=== PATIENT | female | born 1970 | race Caucasian/White ===

== ENCOUNTER 2021-08-12 22:49 | Emergency (ER) | payer OTHER, SELFPAY ==
--- NOTE | ~2021-08-12 | US_ITS ---
EXAMINATION: US VENOUS ULTRASOUND WITH DOPPLER LOWER EXTREMITY, RIGHT CLINICAL INFORMATION: Swelling and pain in the right lower extremity. Elevated d-dimer. COMPARISON: None TECHNIQUE: Ultrasound of the deep veins is performed from the hip to the calf with compression sonography and color and pulse Doppler assessment. Spectral analysis with color-flow imaging is performed. FINDINGS: There is normal venous compression and respiratory variation and augmented flow. The visualized common femoral vein, superficial femoral vein, profunda femoral vein, popliteal vein, and the trifurcation region shows no evidence of deep venous thrombosis. There is no significant popliteal fossa cyst. Multiple normal lymph nodes are seen in the inguinal region If the patient's symptoms persist, followup ultrasound in 5 days 7 days might be of value to exclude proximal propagation from a non-visualized calf vein. US/US venous duplex LE RT IMPRESSION: No DVT demonstrated in the right lower extremity.
[2021-08-12 23:58] VITALS: BP 153/96; PULSE 85; RESP 20; TEMP 37; O2SAT 97; BMI 37.2
[2021-08-13 00:21] LABS: MANUAL DIFF FLAG NO
[2021-08-13 00:24] LABS: Basophils Percent Auto 0.6 % (0-2); Eosinophils Absolute Auto 0.2 X10*3/uL (0.0-0.4); Hematocrit 38.7 % (37.0-47.0); Hemoglobin 12.8 g/dl (12.0-16.0); Imm Gran Abs Auto 0.02 X10*3/uL (0.00-0.03); Imm Gran Pct Auto 0.3 % (0.0-0.4); Lymphocytes Absolute Auto 0.6 X10*3/uL (1.2-4.9); Lymphocytes Percent Auto 9.1 % (20-40); Mean Corpuscular HGB Conc 33.1 g/dl (31.0-35.0); Mean Corpuscular Volume 87.8 fL (80.0-98.0); Mean Platelet Volume 10.4 fL (9.4-12.3); Monocytes Absolute Auto 0.5 X10*3/uL (0.1-1.2); Monocytes Percent Auto 6.4 % (2-11); Neutrophils Absolute Auto 5.7 x10*3/uL (2.0-8.3); Neutrophils Percent Auto 80.6 % (45-73); Platelet Count 243 X10*3/uL (160-400); Red Blood Count 4.41 X10*6/uL (4.20-5.50); Red Cell Distribution Width 12.6 % (11.0-16.0)
[2021-08-13 00:40] LABS: Alanine Aminotransferase 46 U/L (0-31); Albumin Level 3.7 g/dL (3.5-5.0); Alkaline Phosphatase 124 U/L (39-117); Anion Gap 13 (12-20); Aspartate Amino Transferase 49 U/L (5-31); Bilirubin Total 0.3 mg/dL (0.0-1.0); Blood Urea Nitrogen 10 mg/dL (9-16); Calcium 8.8 mg/dL (8.4-10.2); Carbon Dioxide 23 mmol/L (22-29); Chloride 104 mmol/L (96-108); Creatinine Clr Calc Pharmacy 105.8; Estimated Glomerular Filt Rate > 60; Glucose Random 146 mg/dL (60-115); Potassium 4.2 mmol/L (3.3-5.1); Sodium 136 mmol/L (135-145); Total Protein 7.4 g/dL (6.5-8.0)
[2021-08-13 00:48] LABS: COVID-19 Test Negative (Negative); IDNOW Serial# 55D5AD1C
[2021-08-13 02:21] VITALS: BP 145/67; PULSE 72; RESP 18; O2SAT 97
--- NOTE | 2021-08-13 04:02 | ED.GENADULT ---
HPI - General Adult General Chief complaint: General Medical Stated complaint: R Knee pain/Shoulder pain Time Seen by Provider: 08/13/21 04:02 Source: patient and family Mode of arrival: ambulatory History of Present Illness HPI narrative: 50-year-old female who is recently moved here from [place], 6 months ago, who comes in for significant pain in her right knee with extension into the right hip joint and was being treated for rheumatoid arthritis with immune modulators in [place], but she states that [place] has had some difficulty in getting back on her regular medication. She states that her right knee has progressively become more painful and she has noted swelling in the right lower extremity and now it is painful for her to bear weight. Patient is noted to have prescriptions for prednisone, methotrexate (she states she has been unable to get this filled due to the need for verification from the prescriber). Patient denies any fever, chills, shortness of breath, chest pain/palpitations, urinary symptoms or GI symptoms. Related Data Allergies Allergy/AdvReac Type Severity Reaction Status Date / Time No Known Allergies Allergy Verified 08/12/21 23:58 Review of Systems Review of Systems: Pertinent positives and negatives as stated in HPI 10 point review of systems is otherwise negative. PMFSH Past Medical History Source: nursing notes reviewed Social History Social History Advance Directives: No Advance Directives Information Provided: No Physical Exam ED Vital Signs: Vital Signs - 24 hr 08/12/21 23:58 08/13/21 02:21 08/13/21 04:23 Temperature 98.6 F Pulse Rate 85 72 88 Respiratory Rate 20 18 18 Blood Pressure 153/96 H 145/67 H 145/62 H Pulse Oximetry 97 97 99 Oxygen Delivery Method Room Air Room Air Room Air 08/13/21 06:07 Temperature 98.1 F Pulse Rate 78 Respiratory Rate 14 Blood Pressure 108/61 Pulse Oximetry 99 Oxygen Delivery Method Room Air BMI result Body Mass Index 37.2 VITAL SIGNS: Reviewed. GENERAL: Elevated BMI Well developed, well nourished, in no acute distress. HEAD: Normocephalic/atraumatic EYES: PERRLA, EOMI EARS: Ext canals without abnormality OROPHARYNX: no oral lesions noted, posterior pharynx clear LUNGS: Normal breath sounds. No adventitious sounds or accessory muscle use. SpO2<97> CARDIOVASCULAR: Regular rate and rhythm without noted murmurs ABDOMEN: Soft, non-tender, non-distended with bowel sounds. MUSCULOSKELETAL: No tenderness, deformities, or effusions noted on gross inspection. EXTREMITIES: No cyanosis, clubbing or edema; asymmetrical size between left and right lower extremities, there is extensive venous varicosities without noted erythema or palpation of cords. Examination is somewhat limited by body habitus and unable to tell whether not there is swelling around the right knee but there is no erythema/induration. Patient is noted to range of motion at the hip as well as knee though she reports pain. SKIN: Inspection of the skin reveals no rashes NEUROLOGIC: Alert and oriented x 4. Strength and sensation to light touch were grossly intact x 4. Course Course Course Narrative: 50-year-old female with history of rheumatoid arthritis as well as fibromyalgia and presents with right knee pain, pain on bearing weight and noting that her leg is more swollen than the other. Review of all investigations otherwise negative except for demonstration of elevated inflammatory markers which are consistent with patient's underlying diagnosis rheumatoid arthritis in only recent medication initiation with prednisone while awaiting approval for methotrexate. Patient was started on prednisone yesterday, there was a noted elevated D-dimer and given patient's complaints regarding her right lower extremity a venous duplex was ordered and noted to be negative for DVT. Patient has had improvement of her pain and will be discharged home in stable condition with encouragement to continue with her prednisone. Medical Decision Making Lab Data Result diagrams: 08/13/21 00:08 08/13/21 00:08 Labs: Lab Results 08/13/21 08/13/21 08/13/21 Range/Units 00:08 00:08 00:08 WBC 7.0 (4.8-10.8) X10*3/uL RBC 4.41 (4.20-5.50) X10*6/uL Hgb 12.8 (12.0-16.0) g/dl Hct 38.7 (37.0-47.0) % MCV 87.8 (80.0-98.0) fL MCH 29.0 (27.0-33.0) pg MCHC 33.1 (31.0-35.0) g/dl RDW 12.6 (11.0-16.0) % Plt Count 243 (160-400) X10*3/uL MPV 10.4 (9.4-12.3) fL Immature Gran % (Auto) 0.3 (0.0-0.4) % Neut % (Auto) 80.6 H (45-73) % Lymph % (Auto) 9.1 L (20-40) % [place] % (Auto) 6.4 (2-11) % Eos % (Auto) 3.0 (0-4) % Baso % (Auto) 0.6 (0-2) % Lymph # (Auto) 0.6 L (1.2-4.9) X10*3/uL [place] # (Auto) 0.5 (0.1-1.2) X10*3/uL Eos # (Auto) 0.2 (0.0-0.4) X10*3/uL Baso # (Auto) 0.0 (0.0-0.2) X10*3/uL Abs Immat Gran (auto) 0.02 (0.00-0.03) X10*3/uL Absolute Neuts (auto) 5.7 (2.0-8.3) x10*3/uL Absolute Nucleated RBC 0.000 (0.0-0.012) X10*3/uL Nucleated RBC % (auto) 0.0 (0.0-0.2) /100WBC ESR (0-20) MM/HR D-Dimer High Sensitivty NG/ML Sodium 136 (135-145) mmol/L Potassium 4.2 (3.3-5.1) mmol/L Chloride 104 (96-108) mmol/L Carbon Dioxide 23 (22-29) mmol/L Anion Gap 13 (12-20) BUN 10 (9-16) mg/dL Creatinine 0.69 (0.5-1.4) mg/dL Estim Creat Clear Calc 105.8 Estimated GFR > 60 Random Glucose 146 H (60-115) mg/dL Calcium 8.8 (8.4-10.2) mg/dL Total Bilirubin 0.3 (0.0-1.0) mg/dL AST 49 H (5-31) U/L ALT 46 H (0-31) U/L Alkaline Phosphatase 124 H (39-117) U/L C-Reactive Protein 4.51 H (< or = 0.50) mg/dL Total Protein 7.4 (6.5-8.0) g/dL Albumin 3.7 (3.5-5.0) g/dL COVID-19 ([facility]) Negative (Negative) COVID-19 Clin Com See Note 08/13/21 08/13/21 Range/Units 00:08 04:16 WBC (4.8-10.8) X10*3/uL RBC (4.20-5.50) X10*6/uL Hgb (12.0-16.0) g/dl Hct (37.0-47.0) % MCV (80.0-98.0) fL MCH (27.0-33.0) pg MCHC (31.0-35.0) g/dl RDW (11.0-16.0) % Plt Count (160-400) X10*3/uL MPV (9.4-12.3) fL Immature Gran % (Auto) (0.0-0.4) % Neut % (Auto) (45-73) % Lymph % (Auto) (20-40) % [place] % (Auto) (2-11) % Eos % (Auto) (0-4) % Baso % (Auto) (0-2) % Lymph # (Auto) (1.2-4.9) X10*3/uL [place] # (Auto) (0.1-1.2) X10*3/uL Eos # (Auto) (0.0-0.4) X10*3/uL Baso # (Auto) (0.0-0.2) X10*3/uL Abs Immat Gran (auto) (0.00-0.03) X10*3/uL Absolute Neuts (auto) (2.0-8.3) x10*3/uL Absolute Nucleated RBC (0.0-0.012) X10*3/uL Nucleated RBC % (auto) (0.0-0.2) /100WBC ESR 82 H (0-20) MM/HR D-Dimer High Sensitivty 1071 NG/ML Sodium (135-145) mmol/L Potassium (3.3-5.1) mmol/L Chloride (96-108) mmol/L Carbon Dioxide (22-29) mmol/L Anion Gap (12-20) BUN (9-16) mg/dL Creatinine (0.5-1.4) mg/dL Estim Creat Clear Calc Estimated GFR Random Glucose (60-115) mg/dL Calcium (8.4-10.2) mg/dL Total Bilirubin (0.0-1.0) mg/dL AST (5-31) U/L ALT (0-31) U/L Alkaline Phosphatase (39-117) U/L C-Reactive Protein (< or = 0.50) mg/dL Total Protein (6.5-8.0) g/dL Albumin (3.5-5.0) g/dL COVID-19 ([facility]ON) (Negative) COVID-19 Clin Com Discharge Plan Discharge Clinical Impression: Rheumatoid arthritis Patient Disposition: Home, Self-Care Instructions: Rheumatoid Arthritis (ED) Additional Instructions: Reanude todos los medicamentos caseros seg?n lo prescrito. Creo que la prednisona que te fry recetado mejorar? poco a poco tus s?ntomas. Todas radha pruebas realizadas esta noche en la liza de emergencias fueron negativas para hallazgos agudos, lo m?s importante, no hay evidencia de un co?gulo dentro de [place] pierna. Fransisco un seguimiento con [place] proveedor de atenci?n primaria el lunes por la ma?annabella. Regrese a la liza de emergencias si los s?ntomas empeoran. Print Language: Irish
[2021-08-13 04:21] LABS: C Reactive Protein 4.51 mg/dL (< or = 0.50)
[2021-08-13 04:23] VITALS: BP 145/62; PULSE 88; RESP 18; O2SAT 99
[2021-08-13 04:29] LABS: D Dimer High Sensitivity 1071 NG/ML
[2021-08-13 04:50] LABS: Erythrocyte Sedimentation Rate 82 MM/HR (0-20)
[2021-08-13 06:07] VITALS: BP 108/61; PULSE 78; RESP 14; TEMP 36.7; O2SAT 99
== END 2021-08-13 07:23 | disposition home or self-care (01) ==
PROVIDERS: Emergency Provider Student in an Organized Health Care Education/Training Program
DX: M06.9 Rheumatoid arthritis, unspecified (principal); M25.561 Pain in right knee; Z20.822 Contact with and (suspected) exposure to COVID-19
CPT/HCPCS: 36415; 80053; 85025; 85379; 85652; 86140; 87635; 93971; 99284

== ENCOUNTER 2021-09-27 10:09 | Outpatient (REF) | payer OTHER, SELFPAY ==
--- NOTE | ~2021-09-27 | XR_ITS ---
EXAMINATION: XR hand wrist LT, XR hand wrist RT CLINICAL INFORMATION: Reason for Exam M05.741 - Rheumatoid arthritis with rheumatoid factor of right hand with... COMPARISON: None. TECHNIQUE: 3 views both hands, scaphoid views both wrists FINDINGS: Right hand: Normal osseous mineralization. No acute fracture or dislocation. Joint spaces at the wrist are maintained. Suspected erosive change at the margin of the ulnar styloid. No chondrocalcinosis. Scapholunate interval is maintained. MCP joint spaces are maintained. There is a marginal erosion along the radial head of the first metacarpal. Mild soft tissue swelling overlying the dorsal MCP's on the lateral view. IP joint spaces are maintained without erosion. Left hand: Normal osseous mineralization. No fracture or dislocation. Joint spaces at the wrist are maintained. No chondrocalcinosis or erosions. Small bone fragment adjacent to the ulnar styloid compatible with remote avulsive injury. MCP joint spaces are maintained. Suspected small erosion at the radial head at the first metacarpal. Mild soft tissue prominence in her swelling overlying the dorsal MCP's. Mild fourth DIP joint space narrowing with mild subchondral sclerosis. IP joint spaces are otherwise maintained without erosion. XR/XR hand wrist LT IMPRESSION: 1. Marginal erosions at the first metacarpal heads of both hands and the right ulnar styloid. 2. Relatively preserved joint spaces bilaterally. 3. Mild soft tissue prominence possibly mild swelling overlying the dorsal MCP joints. Correlate with exam.
--- NOTE | ~2021-09-27 | XR_ITS ---
EXAMINATION: XR hand wrist LT, XR hand wrist RT CLINICAL INFORMATION: Reason for Exam M05.741 - Rheumatoid arthritis with rheumatoid factor of right hand with... COMPARISON: None. TECHNIQUE: 3 views both hands, scaphoid views both wrists FINDINGS: Right hand: Normal osseous mineralization. No acute fracture or dislocation. Joint spaces at the wrist are maintained. Suspected erosive change at the margin of the ulnar styloid. No chondrocalcinosis. Scapholunate interval is maintained. MCP joint spaces are maintained. There is a marginal erosion along the radial head of the first metacarpal. Mild soft tissue swelling overlying the dorsal MCP's on the lateral view. IP joint spaces are maintained without erosion. Left hand: Normal osseous mineralization. No fracture or dislocation. Joint spaces at the wrist are maintained. No chondrocalcinosis or erosions. Small bone fragment adjacent to the ulnar styloid compatible with remote avulsive injury. MCP joint spaces are maintained. Suspected small erosion at the radial head at the first metacarpal. Mild soft tissue prominence in her swelling overlying the dorsal MCP's. Mild fourth DIP joint space narrowing with mild subchondral sclerosis. IP joint spaces are otherwise maintained without erosion. XR/XR hand wrist RT IMPRESSION: 1. Marginal erosions at the first metacarpal heads of both hands and the right ulnar styloid. 2. Relatively preserved joint spaces bilaterally. 3. Mild soft tissue prominence possibly mild swelling overlying the dorsal MCP joints. Correlate with exam.
--- NOTE | ~2021-09-27 | XR_ITS ---
EXAMINATION: XR foot RT min 3V, XR foot LT min 3V CLINICAL INFORMATION: Reason for Exam M25.572 - Pain in the ankle and joints of both feet COMPARISON: None. TECHNIQUE: 3 views lateral feet FINDINGS: Right foot: No acute fracture or dislocation. Healed fracture deformities of the distal fourth and fifth metatarsals. Small marginal erosion at the medial aspect of the first metatarsal head as seen on the oblique view. No additional erosions. Joint spaces throughout the foot are maintained. Normal alignment at the Lisfranc joint. No erosive changes in the region of the retrocalcaneal bursa. No ankle joint effusion. Left foot: No fracture or dislocation. Suggestion of minimal first MTP joint space narrowing. There are marginal erosions at the first metatarsal head both medially and laterally. Slightly eroded appearance of the margin of the fifth metatarsal head as well. Remainder of the joint spaces are maintained throughout the foot. Lisfranc alignment is normal. Small posterior calcaneal spur. No erosive change in the region of the retrocalcaneal bursa. No ankle joint effusion. XR/XR foot LT min 3V IMPRESSION: 1. Marginal erosions at the first metatarsal heads bilaterally and left fifth metatarsal head compatible with underlying erosive arthropathy. 2. Minimal left first MTP joint space narrowing. Joint spaces otherwise maintained. 3. Chronic/healed fracture deformities of the distal right fourth and fifth metatarsals.
--- NOTE | ~2021-09-27 | XR_ITS ---
EXAMINATION: XR foot RT min 3V, XR foot LT min 3V CLINICAL INFORMATION: Reason for Exam M25.572 - Pain in the ankle and joints of both feet COMPARISON: None. TECHNIQUE: 3 views lateral feet FINDINGS: Right foot: No acute fracture or dislocation. Healed fracture deformities of the distal fourth and fifth metatarsals. Small marginal erosion at the medial aspect of the first metatarsal head as seen on the oblique view. No additional erosions. Joint spaces throughout the foot are maintained. Normal alignment at the Lisfranc joint. No erosive changes in the region of the retrocalcaneal bursa. No ankle joint effusion. Left foot: No fracture or dislocation. Suggestion of minimal first MTP joint space narrowing. There are marginal erosions at the first metatarsal head both medially and laterally. Slightly eroded appearance of the margin of the fifth metatarsal head as well. Remainder of the joint spaces are maintained throughout the foot. Lisfranc alignment is normal. Small posterior calcaneal spur. No erosive change in the region of the retrocalcaneal bursa. No ankle joint effusion. XR/XR foot RT min 3V IMPRESSION: 1. Marginal erosions at the first metatarsal heads bilaterally and left fifth metatarsal head compatible with underlying erosive arthropathy. 2. Minimal left first MTP joint space narrowing. Joint spaces otherwise maintained. 3. Chronic/healed fracture deformities of the distal right fourth and fifth metatarsals.
[2021-09-27 10:47] LABS: MANUAL DIFF FLAG NO
[2021-09-27 10:49] LABS: Basophils Absolute Auto 0.1 X10*3/uL (0.0-0.2); Basophils Percent Auto 0.7 % (0-2); Eosinophils Absolute Auto 0.2 X10*3/uL (0.0-0.4); Hematocrit 44.1 % (37.0-47.0); Imm Gran Abs Auto 0.03 X10*3/uL (0.00-0.03); Imm Gran Pct Auto 0.4 % (0.0-0.4); Lymphocytes Absolute Auto 1.8 X10*3/uL (1.2-4.9); Lymphocytes Percent Auto 23.4 % (20-40); Mean Corpuscular HGB Conc 31.7 g/dl (31.0-35.0); Mean Corpuscular Hemoglobin 28.6 pg (27.0-33.0); Mean Platelet Volume 10.7 fL (9.4-12.3); Monocytes Absolute Auto 0.5 X10*3/uL (0.1-1.2); Monocytes Percent Auto 6.9 % (2-11); Neutrophils Absolute Auto 5.1 x10*3/uL (2.0-8.3); Neutrophils Percent Auto 66.6 % (45-73); Platelet Count 242 X10*3/uL (160-400); Red Cell Distribution Width 13.2 % (11.0-16.0); White Blood Count 7.7 X10*3/uL (4.8-10.8)
[2021-09-27 11:14] LABS: Alanine Aminotransferase 38 U/L (0-31); Albumin Level 3.7 g/dL (3.5-5.0); Alkaline Phosphatase 102 U/L (39-117); Anion Gap 17 (12-20); Aspartate Amino Transferase 28 U/L (5-31); Bilirubin Total 0.3 mg/dL (0.0-1.0); Blood Urea Nitrogen 16 mg/dL (9-16); C Reactive Protein 3.44 mg/dL (< or = 0.50); Calcium 9.1 mg/dL (8.4-10.2); Carbon Dioxide 25 mmol/L (22-29); Chloride 103 mmol/L (96-108); Estimated Glomerular Filt Rate > 60; Glucose Random 77 mg/dL (60-115); Potassium 4.6 mmol/L (3.3-5.1); Sodium 140 mmol/L (135-145); Total Protein 7.7 g/dL (6.5-8.0); Uric Acid 4.9 mg/dL (2.4-5.7)
[2021-09-27 11:46] LABS: Erythrocyte Sedimentation Rate 77 MM/HR (0-20)
[2021-09-30 03:42] LABS: TS Negative Control Passed; TS Panel A 0; TS Panel B 0; TS Positive Control Passed; TSpotTB Negative (Negative)
== END 2021-09-27 10:10 | disposition home or self-care (01) ==
LOC: HO.10HDL 10:09
PROVIDERS: PCP Physician Assistant; Visit Provider Student in an Organized Health Care Education/Training Program
DX: M05.741 Rheumatoid arthritis with rheumatoid factor of right hand without organ or systems involvement (principal); M05.742 Rheumatoid arthritis with rheumatoid factor of left hand without organ or systems involvement; M25.571 Pain in right ankle and joints of right foot; M25.572 Pain in left ankle and joints of left foot; Z11.7 Encounter for testing for latent tuberculosis infection
CPT/HCPCS: 36415; 73110; 73130; 73630; 80053; 84550; 85025; 85652; 86140; 86481

== ENCOUNTER 2021-10-06 10:52 | Outpatient (REF) | payer OTHER, SELFPAY ==
--- NOTE | ~2021-10-06 | MM_ITS ---
EXAMINATION: BONE DENSITOMETRY CLINICAL INDICATION: Screening for osteoporosis. COMPARISON: None (current study represents initial baseline exam). TECHNIQUE: Using a [employer] DXA System (software version: 13.1) manufactured by [employer], dual-energy x-ray absorptiometry was performed of the lumbar spine and left hip. The images are of good technical quality. Summary results are attached. FINDINGS: AP SPINE L1-L4: BMD 1.186 g/cm2, Z-score -0.4, T-score 0.0, normal. LEFT FEMUR, NECK: BMD 0.952 g/cm2, Z-score -0.4, T-score -0.6, normal. LEFT FEMUR, TOTAL: BMD 1.097 g/cm2, Z-score 0.5, T-score 0.7, normal. IDENTIFIED RISK FACTORS: Menopause, rheumatoid arthritis, glucocorticoids (chronic). HISTORY OF FRACTURE: None listed. MEDICATIONS: None listed. MM/XR DEXA axial skeleton IMPRESSION: 1. DIAGNOSIS: Normal bone density based on the lowest T-score value of -0.6 in the femoral neck applying World Health Organization criteria. 2. 10-YEAR FRACTURE RISK PREDICTION, FRAX: According to the guidelines, FRAX calculation should only be performed on patients in the osteopenia bone density category. Therefore, FRAX was not performed on this patient. 3. Treatment Recommendations: NOF guidelines recommend consideration for treatment in postmenopausal women and men age 50 and older presenting with the following: -A hip or vertebral (clinical or morphometric) fracture. -T-score less than or equal to -2.5 at the femoral neck or spine after appropriate evaluation to exclude secondary causes. -Low bone mass at the hip or spine and a 10-year fracture probability by FRAX of greater than or equal to 3% for hip fracture or greater than or equal to 20% for major osteoporotic fracture based on the [place] adapted WHO algorithm. 4. Other Recommendations: All treatment decisions require clinical judgment and consideration of individual patient factors, including patient preferences, comorbidities, previous drug use, risk factors not captured in the FRAX model (e.g. frailty, falls, vitamin D deficiency, increased bone turnover, interval significant decline in bone density) and possible under or overestimation of fracture risk by FRAX. FUTURE SCAN RECOMMENDATION: People with diagnosed cases of osteoporosis or at high risk for fracture should have regular bone mineral density tests. For patients eligible for Medicare, routine testing is allowed once every 2 years. The testing frequency can be increased to one year for patients who have rapidly progressing disease, those who are receiving or discontinuing medical therapy to restore bone mass, or have additional risk factors.
== END 2021-10-06 10:53 | disposition home or self-care (01) ==
LOC: HO.MAMMO 10:52
PROVIDERS: PCP Internal Medicine; Visit Provider Student in an Organized Health Care Education/Training Program
DX: Z13.820 Encounter for screening for osteoporosis (principal); M06.9 Rheumatoid arthritis, unspecified; Z78.0 Asymptomatic menopausal state; Z79.899 Other long term (current) drug therapy
CPT/HCPCS: 77080

== ENCOUNTER 2021-10-26 08:49 | Outpatient (REF) | payer OTHER, SELFPAY ==
[2021-10-26 10:34] LABS: MANUAL DIFF FLAG NO
[2021-10-26 10:52] LABS: Basophils Absolute Auto 0.1 X10*3/uL (0.0-0.2); Basophils Percent Auto 1.1 % (0-2); Eosinophils Absolute Auto 0.2 X10*3/uL (0.0-0.4); Eosinophils Percent Auto 4.3 % (0-4); Hematocrit 42.5 % (37.0-47.0); Hemoglobin 13.5 g/dl (12.0-16.0); Imm Gran Abs Auto 0.01 X10*3/uL (0.00-0.03); Imm Gran Pct Auto 0.2 % (0.0-0.4); Lymphocytes Absolute Auto 1.2 X10*3/uL (1.2-4.9); Lymphocytes Percent Auto 26.4 % (20-40); Mean Corpuscular HGB Conc 31.8 g/dl (31.0-35.0); Mean Corpuscular Hemoglobin 28.5 pg (27.0-33.0); Mean Corpuscular Volume 89.7 fL (80.0-98.0); Mean Platelet Volume 11.4 fL (9.4-12.3); Monocytes Absolute Auto 0.4 X10*3/uL (0.1-1.2); Monocytes Percent Auto 9.2 % (2-11); Neutrophils Absolute Auto 2.6 x10*3/uL (2.0-8.3); Neutrophils Percent Auto 58.8 % (45-73); Platelet Count 224 X10*3/uL (160-400); Red Blood Count 4.74 X10*6/uL (4.20-5.50); Red Cell Distribution Width 14.7 % (11.0-16.0); White Blood Count 4.4 X10*3/uL (4.8-10.8)
[2021-10-26 11:26] LABS: Alanine Aminotransferase 47 U/L (0-31); Alkaline Phosphatase 98 U/L (39-117); Anion Gap 15 (12-20); Aspartate Amino Transferase 43 U/L (5-31); Bilirubin Total 0.6 mg/dL (0.0-1.0); Blood Urea Nitrogen 12 mg/dL (9-16); C Reactive Protein 4.39 mg/dL (< or = 0.50); Carbon Dioxide 28 mmol/L (22-29); Chloride 102 mmol/L (96-108); Estimated Glomerular Filt Rate > 60; Glucose Random 81 mg/dL (60-115); Potassium 4.3 mmol/L (3.3-5.1); Sodium 141 mmol/L (135-145); Total Protein 7.7 g/dL (6.5-8.0)
[2021-10-26 11:55] LABS: Erythrocyte Sedimentation Rate 72 MM/HR (0-20)
[2021-10-31 14:06] LABS: Vitamin D 25-OH, D2 <4 ng/mL; Vitamin D 25-OH, D3 28 ng/mL; Vitamin D 25-OH, Total 28 ng/mL (30-100)
== END 2021-10-26 08:50 | disposition home or self-care (01) ==
LOC: HO.10HDL 08:49
PROVIDERS: Visit Provider Student in an Organized Health Care Education/Training Program
DX: Z13.21 Encounter for screening for nutritional disorder (principal); M05.741 Rheumatoid arthritis with rheumatoid factor of right hand without organ or systems involvement; M05.742 Rheumatoid arthritis with rheumatoid factor of left hand without organ or systems involvement
CPT/HCPCS: 36415; 80053; 82306; 85025; 85652; 86140

== ENCOUNTER 2021-12-07 10:17 | Outpatient (REF) | payer OTHER, SELFPAY ==
[2021-12-07 13:44] LABS: MANUAL DIFF FLAG NO
[2021-12-07 13:51] LABS: Basophils Absolute Auto 0.1 X10*3/uL (0.0-0.2); Basophils Percent Auto 0.8 % (0-2); Eosinophils Absolute Auto 0.3 X10*3/uL (0.0-0.4); Eosinophils Percent Auto 3.7 % (0-4); Hematocrit 37.2 % (37.0-47.0); Hemoglobin 12.1 g/dl (12.0-16.0); Imm Gran Abs Auto 0.06 X10*3/uL (0.00-0.03); Imm Gran Pct Auto 0.8 % (0.0-0.4); Lymphocytes Absolute Auto 1.9 X10*3/uL (1.2-4.9); Lymphocytes Percent Auto 25.8 % (20-40); Mean Corpuscular HGB Conc 32.5 g/dl (31.0-35.0); Mean Corpuscular Volume 92.3 fL (80.0-98.0); Mean Platelet Volume 10.7 fL (9.4-12.3); Monocytes Absolute Auto 0.5 X10*3/uL (0.1-1.2); Monocytes Percent Auto 6.3 % (2-11); Neutrophils Absolute Auto 4.6 x10*3/uL (2.0-8.3); Neutrophils Percent Auto 62.6 % (45-73); Platelet Count 320 X10*3/uL (160-400); Red Blood Count 4.03 X10*6/uL (4.20-5.50); Red Cell Distribution Width 15.9 % (11.0-16.0); White Blood Count 7.3 X10*3/uL (4.8-10.8)
[2021-12-07 14:00] LABS: Alanine Aminotransferase 25 U/L (0-31); Albumin Level 3.6 g/dL (3.5-5.0); Alkaline Phosphatase 93 U/L (39-117); Anion Gap 13 (12-20); Aspartate Amino Transferase 22 U/L (5-31); Bilirubin Total 0.6 mg/dL (0.0-1.0); Blood Urea Nitrogen 16 mg/dL (9-16); C Reactive Protein 2.82 mg/dL (< or = 0.50); Carbon Dioxide 27 mmol/L (22-29); Chloride 105 mmol/L (96-108); Estimated Glomerular Filt Rate > 60; Glucose Random 74 mg/dL (60-115); Sodium 141 mmol/L (135-145); Total Protein 6.8 g/dL (6.5-8.0)
[2021-12-07 14:30] LABS: Erythrocyte Sedimentation Rate 59 MM/HR (0-20)
== END 2021-12-07 10:18 | disposition home or self-care (01) ==
LOC: HO.10HDL 10:17
PROVIDERS: Visit Provider Student in an Organized Health Care Education/Training Program
DX: M05.741 Rheumatoid arthritis with rheumatoid factor of right hand without organ or systems involvement (principal); M05.742 Rheumatoid arthritis with rheumatoid factor of left hand without organ or systems involvement
CPT/HCPCS: 36415; 80053; 85025; 85652; 86140

== ENCOUNTER 2022-03-13 09:01 | Outpatient (REF) | payer OTHER, SELFPAY ==
[2022-03-13 09:24] LABS: MANUAL DIFF FLAG NO
[2022-03-13 10:21] LABS: Basophils Absolute Auto 0.1 X10*3/uL (0.0-0.2); Basophils Percent Auto 0.7 % (0-2); Eosinophils Absolute Auto 0.2 X10*3/uL (0.0-0.4); Eosinophils Percent Auto 2.4 % (0-4); Hematocrit 44.2 % (37.0-47.0); Hemoglobin 14.2 g/dl (12.0-16.0); Imm Gran Abs Auto 0.02 X10*3/uL (0.00-0.03); Imm Gran Pct Auto 0.3 % (0.0-0.4); Lymphocytes Absolute Auto 2.6 X10*3/uL (1.2-4.9); Lymphocytes Percent Auto 33.4 % (20-40); Mean Corpuscular HGB Conc 32.1 g/dl (31.0-35.0); Mean Corpuscular Hemoglobin 28.5 pg (27.0-33.0); Mean Corpuscular Volume 88.6 fL (80.0-98.0); Mean Platelet Volume 11.7 fL (9.4-12.3); Monocytes Absolute Auto 0.7 X10*3/uL (0.1-1.2); Monocytes Percent Auto 8.5 % (2-11); Neutrophils Absolute Auto 4.2 x10*3/uL (2.0-8.3); Neutrophils Percent Auto 54.7 % (45-73); Platelet Count 243 X10*3/uL (160-400); Red Blood Count 4.99 X10*6/uL (4.20-5.50); White Blood Count 7.6 X10*3/uL (4.8-10.8)
[2022-03-13 11:11] LABS: Erythrocyte Sedimentation Rate 26 MM/HR (0-20)
[2022-03-13 11:14] LABS: Alanine Aminotransferase 60 U/L (0-31); Albumin Level 3.9 g/dL (3.5-5.0); Alkaline Phosphatase 80 U/L (39-117); Anion Gap 13 (12-20); Aspartate Amino Transferase 38 U/L (5-31); Bilirubin Total 0.5 mg/dL (0.0-1.0); Blood Urea Nitrogen 16 mg/dL (9-16); C Reactive Protein 0.66 mg/dL (< or = 0.50); Calcium 9.2 mg/dL (8.4-10.2); Carbon Dioxide 23 mmol/L (22-29); Chloride 108 mmol/L (96-108); Estimated Glomerular Filt Rate > 60; Glucose Random 79 mg/dL (60-115); Potassium 3.9 mmol/L (3.3-5.1); Sodium 140 mmol/L (135-145); Total Protein 7.1 g/dL (6.5-8.0)
== END 2022-03-13 09:02 | disposition home or self-care (01) ==
LOC: HO.LAB 09:01
PROVIDERS: PCP Internal Medicine; Visit Provider Student in an Organized Health Care Education/Training Program
DX: M05.741 Rheumatoid arthritis with rheumatoid factor of right hand without organ or systems involvement (principal); M05.742 Rheumatoid arthritis with rheumatoid factor of left hand without organ or systems involvement
CPT/HCPCS: 36415; 80053; 85025; 85652; 86140

== ENCOUNTER 2022-03-16 07:26 | Outpatient (REF) | payer OTHER, SELFPAY ==
--- NOTE | ~2022-03-16 | XR_ITS ---
EXAMINATION: XR cervical spine 4V CLINICAL INFORMATION: Pain COMPARISON: None TECHNIQUE: 5 views of the cervical spine were obtained. FINDINGS: The cervical spine is visualized to the level of C6-C7 on the lateral view. Vertebral body alignment is maintained. Vertebral body heights are maintained. Lateral masses of C1 are well aligned on C2. Visualized portion of the dens is intact. Moderate degenerative disc disease at 5 C6 and C6-C7, manifested by loss of disc space height and facet arthropathy. Uncovertebral hypertrophy and facet arthropathy results in moderate neural foraminal narrowing on the right at C5-C6 and C6-C7 and in moderate neural foraminal narrowing on the left at C5-C6 and C6-C7. No prevertebral soft tissue swelling. XR/XR cervical spine 4V IMPRESSION: * Moderate spondylosis of the cervical spine, as above detailed. * Moderate neural foraminal narrowing, as above detailed.
--- NOTE | ~2022-03-16 | XR_ITS ---
EXAMINATION: XR LUMBOSACRAL SPINE WITH OBLIQUES CLINICAL INFORMATION: Reason for Exam M54.50 - Low back pain, unspecified COMPARISON: None TECHNIQUE: 5 views of the lumbar spine FINDINGS: Transitional anatomy. There are 4 nonrib-bearing lumbar-type vertebral bodies with sacralization of L5 and rudimentary L5-S1 disc space. Vertebral body heights are maintained. Alignment is maintained. No pars defects. Disc space heights are maintained. Paravertebral soft tissues are unremarkable. Generative changes of the XR/XR lumbar spine 4V min partially imaged hips. IMPRESSION: * No significant degenerative disc disease. * Transitional anatomy with 4 nonrib-bearing lumbar-type vertebral bodies and sacralization of L5-S1. If intervention is being considered recommend total spine radiographs to ensure accurate numbering.
--- NOTE | ~2022-03-16 | XR_ITS ---
EXAMINATION: XR SHOULDER, LEFT CLINICAL INFORMATION: Reason for Exam M05.741 - Rheumatoid arthritis with rheumatoid factor of right hand with... COMPARISON: None TECHNIQUE: Four views of the shoulder. FINDINGS: No acute fracture or dislocation. Mild degenerative changes of the acromioclavicular joint with degenerative spurring. No cortical erosions. Soft tissues are unremarkable. XR/XR shoulder LT min 2V IMPRESSION: * Mild degenerative changes of the shoulder.
== END 2022-03-16 07:27 | disposition home or self-care (01) ==
LOC: HO.XRAY 07:26
PROVIDERS: PCP Internal Medicine; Visit Provider Student in an Organized Health Care Education/Training Program
DX: M54.2 Cervicalgia (principal); M54.50 Low back pain, unspecified; M05.742 Rheumatoid arthritis with rheumatoid factor of left hand without organ or systems involvement; M05.741 Rheumatoid arthritis with rheumatoid factor of right hand without organ or systems involvement; M48.061 Spinal stenosis, lumbar region without neurogenic claudication; R74.01 Elevation of levels of liver transaminase levels; M17.11 Unilateral primary osteoarthritis, right knee; Z79.631 Long term (current) use of antimetabolite agent
CPT/HCPCS: 72050; 72110; 73030

== ENCOUNTER → 2022-04-03 14:34 | Outpatient (BNVA) | payer OTHER, SELFPAY | PROVIDERS: PCP Physician Assistant; Visit Provider Physician Assistant Surgical | DX: Z13.89 Encounter for screening for other disorder (principal) ==

== ENCOUNTER 2022-05-02 07:00 | Outpatient (RCR) | payer OTHER, SELFPAY | END 2022-05-19 15:11 | disposition home or self-care (01) | LOC: HO.PT 07:00 | PROVIDERS: PCP Physician Assistant; Visit Provider Student in an Organized Health Care Education/Training Program | DX: M48.061 Spinal stenosis, lumbar region without neurogenic claudication (principal) | CPT/HCPCS: 97110; 97140; 97161; 97530 ==

== ENCOUNTER → 2022-05-09 08:29 | Outpatient (BNVA) | payer OTHER, SELFPAY | PROVIDERS: PCP Physician Assistant; Visit Provider Physician Assistant Surgical | DX: Z13.89 Encounter for screening for other disorder (principal) ==

== ENCOUNTER 2022-05-11 09:52 | Outpatient (REF) | payer OTHER, SELFPAY ==
--- NOTE | ~2022-05-11 | XR_ITS ---
EXAMINATION: XR CHEST CLINICAL INFORMATION: Chronic cough. COMPARISON: None available. TECHNIQUE: 2 views of the chest were obtained. FINDINGS: No significant abnormality is noted involving the heart, lungs, mediastinum, bony thorax or soft tissues. XR/XR chest 2V IMPRESSION: No acute cardiopulmonary process.
[2022-05-11 10:22] LABS: MANUAL DIFF FLAG NO
[2022-05-11 11:04] LABS: Basophils Percent Auto 0.4 % (0-2); Eosinophils Absolute Auto 0.4 X10*3/uL (0.0-0.4); Eosinophils Percent Auto 8.3 % (0-4); Hematocrit 43.2 % (37.0-47.0); Imm Gran Abs Auto 0.02 X10*3/uL (0.00-0.03); Imm Gran Pct Auto 0.4 % (0.0-0.4); Lymphocytes Absolute Auto 1.6 X10*3/uL (1.2-4.9); Lymphocytes Percent Auto 30.5 % (20-40); Mean Corpuscular HGB Conc 32.4 g/dl (31.0-35.0); Mean Corpuscular Hemoglobin 29.2 pg (27.0-33.0); Mean Corpuscular Volume 90.2 fL (80.0-98.0); Mean Platelet Volume 11.4 fL (9.4-12.3); Monocytes Absolute Auto 0.4 X10*3/uL (0.1-1.2); Monocytes Percent Auto 8.5 % (2-11); Neutrophils Absolute Auto 2.6 x10*3/uL (2.0-8.3); Neutrophils Percent Auto 51.9 % (45-73); Platelet Count 207 X10*3/uL (160-400); Red Blood Count 4.79 X10*6/uL (4.20-5.50); Red Cell Distribution Width 14.7 % (11.0-16.0); White Blood Count 5.1 X10*3/uL (4.8-10.8)
[2022-05-11 11:38] LABS: Alanine Aminotransferase 96 U/L (0-31); Alkaline Phosphatase 96 U/L (39-117); Anion Gap 13 (12-20); Aspartate Amino Transferase 73 U/L (5-31); Bilirubin Total 0.7 mg/dL (0.0-1.0); Blood Urea Nitrogen 13 mg/dL (9-16); C Reactive Protein 1.55 mg/dL (< or = 0.50); Calcium 9.6 mg/dL (8.4-10.2); Carbon Dioxide 28 mmol/L (22-29); Chloride 107 mmol/L (96-108); Cholesterol 183 mg/dL; Estimated Glomerular Filt Rate > 60; Glucose Random 87 mg/dL (60-115); HDL Cholesterol 50 mg/dL; LDL Cholesterol Calculated 90 mg/dl; Potassium 4.6 mmol/L (3.3-5.1); Sodium 143 mmol/L (135-145); Total Protein 7.3 g/dL (6.5-8.0); Triglycerides 215 mg/dL
[2022-05-11 13:05] LABS: Erythrocyte Sedimentation Rate 33 MM/HR (0-20)
== END 2022-05-11 09:53 | disposition home or self-care (01) ==
LOC: HO.XRAY 09:52
PROVIDERS: Student in an Organized Health Care Education/Training Program; PCP Internal Medicine; Visit Provider Physician Assistant
DX: R05.3 Chronic cough (principal); E78.5 Hyperlipidemia, unspecified; Z79.631 Long term (current) use of antimetabolite agent
CPT/HCPCS: 36415; 71046; 80053; 80061; 85025; 85652; 86140

== ENCOUNTER → 2022-05-30 07:31 | Outpatient (BNVA) | payer OTHER, SELFPAY | PROVIDERS: PCP Internal Medicine; Visit Provider Student in an Organized Health Care Education/Training Program | DX: Z13.820 Encounter for screening for osteoporosis (principal); M17.11 Unilateral primary osteoarthritis, right knee; M05.741 Rheumatoid arthritis with rheumatoid factor of right hand without organ or systems involvement; M05.742 Rheumatoid arthritis with rheumatoid factor of left hand without organ or systems involvement; M48.061 Spinal stenosis, lumbar region without neurogenic claudication; M79.7 Fibromyalgia; R74.01 Elevation of levels of liver transaminase levels; E78.5 Hyperlipidemia, unspecified; Z79.52 Long term (current) use of systemic steroids | CPT/HCPCS: 99212 ==

== ENCOUNTER 2022-05-30 08:56 | Outpatient (REF) | payer OTHER, SELFPAY ==
[2022-05-30 10:42] LABS: MANUAL DIFF FLAG NO
[2022-05-30 10:50] LABS: Basophils Percent Auto 0.7 % (0-2); Eosinophils Absolute Auto 0.3 X10*3/uL (0.0-0.4); Hematocrit 42.4 % (37.0-47.0); Hemoglobin 13.6 g/dl (12.0-16.0); Imm Gran Abs Auto 0.02 X10*3/uL (0.00-0.03); Imm Gran Pct Auto 0.3 % (0.0-0.4); Lymphocytes Absolute Auto 1.3 X10*3/uL (1.2-4.9); Lymphocytes Percent Auto 22.3 % (20-40); Mean Corpuscular HGB Conc 32.1 g/dl (31.0-35.0); Mean Corpuscular Hemoglobin 29.6 pg (27.0-33.0); Mean Corpuscular Volume 92.2 fL (80.0-98.0); Mean Platelet Volume 11.8 fL (9.4-12.3); Monocytes Absolute Auto 0.4 X10*3/uL (0.1-1.2); Neutrophils Absolute Auto 3.9 x10*3/uL (2.0-8.3); Neutrophils Percent Auto 64.7 % (45-73); Platelet Count 229 X10*3/uL (160-400); Red Cell Distribution Width 13.8 % (11.0-16.0)
[2022-05-30 11:38] LABS: Erythrocyte Sedimentation Rate 34 MM/HR (0-20)
[2022-05-30 11:51] LABS: Alanine Aminotransferase 62 U/L (0-31); Albumin Level 3.9 g/dL (3.5-5.0); Alkaline Phosphatase 86 U/L (39-117); Anion Gap 12 (12-20); Aspartate Amino Transferase 48 U/L (5-31); Bilirubin Total 0.4 mg/dL (0.0-1.0); Blood Urea Nitrogen 19 mg/dL (9-16); C Reactive Protein 0.94 mg/dL (< or = 0.50); Calcium 9.1 mg/dL (8.4-10.2); Carbon Dioxide 27 mmol/L (22-29); Chloride 110 mmol/L (96-108); Cholesterol 198 mg/dL; Estimated Glomerular Filt Rate > 60; Glucose Random 100 mg/dL (60-115); HDL Cholesterol 53 mg/dL; LDL Cholesterol Calculated 109 mg/dl; Potassium 4.3 mmol/L (3.3-5.1); Sodium 145 mmol/L (135-145); Total Protein 7.1 g/dL (6.5-8.0); Triglycerides 184 mg/dL
== END 2022-05-30 08:57 | disposition home or self-care (01) ==
LOC: HO.10HDL 08:56
PROVIDERS: Visit Provider Student in an Organized Health Care Education/Training Program
DX: M05.741 Rheumatoid arthritis with rheumatoid factor of right hand without organ or systems involvement (principal); M05.742 Rheumatoid arthritis with rheumatoid factor of left hand without organ or systems involvement; E78.5 Hyperlipidemia, unspecified
CPT/HCPCS: 36415; 80053; 80061; 85025; 85652; 86140

== ENCOUNTER → 2022-05-31 08:38 | Outpatient (BNVA) | payer OTHER, SELFPAY | PROVIDERS: PCP Internal Medicine; Visit Provider Physician Assistant | DX: Z13.89 Encounter for screening for other disorder (principal) ==

== ENCOUNTER → 2022-06-28 09:14 | Outpatient (BNVA) | payer OTHER, SELFPAY | PROVIDERS: PCP Internal Medicine; Referring Provider Internal Medicine; Visit Provider Dietitian, Registered | DX: E66.3 Overweight (principal); Z90.3 Acquired absence of stomach [part of]; Z71.3 Dietary counseling and surveillance | CPT/HCPCS: 97802 ==

== ENCOUNTER 2022-07-04 06:38 | Outpatient (REF) | payer OTHER, SELFPAY ==
[2022-07-04 06:59] LABS: MANUAL DIFF FLAG NO
[2022-07-04 07:20] LABS: Basophils Absolute Auto 0.1 X10*3/uL (0.0-0.2); Basophils Percent Auto 0.6 % (0-2); Eosinophils Absolute Auto 0.4 X10*3/uL (0.0-0.4); Eosinophils Percent Auto 4.2 % (0-4); Hematocrit 45.3 % (37.0-47.0); Hemoglobin 14.1 g/dl (12.0-16.0); Imm Gran Abs Auto 0.03 X10*3/uL (0.00-0.03); Imm Gran Pct Auto 0.4 % (0.0-0.4); Lymphocytes Absolute Auto 2.2 X10*3/uL (1.2-4.9); Lymphocytes Percent Auto 26.7 % (20-40); Mean Corpuscular HGB Conc 31.1 g/dl (31.0-35.0); Mean Platelet Volume 11.3 fL (9.4-12.3); Monocytes Absolute Auto 0.5 X10*3/uL (0.1-1.2); Monocytes Percent Auto 6.3 % (2-11); Neutrophils Absolute Auto 5.2 x10*3/uL (2.0-8.3); Neutrophils Percent Auto 61.8 % (45-73); Platelet Count 239 X10*3/uL (160-400); Red Blood Count 4.87 X10*6/uL (4.20-5.50); Red Cell Distribution Width 12.3 % (11.0-16.0); White Blood Count 8.4 X10*3/uL (4.8-10.8)
[2022-07-04 07:54] LABS: Erythrocyte Sedimentation Rate 30 MM/HR (0-20)
[2022-07-04 07:55] LABS: Alanine Aminotransferase 40 U/L (0-31); Albumin Level 3.7 g/dL (3.5-5.0); Alkaline Phosphatase 85 U/L (39-117); Anion Gap 11 (12-20); Aspartate Amino Transferase 20 U/L (5-31); Bilirubin Total 0.4 mg/dL (0.0-1.0); Blood Urea Nitrogen 27 mg/dL (9-16); C Reactive Protein 0.81 mg/dL (< or = 0.50); Calcium 9.6 mg/dL (8.4-10.2); Carbon Dioxide 30 mmol/L (22-29); Chloride 107 mmol/L (96-108); Cholesterol 171 mg/dL; Estimated Glomerular Filt Rate 56; Glucose Random 89 mg/dL (60-115); HDL Cholesterol 48 mg/dL; LDL Cholesterol Calculated 88 mg/dl; Potassium 5.1 mmol/L (3.3-5.1); Sodium 143 mmol/L (135-145); Total Protein 6.9 g/dL (6.5-8.0); Triglycerides 179 mg/dL
== END 2022-07-04 06:39 | disposition home or self-care (01) ==
LOC: HO.LAB 06:38
PROVIDERS: Visit Provider Student in an Organized Health Care Education/Training Program
DX: M05.741 Rheumatoid arthritis with rheumatoid factor of right hand without organ or systems involvement (principal); M05.742 Rheumatoid arthritis with rheumatoid factor of left hand without organ or systems involvement; E78.5 Hyperlipidemia, unspecified
CPT/HCPCS: 36415; 80053; 80061; 85025; 85652; 86140

== ENCOUNTER → 2022-07-26 09:47 | Outpatient (BNVA) | payer OTHER, SELFPAY | PROVIDERS: PCP Internal Medicine; Visit Provider Physician Assistant ==

== ENCOUNTER 2022-08-05 07:10 | Outpatient (REF) | payer OTHER, SELFPAY ==
[2022-08-05 08:46] LABS: Alanine Aminotransferase 38 U/L (0-31); Albumin Level 3.8 g/dL (3.5-5.0); Alkaline Phosphatase 74 U/L (39-117); Anion Gap 14 (12-20); Aspartate Amino Transferase 27 U/L (5-31); Bilirubin Total 0.5 mg/dL (0.0-1.0); Blood Urea Nitrogen 18 mg/dL (9-16); C Reactive Protein 0.43 mg/dL (< or = 0.50); Calcium 9.6 mg/dL (8.4-10.2); Carbon Dioxide 25 mmol/L (22-29); Chloride 109 mmol/L (96-108); Cholesterol 196 mg/dL; Estimated Glomerular Filt Rate > 60; Glucose Random 89 mg/dL (60-115); HDL Cholesterol 61 mg/dL; LDL Cholesterol Calculated 103 mg/dl; Potassium 3.8 mmol/L (3.3-5.1); Sodium 144 mmol/L (135-145); Total Protein 7.3 g/dL (6.5-8.0); Triglycerides 164 mg/dL
== END 2022-08-05 07:11 | disposition home or self-care (01) ==
LOC: HO.LAB 07:10
PROVIDERS: PCP Physician Assistant; Visit Provider Student in an Organized Health Care Education/Training Program
DX: E78.5 Hyperlipidemia, unspecified (principal); M05.741 Rheumatoid arthritis with rheumatoid factor of right hand without organ or systems involvement; M05.742 Rheumatoid arthritis with rheumatoid factor of left hand without organ or systems involvement
CPT/HCPCS: 36415; 80053; 80061; 85025; 85652; 86140

== ENCOUNTER 2022-08-17 10:04 | Outpatient (AMB) | payer OTHER, SELFPAY ==
--- NOTE | 2022-08-17 10:06 | A.OFFVIS_ITS ---
Intake VS Expanded 08/17/22 10:11 Height 5 ft 3 in Weight 204 lb 9.6 oz BMI 36.2 BP 136/60 Blood Pressure Location Rt brachial Blood Pressure Position Sitting Pulse 71 Pulse Source Pulse Oximeter Temp 96.6 F L Temperature Source Temporal Artery Scan Pulse Oximetry 98 Oxygen Delivery Method Room Air Body Fat 92.0 Body Fat Percentage 44.9 Free Fat Mass 112.6 Muscle Mass 107.0 Visceral Mass 12.0 Water Mass 80.0 BMR 1,579 Intake Visit Reasons: (OV) F/U SWL Allergies No Known Allergies Allergy (Verified 08/17/22 10:10) HPI HPI Comments History of Present Illness Details [facility] patient, [employer] on 05/31/22 at 216.8 lbs, saw Janki on 06/28 at 205 lbs at which time she was not eating enough or following our plan well. No weight loss since then. Was not able to watch the online classes. She is not able to cook food in her home only has access to other peoples food and not on our meal plan. Herbal life shake in am. Then eats whatever she has access to. Exercise - started on treadmill but hurt her low back and stopped. [facility] Medical History (Updated 05/31/22 @ 08:45 by Laura Lozano PA-C) Anxiety and depression Bilateral carpal tunnel syndrome Fibromyalgia Herniated disc, cervical Hypothyroidism Low back pain, unspecified Peripheral artery disease Surgical History H/O lateral meniscus repair of right knee History of knee replacement History of surgery History of surgery Hx of cholecystectomy Hx of right knee surgery Family History Sister Fibromyalgia Paternal Aunt Arthritis Other Rheumatoid arthritis Social History Household Members: Family Alcohol intake: former Year quit: 2016 Patient Tobacco Use Status: Former Tobacco user Quit Date: 2016 Physical Exam Vital Signs: Last Vital Signs Temp 96.6 F L 08/17/22 10:11 Pulse 71 08/17/22 10:11 BP 136/60 08/17/22 10:11 Pulse Ox 98 08/17/22 10:11 Oxygen Delivery Method Room Air 08/17/22 10:11 BMI result Body Mass Index 36.2 Assessment & Plan Assessment & Plan (1) Obesity: Code(s): E66.9 - Obesity, unspecified Plan: Pt started in our [facility] program and lost 12.9 lbs or 5.9%. She states she is unable to contineu in our program with her living situation. But is open to ideas for meals and exercise. breakfast - shake lunch- shake or if at her sisters house have meal of protein/veg and 1/2 c carb or open face sandwich snack - bar or yogurt dinner - same as lunch - or if at at lunch time has a shake Exercise - LS videos 1 mile every other day x 2weeks, then 4 times per week and add 2 mile videos, plan is to advance to 5d/wk 2 mile videos. We are emailing her the [facility] videos to watch. No other appts per patient. Patient is obese and is not considered stable at this time. I spent 30 minutes in total with patient reviewing/updating records, examining the patient and counseling the patient on weight management as detailed above. Coding Level of Care Code Est Pt Level 4 (25721) Diagnoses Obesity E66.9
[2022-08-17 10:11] VITALS: BP 136/60; PULSE 71; TEMP 35.9; O2SAT 98; BMI 36.2
== END 2022-08-17 10:40 | disposition home or self-care (01) ==
PROVIDERS: PCP Internal Medicine; Visit Provider Physician Assistant
DX: E66.9 Obesity, unspecified (principal); Z68.36 Body mass index [BMI] 36.0-36.9, adult
CPT/HCPCS: 99214

== ENCOUNTER → 2022-08-17 10:04 | Outpatient (BNVA) | payer OTHER, SELFPAY | PROVIDERS: PCP Internal Medicine; Visit Provider Physician Assistant ==

== ENCOUNTER 2022-09-01 07:27 | Outpatient (AMB) | payer OTHER, SELFPAY ==
[2022-09-01 07:37] VITALS: BP 135/84; PULSE 78; TEMP 36.6; O2SAT 96; BMI 36.7
--- NOTE | 2022-09-01 07:37 | MHC.OFFVIS ---
Intake Vital Signs 09/01/22 07:37 Height 5 ft 3 in Weight 207 lb 3.752 oz BMI 36.7 BP 135/84 Blood Pressure Location Rt brachial Position Sitting Pulse 78 Pulse Source Palpation Temp 97.9 F Temp Source Temporal Artery Scan Pulse Oximetry (%) 96 Oxygen Delivery Method Room Air Intake Visit Reasons: RA Allergies No Known Allergies Allergy (Verified 08/17/22 10:10) Medication List - Last Reconciled 09/01/22 by Petra Baron MD amitriptyline 100 mg PO BEDTIME celecoxib 100 mg PO BID PRN certolizumab pegol (Cimzia) 200 mg subcut Q2W certolizumab pegol (Cimzia Starter Kit) 400 mg (2 mL) subcut Q2W 3 doses docusate sodium 100 mg PO BID duloxetine 20 mg PO DAILY duloxetine 60 mg PO DAILY levothyroxine 100 mcg PO DAILY prednisone Take 3 tabs by mouth once daily with breakfast for 1 week then 2 tabs daily for 1 week then remain on 5 mg daily HPI HPI Comments History of Present Illness Details 51-year-old female with seropositive erosive (+++RF +++CCP) RA returns for follow-up. She has been using the Cimzia for the last 2 and half months. She has been getting pain in her lower back radiating to her right hip, recently she has been having pain in her left ankle and left foot. Also she has been headaches over the last few weeks. She attributes the headaches to Cimzia however her nephews father recently and she was in a a few days ago. She denies any pain or stiffness in her hands or wrists. Initial history: This is a 50-year-old female with a past medical history of anxiety, depression, lumbar spinal stenosis, and seropositive RA (+++CCP, +++RF) is referred for RA. Patient is originally from [place] then she moved to [place] about 10 months ago then to [place] recently. She lives alone in [place] and all her family is in the [place] She last saw her medical resident in November of last year. Patient was diagnosed in 2012 and her disease affects her shoulders, elbows, knees, feet, hands, & wrists. Her most recent regimen was Orencia 125 mg subQ, methotrexate 15 mg weekly and prednisone 5-10 mg a day. She has not received her Orencia in about 8-10 months. She was prescribed methotrexate by her primary provider about 3 weeks ago. Enbrel was not effective. Today she has severe pain and stiffness involving both shoulders, both wrists, hands,, her most severe pain is her right knee pain, she was told her right knee was bone on bone and that she might need surgery, she is due to see a surgeon next week. Patient brought in at least 400 pages of records from [place] for my review [facility] Medical History Anxiety and depression Bilateral carpal tunnel syndrome Fibromyalgia Herniated disc, cervical Hypothyroidism Low back pain, unspecified Peripheral artery disease Surgical History H/O lateral meniscus repair of right knee History of knee replacement History of surgery History of surgery Hx of cholecystectomy Hx of right knee surgery Family History Sister Fibromyalgia Paternal Aunt Arthritis Other Rheumatoid arthritis Social History Household Members: Family Alcohol intake: former Year quit: 2017 Patient Tobacco Use Status: Former Tobacco user Quit Date: 2016 Review of Systems Const Reports headache(s) ENT Reports headache(s) Musc Reports arthralgias and Reports stiffness Neuro Reports headache(s) Physical Exam Const General: cooperative Nutritional Appearance: obese morbidly obese HEENT Other: Moist oral mucosa, no oral ulcers Neck Other: No cervical lymphadenopathy Resp Effort & Inspection: normal respiratory effort and able to speak in complete sentences Auscultation: clear to auscultation bilaterally Cardio Rate: regular rate Rhythm: regular rhythm Skin General skin exam: no rashes or lesions noted Extrem Other: Right wrist swelling without tenderness to palpation at no pain with full flexion and extension Left wrist without swelling tenderness or pain with flexion and extension MCP joints puffiness bilaterally with no tenderness right knee warmth, left ankle warmth, swelling and tenderness Left dorsal foot synovitis, left 4th and 5th MTP tenderness Normal range of motion of shoulders Results Reviewed Results Reviewed: Reviewed labs from 2012 until 2021 Labs 08/26 hepatitis-B (not immune or exposed) and C negative, HIV negative KARON/dsDNA/measures/NONPROFIT MANAGER/SSA/SSB/ACL IgG, IgM, IgA/RPR/p-ANCA/C Anca/HLA B27 all negative Pratik normal 2012 Scl 70 23.7 (<16) Bone scan 2019 Impression: Normal blood flow to both ankles and feet Blood pool images showed diffusely increased tracer pooling involving the right knee, both shoulders, both wrists and several metacarpophalangeal joints of both hands The delayed images revealed heterogeneous tracer distribution in the midthoracic and lower lumbar spine with focal increased uptake involving the right and left posterior aspect of the L5 vertebra Focal uptake is noted in the articular surfaces of both shoulders, sternoclavicular joint, left elbow, hips, knees and ankles Mild focal uptake is also noted on the region of the small trapezium carpal bones of both wrists as well as several metacarpophalangeal joints of both hands. Mild uptake is also noted on several dorsal bone regions of both feet There is slight widening of the midportion of the right femoral shaft Right and left feet x-rays 2019 Impression early arthritic changes Calcific density lateral to the right 5th proximal phalanx Abdominal sonogram 2019 Impression fatty liver infiltrative changes Hepatomegaly S/p cholecystectomy MRI right knee 2018 Impression 1. Osteoarthritis of the right knee 2. Tear of the posterior horn and body of the medial meniscus 3. Osteochondral defect in the medial femoral condyle Knee x-ray 08/22/2021 impression 1. Just inferior to the right medial tibial plateau, there is a 1.4 x 1.1 cm oval hypoechoic lesion. This likely represents a subchondral cyst, but an osteolytic lesion cannot be excluded. Further evaluation with the radionuclide bone scan should be considered 2. There is a moderately severe osteoarthritis of the right knee in particular affecting the medial compartment, femoral tibial joint space. There is mild osteoarthritis of the left knee ORDER #: XR/XR hand wrist LT IMPRESSION: ? 1. Marginal erosions at the first metacarpal heads of both hands and the right ulnar styloid. 2. Relatively preserved joint spaces bilaterally. 3. Mild soft tissue prominence possibly mild swelling overlying the dorsal MCP joints. Correlate with exam. ORDER #: XR/XR foot RT min 3V IMPRESSION: ? 1. Marginal erosions at the first metatarsal heads bilaterally and left fifth metatarsal head compatible with underlying erosive arthropathy. 2. Minimal left first MTP joint space narrowing. Joint spaces otherwise maintained. 3. Chronic/healed fracture deformities of the distal right fourth and fifth metatarsals.? Assessment & Plan Assessment & Plan (1) Rheumatoid arthritis involving both hands with positive rheumatoid factor: Comment: dx 2013 +++RF+++CCP erosive in [place] Failed Enbrel Had palpitations with Xeljanz On Orencia +MTX started 2018 MTX DC 05/28 due to transaminitis Cimzia 06/27 Code(s): M05.741 - Rheumatoid arthritis with rheumatoid factor of right hand without organ or systems involvement; M05.742 - Rheumatoid arthritis with rheumatoid factor of left hand without organ or systems involvement Plan: 51-year-old [place] female with history of seropositive erosive RA (+++ccp, +++RF) returns for follow-up. Doing better overall on Cimzia, with normalization of inflammatory markers. Patient states that she has been getting is headaches recently that she attributes to Cimzia however her multiple stressors in her life, especially with the in the family, headaches may be unrelated. Continues Cimzia 200 mg subcutaneously every other week for now. If patient continues to have persistent headaches then will change DMARDs Increase prednisone to 15 mg daily for 1 week, 10 mg daily for 1 week then remain on 5 mg daily for current flare Infectious screening 08/26 hepatitis-B and C negative, T spot negative. Bilateral hand x-rays shows mild erosive changes of the metacarpal heads Labs before next visit in 3 months (2) Transaminitis: Code(s): R74.01 - Elevation of levels of liver transaminase levels Plan: Liver ultrasound showed fatty liver, hepatitis screen negative, patient denies any history of alcohol use. MTX DC'd. LFTs trending down (3) Osteoarthritis of right knee: Code(s): M17.11 - Unilateral primary osteoarthritis, right knee Plan: s/p knee replacement on 11/21/21 (4) Screening for osteoporosis: Code(s): Z13.820 - Encounter for screening for osteoporosis Plan: Lowest T-score on bone density scan on 09/26 is -0.6 FRAX score: Major osteoporotic fracture is 7.6% and hip fracture 0.3%. no need for antiresorptive agents. Plan I spent 30 minutes reviewing patient's chart, evaluating patient, ordering diagnostic workup, counseling patient and documenting in the chart Orders: Orders Complete Blood Count Auto Diff 3 Months M05.741 - Rheumatoid arthritis with rheumatoid factor of right hand without organ or systems involvement, M05.742 - Rheumatoid arthritis with rheumatoid factor of left hand without organ or systems involvement Comprehensive Met. Panel 3 Months M05.741 - Rheumatoid arthritis with rheumatoid factor of right hand without organ or systems involvement, M05.742 - Rheumatoid arthritis with rheumatoid factor of left hand without organ or systems involvement C Reactive Protein 3 Months M05.741 - Rheumatoid arthritis with rheumatoid factor of right hand without organ or systems involvement, M05.742 - Rheumatoid arthritis with rheumatoid factor of left hand without organ or systems involvement Erythrocyte Sedimentation Rate 3 Months M05.741 - Rheumatoid arthritis with rheumatoid factor of right hand without organ or systems involvement, M05.742 - Rheumatoid arthritis with rheumatoid factor of left hand without organ or systems involvement Medications: Changed From prednisone 5 mg PO DAILY To prednisone Take 3 tabs by mouth once daily with breakfast for 1 week then 2 tabs daily for 1 week then remain on 5 mg daily 90 tabs 1RF Coding Level of Care Code Est Pt Level 4 (32388) Diagnoses Rheumatoid arthritis involving both hands with positive rheumatoid factor M05.741; M05.742 Transaminitis R74.01 Osteoarthritis of right knee M17.11 Screening for osteoporosis Z13.820
== END 2022-09-01 08:02 | disposition home or self-care (01) ==
PROVIDERS: PCP Registered Nurse; Visit Provider Student in an Organized Health Care Education/Training Program
DX: M05.741 Rheumatoid arthritis with rheumatoid factor of right hand without organ or systems involvement (principal); M05.742 Rheumatoid arthritis with rheumatoid factor of left hand without organ or systems involvement; R74.01 Elevation of levels of liver transaminase levels; M17.11 Unilateral primary osteoarthritis, right knee; Z13.820 Encounter for screening for osteoporosis
CPT/HCPCS: 99214

== ENCOUNTER → 2022-09-01 07:27 | Outpatient (BNVA) | payer OTHER, SELFPAY | PROVIDERS: Visit Provider Student in an Organized Health Care Education/Training Program ==

== ENCOUNTER 2022-09-16 08:50 | Emergency (ER) | payer OTHER, SELFPAY ==
--- NOTE | ~2022-09-16 | XR_ITS ---
EXAMINATION: XR RIBS, LEFT CLINICAL INFORMATION: Pain and chest wall tenderness COMPARISON: Previous chest x-ray May 2022 TECHNIQUE: 3 views of the left ribs and one view of the chest were obtained. FINDINGS: Chest: The cardiac and mediastinal contours are normal. The lungs are clear. No pleural effusion or pneumothorax. Bony structures are normal. Left RIBS: No fracture is seen. XR/XR ribs LT min 3V w CXR1V IMPRESSION: Unremarkable examination.
--- NOTE | ~2022-09-16 | XR_ITS ---
EXAMINATION: XR WRIST, LEFT CLINICAL INFORMATION: Swelling. Decreased range of motion. COMPARISON: Left hand and wrist x-ray September 2021 TECHNIQUE: Four views of the left wrist. FINDINGS: Bone alignment is normal. No acute fracture or dislocation. Old ununited ulnar styloid fracture versus accessory ossification center unchanged from previous exam. Small cyst or erosion in the first metacarpal head similar to previous exam. Joint spaces are normal. Soft tissues are normal. XR/XR wrist LT min 3V IMPRESSION: No acute findings. Question old ulnar styloid ununited fracture versus accessory ossification center similar to previous exam.
--- NOTE | ~2022-09-16 | XR_ITS ---
EXAMINATION: XR ANKLE, LEFT CLINICAL INFORMATION: Pain and swelling COMPARISON: None available. TECHNIQUE: AP, lateral, and mortise views of the left ankle. FINDINGS: No fracture. Alignment is anatomic. No erosions. Joint spaces are maintained. Small calcaneal spurs. Soft tissues are normal. XR/XR ankle LT min 3V IMPRESSION: Small calcaneal spurs otherwise unremarkable exam.
[2022-09-16 09:01] VITALS: BP 127/79; PULSE 90; RESP 16; TEMP 36.5; O2SAT 97; BMI 36.8
--- NOTE | 2022-09-16 09:52 | ED.GENADULT ---
HPI - General Adult General Chief complaint: General Medical Stated complaint: arm pain Time Seen by Provider: 09/16/22 09:11 Source: patient Mode of arrival: ambulatory Limitations: no limitations History of Present Illness HPI narrative: 51-year-old female with history of seropositive rheumatoid arthritis on methotrexate, Orencia, current prednisone taper, history of anxiety, depression, fibromyalgia, lumbar stenosis who presents to the ER for evaluation acute onset of nontraumatic left wrist pain for the last 3 days along with ongoing left foot and ankle pain for the last month or so. She follows with Dr. Baron at Rheumatology saw him on September 01 when he started a prednisone taper. Patient states starting on she has had severe pain in the left wrist with limited mobility. She denies any trauma. The area is not red, hot, but does have some swelling. She took 20 mg of prednisone this morning for the pain with minimal relief. She denies any numbness, tingling but does have some weakness in the left hand due to pain in the wrist. She is able to ambulate normally with the pain in her left foot and ankle. Patient also reports left lower rib pain and feels like she cracked a rib. She denies any falls, shortness of breath, cough, chest pain. MD complaint: multiple joint pains Onset (ago): day(s) Location: left, right, upper extremity and lower extremity Radiation: non-radiation Severity: moderate Severity scale (1-10): 9 Quality: stabbing and aching Pain Consistency: constant Relieving factors: immobilization Exacerbating factors: movement Associated symptoms: denies other symptoms Treatments prior to arrival: none Related Data Home Medications Medication Instructions Recorded Confirmed amitriptyline 100 mg tablet 100 mg PO BEDTIME 09/27/21 09/01/22 duloxetine 20 mg capsule,delayed 20 mg PO DAILY 09/27/21 09/01/22 release duloxetine 60 mg capsule,delayed 60 mg PO DAILY 09/27/21 09/01/22 release levothyroxine 100 mcg tablet 100 mcg PO DAILY 09/27/21 09/01/22 docusate sodium 100 mg capsule 100 mg PO BID 12/13/21 09/01/22 celecoxib 100 mg capsule 100 mg PO BID PRN 03/16/22 09/01/22 Previous Rx's Medication Instructions Recorded certolizumab pegol 400 mg/2 mL 400 mg (2 mL) subcut Q2W 3 doses 06/07/22 (200 mg/mL x2) subcutaneous #3 ea syringe kit (Cimzia Starter Kit) certolizumab pegol 400 mg/2 mL 200 mg subcut Q2W #4 ea 06/07/22 (200 mg/mL x2) subcutaneous syringe kit (Cimzia) prednisone 5 mg tablet See Rx Instructions PO .COMPLEX 09/01/22 #90 tabs prednisone 10 mg tablets in a dose See Taper PO DAILY #154 ea 09/16/22 pack tramadol 50 mg tablet 50 mg PO BID PRN severe pain 09/16/22 (scale score 7-10) #6 tabs Allergies Allergy/AdvReac Type Severity Reaction Status Date / Time No Known Allergies Allergy Verified 09/16/22 09:00 Review of Systems Review of Systems: Yes all other systems are reviewed and are negative [facility] Past Medical History Medical History Anxiety and depression Bilateral carpal tunnel syndrome Fibromyalgia Herniated disc, cervical Hypothyroidism Low back pain, unspecified Peripheral artery disease Surgical History H/O lateral meniscus repair of right knee History of knee replacement History of surgery History of surgery Hx of cholecystectomy Hx of right knee surgery Family History Family History Sister Fibromyalgia Paternal Aunt Arthritis Other Rheumatoid arthritis Social History Social History Household Members: Family Alcohol intake: former Year quit: 2016 Patient Tobacco Use Status: Former Tobacco user Quit Date: 2016 Smoked in Last 30 Days: No Use of substances other than those prescribed or required for medical reasons: No Advance Directives: No Advance Directives Information Provided: Yes Physical Exam ED Vital Signs: Vital Signs - 24 hr 09/16/22 09:01 Temperature 97.7 F Pulse Rate 90 Respiratory Rate 16 Blood Pressure 127/79 Pulse Oximetry 97 Oxygen Delivery Method Room Air BMI result Body Mass Index 36.8 Appearance: Alert. Oriented X3. No acute distress. Head: normocephalic, atraumatic. Eyes: Pupils equal, round and reactive to light. ENT: Pharynx normal. No tonsillar swelling or exudate. Neck: Normal inspection. Neck supple. CVS: Normal heart rate and rhythm. Pulses normal. Respiratory: No respiratory distress. Breath sounds normal. Point tenderness of the left lateral ribs between ribs 10 and 11 Abdomen: Soft and nontender. +BS x4 Skin: Skin warm and dry. Normal skin color. Normal skin turgor. No rashes. Extremities: No lower extremity edema. Foot ankle without significant swelling or deformity, there is some tenderness of both the medial and lateral malleoli. Normal range of motion of the left ankle. Neurovascularly intact distally. Left wrist with mild generalized swelling and limited range of motion due to pain. No erythema, warmth. 2+ radial pulse. Able to make a hand grasp but slightly weaker on the left side. Neuro/psych: Oriented X 3. No motor deficit. No sensory deficit. CN II-XII intact. Normal speech and cognition. Medications Administered Discontinued Medications Generic Name Dose Route Start Last Admin Trade Name Freq PRN Reason Stop Dose Admin Methylprednisolone Sodium Succinate 40 mg 09/16/22 10:18 09/16/22 10:22 Methylprednisolone Sod Succ 40 Mg/Ml Vial IM 09/16/22 10:19 40 mg ONCE ONE Administration Medical Decision Making Medical Decision Making MDM Narrative: 51-year-old female with history of RA, fibromyalgia who presents to the ER for evaluation of nontraumatic left wrist pain for the last 3 or 4 days along with ongoing left foot and ankle pain. She is already on a prednisone taper. There is no evidence of joint infection on examination today. Her vital signs are stable. Her assisted living manager was contacted and x-rays were performed. No acute findings were found on x-ray. Rheumatology is recommending IM Medrol 40 mg here in the emergency department followed by a higher dose and prolonged prednisone taper. This was explained to the patient she expressed understanding. Prednisone taper sent to the pharmacy. She is stable for discharge home with outpatient follow-up with Rheumatology. Differential Diagnosis Differential Diagnoses: The differential diagnosis associated with the presentation includes RA flare, wrist fracture, less likely septic joint or joint infection osteoarthritis, fibromyalgia flare, doubt rib fracture pneumonia Independent Interpretation I performed an independent interpretation of an: Plain X-Ray Interpretation: X-rays of the left wrist, left ankle, and ribs were reviewed, no acute findings or fractures appreciated. Agrees radiologist read Radiology Impression Discussion of test interpretation with radiology: I have reviewed the radiologist's reading. Radiologist Impression: XR/XR wrist LT min 3V IMPRESSION: No acute findings. Question old ulnar styloid ununited fracture versus accessory ossification center similar to previous exam. XR/XR ribs LT min 3V w CXR1V IMPRESSION: Unremarkable examination. XR/XR ankle LT min 3V IMPRESSION: Small calcaneal spurs otherwise unremarkable exam. ? External Record Review External record reviewed: Office record and Prior outpatient labs Prescription Management I considered prescription management with: Pain Medication and Other ( prednisone) Chronic Conditions Patient?s care impacted by: Other ( rheumatoid arthritis) Critical Care Time Critical Care Time Critical Care Time: No Discharge Plan Discharge Clinical Impression: Flare of rheumatoid arthritis Patient Disposition: Home, Self-Care Instructions: Rheumatoid Arthritis (ED) Additional Instructions: Your x-rays today showed no acute findings Your Concaving Machine Operator is recommending a prolonged prednisone taper. He is recommending 40 mg for 1 week, then 30 mg for 2 weeks, then 20 mg for 2 weeks, then stay on 10 mg. Recommend following up with rheumatology for further evaluation and treatment. If you develop new or worsening symptoms call 911 or come back to the ER for further evaluation. Prescriptions: New prednisone 10 mg tablets,dose pack See Taper PO DAILY Qty: 154 0RF Taper: Prednisone 40 mg daily for 7 Days and 0 Hour 30 mg daily for 14 Days and 0 Hour 20 mg daily for 14 Days and 0 Hour 10 mg daily for 14 Days and 0 Hour tramadol 50 mg tablet 50 mg PO BID PRN (Reason: severe pain (scale score 7-10)) Qty: 6 0RF No Action Cimzia Starter Kit 400 mg/2 mL (200 mg/mL x 2) syringe kit 400 mg subcut Q2W Qty: 3 0RF Rx Instructions: administer as 2 equally divided doses at 2 different sites in abdomen or thigh Cimzia 400 mg/2 mL (200 mg/mL x 2) syringe kit 200 mg subcut Q2W Qty: 4 0RF Rx Instructions: use after loading dose docusate sodium 100 mg capsule 100 mg PO BID levothyroxine 100 mcg tablet 100 mcg PO DAILY duloxetine 60 mg capsule,delayed release(DR/EC) 60 mg PO DAILY duloxetine 20 mg capsule,delayed release(DR/EC) 20 mg PO DAILY amitriptyline 100 mg tablet 100 mg PO BEDTIME celecoxib 100 mg capsule 100 mg PO BID PRN prednisone 5 mg tablet See Rx Instructions PO .COMPLEX Qty: 90 1RF Rx Instructions: Take 3 tabs by mouth once daily with breakfast for 1 week then 2 tabs daily for 1 week then remain on 5 mg daily Referrals: [facility] [place] Rheumatology Service [Provider Group] (RA flare)
[2022-09-16] MEDS: methylPREDNISolone Sod Succ 40 MG/ML VIAL IM (10:22)
[2022-09-16 10:46] VITALS: BP 147/69; PULSE 79; RESP 18; TEMP 36.6; O2SAT 97
--- NOTE | 2022-09-16 10:48 | PC.NURSE ---
reports improved pain - odalys wrap by provider to left wrist area. NAD. talks well. +CMS
--- NOTE | 2022-09-16 10:51 | PC.NURSE ---
intepreter vickie called.
== END 2022-09-16 10:52 | disposition home or self-care (01) ==
PROVIDERS: Emergency Provider Emergency Medicine Emergency Medical Services
DX: M06.9 Rheumatoid arthritis, unspecified (principal); M25.532 Pain in left wrist; R07.9 Chest pain, unspecified; M25.472 Effusion, left ankle
CPT/HCPCS: 71101; 73110; 73610; 96372; 99284; J2920

== ENCOUNTER 2022-11-25 07:28 | Outpatient (REF) | payer OTHER, SELFPAY ==
[2022-11-25 07:59] LABS: MANUAL DIFF FLAG NO
[2022-11-25 08:13] LABS: Basophils Percent Auto 0.5 % (0-2); Eosinophils Absolute Auto 0.4 X10*3/uL (0.0-0.4); Hematocrit 41.4 % (37.0-47.0); Hemoglobin 13.5 g/dl (12.0-16.0); Imm Gran Abs Auto 0.02 X10*3/uL (0.00-0.03); Imm Gran Pct Auto 0.4 % (0.0-0.4); Lymphocytes Percent Auto 35.5 % (20-40); Mean Corpuscular HGB Conc 32.6 g/dl (31.0-35.0); Mean Corpuscular Hemoglobin 29.7 pg (27.0-33.0); Mean Corpuscular Volume 91.2 fL (80.0-98.0); Mean Platelet Volume 11.4 fL (9.4-12.3); Monocytes Absolute Auto 0.5 X10*3/uL (0.1-1.2); Monocytes Percent Auto 8.7 % (2-11); Neutrophils Absolute Auto 2.7 x10*3/uL (2.0-8.3); Neutrophils Percent Auto 47.9 % (45-73); Platelet Count 239 X10*3/uL (160-400); Red Blood Count 4.54 X10*6/uL (4.20-5.50); Red Cell Distribution Width 12.6 % (11.0-16.0); White Blood Count 5.6 X10*3/uL (4.8-10.8)
[2022-11-25 08:54] LABS: Erythrocyte Sedimentation Rate 50 MM/HR (0-20)
[2022-11-25 08:59] LABS: Alanine Aminotransferase 51 U/L (0-31); Albumin Level 3.6 g/dL (3.5-5.0); Alkaline Phosphatase 73 U/L (39-117); Anion Gap 13 (12-20); Aspartate Amino Transferase 44 U/L (5-31); Bilirubin Total 0.6 mg/dL (0.0-1.0); Blood Urea Nitrogen 11 mg/dL (9-16); C Reactive Protein 1.86 mg/dL (< or = 0.50); Carbon Dioxide 26 mmol/L (22-29); Chloride 108 mmol/L (96-108); Estimated Glomerular Filt Rate > 60; Glucose Random 97 mg/dL (60-115); Potassium 4.3 mmol/L (3.3-5.1); Sodium 143 mmol/L (135-145); Total Protein 7.8 g/dL (6.5-8.0)
== END 2022-11-25 07:29 | disposition home or self-care (01) ==
LOC: HO.LAB 07:28
PROVIDERS: Visit Provider Student in an Organized Health Care Education/Training Program
DX: M05.741 Rheumatoid arthritis with rheumatoid factor of right hand without organ or systems involvement (principal); M05.742 Rheumatoid arthritis with rheumatoid factor of left hand without organ or systems involvement
CPT/HCPCS: 36415; 80053; 85025; 85652; 86140

== ENCOUNTER 2022-11-29 07:40 | Outpatient (AMB) | payer OTHER, SELFPAY ==
--- NOTE | 2022-11-29 07:48 | MHC.OFFVIS ---
Intake Vital Signs 11/29/22 07:53 Height 5 ft 3 in Weight 206 lb 2.115 oz BMI 36.5 BP 126/90 H Blood Pressure Location Rt brachial Position Sitting Pulse 96 Pulse Source Pulse Oximeter Temp 97.5 F Temp Source Skin Pulse Oximetry (%) 97 Oxygen Delivery Method Room Air Intake Visit Reasons: RA Intake Note: Pt presents today for follow up and test results. Continues with Cimzia every other week and prednisone 5mg daily. c/o left elbow pain and swelling x 1 mo. Left ankle pain x 3 days Reticle Printer Required: No Accompanied by: Self / Same As Patient Allergies No Known Allergies Allergy (Verified 11/29/22 08:15) Medication List - Last Reconciled 11/29/22 by Petra Baron MD amitriptyline 100 mg PO BEDTIME celecoxib 100 mg PO BID PRN docusate sodium 100 mg PO BID duloxetine 20 mg PO DAILY duloxetine 60 mg PO DAILY levothyroxine 100 mcg PO DAILY prednisone See Taper mg PO DAILY prednisone Take 3 tabs by mouth once daily with breakfast for 1 week then 2 tabs daily for 1 week then remain on 5 mg daily tramadol 50 mg PO BID PRN HPI HPI Comments History of Present Illness Details 51-year-old female with seropositive erosive (+++RF +++CCP) RA returns for follow-up. She is on Cimzia 200 mg every other week. Patient went to the emergency room 2 months ago for an RA flare and prescribed prednisone taper which was helpful. Patient stated that for the last week she has been having significant left upper extremity pain. Pain with any movement of her forearm or wrist. She is also having pain on the outside of her left ankle and left foot. Initial history: This is a 50-year-old female with a past medical history of anxiety, depression, lumbar spinal stenosis, and seropositive RA (+++CCP, +++RF) is referred for RA. Patient is originally from [place] then she moved to [place] about 10 months ago then to [place] recently. She lives alone in [place] and all her family is [place] She last saw her computer field technician in November of last year. Patient was diagnosed in 2012 and her disease affects her shoulders, elbows, knees, feet, hands, & wrists. Her most recent regimen was Orencia 125 mg subQ, methotrexate 15 mg weekly and prednisone 5-10 mg a day. She has not received her Orencia in about 8-10 months. She was prescribed methotrexate by her primary provider about 3 weeks ago. Enbrel was not effective. Today she has severe pain and stiffness involving both shoulders, both wrists, hands,, her most severe pain is her right knee pain, she was told her right knee was bone on bone and that she might need surgery, she is due to see a surgeon next week. Patient brought in at least 400 pages of records from [place] for my review [facility] Medical History (Updated 11/29/22 @ 08:19 by Petra Baron MD) Low back pain, unspecified Peripheral artery disease Anxiety and depression Bilateral carpal tunnel syndrome Hypothyroidism Herniated disc, cervical Fibromyalgia Surgical History History of knee replacement H/O lateral meniscus repair of right knee History of surgery Hx of right knee surgery History of surgery Hx of cholecystectomy Family History Sister Fibromyalgia Paternal Aunt Arthritis Other Rheumatoid arthritis Social History Household Members: Family Alcohol intake: former Year quit: 2017 Patient Tobacco Use Status: Former Tobacco user Quit Date: 2016 Review of Systems [facility] Reports back pain, Reports arthralgias, Reports joint swelling, Reports limited range of motion and Reports stiffness Physical Exam Vital Signs: Last Vital Signs Temp 97.5 F 11/29/22 07:53 Pulse 96 11/29/22 07:53 BP 126/90 H 11/29/22 07:53 Pulse Ox 97 11/29/22 07:53 Oxygen Delivery Method Room Air 11/29/22 07:53 BMI result Body Mass Index 36.5 Const General: cooperative and acute distress mild Nutritional Appearance: obese morbidly obese Orientation/consciousness: patient oriented x3 Limitations: no limitations HEENT Head: Yes normocephalic and Yes atraumatic Neck Other: No cervical lymphadenopathy Resp Effort & Inspection: normal respiratory effort and able to speak in complete sentences Cardio Rate: regular rate Rhythm: regular rhythm Skin General skin exam: no rashes or lesions noted Neuro General: patient oriented x3 Extrem Other: Puffiness of right MCPs Left upper extremity is held in a semi-flexed position Left elbow warmth and tenderness to palpation. Pain with any movement of her elbow joint Left dorsal foot synovitis, left 4th and 5th MTP tenderness Normal range of motion of shoulders Results Reviewed Results Reviewed: Reviewed labs from 2012 until 2021 Labs 08/26 hepatitis-B (not immune or exposed) and C negative, HIV negative KARON/dsDNA/measures/EXECUTIVE MARKETING ASSISTANT/SSA/SSB/ACL IgG, IgM, IgA/RPR/p-ANCA/C Anca/HLA B27 all negative Pratik normal 2012 Scl 70 23.7 (<16) Bone scan 2019 Impression: Normal blood flow to both ankles and feet Blood pool images showed diffusely increased tracer pooling involving the right knee, both shoulders, both wrists and several metacarpophalangeal joints of both hands The delayed images revealed heterogeneous tracer distribution in the midthoracic and lower lumbar spine with focal increased uptake involving the right and left posterior aspect of the L5 vertebra Focal uptake is noted in the articular surfaces of both shoulders, sternoclavicular joint, left elbow, hips, knees and ankles Mild focal uptake is also noted on the region of the small trapezium carpal bones of both wrists as well as several metacarpophalangeal joints of both hands. Mild uptake is also noted on several dorsal bone regions of both feet There is slight widening of the midportion of the right femoral shaft Right and left feet x-rays 2019 Impression early arthritic changes Calcific density lateral to the right 5th proximal phalanx Abdominal sonogram 2019 Impression fatty liver infiltrative changes Hepatomegaly S/p cholecystectomy MRI right knee 2018 Impression 1. Osteoarthritis of the right knee 2. Tear of the posterior horn and body of the medial meniscus 3. Osteochondral defect in the medial femoral condyle Knee x-ray 08/22/2021 impression 1. Just inferior to the right medial tibial plateau, there is a 1.4 x 1.1 cm oval hypoechoic lesion. This likely represents a subchondral cyst, but an osteolytic lesion cannot be excluded. Further evaluation with the radionuclide bone scan should be considered 2. There is a moderately severe osteoarthritis of the right knee in particular affecting the medial compartment, femoral tibial joint space. There is mild osteoarthritis of the left knee ORDER #: [id number] XR/XR hand wrist LT IMPRESSION: ? 1. Marginal erosions at the first metacarpal heads of both hands and the right ulnar styloid. 2. Relatively preserved joint spaces bilaterally. 3. Mild soft tissue prominence possibly mild swelling overlying the dorsal MCP joints. Correlate with exam. ORDER #: XR/XR foot RT min 3V IMPRESSION: ? 1. Marginal erosions at the first metatarsal heads bilaterally and left fifth metatarsal head compatible with underlying erosive arthropathy. 2. Minimal left first MTP joint space narrowing. Joint spaces otherwise maintained. 3. Chronic/healed fracture deformities of the distal right fourth and fifth metatarsals.? DEXA 11/2022? L-spine T-score 0.3? T-score of bilateral femurs is 1.2 (above normal !) Left femoral neck T-score -1.2 (osteopenia) FRAX: 8.4% for major osteoporotic fracture 0.2% for hip fracture Assessment & Plan Assessment & Plan (1) Rheumatoid arthritis involving both hands with positive rheumatoid factor: Comment: dx 2012 +++RF+++CCP erosive in [place] Failed Enbrel Had palpitations with Xeljanz On Orencia +MTX started 2018 MTX DC 05/28 due to transaminitis Cimzia 06/27 -11/27 Code(s): M05.741 - Rheumatoid arthritis with rheumatoid factor of right hand without organ or systems involvement; M05.742 - Rheumatoid arthritis with rheumatoid factor of left hand without organ or systems involvement Plan: 51-year-old female with seropositive erosive RA (+++ccp, +++RF) returns for follow-up. On Cimzia 200 mg every other week and prednisone 20 mg daily. Doing much worse with active synovitis affecting multiple joints and significantly elevated inflammatory markers. Will need to change DMARDs. Patient failed 2 TNF inhibitors Enbrel and Humira. She failed Orencia. Methotrexate cannot be restarted due to transaminitis. Discussed risks and benefits of Rinvoq. Patient agreed to proceed. Will start prior authorization for Rinvoq Start prednisone taper for relief Infectious screening 08/26 hepatitis-B and C negative, T spot negative. Labs before next visit in 3 months (2) Transaminitis: Code(s): R74.01 - Elevation of levels of liver transaminase levels Plan: Liver ultrasound showed fatty liver, hepatitis screen negative, patient denies any history of alcohol use. Continue to monitor (3) Osteoarthritis of right knee: Code(s): M17.11 - Unilateral primary osteoarthritis, right knee Plan: s/p knee replacement on 11/21/21 (4) Osteopenia: Code(s): M85.80 - Other specified disorders of bone density and structure, unspecified site Qualifiers: Osteopenia location: femoral neck Plan: DEXA 11/2022? L-spine T-score 0.3? T-score of bilateral femurs is 1.2 (above normal !) Left femoral neck T-score -1.2 (osteopenia) FRAX: 8.4% for major osteoporotic fracture 0.2% for hip fracture No need for antiresorptives at this point Plan I spent 30 minutes reviewing patient's chart, evaluating patient, ordering diagnostic workup, counseling patient and documenting in the chart Orders: Orders Complete Blood Count Auto Diff 2 Months M05.741 - Rheumatoid arthritis with rheumatoid factor of right hand without organ or systems involvement, M05.742 - Rheumatoid arthritis with rheumatoid factor of left hand without organ or systems involvement Comprehensive Met. Panel 2 Months M05.741 - Rheumatoid arthritis with rheumatoid factor of right hand without organ or systems involvement, M05.742 - Rheumatoid arthritis with rheumatoid factor of left hand without organ or systems involvement C Reactive Protein 2 Months M05.741 - Rheumatoid arthritis with rheumatoid factor of right hand without organ or systems involvement, M05.742 - Rheumatoid arthritis with rheumatoid factor of left hand without organ or systems involvement Erythrocyte Sedimentation Rate 2 Months M05.741 - Rheumatoid arthritis with rheumatoid factor of right hand without organ or systems involvement, M05.742 - Rheumatoid arthritis with rheumatoid factor of left hand without organ or systems involvement Medications: Refilled prednisone See Taper PO DAILY 154 ea 0RF Coding Level of Care Code Est Pt Level 4 (80992) Diagnoses Rheumatoid arthritis involving both hands with positive rheumatoid factor M05.741; M05.742 Transaminitis R74.01 Osteoarthritis of right knee M17.11 Osteopenia M85.80 Osteopenia location: femoral neck
[2022-11-29 07:53] VITALS: BP 126/90; PULSE 96; TEMP 36.4; O2SAT 97; BMI 36.5
== END 2022-11-29 08:12 | disposition home or self-care (01) ==
PROVIDERS: PCP Internal Medicine; Referring Provider Internal Medicine; Visit Provider Student in an Organized Health Care Education/Training Program
DX: M05.741 Rheumatoid arthritis with rheumatoid factor of right hand without organ or systems involvement (principal); M05.742 Rheumatoid arthritis with rheumatoid factor of left hand without organ or systems involvement; R74.01 Elevation of levels of liver transaminase levels; M17.11 Unilateral primary osteoarthritis, right knee; M85.80 Other specified disorders of bone density and structure, unspecified site
CPT/HCPCS: 99214

== ENCOUNTER → 2022-11-29 07:40 | Outpatient (BNVA) | payer OTHER, SELFPAY | PROVIDERS: PCP Internal Medicine; Visit Provider Student in an Organized Health Care Education/Training Program ==

== ENCOUNTER 2023-01-18 06:00 | Outpatient (REF) | payer OTHER, SELFPAY ==
[2023-01-18 06:19] LABS: MANUAL DIFF FLAG NO
[2023-01-18 07:52] LABS: Basophils Percent Auto 0.3 % (0-2); Eosinophils Percent Auto 0.3 % (0-4); Hemoglobin 14.4 g/dl (12.0-16.0); Imm Gran Abs Auto 0.04 X10*3/uL (0.00-0.03); Imm Gran Pct Auto 0.5 % (0.0-0.4); Lymphocytes Absolute Auto 1.5 X10*3/uL (1.2-4.9); Lymphocytes Percent Auto 18.8 % (20-40); Mean Corpuscular HGB Conc 32.7 g/dl (31.0-35.0); Mean Corpuscular Hemoglobin 29.4 pg (27.0-33.0); Monocytes Absolute Auto 0.3 X10*3/uL (0.1-1.2); Monocytes Percent Auto 3.4 % (2-11); Neutrophils Absolute Auto 6.1 x10*3/uL (2.0-8.3); Neutrophils Percent Auto 76.7 % (45-73); Platelet Count 231 X10*3/uL (160-400); Red Blood Count 4.89 X10*6/uL (4.20-5.50)
[2023-01-18 08:10] LABS: Alanine Aminotransferase 29 U/L (0-31); Albumin Level 3.8 g/dL (3.5-5.0); Alkaline Phosphatase 76 U/L (39-117); Anion Gap 11 (12-20); Aspartate Amino Transferase 20 U/L (5-31); Bilirubin Total 0.4 mg/dL (0.0-1.0); Blood Urea Nitrogen 16 mg/dL (9-16); C Reactive Protein 0.51 mg/dL (< or = 0.50); Calcium 9.3 mg/dL (8.4-10.2); Carbon Dioxide 25 mmol/L (22-29); Chloride 108 mmol/L (96-108); Estimated Glomerular Filt Rate > 60; Glucose Random 115 mg/dL (60-115); Potassium 4.3 mmol/L (3.3-5.1); Sodium 140 mmol/L (135-145); Total Protein 7.4 g/dL (6.5-8.0)
[2023-01-18 08:32] LABS: Erythrocyte Sedimentation Rate 28 MM/HR (0-20)
== END 2023-01-18 06:01 | disposition home or self-care (01) ==
LOC: HO.LAB 06:00
PROVIDERS: Visit Provider Student in an Organized Health Care Education/Training Program
DX: M05.741 Rheumatoid arthritis with rheumatoid factor of right hand without organ or systems involvement (principal); M05.742 Rheumatoid arthritis with rheumatoid factor of left hand without organ or systems involvement
CPT/HCPCS: 36415; 80053; 85025; 85652; 86140

== ENCOUNTER 2023-01-25 07:33 | Outpatient (AMB) | payer OTHER, SELFPAY ==
--- NOTE | 2023-01-25 07:39 | A.OFFVIS_ITS ---
Intake Vital Signs 01/25/23 07:49 Height 5 ft 3 in Weight 213 lb 2.992 oz BMI 37.8 BP 132/80 Blood Pressure Location Rt brachial Position Sitting Pulse 71 Pulse Source Pulse Oximeter Temp 97 F Temp Source Skin Pulse Oximetry (%) 97 Oxygen Delivery Method Room Air Intake Visit Reasons: RA Intake Note: Pt last seen 11/29/22 presents today for follow up and test results. c/o left arm pain since this morning Clinical Informaticist Required: No Accompanied by: Self / Same As Patient Allergies No Known Allergies Allergy (Verified 01/25/23 07:48) Medication List - Last Reconciled 01/25/23 by Petra Baron MD amitriptyline 100 mg PO BEDTIME docusate sodium 100 mg PO BID levothyroxine 100 mcg PO DAILY Rinvoq ER (upadacitinib) 15 mg PO DAILY NS tramadol 50 mg PO BID PRN HPI HPI Comments History of Present Illness Details 52-year-old female with seropositive ero sive (+++RF +++CCP) RA returns for follow-up. She started Rinvoq December 11. She states that she feels that the Rinvoq is working. But she would have intermittent short-lived joint pains including her ankles, shoulders, feet. However she has been having left elbow pain persistently. She completed prednisone taper 2 weeks ago Initial history: This is a 50-year-old female with a past medical history of anxiety, depression, lumbar spinal stenosis, and seropositive RA (+++CCP, +++RF) is referred for RA. Patient is originally from [place] then she moved to [place] about 10 months ago then to [place] recently. She lives alone in [place] and all her family is in the [place] She last saw her naval aircrewman tactical helicopter in November of last year. Patient was diagnosed in 2012 and her disease affects her shoulders, elbows, knees, feet, hands, & wrists. Her most recent regimen was Orencia 125 mg subQ, methotrexate 15 mg weekly and prednisone 5-10 mg a day. She has not received her Orencia in about 8-10 months. She was prescribed methotrexate by her primary provider about 3 weeks ago. Enbrel was not effective. Today she has severe pain and stiffness involving both shoulders, both wrists, hands,, her most severe pain is her right knee pain, she was told her right knee was bone on bone and that she might need surgery, she is due to see a surgeon next week. Patient brought in at least 400 pages of records from [place] for my review [facility] Medical History Low back pain, unspecified Peripheral artery disease Anxiety and depression Bilateral carpal tunnel syndrome Hypothyroidism Herniated disc, cervical Fibromyalgia Surgical History History of knee replacement H/O lateral meniscus repair of right knee History of surgery Hx of right knee surgery History of surgery Hx of cholecystectomy Family History Sister Fibromyalgia Paternal Aunt Arthritis Other Rheumatoid arthritis Social History Household Members: Family Alcohol intake: former Year quit: 2016 Patient Tobacco Use Status: Former Tobacco user Quit Date: 2016 Review of Systems [facility] Reports back pain, Reports arthralgias, Reports joint swelling and Reports stiffness Physical Exam Vital Signs: Last Vital Signs Temp 97 F 01/25/23 07:49 Pulse 71 01/25/23 07:49 BP 132/80 01/25/23 07:49 Pulse Ox 97 01/25/23 07:49 Oxygen Delivery Method Room Air 01/25/23 07:49 BMI result Body Mass Index 37.8 Const General: cooperative and acute distress mild Nutritional Appearance: obese morbidly obese Orientation/consciousness: patient oriented x3 Limitations: no limitations HEENT Head: Yes normocephalic and Yes atraumatic Neck Other: No cervical lymphadenopathy Resp Effort & Inspection: normal respiratory effort and able to speak in complete sentences Cardio Rate: regular rate Rhythm: regular rhythm Skin General skin exam: no rashes or lesions noted Neuro General: patient oriented x3 Extrem Other: Puffiness of right MCPs but no tenderness Negative MCP squeeze test bilaterally Left upper extremity is held in a semi-flexed position Left elbow warmth and tenderness to palpation. Pain with any movement of her elbow joint No active synovitis otherwise Normal range of motion of shoulders Office Procedures Joint Injection/Drain Joint Injection/Drain Details: Left elbow Prep: site was prepped using sterile technique and ethochloride spray was applied Injected: 40 mg of, Kenalog, with 0.5 mL of, 1% plain lidocaine and in the joint Approach Used: other Procedure: The patient tolerated the procedure well Coding Details: The area over the lateral aspect of left elbow was prepped with ChloraPrep. The skin was anesthetized with 2 cc of 1% lidocaine then 40 mg mixed with 0.5 cc of 1% lidocaine was injected into the elbow joint space. the patient tolerated the procedure well with no acute adverse events Medium joint Additional procedure code (CPT) needed (Medium joint injection (elbow)) Results Reviewed Results Reviewed: Reviewed labs from 2012 until 2021 Labs 08/26 hepatitis-B (not immune or exposed) and C negative, HIV negative KARON/dsDNA/measures/RAILROAD WATCHMAN/SSA/SSB/ACL IgG, IgM, IgA/RPR/p-ANCA/C Anca/HLA B27 all negative Pratik normal 2012 Scl 70 23.7 (<16) Bone scan 2019 Impression: Normal blood flow to both ankles and feet Blood pool images showed diffusely increased tracer pooling involving the right knee, both shoulders, both wrists and several metacarpophalangeal joints of both hands The delayed images revealed heterogeneous tracer distribution in the midthoracic and lower lumbar spine with focal increased uptake involving the right and left posterior aspect of the L5 vertebra Focal uptake is noted in the articular surfaces of both shoulders, sternoclavi cular joint, left elbow, hips, knees and ankles Mild focal uptake is also noted on the region of the small trapezium carpal bones of both wrists as well as several metacarpophalangeal joints of both h ands. Mild uptake is also noted on several dorsal bone regions of both feet There is slight widening of the midportion of the right femoral shaft Right and left feet x-rays 2019 Impression early arthritic changes Calcific density lateral to the right 5th proximal phalanx Abdominal sonogram 2019 Impression fatty liver infiltrative changes Hepatomegaly S/p cholecystectomy MRI right knee 2018 Impression 1. Osteoarthritis of the right knee 2. Tear of the posterior horn and body of the medial meniscus 3. Osteochondral defect in the medial femoral condyle Knee x-ray 08/22/2021 impression 1. Just inferior to the right medial tibial plateau, there is a 1.4 x 1.1 cm oval hypoechoic lesion. This likely represents a subchondral cyst, but an osteolytic lesion cannot be excluded. Further evaluation with the radionuclide bone scan should be considered 2. There is a moderately severe osteoarthritis of the right knee in particular affecting the medial compartment, femoral tibial joint space. There is mild osteoarthritis of the left knee ORDER #: XR/XR hand wrist LT IMPRESSION: ? 1. Marginal erosions at the first metacarpal heads of both hands and the right ulnar styloid. 2. Relatively preserved joint spaces bilaterally. 3. Mild soft tissue prominence possibly mild swelling overlying the dorsal MCP joints. Correlate with exam. ORDER #: XR/XR foot RT min 3V IMPRESSION: ? 1. Marginal erosions at the first metatarsal heads bilaterally and left fifth metatarsal head compatible with underlying erosive arthropathy. 2. Minimal left first MTP joint space narrowing. Joint spaces otherwise maintained. 3. Chronic/healed fracture deformities of the distal right fourth and fifth metatarsals.? DEXA 11/2022? L-spine T-score 0.3? T-score of bilateral femurs is 1.2 (above normal !) Left femoral neck T-score -1.2 (osteopenia) FRAX: 8.4% for major osteoporotic fracture 0.2% for hip fracture Assessment & Plan Assessment & Plan (1) Rheumatoid arthritis involving both hands with positive rheumatoid factor: Comment: dx 2012 +++RF+++CCP erosive in [place] Failed Enbrel Had palpitations with Xeljanz On Orencia +MTX started 2019 MTX DC 05/28 due to transaminitis Cimzia 06/27 -11/27 Rinvoq 12/2022 effective Code(s): M05.741 - Rheumatoid arthritis with rheumatoid factor of right hand without organ or systems involvement; M05.742 - Rheumatoid arthritis with rheumatoid factor of left hand without organ or systems involvement Plan: 52-year-old female with seropositive erosive RA (+++ccp, +++RF) returns for follow-up. She has been on Rinvoq for the last 6-7 weeks with significant improvement but continues to have significant left elbow synovitis. With patient's consent, left elbow was injected with Kenalog today. Discussed potential adverse events including skin depigmentation. Patient agreed to proceed. Infectious screening 08/26 hepatitis-B and C negative, T spot negative. Labs before next visit in 3 months (2) Transaminitis: Code(s): R74.01 - Elevation of levels of liver transaminase levels Plan: Liver ultrasound showed fatty liver, hepatitis screen negative, patient denies any history of alcohol use. Her transaminitis has resolved. Continue to monitor (3) Osteoarthritis of right knee: Code(s): M17.11 - Unilateral primary osteoarthritis, right knee Qualifiers: Osteoarthritis type: primary Qualified Code(s): M17.11 - Unilateral primary osteoarthritis, right knee Plan: s/p knee replacement on 11/21/21 (4) Osteopenia: Code(s): M85.80 - Other specified disorders of bone density and structure, unspecified site Qualifiers: Laterality: bilateral Osteopenia location: femoral neck Qualified Code(s): M85.851 - Other specified disorders of bone density and structure, right thigh; M85.852 - Other specified disorders of bone density and structure, left thigh Plan: DEXA 11/2022? L-spine T-score 0.3? T-score of bilateral femurs is 1.2 (above normal !) Left femoral neck T-score -1.2 (osteopenia) FRAX: 8.4% for major osteoporotic fracture 0.2% for hip fracture No need for antiresorptives at this point Plan I spent 30 minutes reviewing patient's chart, evaluating patient, ordering diagnostic workup, counseling patient and documenting in the chart Orders: Orders AMB Joint Injection/Aspiration Today M05.741 - Rheumatoid arthritis with rheumatoid factor of right hand without organ or systems involvement, M05.742 - Rheumatoid arthritis with rheumatoid factor of left hand without organ or systems involvement Complete Blood Count Auto Diff 3 Months M05.741 - Rheumatoid arthritis with rheumatoid factor of right hand without organ or systems involvement, M05.742 - Rheumatoid arthritis with rheumatoid factor of left hand without organ or systems involvement C Reactive Protein 3 Months M05.741 - Rheumatoid arthritis with rheumatoid factor of right hand without organ or systems involvement, M05.742 - Rheumatoid arthritis with rheumatoid factor of left hand without organ or systems involvement Comprehensive Met. Panel 3 Months M05.741 - Rheumatoid arthritis with rheumatoid factor of right hand without organ or systems involvement, M05.742 - Rheumatoid arthritis with rheumatoid factor of left hand without organ or systems involvement Erythrocyte Sedimentation Rate 3 Months M05.741 - Rheumatoid arthritis with rheumatoid factor of right hand without organ or systems involvement, M05.742 - Rheumatoid arthritis with rheumatoid factor of left hand without organ or systems involvement Coding Level of Care Code Est Pt Level 4 (79604) Diagnoses Rheumatoid arthritis involving both hands with positive rheumatoid factor M05.741; M05.742 Transaminitis R74.01 Primary osteoarthritis of right knee M17.11 Osteoarthritis type: primary Osteopenia of necks of both femurs M85.851; M85.852 Laterality: bilateral Osteopenia location: femoral neck CPT Codes Coding - 30852 Medium joint: 41820 - Medium joint ([id number])
[2023-01-25 07:49] VITALS: BP 132/80; PULSE 71; TEMP 36.1; O2SAT 97; BMI 37.8
== END 2023-01-25 08:15 | disposition home or self-care (01) ==
PROVIDERS: PCP Internal Medicine; Visit Provider Student in an Organized Health Care Education/Training Program
DX: M05.741 Rheumatoid arthritis with rheumatoid factor of right hand without organ or systems involvement (principal); M05.742 Rheumatoid arthritis with rheumatoid factor of left hand without organ or systems involvement; R74.01 Elevation of levels of liver transaminase levels; M17.11 Unilateral primary osteoarthritis, right knee; M85.851 Other specified disorders of bone density and structure, right thigh; M85.852 Other specified disorders of bone density and structure, left thigh; M65.122 Other infective (teno)synovitis, left elbow
CPT/HCPCS: 20605; 99214

== ENCOUNTER → 2023-01-25 07:33 | Outpatient (BNVA) | payer OTHER, SELFPAY | PROVIDERS: PCP Internal Medicine; Visit Provider Student in an Organized Health Care Education/Training Program | DX: M05.741 Rheumatoid arthritis with rheumatoid factor of right hand without organ or systems involvement (principal); M05.742 Rheumatoid arthritis with rheumatoid factor of left hand without organ or systems involvement; R74.01 Elevation of levels of liver transaminase levels; M85.851 Other specified disorders of bone density and structure, right thigh; M85.852 Other specified disorders of bone density and structure, left thigh; Z96.651 Presence of right artificial knee joint | CPT/HCPCS: 20605; J3301 ==

== ENCOUNTER 2023-02-21 11:38 | Outpatient (AMB) | payer MEDICAID, SELFPAY ==
--- NOTE | 2023-02-21 11:43 | MHC.OFFVIS ---
Intake Vital Signs 02/21/23 11:44 Height 5 ft 3 in Weight 212 lb 15.465 oz BMI 37.7 BP 122/74 Blood Pressure Location Rt brachial Position Sitting Pulse 67 Pulse Source Pulse Oximeter Temp 97.0 F Temp Source Skin Pulse Oximetry (%) 98 Oxygen Delivery Method Room Air Intake Visit Reasons: form - in office Arch Cushion Skiving Machine Operator Required: No Accompanied by: Self / Same As Patient Allergies No Known Allergies Allergy (Verified 02/21/23 11:47) Medication List - Last Reconciled 02/21/23 by Petra Baron MD amitriptyline 100 mg PO BEDTIME docusate sodium 100 mg PO BID hydroxyzine HCl 25 mg PO BID PRN levothyroxine 100 mcg PO DAILY Rinvoq ER (upadacitinib) 15 mg PO DAILY NS tramadol 50 mg PO BID PRN HPI HPI Comments History of Present Illness Details 52-year-old female with seropositive erosive (+++RF +++CCP) RA returns for follow-up. She is on Rinvoq. Well-tolerated. Feels that the left elbow cortisone injection done last visit was helpful. She is here for disability paperwork. 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 She was diagnosed with rheumatoid arthritis in 2012 but her symptoms became much worse around 2019. She was no longer able to walk, she was no longer able to type. She would type with 1 finger due to her pain. She would have significant difficulty signing forms. She states that her disability claim was accepted in 2019 and she was on disability from 2019. [place] the [place]. She has had right knee replacement but continues to have bilateral knee pain. Intermittent bilateral ankle swelling and stiffness. Initial history: This is a 50-year-old female with a past medical history of anxiety, depression, lumbar spinal stenosis, and seropositive RA (+++CCP, +++RF) is referred for RA. Patient is originally from [place] then she moved to [place] about 10 months ago then to [place] recently. She lives alone in [place] and all her [place] She last saw her stamping press operator in November of last year. Patient was diagnosed in 2012 and her disease affects her shoulders, elbows, knees, feet, hands, & wrists. Her most recent regimen was Orencia 125 mg subQ, methotrexate 15 mg weekly and prednisone 5-10 mg a day. She has not received her Orencia in about 8-10 months. She was prescribed methotrexate by her primary provider about 3 weeks ago. Enbrel was not effective. Today she has severe pain and stiffness involving both shoulders, both wrists, hands,, her most severe pain is her right knee pain, she was told her right knee was bone on bone and that she might need surgery, she is due to see a surgeon next week. Patient brought in at least 400 pages of records from [place] for my review [facility] Medical History Low back pain, unspecified Peripheral artery disease Anxiety and depression Bilateral carpal tunnel syndrome Hypothyroidism Herniated disc, cervical Fibromyalgia Surgical History History of knee replacement H/O lateral meniscus repair of right knee History of surgery Hx of right knee surgery History of surgery Hx of cholecystectomy Family History Sister Fibromyalgia Paternal Aunt Arthritis Other Rheumatoid arthritis Social History Household Members: Family Alcohol intake: former Year quit: 2016 Patient Tobacco Use Status: Former Tobacco user Quit Date: 2016 Review of Systems [facility] [place] Reports arthralgias, Reports joint swelling and Reports stiffness Physical Exam Vital Signs: Last Vital Signs Temp 97.0 F 02/21/23 11:44 Pulse 67 02/21/23 11:44 BP 122/74 02/21/23 11:44 Pulse Ox 98 02/21/23 11:44 Oxygen Delivery Method Room Air 02/21/23 11:44 BMI result Body Mass Index 37.7 Const General: cooperative Nutritional Appearance: obese morbidly obese Orientation/consciousness: patient oriented x3 Limitations: no limitations HEENT Head: Yes normocephalic and Yes atraumatic Resp Effort & Inspection: normal respiratory effort and able to speak in complete sentences Neuro General: patient oriented x3 Extrem Other: Puffiness of right MCPs but no tenderness Negative MCP squeeze test bilaterally Almost normal range of motion of left elbow but still can not completely straighten it Results Reviewed Results Reviewed: Reviewed labs from 2012 until 2021 Labs 08/26 hepatitis-B (not immune or exposed) and C negative, HIV negative KARON/dsDNA/measures/PAYROLL ACCOUNTING CLERK/SSA/SSB/ACL IgG, IgM, IgA/RPR/p-ANCA/C Anca/HLA B27 all negative Pratik normal 2012 Scl 70 23.7 (<16) Bone scan 2019 Impression: Normal blood flow to both ankles and feet Blood pool images showed diffusely increased tracer pooling involving the right knee, both shoulders, both wrists and several metacarpophalangeal joints of both hands The delayed images revealed heterogeneous tracer distribution in the midthoracic and lower lumbar spine with focal increased uptake involving the right and left posterior aspect of the L5 vertebra Focal uptake is noted in the articular surfaces of both shoulders, sternoclavicular joint, left elbow, hips, knees and ankles Mild focal uptake is also noted on the region of the small trapezium carpal bones of both wrists as well as several metacarpophalangeal joints of both hands. Mild uptake is also noted on several dorsal bone regions of both feet There is slight widening of the midportion of the right femoral shaft Right and left feet x-rays 2019 Impression early arthritic changes Calcific density lateral to the right 5th proximal phalanx Abdominal sonogram 2019 Impression fatty liver infiltrative changes Hepatomegaly S/p cholecystectomy MRI right knee 2018 Impression 1. Osteoarthritis of the right knee 2. Tear of the posterior horn and body of the medial meniscus 3. Osteochondral defect in the medial femoral condyle Knee x-ray 08/22/2021 impression 1. Just inferior to the right medial tibial plateau, there is a 1.4 x 1.1 cm oval hypoechoic lesion. This likely represents a subchondral cyst, but an osteolytic lesion cannot be excluded. Further evaluation with the radionuclide bone scan should be considered 2. There is a moderately severe osteoarthritis of the right knee in particular affecting the medial compartment, femoral tibial joint space. There is mild osteoarthritis of the left knee ORDER #: XR/XR hand wrist LT IMPRESSION: ? 1. Marginal erosions at the first metacarpal heads of both hands and the right ulnar styloid. 2. Relatively preserved joint spaces bilaterally. 3. Mild soft tissue prominence possibly mild swelling overlying the dorsal MCP joints. Correlate with exam. ORDER #: XR/XR foot RT min 3V IMPRESSION: ? 1. Marginal erosions at the first metatarsal heads bilaterally and left fifth metatarsal head compatible with underlying erosive arthropathy. 2. Minimal left first MTP joint space narrowing. Joint spaces otherwise maintained. 3. Chronic/healed fracture deformities of the distal right fourth and fifth metatarsals.? DEXA 11/2022? L-spine T-score 0.3? T-score of bilateral femurs is 1.2 (above normal !) Left femoral neck T-score -1.2 (osteopenia) FRAX: 8.4% for major osteoporotic fracture 0.2% for hip fracture Assessment & Plan Assessment & Plan (1) Rheumatoid arthritis involving both hands with positive rheumatoid factor: Comment: dx 2012 +++RF+++CCP erosive in [place] Failed Enbrel Had palpitations with Xeljanz On Orencia +MTX started 2018 MTX DC 05/28 due to transaminitis Cimzia 06/27 -11/27 Rinvoq 12/2022 effective Code(s): M05.741 - Rheumatoid arthritis with rheumatoid factor of right hand without organ or systems involvement; M05.742 - Rheumatoid arthritis with rheumatoid factor of left hand without organ or systems involvement Plan: 52-year-old female with seropositive erosive RA (+++ccp, +++RF) returns to be evaluated for disability paperwork. 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 She was diagnosed with rheumatoid arthritis in 2012 but her symptoms became much worse around 2019.? She was no longer able to walk, she was no longer able to type.? She would type with 1 finger due to her pain.? She would have significant difficulty signing forms.? She states that her disability claim was accepted in 2019 and she was on disability from 2019.? When [place] was denied. Upon evaluation, this patient has seropositive erosive and deforming RA and has accrued significant damage of multiple joints including her hands, wrists, ankles, feet, knees, shoulders over the years. She continues to have intermittent flares of rheumatoid arthritis which would cause further pain, stiffness swelling and inability to do multiple activity such as walking, typing, lifting light weights such as 10 lb weight at work. The goal of treatment is to control the disease so that no further damage occurs, but the damage that has accrued over the years would not be reversible. Disability paperwork completed and signed Follow-up in 2 months on her scheduled appointment for follow-up of her RA Plan I spent 20 minutes reviewing patient's chart, evaluating patient, completing disability paperwork and documenting in the chart Coding Level of Care Code Est Pt Level 3 (33355) Diagnoses Rheumatoid arthritis involving both hands with positive rheumatoid factor M05.741; M05.742
[2023-02-21 11:44] VITALS: BP 122/74; PULSE 67; TEMP 36.1; O2SAT 98; BMI 37.7
== END 2023-02-21 13:41 | disposition home or self-care (01) ==
PROVIDERS: PCP Internal Medicine; Visit Provider Student in an Organized Health Care Education/Training Program
DX: M05.741 Rheumatoid arthritis with rheumatoid factor of right hand without organ or systems involvement (principal); M05.742 Rheumatoid arthritis with rheumatoid factor of left hand without organ or systems involvement
CPT/HCPCS: 99213

== ENCOUNTER → 2023-02-21 11:38 | Outpatient (BNVA) | payer OTHER, SELFPAY | PROVIDERS: PCP Internal Medicine; Visit Provider Student in an Organized Health Care Education/Training Program ==

== ENCOUNTER 2023-04-23 06:14 | Outpatient (REF) | payer MEDICAID, SELFPAY ==
[2023-04-23 06:35] LABS: MANUAL DIFF FLAG NO
[2023-04-23 07:41] LABS: Basophils Percent Auto 0.9 % (0-2); Eosinophils Absolute Auto 0.1 X10*3/uL (0.0-0.4); Eosinophils Percent Auto 2.8 % (0-4); Hematocrit 39.4 % (37.0-47.0); Hemoglobin 13.4 g/dl (12.0-16.0); Imm Gran Abs Auto 0.01 X10*3/uL (0.00-0.03); Imm Gran Pct Auto 0.2 % (0.0-0.4); Lymphocytes Absolute Auto 2.5 X10*3/uL (1.2-4.9); Lymphocytes Percent Auto 53.1 % (20-40); Mean Corpuscular Hemoglobin 30.5 pg (27.0-33.0); Mean Corpuscular Volume 89.5 fL (80.0-98.0); Mean Platelet Volume 11.7 fL (9.4-12.3); Monocytes Absolute Auto 0.3 X10*3/uL (0.1-1.2); Monocytes Percent Auto 7.1 % (2-11); Neutrophils Absolute Auto 1.7 x10*3/uL (2.0-8.3); Neutrophils Percent Auto 35.9 % (45-73); Platelet Count 205 X10*3/uL (160-400); Red Cell Distribution Width 12.3 % (11.0-16.0); White Blood Count 4.6 X10*3/uL (4.8-10.8)
[2023-04-23 08:03] LABS: Alanine Aminotransferase 32 U/L (0-31); Albumin Level 3.9 g/dL (3.5-5.0); Alkaline Phosphatase 83 U/L (39-117); Anion Gap 12 (12-20); Aspartate Amino Transferase 24 U/L (5-31); Bilirubin Total 0.3 mg/dL (0.0-1.0); Blood Urea Nitrogen 14 mg/dL (9-16); C Reactive Protein 0.11 mg/dL (< or = 0.50); Calcium 9.1 mg/dL (8.4-10.2); Carbon Dioxide 22 mmol/L (22-29); Chloride 111 mmol/L (96-108); Estimated Glomerular Filt Rate > 60; Glucose Random 91 mg/dL (60-115); Sodium 141 mmol/L (135-145); Total Protein 7.1 g/dL (6.5-8.0)
[2023-04-23 08:33] LABS: Erythrocyte Sedimentation Rate 13 MM/HR (0-20)
== END 2023-04-23 06:15 | disposition home or self-care (01) ==
LOC: HO.LAB 06:14
PROVIDERS: PCP Physician Assistant; Visit Provider Student in an Organized Health Care Education/Training Program
DX: M05.741 Rheumatoid arthritis with rheumatoid factor of right hand without organ or systems involvement (principal); M05.742 Rheumatoid arthritis with rheumatoid factor of left hand without organ or systems involvement
CPT/HCPCS: 36415; 80053; 85025; 85652; 86140

== ENCOUNTER 2023-04-30 07:25 | Outpatient (AMB) | payer MEDICAID, SELFPAY ==
[2023-04-30 07:36] VITALS: BP 114/76; PULSE 79; O2SAT 97; BMI 36.2
--- NOTE | 2023-04-30 07:36 | MHC.OFFVIS ---
Intake Vital Signs 04/30/23 07:36 Height 5 ft 3 in Weight 204 lb 5.896 oz BMI 36.2 BP 114/76 Blood Pressure Location Rt brachial Position Sitting Pulse 79 Pulse Source Pulse Oximeter Pulse Oximetry (%) 97 Intake Visit Reasons: RA Intake Note: Patient last seen 02/21/23 presents today for follow up and test results. C/o hip pain, hailey left. R elbow pain last week; resolved on its own L foot pain Back pain would like MRI Allergies No Known Allergies Allergy (Verified 04/30/23 07:45) Medication List - Last Reconciled 04/30/23 by Petra Baron MD amitriptyline 100 mg PO BEDTIME docusate sodium 100 mg PO BID hydroxyzine HCl 25 mg PO BID PRN levothyroxine 100 mcg PO DAILY quetiapine 25 - 50 mg PO BEDTIME PRN Rinvoq ER (upadacitinib) 15 mg PO DAILY NS tramadol 50 mg PO BID PRN HPI HPI Comments History of Present Illness Details 52-year-old female with seropositive erosive (+++RF +++CCP) RA returns for follow-up. She is on Rinvoq. Well-tolerated. She states that she continues to get intermittent short-lived flare-ups affecting her elbows, her ankles, they do not last long and do not cause any significant swelling. She has been having bilateral paraspinal lower back pain, worse when getting up after sitting for some time. She gets intermittent pain in the hands when playing games on her phone. Initial history: This is a 50-year-old female with a past medical history of anxiety, depression, lumbar spinal stenosis, and seropositive RA (+++CCP, +++RF) is referred for RA. Patient is originally from [place] then she moved to [place] about 10 months ago then to [place] recently. She lives alone in [place] and all her [place] is [place] She last saw her court advocate in November of last year. Patient was diagnosed in 2012 and her disease affects her shoulders, elbows, knees, feet, hands, & wrists. Her most recent regimen was Orencia 125 mg subQ, methotrexate 15 mg weekly and prednisone 5-10 mg a day. She has not received her Orencia in about 8-10 months. She was prescribed methotrexate by her primary provider about 3 weeks ago. Enbrel was not effective. Today she has severe pain and stiffness involving both shoulders, both wrists, hands,, her most severe pain is her right knee pain, she was told her right knee was bone on bone and that she might need surgery, she is due to see a surgeon next week. Patient brought in at least 400 pages of records from [place] for my review [facility] Medical History Low back pain, unspecified Peripheral artery disease Anxiety and depression Bilateral carpal tunnel syndrome Hypothyroidism Herniated disc, cervical Fibromyalgia Surgical History History of knee replacement H/O lateral meniscus repair of right knee History of surgery Hx of right knee surgery History of surgery Hx of cholecystectomy Family History Sister Fibromyalgia Paternal Aunt Arthritis Other Rheumatoid arthritis Social History Household Members: Family Alcohol intake: former Year quit: 2016 Patient Tobacco Use Status: Former Tobacco user Quit Date: 2016 Review of Systems [facility] [place] Reports back pain, Reports arthralgias and Reports stiffness Physical Exam Vital Signs: Last Vital Signs Pulse 79 04/30/23 07:36 BP 114/76 04/30/23 07:36 Pulse Ox 97 04/30/23 07:36 BMI result Body Mass Index 36.2 Const General: cooperative Nutritional Appearance: obese morbidly obese Orientation/consciousness: patient oriented x3 Limitations: no limitations HEENT Head: Yes normocephalic and Yes atraumatic Neck Other: No cervical lymphadenopathy Resp Effort & Inspection: normal respiratory effort and able to speak in complete sentences Auscultation: clear to auscultation bilaterally Cardio Rate: regular rate Rhythm: regular rhythm Skin General skin exam: no rashes or lesions noted Neuro General: patient oriented x3 Extrem Other: Puffiness of right MCPs but no tenderness Negative MCP squeeze test bilaterally No active synovitis today Negative straight leg raise test Bilateral lumbar paraspinal muscle tenderness Results Reviewed Results Reviewed: Reviewed labs from 2012 until 2021 Labs 08/26 hepatitis-B (not immune or exposed) and C negative, HIV negative KARON/dsDNA/measures/ONLINE PRODUCER/SSA/SSB/ACL IgG, IgM, IgA/RPR/p-ANCA/C Anca/HLA B27 all negative Pratik normal 2012 Scl 70 23.7 (<16) Bone scan 2019 Impression: Normal blood flow to both ankles and feet Blood pool images showed diffusely increased tracer pooling involving the right knee, both shoulders, both wrists and several metacarpophalangeal joints of both hands The delayed images revealed heterogeneous tracer distribution in the midthoracic and lower lumbar spine with focal increased uptake involving the right and left posterior aspect of the L5 vertebra Focal uptake is noted in the articular surfaces of both shoulders, sternoclavicular joint, left elbow, hips, knees and ankles Mild focal uptake is also noted on the region of the small trapezium carpal bones of both wrists as well as several metacarpophalangeal joints of both hands. Mild uptake is also noted on several dorsal bone regions of both feet There is slight widening of the midportion of the right femoral shaft Right and left feet x-rays 2019 Impression early arthritic changes Calcific density lateral to the right 5th proximal phalanx Abdominal sonogram 2019 Impression fatty liver infiltrative changes Hepatomegaly S/p cholecystectomy MRI right knee 2018 Impression 1. Osteoarthritis of the right knee 2. Tear of the posterior horn and body of the medial meniscus 3. Osteochondral defect in the medial femoral condyle Knee x-ray 08/22/2021 impression 1. Just inferior to the right medial tibial plateau, there is a 1.4 x 1.1 cm oval hypoechoic lesion. This likely represents a subchondral cyst, but an osteolytic lesion cannot be excluded. Further evaluation with the radionuclide bone scan should be considered 2. There is a moderately severe osteoarthritis of the right knee in particular affecting the medial compartment, femoral tibial joint space. There is mild osteoarthritis of the left knee ORDER #: XR/XR hand wrist LT IMPRESSION: ? 1. Marginal erosions at the first metacarpal heads of both hands and the right ulnar styloid. 2. Relatively preserved joint spaces bilaterally. 3. Mild soft tissue prominence possibly mild swelling overlying the dorsal MCP joints. Correlate with exam. ORDER #: XR/XR foot RT min 3V IMPRESSION: ? 1. Marginal erosions at the first metatarsal heads bilaterally and left fifth metatarsal head compatible with underlying erosive arthropathy. 2. Minimal left first MTP joint space narrowing. Joint spaces otherwise maintained. 3. Chronic/healed fracture deformities of the distal right fourth and fifth metatarsals.? DEXA 11/2022? L-spine T-score 0.3? T-score of bilateral femurs is 1.2 (above normal !) Left femoral neck T-score -1.2 (osteopenia) FRAX: 8.4% for major osteoporotic fracture 0.2% for hip fracture Assessment & Plan Assessment & Plan (1) Rheumatoid arthritis involving both hands with positive rheumatoid factor: Comment: dx 2012 +++RF+++CCP erosive in [place] Failed Enbrel Had palpitations with Xeljanz On Orencia +MTX started 2018 MTX DC 05/28 due to transaminitis Cimzia 06/27 -11/27 ineffective Rinvoq 12/2022 effective Code(s): M05.741 - Rheumatoid arthritis with rheumatoid factor of right hand without organ or systems involvement; M05.742 - Rheumatoid arthritis with rheumatoid factor of left hand without organ or systems involvement Plan: 52-year-old female with seropositive erosive RA (+++ccp, +++RF) returns for follow-up. On Rinvoq 15 mg daily. Well tolerated. Patient continues to have intermittent short-lived flare-ups of multiple joints, there is no active synovitis today. She is doing quite well overall. Inflammatory markers have normalized. Continue with Rinvoq 15 mg daily Can consider adding Plaquenil in the future Infectious screening 08/26 hepatitis-B and C negative, T spot negative. Labs before next visit in 3 months (2) Transaminitis: Code(s): R74.01 - Elevation of levels of liver transaminase levels Plan: Liver ultrasound showed fatty liver, hepatitis screen negative, patient denies any history of alcohol use. Her transaminitis almost resolved. (3) Osteoarthritis of right knee: Code(s): M17.11 - Unilateral primary osteoarthritis, right knee Qualifiers: Osteoarthritis type: primary Qualified Code(s): M17.11 - Unilateral primary osteoarthritis, right knee Plan: s/p knee replacement on 11/21/21 (4) Osteopenia: Code(s): M85.80 - Other specified disorders of bone density and structure, unspecified site Qualifiers: Osteopenia location: femoral neck Laterality: bilateral Qualified Code(s): M85.851 - Other specified disorders of bone density and structure, right thigh; M85.852 - Other specified disorders of bone density and structure, left thigh Plan: DEXA 11/2022? L-spine T-score 0.3? T-score of bilateral femurs is 1.2 (above normal !) Left femoral neck T-score -1.2 (osteopenia) FRAX: 8.4% for major osteoporotic fracture 0.2% for hip fracture No need for antiresorptives at this point (5) Lumbar degenerative disc disease: Code(s): M51.36 - Other intervertebral disc degeneration, lumbar region Plan: Referred to PT (6) High risk medication use: Code(s): Z79.899 - Other group home (current) drug therapy Plan: On Rinvoq. Monitor safety labs Plan I spent 46 minutes reviewing patient's chart, evaluating patient, ordering diagnostic workup, counseling patient and documenting in the chart Orders: Orders Comprehensive Met. Panel 3 Months M05.741 - Rheumatoid arthritis with rheumatoid factor of right hand without organ or systems involvement, M05.742 - Rheumatoid arthritis with rheumatoid factor of left hand without organ or systems involvement Erythrocyte Sedimentation Rate 3 Months M05.741 - Rheumatoid arthritis with rheumatoid factor of right hand without organ or systems involvement, M05.742 - Rheumatoid arthritis with rheumatoid factor of left hand without organ or systems involvement PT Evaluation and Treatment Today M51.36 - Other intervertebral disc degeneration, lumbar region Complete Blood Count Auto Diff 3 Months M05.741 - Rheumatoid arthritis with rheumatoid factor of right hand without organ or systems involvement, M05.742 - Rheumatoid arthritis with rheumatoid factor of left hand without organ or systems involvement C Reactive Protein 3 Months M05.741 - Rheumatoid arthritis with rheumatoid factor of right hand without organ or systems involvement, M05.742 - Rheumatoid arthritis with rheumatoid factor of left hand without organ or systems involvement Coding Level of Care Code New Pt Level 5 (65931) Diagnoses Rheumatoid arthritis involving both hands with positive rheumatoid factor M05.741; M05.742 Transaminitis R74.01 Primary osteoarthritis of right knee M17.11 Osteoarthritis type: primary Osteopenia of necks of both femurs M85.851; M85.852 Osteopenia location: femoral neck Laterality: bilateral Lumbar degenerative disc disease M51.36 High risk medication use Z79.899
== END 2023-04-30 08:10 | disposition home or self-care (01) ==
PROVIDERS: PCP Physician Assistant; Visit Provider Student in an Organized Health Care Education/Training Program
DX: M05.741 Rheumatoid arthritis with rheumatoid factor of right hand without organ or systems involvement (principal); M05.742 Rheumatoid arthritis with rheumatoid factor of left hand without organ or systems involvement; R74.01 Elevation of levels of liver transaminase levels; M17.11 Unilateral primary osteoarthritis, right knee; M85.851 Other specified disorders of bone density and structure, right thigh; M85.852 Other specified disorders of bone density and structure, left thigh; M51.36 Other intervertebral disc degeneration, lumbar region; Z79.899 Other long term (current) drug therapy
CPT/HCPCS: 99214

== ENCOUNTER → 2023-04-30 07:25 | Outpatient (BNVA) | payer MEDICAID, SELFPAY | PROVIDERS: PCP Physician Assistant; Visit Provider Student in an Organized Health Care Education/Training Program | DX: M05.741 Rheumatoid arthritis with rheumatoid factor of right hand without organ or systems involvement (principal); M05.742 Rheumatoid arthritis with rheumatoid factor of left hand without organ or systems involvement; M17.11 Unilateral primary osteoarthritis, right knee; M85.851 Other specified disorders of bone density and structure, right thigh; M85.852 Other specified disorders of bone density and structure, left thigh; M51.36 Other intervertebral disc degeneration, lumbar region; R74.01 Elevation of levels of liver transaminase levels; Z79.899 Other long term (current) drug therapy | CPT/HCPCS: 99212 ==

== ENCOUNTER 2023-07-21 07:37 | Outpatient (REF) | payer MEDICAID, SELFPAY ==
[2023-07-21 07:48] LABS: MANUAL DIFF FLAG NO
[2023-07-21 08:22] LABS: Basophils Percent Auto 0.4 % (0-2); Eosinophils Absolute Auto 0.1 X10*3/uL (0.0-0.4); Eosinophils Percent Auto 2.9 % (0-4); Hematocrit 40.9 % (37.0-47.0); Hemoglobin 13.8 g/dl (12.0-16.0); Imm Gran Abs Auto 0.01 X10*3/uL (0.00-0.03); Imm Gran Pct Auto 0.2 % (0.0-0.4); Lymphocytes Absolute Auto 1.2 X10*3/uL (1.2-4.9); Lymphocytes Percent Auto 26.5 % (20-40); Mean Corpuscular HGB Conc 33.7 g/dl (31.0-35.0); Mean Corpuscular Hemoglobin 30.5 pg (27.0-33.0); Mean Corpuscular Volume 90.3 fL (80.0-98.0); Mean Platelet Volume 11.3 fL (9.4-12.3); Monocytes Absolute Auto 0.4 X10*3/uL (0.1-1.2); Neutrophils Absolute Auto 2.8 x10*3/uL (2.0-8.3); Platelet Count 193 X10*3/uL (160-400); Red Blood Count 4.53 X10*6/uL (4.20-5.50); Red Cell Distribution Width 12.6 % (11.0-16.0); White Blood Count 4.6 X10*3/uL (4.8-10.8)
[2023-07-21 08:53] LABS: Alanine Aminotransferase 44 U/L (0-31); Alkaline Phosphatase 97 U/L (39-117); Anion Gap 12 (12-20); Aspartate Amino Transferase 35 U/L (5-31); Bilirubin Total 0.5 mg/dL (0.0-1.0); Blood Urea Nitrogen 14 mg/dL (9-16); C Reactive Protein 0.18 mg/dL (< or = 0.50); Calcium 9.3 mg/dL (8.4-10.2); Carbon Dioxide 26 mmol/L (22-29); Chloride 111 mmol/L (96-108); Estimated Glomerular Filt Rate > 60; Glucose Random 95 mg/dL (60-115); Potassium 4.6 mmol/L (3.3-5.1); Sodium 144 mmol/L (135-145); Total Protein 7.3 g/dL (6.5-8.0)
[2023-07-21 09:32] LABS: Erythrocyte Sedimentation Rate 14 MM/HR (0-20)
== END 2023-07-21 07:38 | disposition home or self-care (01) ==
LOC: HO.LAB 07:37
PROVIDERS: PCP Physician Assistant; Visit Provider Student in an Organized Health Care Education/Training Program
DX: M05.741 Rheumatoid arthritis with rheumatoid factor of right hand without organ or systems involvement (principal); M05.742 Rheumatoid arthritis with rheumatoid factor of left hand without organ or systems involvement
CPT/HCPCS: 36415; 80053; 85025; 85652; 86140

== ENCOUNTER 2023-07-25 07:53 | Outpatient (AMB) | payer MEDICAID, SELFPAY ==
--- NOTE | 2023-07-25 07:56 | A.OFFVIS_ITS ---
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 She states that she feels about the same. Initial history: This is a 50-year-old female with a past medical history of anxiety, depression, lumbar spinal stenosis, and seropositive RA (+++CCP, +++RF) is referred for RA. Patient is originally from [place] then she moved to [place] about 10 months ago then to [place] recently. She lives alone in [place] and all her [place] is in the [place] She last saw her phd intern in November of last year. Patient was diagnosed in 2012 and her disease affects her shoulders, elbows, knees, feet, hands, & wrists. Her most recent regimen was Orencia 125 mg subQ, methotrexate 15 mg weekly and prednisone 5-10 mg a day. She has not received her Orencia in about 8-10 months. She was prescribed methotrexate by her primary provider about 3 weeks ago. Enbrel was not effective. Today she has severe pain and stiffness involving both shoulders, both wrists, hands,, her most severe pain is her right knee pain, she was told her right knee was bone on bone and that she might need surgery, she is due to see a surgeon next week. Patient brought in at least 400 pages of records from [place] for my review [facility] Medical History Low back pain, unspecified Peripheral artery disease Anxiety and depression Bilateral carpal tunnel syndrome Hypothyroidism Herniated disc, cervical Fibromyalgia Surgical History History of knee replacement H/O lateral meniscus repair of right knee History of surgery Hx of right knee surgery History of surgery Hx of cholecystectomy Family History Sister Fibromyalgia Paternal Aunt Arthritis Other Rheumatoid arthritis Social History Household Members: Family Alcohol intake: former Year quit: 2017 Patient Tobacco Use Status: Former Tobacco user Review of Systems Musc Reports back pain, Reports arthralgias and Reports stiffness Physical Exam Const General: cooperative Nutritional Appearance: obese morbidly obese Orientation/consciousness: patient oriented x3 Limitations: no limitations HEENT Head: Yes normocephalic and Yes atraumatic Neck Other: No cervical lymphadenopathy Resp Effort & Inspection: normal respiratory effort and able to speak in complete sentences Neuro General: patient oriented x3 Results Reviewed Results Reviewed: Reviewed labs from 2012 until 2021 Labs 08/26 hepatitis-B (not immune or exposed) and C negative, HIV negative KARON/dsDNA/measures/CRYSTAL CUTTER/SSA/SSB/ACL IgG, IgM, IgA/RPR/p-ANCA/C Anca/HLA B27 all negative Pratik normal 2012 Scl 70 23.7 (<16) Bone scan 2019 Impression: Normal blood flow to both ankles and feet Blood pool images showed diffusely increased tracer pooling involving the right knee, both shoulders, both wrists and several metacarpophalangeal joints of both hands The delayed images revealed heterogeneous tracer distribution in the midthoracic and lower lumbar spine with focal increased uptake involving the right and left posterior aspect of the L5 vertebra Focal uptake is noted in the articular surfaces of both shoulders, sternoclavicular joint, left elbow, hips, knees and ankles Mild focal uptake is also noted on the region of the small trapezium carpal bones of both wrists as well as several metacarpophalangeal joints of both hands. Mild uptake is also noted on several dorsal bone regions of both feet There is slight widening of the midportion of the right femoral shaft Right and left feet x-rays 2019 Impression early arthritic changes Calcific density lateral to the right 5th proximal phalanx Abdominal sonogram 2019 Impression fatty liver infiltrative changes Hepatomegaly S/p cholecystectomy MRI right knee 2018 Impression 1. Osteoarthritis of the right knee 2. Tear of the posterior horn and body of the medial meniscus 3. Osteochondral defect in the medial femoral condyle Knee x-ray 08/22/2021 impression 1. Just inferior to the right medial tibial plateau, there is a 1.4 x 1.1 cm oval hypoechoic lesion. This likely represents a subchondral cyst, but an osteolytic lesion cannot be excluded. Further evaluation with the radionuclide bone scan should be considered 2. There is a moderately severe osteoarthritis of the right knee in particular affecting the medial compartment, femoral tibial joint space. There is mild osteoarthritis of the left knee ORDER #: XR/XR hand wrist LT IMPRESSION: ? 1. Marginal erosions at the first metacarpal heads of both hands and the right ulnar styloid. 2. Relatively preserved joint spaces bilaterally. 3. Mild soft tissue prominence possibly mild swelling overlying the dorsal MCP joints. Correlate with exam. ORDER #: XR/XR foot RT min 3V IMPRESSION: ? 1. Marginal erosions at the first metatarsal heads bilaterally and left fifth metatarsal head compatible with underlying erosive arthropathy. 2. Minimal left first MTP joint space narrowing. Joint spaces otherwise maintained. 3. Chronic/healed fracture deformities of the distal right fourth and fifth metatarsals.? DEXA 11/2022? L-spine T-score 0.3? T-score of bilateral femurs is 1.2 (above normal !) Left femoral neck T-score -1.2 (osteopenia) FRAX: 8.4% for major osteoporotic fracture 0.2% for hip fracture Assessment & Plan Assessment & Plan (1) Rheumatoid arthritis involving both hands with positive rheumatoid factor: Comment: dx 2012 +++RF+++CCP erosive in [place] Failed Enbrel Had palpitations with Xeljanz On Orencia +MTX started 2018 MTX DC 05/28 due to transaminitis Cimzia 06/27 -11/27 ineffective Rinvoq 12/2022 effective Code(s): M05.741 - Rheumatoid arthritis with rheumatoid factor of right hand without organ or systems involvement; M05.742 - Rheumatoid arthritis with rheumatoid factor of left hand without organ or systems involvement Category: Medical Plan: 52-year-old female with seropositive RA presents to clinic to complete her disability paperwork. Paperwork was completed and signed. Patient to return to clinic for her routine rheumatoid arthritis follow-up next week Plan I spent 30 reviewing patient's chart, documenting in the chart and and completing her disability paperwork. Coding Level of Care Code Est Pt Level 4 (66985) Diagnoses Rheumatoid arthritis involving both hands with positive rheumatoid factor M05.741; M05.742
== END 2023-07-25 08:56 | disposition home or self-care (01) ==
PROVIDERS: PCP Physician Assistant; Referring Provider Physician Assistant; Visit Provider Student in an Organized Health Care Education/Training Program
DX: M05.741 Rheumatoid arthritis with rheumatoid factor of right hand without organ or systems involvement (principal); M05.742 Rheumatoid arthritis with rheumatoid factor of left hand without organ or systems involvement
CPT/HCPCS: 99214

== ENCOUNTER → 2023-07-25 07:53 | Outpatient (BNVA) | payer MEDICAID, SELFPAY | PROVIDERS: PCP Physician Assistant; Visit Provider Student in an Organized Health Care Education/Training Program | DX: M05.741 Rheumatoid arthritis with rheumatoid factor of right hand without organ or systems involvement (principal); M05.742 Rheumatoid arthritis with rheumatoid factor of left hand without organ or systems involvement | CPT/HCPCS: 99212 ==

== ENCOUNTER 2023-07-31 07:21 | Outpatient (AMB) | payer MEDICAID, SELFPAY ==
[2023-07-31 07:38] VITALS: BP 114/72; PULSE 74; O2SAT 98; BMI 35.5
--- NOTE | 2023-07-31 07:38 | MHC.OFFVIS ---
Vital Signs 07/31/23 07:38 Height 5 ft 3 in Weight 200 lb 9.93 oz BMI 35.5 BP 114/72 Blood Pressure Location Rt brachial Position Sitting Pulse 74 Pulse Source Pulse Oximeter Pulse Oximetry (%) 98 Oxygen Delivery Method Room Air Intake Visit Reasons: Ra follow up/cm Intake Note: Pt seen today for RA follow up. Reports left knee pain since June; left elbow pain started few days ago. 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 Doing reasonably well overall. Remains on Rinvoq 15 mg daily. She states that last month she had a bad week when she had significant left knee pain and could not raise her arms up. Generally doing fairly well. Rinvoq is fairly effective Initial history: This is a 50-year-old female with a past medical history of anxiety, depression, lumbar spinal stenosis, and seropositive RA (+++CCP, +++RF) is referred for RA. Patient is originally from [place] then she moved to [place] about 10 months ago then to [place] recently. She lives alone in [place] and all her family is in the [place] 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 Patient was diagnosed in 2012 and her disease affects her shoulders, elbows, knees, feet, hands, & wrists. Her most recent regimen was Orencia 125 mg subQ, methotrexate 15 mg weekly and prednisone 5-10 mg a day. She has not received her Orencia in about 8-10 months. She was prescribed methotrexate by her primary provider about 3 weeks ago. Enbrel was not effective. Today she has severe pain and stiffness involving both shoulders, both wrists, hands,, her most severe pain is her right knee pain, she was told her right knee was bone on bone and that she might need surgery, she is due to see a surgeon next week. Patient brought in at least 400 pages of records from [place] for my review [facility] Medical History Low back pain, unspecified Peripheral artery disease Anxiety and depression Bilateral carpal tunnel syndrome Hypothyroidism Herniated disc, cervical Fibromyalgia Surgical History History of knee replacement H/O lateral meniscus repair of right knee History of surgery Hx of right knee surgery History of surgery Hx of cholecystectomy Family History Sister Fibromyalgia Paternal Aunt Arthritis Other Rheumatoid arthritis Social History Household Members: Family Alcohol intake: former Year quit: 2017 Patient Tobacco Use Status: Former Tobacco user Review of Systems Musc Denies arthralgias, Denies joint swelling and Denies stiffness Physical Exam Vital Signs: Last Vital Signs Pulse 74 07/31/23 07:38 BP 114/72 07/31/23 07:38 Pulse Ox 98 07/31/23 07:38 Oxygen Delivery Method Room Air 07/31/23 07:38 BMI result Body Mass Index 35.5 Const General: cooperative Nutritional Appearance: obese morbidly obese Orientation/consciousness: patient oriented x3 Limitations: no limitations HEENT Head: Yes normocephalic and Yes atraumatic Neck Other: No cervical lymphadenopathy Resp Effort & Inspection: normal respiratory effort and able to speak in complete sentences Auscultation: clear to auscultation bilaterally Cardio Rate: regular rate Rhythm: regular rhythm Skin General skin exam: no rashes or lesions noted Neuro General: patient oriented x3 Extrem Other: Puffiness of right MCPs but no tenderness Negative MCP squeeze test bilaterally Significant left knee crepitus No ankle swelling or tenderness bilaterally Negative MTP squeeze test bilaterally No active synovitis today Negative straight leg raise test Results Reviewed Results Reviewed: Reviewed labs from 2012 until 2021 Labs 08/26 hepatitis-B (not immune or exposed) and C negative, HIV negative KARON/dsDNA/measures/EPOXY SPECIALIST/SSA/SSB/ACL IgG, IgM, IgA/RPR/p-ANCA/C Anca/HLA B27 all negative Pratik normal 2012 Scl 70 23.7 (<16) Bone scan 2019 Impression: Normal blood flow to both ankles and feet Blood pool images showed diffusely increased tracer pooling involving the right knee, both shoulders, both wrists and several metacarpophalangeal joints of both hands The delayed images revealed heterogeneous tracer distribution in the midthoracic and lower lumbar spine with focal increased uptake involving the right and left posterior aspect of the L5 vertebra Focal uptake is noted in the articular surfaces of both shoulders, sternoclavicular joint, left elbow, hips, knees and ankles Mild focal uptake is also noted on the region of the small trapezium carpal bones of both wrists as well as several metacarpophalangeal joints of both hands. Mild uptake is also noted on several dorsal bone regions of both feet There is slight widening of the midportion of the right femoral shaft Right and left feet x-rays 2019 Impression early arthritic changes Calcific density lateral to the right 5th proximal phalanx Abdominal sonogram 2019 Impression fatty liver infiltrative changes Hepatomegaly S/p cholecystectomy MRI right knee 2018 Impression 1. Osteoarthritis of the right knee 2. Tear of the posterior horn and body of the medial meniscus 3. Osteochondral defect in the medial femoral condyle Knee x-ray 08/22/2021 impression 1. Just inferior to the right medial tibial plateau, there is a 1.4 x 1.1 cm oval hypoechoic lesion. This likely represents a subchondral cyst, but an osteolytic lesion cannot be excluded. Further evaluation with the radionuclide bone scan should be considered 2. There is a moderately severe osteoarthritis of the right knee in particular affecting the medial compartment, femoral tibial joint space. There is mild osteoarthritis of the left knee ORDER #: XR/XR hand wrist LT IMPRESSION: ? 1. Marginal erosions at the first metacarpal heads of both hands and the right ulnar styloid. 2. Relatively preserved joint spaces bilaterally. 3. Mild soft tissue prominence possibly mild swelling overlying the dorsal MCP joints. Correlate with exam. ORDER #: XR/XR foot RT min 3V IMPRESSION: ? 1. Marginal erosions at the first metatarsal heads bilaterally and left fifth metatarsal head compatible with underlying erosive arthropathy. 2. Minimal left first MTP joint space narrowing. Joint spaces otherwise maintained. 3. Chronic/healed fracture deformities of the distal right fourth and fifth metatarsals.? DEXA 11/2022? L-spine T-score 0.3? T-score of bilateral femurs is 1.2 (above normal !) Left femoral neck T-score -1.2 (osteopenia) FRAX: 8.4% for major osteoporotic fracture 0.2% for hip fracture Assessment & Plan Assessment & Plan (1) Rheumatoid arthritis involving both hands with positive rheumatoid factor: Comment: dx 2012 +++RF+++CCP erosive in [place] Failed Enbrel Had palpitations with Xeljanz On Orencia +MTX started 2018 MTX DC 05/28 due to transaminitis Cimzia 06/27 -11/27 ineffective Rinvoq 12/2022 effective Code(s): M05.741 - Rheumatoid arthritis with rheumatoid factor of right hand without organ or systems involvement; M05.742 - Rheumatoid arthritis with rheumatoid factor of left hand without organ or systems involvement Category: Medical Plan: 52-year-old female with seropositive erosive RA (+++ccp, +++RF) returns for follow-up. On Rinvoq 15 mg daily. Well tolerated. Patient continues to have intermittent short-lived flare-ups of multiple joints, the flare-ups are few and far in between. there is no active synovitis today. She is doing quite well overall. Inflammatory markers have normalized. Continue with Rinvoq 15 mg daily We considered adding Plaquenil however patient is on multiple QTC prolonging medications Infectious screening 08/26 hepatitis-B and C negative, T spot negative. Labs before next visit in 3 months (2) Transaminitis: Code(s): R74.01 - Elevation of levels of liver transaminase levels Category: Medical Plan: Liver ultrasound showed fatty liver, hepatitis screen negative, patient denies any history of alcohol use. Liver enzymes continue to fluctuate (3) Osteopenia: Code(s): M85.80 - Other specified disorders of bone density and structure, unspecified site Category: Medical Qualifiers: Osteopenia location: femoral neck Laterality: bilateral Qualified Code(s): M85.851 - Other specified disorders of bone density and structure, right thigh; M85.852 - Other specified disorders of bone density and structure, left thigh Plan: DEXA 11/2022? L-spine T-score 0.3? T-score of bilateral femurs is 1.2 (above normal !) Left femoral neck T-score -1.2 (osteopenia) FRAX: 8.4% for major osteoporotic fracture 0.2% for hip fracture No need for antiresorptives at this point (4) High risk medication use: Code(s): Z79.899 - Other retirement (current) drug therapy Category: Medical Plan: On Rinvoq. Monitor safety labs. Patient believes that she got a Shingrix vaccine. Advised patient to get the Shingrix vaccine if she did not get yet Plan I spent 26 minutes reviewing patient's chart, evaluating patient, ordering diagnostic workup, counseling patient and documenting in the chart Orders: Orders Comprehensive Met. Panel 3 Months M05.741 - Rheumatoid arthritis with rheumatoid factor of right hand without organ or systems involvement, M05.742 - Rheumatoid arthritis with rheumatoid factor of left hand without organ or systems involvement Complete Blood Count Auto Diff 3 Months M05.741 - Rheumatoid arthritis with rheumatoid factor of right hand without organ or systems involvement, M05.742 - Rheumatoid arthritis with rheumatoid factor of left hand without organ or systems involvement C Reactive Protein 3 Months M05.741 - Rheumatoid arthritis with rheumatoid factor of right hand without organ or systems involvement, M05.742 - Rheumatoid arthritis with rheumatoid factor of left hand without organ or systems involvement Erythrocyte Sedimentation Rate 3 Months M05.741 - Rheumatoid arthritis with rheumatoid factor of right hand without organ or systems involvement, M05.742 - Rheumatoid arthritis with rheumatoid factor of left hand without organ or systems involvement Coding Level of Care Code Est Pt Level 4 (84937) Complex EM visit Add On G2211 Diagnoses Rheumatoid arthritis involving both hands with positive rheumatoid factor M05.741; M05.742 Transaminitis R74.01 Osteopenia of necks of both femurs M85.851; M85.852 Osteopenia location: femoral neck Laterality: bilateral High risk medication use Z79.899
== END 2023-07-31 07:52 | disposition home or self-care (01) ==
PROVIDERS: PCP Physician Assistant; Referring Provider Physician Assistant; Visit Provider Student in an Organized Health Care Education/Training Program
DX: M05.741 Rheumatoid arthritis with rheumatoid factor of right hand without organ or systems involvement (principal); M05.742 Rheumatoid arthritis with rheumatoid factor of left hand without organ or systems involvement; R74.01 Elevation of levels of liver transaminase levels; M85.851 Other specified disorders of bone density and structure, right thigh; M85.852 Other specified disorders of bone density and structure, left thigh; Z79.899 Other long term (current) drug therapy
CPT/HCPCS: 99214

== ENCOUNTER → 2023-07-31 07:21 | Outpatient (BNVA) | payer MEDICAID, SELFPAY | PROVIDERS: PCP Physician Assistant; Visit Provider Student in an Organized Health Care Education/Training Program | DX: M05.741 Rheumatoid arthritis with rheumatoid factor of right hand without organ or systems involvement (principal); M05.742 Rheumatoid arthritis with rheumatoid factor of left hand without organ or systems involvement; M85.852 Other specified disorders of bone density and structure, left thigh; R74.01 Elevation of levels of liver transaminase levels; Z79.631 Long term (current) use of antimetabolite agent | CPT/HCPCS: 99212 ==

== ENCOUNTER 2023-10-27 07:33 | Outpatient (REF) | payer MEDICAID, SELFPAY ==
[2023-10-27 07:53] LABS: MANUAL DIFF FLAG NO
[2023-10-27 08:40] LABS: Basophils Percent Auto 0.6 % (0-2); Eosinophils Absolute Auto 0.1 X10*3/uL (0.0-0.4); Eosinophils Percent Auto 2.8 % (0-4); Hemoglobin 13.5 g/dl (12.0-16.0); Imm Gran Abs Auto 0.02 X10*3/uL (0.00-0.03); Imm Gran Pct Auto 0.4 % (0.0-0.4); Lymphocytes Percent Auto 42.1 % (20-40); Mean Corpuscular HGB Conc 33.8 g/dl (31.0-35.0); Mean Corpuscular Volume 88.9 fL (80.0-98.0); Mean Platelet Volume 11.5 fL (9.4-12.3); Monocytes Absolute Auto 0.4 X10*3/uL (0.1-1.2); Monocytes Percent Auto 8.8 % (2-11); Neutrophils Absolute Auto 2.1 x10*3/uL (2.0-8.3); Neutrophils Percent Auto 45.3 % (45-73); Platelet Count 177 X10*3/uL (160-400); Red Cell Distribution Width 12.4 % (11.0-16.0); White Blood Count 4.7 X10*3/uL (4.8-10.8)
[2023-10-27 09:11] LABS: Alanine Aminotransferase 42 U/L (0-31); Albumin Level 3.9 g/dL (3.5-5.0); Alkaline Phosphatase 105 U/L (39-117); Anion Gap 12 (12-20); Aspartate Amino Transferase 36 U/L (5-31); Bilirubin Total 0.4 mg/dL (0.0-1.0); Blood Urea Nitrogen 18 mg/dL (9-16); C Reactive Protein 0.24 mg/dL (< or = 0.50); Calcium 9.3 mg/dL (8.4-10.2); Carbon Dioxide 24 mmol/L (22-29); Chloride 111 mmol/L (96-108); Estimated Glomerular Filt Rate > 60; Glucose Random 98 mg/dL (60-115); Potassium 4.1 mmol/L (3.3-5.1); Sodium 143 mmol/L (135-145); Total Protein 7.3 g/dL (6.5-8.0)
[2023-10-27 09:28] LABS: Erythrocyte Sedimentation Rate 18 MM/HR (0-20)
== END 2023-10-27 07:34 | disposition home or self-care (01) ==
LOC: HO.LAB 07:33
PROVIDERS: Visit Provider Student in an Organized Health Care Education/Training Program
DX: M05.741 Rheumatoid arthritis with rheumatoid factor of right hand without organ or systems involvement (principal); M05.742 Rheumatoid arthritis with rheumatoid factor of left hand without organ or systems involvement
CPT/HCPCS: 36415; 80053; 85025; 85652; 86140

== ENCOUNTER 2023-11-01 07:35 | Outpatient (AMB) | payer MEDICAID, SELFPAY ==
--- NOTE | 2023-11-01 07:40 | MHC.OFFVIS ---
Vital Signs 11/01/23 07:45 Height 5 ft 3 in Weight 202 lb 6.15 oz BMI 35.8 BP 124/80 Blood Pressure Location Rt brachial Position Sitting Pulse 75 Pulse Source Pulse Oximeter Pulse Oximetry (%) 98 Oxygen Delivery Method Room Air Intake Visit Reasons: RA Intake Note: Patient presents for RA. Allergies No Known Allergies Allergy (Verified 11/01/23 07:44) Medication List - Last Reconciled 11/01/23 by Petra Baron MD aripiprazole 2 mg PO DAILY docusate sodium 100 mg PO BID hydroxyzine HCl 25 mg PO BID PRN levothyroxine 100 mcg PO DAILY naproxen 500 mg PO BID quetiapine 25 - 50 mg PO BEDTIME PRN Rinvoq ER (upadacitinib) 15 mg PO DAILY NS tramadol 50 mg PO BID PRN HPI Comments Details: 52-year-old female with seropositive erosive (+++RF +++CCP) RA returns for follow-up. Doing reasonably well overall. Remains on Rinvoq 15 mg daily. She states that last month she had a bad week when she had multiple joint pains. She took naproxen 500 mg nightly with relief. Initial history: This is a 50-year-old female with a past medical history of anxiety, depression, lumbar spinal stenosis, and seropositive RA (+++CCP, +++RF) is referred for RA. Patient is originally from [place] then she moved to [place] about 10 months ago then to [place] recently. She lives alone in [place] and all her [place] is [place] the [place] She last saw her customer sales advisor in November of last year. Patient was diagnosed in 2012 and her disease affects her shoulders, elbows, knees, feet, hands, & wrists. Her most recent regimen was Orencia 125 mg subQ, methotrexate 15 mg weekly and prednisone 5-10 mg a day. She has not received her Orencia in about 8-10 months. She was prescribed methotrexate by her primary provider about 3 weeks ago. Enbrel was not effective. Today she has severe pain and stiffness involving both shoulders, both wrists, hands,, her most severe pain is her right knee pain, she was told her right knee was bone on bone and that she might need surgery, she is due to see a surgeon next week. Patient brought in at least 400 pages of records from [place] for my review [facility] Medical History Low back pain, unspecified Peripheral artery disease Anxiety and depression Bilateral carpal tunnel syndrome Hypothyroidism Herniated disc, cervical Fibromyalgia Surgical History History of knee replacement H/O lateral meniscus repair of right knee History of surgery Hx of right knee surgery History of surgery Hx of cholecystectomy Family History Sister Fibromyalgia Paternal Aunt Arthritis Other Rheumatoid arthritis Social History Household Members: Family Alcohol intake: former Year quit: 2017 Patient Tobacco Use Status: Former Tobacco user Review of Systems Musc Denies arthralgias, Denies joint swelling and Denies stiffness Physical Exam Vital Signs: Last Vital Signs Pulse 75 11/01/23 07:45 BP 124/80 11/01/23 07:45 Pulse Ox 98 11/01/23 07:45 Oxygen Delivery Method Room Air 11/01/23 07:45 BMI result Body Mass Index 35.8 Const General: cooperative Nutritional Appearance: obese morbidly obese Orientation/consciousness: patient oriented x3 Limitations: no limitations HEENT Head: Yes normocephalic and Yes atraumatic Neck Other: No cervical lymphadenopathy Resp Effort & Inspection: normal respiratory effort and able to speak in complete sentences Auscultation: clear to auscultation bilaterally Cardio Rate: regular rate Rhythm: regular rhythm Skin General skin exam: no rashes or lesions noted Neuro General: patient oriented x3 Extrem Other: Puffiness of right MCPs but no tenderness Negative MCP squeeze test bilaterally Very mild contracture of left elbow Significant left knee crepitus No ankle swelling or tenderness bilaterally Negative MTP squeeze test bilaterally No active synovitis today Negative straight leg raise test Results Reviewed Results Reviewed: Reviewed labs from 2012 until 2021 Labs 08/26 hepatitis-B (not immune or exposed) and C negative, HIV negative KARON/dsDNA/measures/DAIRY GRAZER/SSA/SSB/ACL IgG, IgM, IgA/RPR/p-ANCA/C Anca/HLA B27 all negative Pratik normal 2012 Scl 70 23.7 (<16) Bone scan 2019 Impression: Normal blood flow to both ankles and feet Blood pool images showed diffusely increased tracer pooling involving the right knee, both shoulders, both wrists and several metacarpophalangeal joints of both hands The delayed images revealed heterogeneous tracer distribution in the midthoracic and lower lumbar spine with focal increased uptake involving the right and left posterior aspect of the L5 vertebra Focal uptake is noted in the articular surfaces of both shoulders, sternoclavicular joint, left elbow, hips, knees and ankles Mild focal uptake is also noted on the region of the small trapezium carpal bones of both wrists as well as several metacarpophalangeal joints of both hands. Mild uptake is also noted on several dorsal bone regions of both feet There is slight widening of the midportion of the right femoral shaft Right and left feet x-rays 2019 Impression early arthritic changes Calcific density lateral to the right 5th proximal phalanx Abdominal sonogram 2019 Impression fatty liver infiltrative changes Hepatomegaly S/p cholecystectomy MRI right knee 2018 Impression 1. Osteoarthritis of the right knee 2. Tear of the posterior horn and body of the medial meniscus 3. Osteochondral defect in the medial femoral condyle Knee x-ray 08/22/2021 impression 1. Just inferior to the right medial tibial plateau, there is a 1.4 x 1.1 cm oval hypoechoic lesion. This likely represents a subchondral cyst, but an osteolytic lesion cannot be excluded. Further evaluation with the radionuclide bone scan should be considered 2. There is a moderately severe osteoarthritis of the right knee in particular affecting the medial compartment, femoral tibial joint space. There is mild osteoarthritis of the left knee ORDER #: XR/XR hand wrist LT IMPRESSION: ? 1. Marginal erosions at the first metacarpal heads of both hands and the right ulnar styloid. 2. Relatively preserved joint spaces bilaterally. 3. Mild soft tissue prominence possibly mild swelling overlying the dorsal MCP joints. Correlate with exam. ORDER #: XR/XR foot RT min 3V IMPRESSION: ? 1. Marginal erosions at the first metatarsal heads bilaterally and left fifth metatarsal head compatible with underlying erosive arthropathy. 2. Minimal left first MTP joint space narrowing. Joint spaces otherwise maintained. 3. Chronic/healed fracture deformities of the distal right fourth and fifth metatarsals.? DEXA 11/2022? L-spine T-score 0.3? T-score of bilateral femurs is 1.2 (above normal !) Left femoral neck T-score -1.2 (osteopenia) FRAX: 8.4% for major osteoporotic fracture 0.2% for hip fracture Assessment & Plan Assessment & Plan (1) Rheumatoid arthritis involving both hands with positive rheumatoid factor: Comment: dx 2012 +++RF+++CCP erosive in [place] Failed Enbrel Had palpitations with Xeljanz On Orencia +MTX started 2019 MTX DC 05/28 due to transaminitis Cimzia 06/27 -11/27 ineffective Rinvoq 12/2022 effective Code(s): M05.741 - Rheumatoid arthritis with rheumatoid factor of right hand without organ or systems involvement; M05.742 - Rheumatoid arthritis with rheumatoid factor of left hand without organ or systems involvement Category: Medical Plan: 52-year-old female with seropositive erosive RA (+++ccp, +++RF) returns for follow-up. On Rinvoq 15 mg daily. Well tolerated. Patient continues to have intermittent short-lived flare-ups of multiple joints, the flare-ups are few and far in between. there is no active synovitis today. She is doing quite well overall. Inflammatory markers are normal Continue with Rinvoq 15 mg daily . She has been using naproxen 500 mg intermittently. Advised patient to use it sparingly. We considered adding Plaquenil however patient is on multiple QTC prolonging medications Infectious screening 08/26 hepatitis-B and C negative, T spot negative. Repeat Infectious screening labs Labs before next visit in 3 months (2) Transaminitis: Code(s): R74.01 - Elevation of levels of liver transaminase levels Category: Medical Plan: Liver ultrasound showed fatty liver, hepatitis screen negative, patient denies any history of alcohol use. Liver enzymes continue to fluctuate. Patient has been watching her diet and lost some weight (3) Osteopenia: Code(s): M85.80 - Other specified disorders of bone density and structure, unspecified site Category: Medical Qualifiers: Osteopenia location: femoral neck Laterality: bilateral Qualified Code(s): M85.851 - Other specified disorders of bone density and structure, right thigh; M85.852 - Other specified disorders of bone density and structure, left thigh Plan: DEXA 11/2022? L-spine T-score 0.3? T-score of bilateral femurs is 1.2 (above normal !) Left femoral neck T-score -1.2 (osteopenia) FRAX: 8.4% for major osteoporotic fracture 0.2% for hip fracture No need for antiresorptives at this point (4) High risk medication use: Code(s): Z79.899 - Other intermediate manager (current) drug therapy Category: Medical Plan: On Rinvoq. Patient is aware of the black box warning associated with Rinvoq including mildly increased risk of cardiovascular events, malignancy and thromboembolic events. Rinvoq has been very effective for her Monitor safety labs. (5) Immunization counseling: Code(s): Z71.85 - Encounter for immunization safety counseling Category: Medical Plan: Vaccination history Flu vaccine 10/2021, 12/2021, 10/2022 Hepatitis B 08/2022, 09/2022 COVID 05/2020, 06/2020, 10/2021, 01/2021, 01/2023 Pneumococcal conjugate 09/2022 Tdap 08/2022 Shingrix 09/2023 Advised patient to get flu vaccine for this season an get 2nd dose of Shingrix vaccine and try to get RSV vaccine Plan I spent 46 minutes reviewing patient's chart, evaluating patient, ordering diagnostic workup, counseling patient and documenting in the chart Orders: Orders C Reactive Protein 3 Months M05.741 - Rheumatoid arthritis with rheumatoid factor of right hand without organ or systems involvement, M05.742 - Rheumatoid arthritis with rheumatoid factor of left hand without organ or systems involvement, Z79.899 - Other intermediate manager (current) drug therapy Erythrocyte Sedimentation Rate 3 Months M05.741 - Rheumatoid arthritis with rheumatoid factor of right hand without organ or systems involvement, M05.742 - Rheumatoid arthritis with rheumatoid factor of left hand without organ or systems involvement, Z79.899 - Other intermediate manager (current) drug therapy Hepatitis A,B,C Profile 3 Months Z11.59 - Encounter for screening for other viral diseases T Spot TB 3 Months Z11.7 - Encounter for testing for latent tuberculosis infection Complete Blood Count Auto Diff 3 Months M05.741 - Rheumatoid arthritis with rheumatoid factor of right hand without organ or systems involvement, M05.742 - Rheumatoid arthritis with rheumatoid factor of left hand without organ or systems involvement, Z79.899 - Other intermediate manager (current) drug therapy Comprehensive Met. Panel 3 Months M05.741 - Rheumatoid arthritis with rheumatoid factor of right hand without organ or systems involvement, M05.742 - Rheumatoid arthritis with rheumatoid factor of left hand without organ or systems involvement, Z79.899 - Other fpc (current) drug therapy Coding Level of Care Code Est Pt Level 5 (32312) Complex EM visit Add On G2211 Diagnoses Rheumatoid arthritis involving both hands with positive rheumatoid factor M05.741; M05.742 Transaminitis R74.01 Osteopenia of necks of both femurs M85.851; M85.852 Osteopenia location: femoral neck Laterality: bilateral High risk medication use Z79.899 Immunization counseling Z71.85
[2023-11-01 07:45] VITALS: BP 124/80; PULSE 75; O2SAT 98; BMI 35.8
== END 2023-11-01 08:01 | disposition home or self-care (01) ==
PROVIDERS: PCP Physician Assistant; Referring Provider Physician Assistant; Visit Provider Student in an Organized Health Care Education/Training Program
DX: M05.741 Rheumatoid arthritis with rheumatoid factor of right hand without organ or systems involvement (principal); M05.742 Rheumatoid arthritis with rheumatoid factor of left hand without organ or systems involvement; R74.01 Elevation of levels of liver transaminase levels; M85.851 Other specified disorders of bone density and structure, right thigh; M85.852 Other specified disorders of bone density and structure, left thigh; Z79.899 Other long term (current) drug therapy; Z71.85 Encounter for immunization safety counseling
CPT/HCPCS: 99215

== ENCOUNTER → 2023-11-01 07:35 | Outpatient (BNVA) | payer MEDICAID, SELFPAY | PROVIDERS: PCP Physician Assistant; Visit Provider Student in an Organized Health Care Education/Training Program | DX: M06.9 Rheumatoid arthritis, unspecified (principal); M05.741 Rheumatoid arthritis with rheumatoid factor of right hand without organ or systems involvement; M85.852 Other specified disorders of bone density and structure, left thigh; M85.851 Other specified disorders of bone density and structure, right thigh; R74.01 Elevation of levels of liver transaminase levels; Z71.85 Encounter for immunization safety counseling; Z79.899 Other long term (current) drug therapy | CPT/HCPCS: 99212 ==

== ENCOUNTER 2024-02-11 06:05 | Outpatient (REF) | payer MEDICAID, SELFPAY ==
[2024-02-11 06:47] LABS: MANUAL DIFF FLAG NO
[2024-02-11 08:16] LABS: Basophils Percent Auto 0.8 % (0-2); Eosinophils Absolute Auto 0.8 X10*3/uL (0.0-0.4); Eosinophils Percent Auto 14.9 % (0-4); Hematocrit 39.3 % (37.0-47.0); Hemoglobin 13.3 g/dl (12.0-16.0); Imm Gran Abs Auto 0.01 X10*3/uL (0.00-0.03); Imm Gran Pct Auto 0.2 % (0.0-0.4); Lymphocytes Absolute Auto 2.1 X10*3/uL (1.2-4.9); Lymphocytes Percent Auto 41.1 % (20-40); Mean Corpuscular HGB Conc 33.8 g/dl (31.0-35.0); Mean Corpuscular Hemoglobin 30.3 pg (27.0-33.0); Mean Corpuscular Volume 89.5 fL (80.0-98.0); Mean Platelet Volume 11.4 fL (9.4-12.3); Monocytes Absolute Auto 0.3 X10*3/uL (0.1-1.2); Monocytes Percent Auto 5.5 % (2-11); Neutrophils Absolute Auto 1.9 x10*3/uL (2.0-8.3); Neutrophils Percent Auto 37.5 % (45-73); Platelet Count 211 X10*3/uL (160-400); Red Blood Count 4.39 X10*6/uL (4.20-5.50); Red Cell Distribution Width 13.2 % (11.0-16.0); White Blood Count 5.1 X10*3/uL (4.8-10.8)
[2024-02-11 08:57] LABS: Erythrocyte Sedimentation Rate 11 MM/HR (0-20)
[2024-02-11 09:33] LABS: Alanine Aminotransferase 27 U/L (0-31); Albumin Level 4.1 g/dL (3.5-5.0); Alkaline Phosphatase 104 U/L (39-117); Anion Gap 11 (12-20); Aspartate Amino Transferase 29 U/L (5-31); Bilirubin Total 0.5 mg/dL (0.0-1.0); Blood Urea Nitrogen 17 mg/dL (9-16); C Reactive Protein < 0.10 mg/dL (< or = 0.50); Calcium 9.4 mg/dL (8.4-10.2); Carbon Dioxide 22 mmol/L (22-29); Chloride 113 mmol/L (96-108); Estimated Glomerular Filt Rate > 60; Glucose Random 88 mg/dL (60-115); Potassium 3.8 mmol/L (3.3-5.1); Sodium 142 mmol/L (135-145); Total Protein 7.3 g/dL (6.5-8.0)
[2024-02-11 09:38] LABS: HBS Num1 0.12 mIU/mL (0-7.99); HBsAGNum1 0.33 S/CO (0.00-0.99); Hepatitis A Antibody IgM 0.17 Index (0-0.79); Hepatitis B Core Antibody Nonreactive (Nonreactive); Hepatitis B Surface Antigen Negative (Negative); ~HepC Num1 0.09 S/CO (0.00-0.79); ~Hepatitis A Antibody IgM Nonreactive (Nonreactive); ~Hepatitis B Surface Antibody NONREACTIVE (Nonreactive); ~Hepatitis C Antibody Nonreactive (Nonreactive)
[2024-02-13 21:48] LABS: TS Negative Control Passed; TS Panel A 0; TS Panel B 1; TS Positive Control Passed; TSpotTB Negative (Negative)
== END 2024-02-11 06:06 | disposition home or self-care (01) ==
LOC: HO.LAB 06:05
PROVIDERS: PCP Physician Assistant; Visit Provider Student in an Organized Health Care Education/Training Program
DX: M05.741 Rheumatoid arthritis with rheumatoid factor of right hand without organ or systems involvement (principal); M05.742 Rheumatoid arthritis with rheumatoid factor of left hand without organ or systems involvement; Z79.899 Other long term (current) drug therapy; Z11.59 Encounter for screening for other viral diseases; Z11.7 Encounter for testing for latent tuberculosis infection
CPT/HCPCS: 36415; 80053; 85025; 85652; 86140; 86481; 86704; 86706; 86709; 86803; 87340

== ENCOUNTER 2024-02-14 07:27 | Outpatient (AMB) | payer MEDICAID, SELFPAY ==
[2024-02-14 07:35] VITALS: BP 124/70; PULSE 65; BMI 34.3
--- NOTE | 2024-02-14 07:35 | A.OFFVIS_ITS ---
Vital Signs 02/14/24 07:35 Height 5 ft 3 in Weight 193 lb 9.054 oz BMI 34.3 BP 124/70 Blood Pressure Location Rt brachial Position Sitting Pulse 65 Pulse Source Pulse Oximeter Intake Visit Reasons: RA Intake Note: Patient last seen by Doctor Petra Baron on 11/01/23. Presents today for RA follow up and test results. 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 She states that she has been doing quite well overall. She remains on Rinvoq 15 mg daily, she also takes naproxen 500 mg nightly. She states that she gets intermittent joint pains involving her elbows, wrists, it only lasts a few hours, she also states that she gets intermittent back pain. She has been dieting, she was recently started on Ozempic for the last month. She lost about 10 lb since last visit. She was finally approved for social security Initial history: This is a 50-year-old female with a past medical history of anxiety, depression, lumbar spinal stenosis, and seropositive RA (+++CCP, +++RF) is referred for RA. Patient is originally from [place] then she moved to [place] about 10 months ago then to [place] recently. She lives alone in [place] and all her family is in the [place] She last saw her lab analyst in November of last year. Patient was diagnosed in 2012 and her disease affects her shoulders, elbows, knees, feet, hands, & wrists. Her most recent regimen was Orencia 125 mg subQ, methotrexate 15 mg weekly and prednisone 5-10 mg a day. She has not received her Orencia in about 8-10 months. She was prescribed methotrexate by her primary provider about 3 weeks ago. Enbrel was not effective. Today she has severe pain and stiffness involving both shoulders, both wrists, hands,, her most severe pain is her right knee pain, she was told her right knee was bone on bone and that she might need surgery, she is due to see a surgeon next week. Patient brought in at least 400 pages of records from [place] for my review [facility] Medical History Low back pain, unspecified Peripheral artery disease Anxiety and depression Bilateral carpal tunnel syndrome Hypothyroidism Herniated disc, cervical Fibromyalgia Surgical History History of knee replacement H/O lateral meniscus repair of right knee History of surgery Hx of right knee surgery History of surgery Hx of cholecystectomy Family History Sister Fibromyalgia Paternal Aunt Arthritis Other Rheumatoid arthritis Social History Household Members: Family Alcohol intake: former Year quit: 2017 Patient Tobacco Use Status: Former Tobacco user [place] [facility] [place] pain, Reports arthralgias and Denies joint swelling Physical Exam Vital Signs: Last Vital Signs Pulse 65 02/14/24 07:35 BP 124/70 02/14/24 07:35 BMI result Body Mass Index 34.3 Const General: cooperative Nutritional Appearance: obese morbidly obese Orientation/consciousness: patient oriented x3 Limitations: no limitations HEENT Head: Yes normocephalic and Yes atraumatic Neck Other: No cervical lymphadenopathy Resp Effort & Inspection: normal respiratory effort and able to speak in complete sentences Auscultation: clear to auscultation bilaterally Cardio Rate: regular rate Rhythm: regular rhythm Skin General skin exam: no rashes or lesions noted Neuro General: patient oriented x3 Extrem Other: Puffiness of right MCPs but no tenderness Negative MCP squeeze test bilaterally Very mild contracture of left elbow Significant left knee crepitus No ankle swelling or tenderness bilaterally Negative MTP squeeze test bilaterally No active synovitis today Negative straight leg raise test Assessment & Plan Assessment & Plan (1) Rheumatoid arthritis involving both hands with positive rheumatoid factor: Comment: dx 2013 +++RF+++CCP erosive in [place] Failed Enbrel Had palpitations with Xekim On Orencia +MTX started 2019 MTX DC 05/28 due to transaminitis Cimzia 06/27 -11/27 ineffective Rinvoq 12/2022 effective Code(s): M05.741 - Rheumatoid arthritis with rheumatoid factor of right hand without organ or systems involvement; M05.742 - Rheumatoid arthritis with rheumatoid factor of left hand without organ or systems involvement Category: Medical Plan: 52-year-old female with seropositive erosive RA (+++ccp, +++RF) returns for follow-up. On Rinvoq 15 mg daily. Well tolerated. Patient continues to have intermittent short-lived flare-ups of multiple joints, the flare-ups are few, mild and far in between. there is no active synovitis today. She is doing quite well overall. Inflammatory markers are normal Continue with Rinvoq 15 mg daily. She also takes naproxen 500 mg nightly. We will continue to monitor her kidney function while using NSAIDs regularly Labs before next visit in 3 months (2) Transaminitis: Code(s): R74.01 - Elevation of levels of liver transaminase levels Category: Medical Plan: Liver ultrasound showed fatty liver, hepatitis screen negative, patient denies any history of alcohol use. Liver enzymes continue to fluctuate. Patient has been watching her diet and lost some weight. Her liver enzymes have normalized (3) Osteopenia: Code(s): M85.80 - Other specified disorders of bone density and structure, unspecified site Category: Medical Qualifiers: Osteopenia location: femoral neck Laterality: bilateral Qualified Code(s): M85.851 - Other specified disorders of bone density and structure, right thigh; M85.852 - Other specified disorders of bone density and structure, left thigh Plan: DEXA 11/2022? L-spine T-score 0.3? T-score of bilateral femurs is 1.2 (above normal !) Left femoral neck T-score -1.2 (osteopenia) FRAX: 8.4% for major osteoporotic fracture 0.2% for hip fracture No need for antiresorptives at this point (4) High risk medication use: Code(s): Z79.899 - Other longterm (current) drug therapy Category: Medical Plan: On Rinvoq. Patient is aware of the black box warning associated with Rinvoq including mildly increased risk of cardiovascular events, malignancy and thromboembolic events. Rinvoq has been very effective for her Monitor safety labs. (5) Immunization counseling: Code(s): Z71.85 - Encounter for immunization safety counseling Category: Medical Plan: Vaccination history Flu vaccine 10/2021, 12/2021, 10/2022 Hepatitis B 08/2022, 09/2022 COVID 05/2020, 06/2020, 10/2021, 01/2021, 01/2023 Pneumococcal conjugate 09/2022 Tdap 08/2022 She received both doses of Shingrix this year as well as the flu vaccine She was unable to get the RSV vaccine Plan I spent 26 minutes reviewing patient's chart, evaluating patient, ordering diagnostic workup, counseling patient and documenting in the chart Orders: Orders Erythrocyte Sedimentation Rate 4 Months M05.741 - Rheumatoid arthritis with rheumatoid factor of right hand without organ or systems involvement, M05.742 - Rheumatoid arthritis with rheumatoid factor of left hand without organ or systems involvement, Z79.899 - Other director community center (current) drug therapy Complete Blood Count Auto Diff 4 Months M05.741 - Rheumatoid arthritis with rheumatoid factor of right hand without organ or systems involvement, M05.742 - Rheumatoid arthritis with rheumatoid factor of left hand without organ or systems involvement, Z79.899 - Other longterm (current) drug therapy Comprehensive Met. Panel 4 Months M05.741 - Rheumatoid arthritis with rheumatoid factor of right hand without organ or systems involvement, M05.742 - Rheumatoid arthritis with rheumatoid factor of left hand without organ or systems involvement, Z79.899 - Other longterm (current) drug therapy C Reactive Protein 4 Months M05.741 - Rheumatoid arthritis with rheumatoid factor of right hand without organ or systems involvement, M05.742 - Rheumatoid arthritis with rheumatoid factor of left hand without organ or systems involvement, Z79.899 - Other longterm (current) drug therapy Coding Level of Care Code Est Pt Level 4 (59216) Diagnoses Rheumatoid arthritis involving both hands with positive rheumatoid factor M05.741; M05.742 Transaminitis R74.01 Osteopenia of necks of both femurs M85.851; M85.852 Osteopenia location: femoral neck Laterality: bilateral High risk medication use Z79.899 Immunization counseling Z71.85
== END 2024-02-14 07:54 | disposition home or self-care (01) ==
PROVIDERS: PCP Physician Assistant; Visit Provider Student in an Organized Health Care Education/Training Program
DX: M05.741 Rheumatoid arthritis with rheumatoid factor of right hand without organ or systems involvement (principal); M05.742 Rheumatoid arthritis with rheumatoid factor of left hand without organ or systems involvement; R74.01 Elevation of levels of liver transaminase levels; M85.851 Other specified disorders of bone density and structure, right thigh; M85.852 Other specified disorders of bone density and structure, left thigh; Z79.899 Other long term (current) drug therapy; Z71.85 Encounter for immunization safety counseling
CPT/HCPCS: 99214

== ENCOUNTER → 2024-02-14 07:27 | Outpatient (BNVA) | payer MEDICAID, SELFPAY | PROVIDERS: PCP Physician Assistant; Visit Provider Student in an Organized Health Care Education/Training Program | DX: M05.741 Rheumatoid arthritis with rheumatoid factor of right hand without organ or systems involvement (principal); M05.742 Rheumatoid arthritis with rheumatoid factor of left hand without organ or systems involvement; M85.851 Other specified disorders of bone density and structure, right thigh; M85.852 Other specified disorders of bone density and structure, left thigh; R74.01 Elevation of levels of liver transaminase levels; Z79.899 Other long term (current) drug therapy; Z71.85 Encounter for immunization safety counseling | CPT/HCPCS: 99212 ==

== ENCOUNTER 2024-06-14 06:55 | Outpatient (REF) | payer MEDICAID, SELFPAY ==
--- OUTSIDE RECORDS SUMMARY | 2024-06-14 06:57 | XMS_ITS | Clinical Summary ---
Author Organization [facility] Address [address] [place] [address] Care Team Providers Care Roll Shop Supervisor Name Role Phone Sree Liao Primary Care Provider [phone] Source Comments PLEASE NOTE, if this patient is a minor, it may be UNLAWFUL to discuss sensitive information that is contained in these records (such as FAMILY PLANNING, MENTAL HEALTH or SUBSTANCE ABUSE) with the minor patient's parent or other person without the patient's specific authorization.[facility] Allergies No known active allergies Medications miscellaneous medical supply miscIndications:F ibromyalgia,Arthr itis,Herniated disc, cervical,Difficul ty walking by miscellaneous route once daily Rollating walker with seat x99 years 5'3 , 210 1 Each 08/06/19 22 Active upadacitinib 15 mg [id number]:R heumatoid arteritis (HCC-CMS) 12/07/19 23 Active folic acid (FOLVITE) 1 mg tabletIndications :Fibromyalgia,Enc ounter to establish care,Arthritis,He rniated disc, cervical TAKE 1 TABLET BY MOUTH EVERY DAY 30 Tablet 2 02/06/19 24 Active sodium chloride (OCEAN) 0.65 % nasal sprayIndications: Nasal congestion Place 1 [place] into the nostril(s) as needed for congestion 44 mL 1 06/18/19 24 Active naproxen (NAPROSYN) 500 mg tabletIndications :Rheumatoid arteritis (HCC-CMS),Fibromy algia,Herniated disc, cervical Take 1 Tablet by mouth 2 (two) times daily with a meal 60 Tablet 1 06/18/19 24 Active benzonatate (TESSALON) 100 mg capsuleIndication s:Acute cough Take 1 Capsule by mouth 3 (three) times daily as needed for cough 30 Capsule 06/18/19 24 Active valACYclovir (VALTREX) 1 gram tabletIndications :HSV infection Take 2 tab PO q12 hour SOON OUTBREAK STARTS x3 doses.Take 2 tab PO q12 hour SOON OUTBREAK STARTS x3 doses. 30 Tablet 3 11/20/19 24 Active amoxicillin (AMOXIL) 500 mg capsuleIndication s:Encounter for dental examination PLEASE SEE ATTACHED FOR DETAILED DIRECTIONS 16 Capsule 01/09/20 24 Active guaiFENesin (ROBITUSSIN) 100 mg/5 mL liquid Take 10 mL by mouth 3 (three) times daily as needed for cough 473 mL 1 12/25/19 24 Active levothyroxine 100 mcg tabletIndications :Hypothyroidism, unspecified type TOME 1 TABLETA POR VIA ORAL TODOS LOS CRISTOBAL 90 Tablet 1 01/24/20 24 Active semaglutide (OZEMPIC) 0.25 mg or 0.5 mg (2 mg/3 mL) pen injectorIndicatio ns:Class 2 severe obesity due to excess calories with serious comorbidity and body mass index (BMI) of 37.0 to 37.9 in adult ([facility]),BMI 37.0-37.9, adult Inject 0.5 mg into the skin once a week For weeks, then 1 mg once weekly for four weeks. 3 mL 2 03/03/19 25 Active cetirizine (ZYRTEC) 10 mg tabletIndications :Seasonal allergies,Nasal congestion TOME 1 TABLETA POR VIA ORAL TODOS LOS CRISTOBAL 90 Tablet 03/17/19 25 Active calcium carbonate-vitamin D3 500 mg-10 mcg (400 unit) tabletIndications :Class 2 severe obesity due to excess calories with serious comorbidity and body mass index (BMI) of 37.0 to 37.9 in adult ([facility]),BMI 37.0-37.9, adult,Osteopenia, unspecified location Take 1 Tablet by mouth 3 (three) times daily with meals 90 Tablet 2 04/16/19 25 Active tirzepatide, weight loss, (ZEPBOUND) 2.5 mg/0.5 mL pnijIndications:C lass 2 severe obesity due to excess calories with serious comorbidity and body mass index (BMI) of 37.0 to 37.9 in adult ([facility]),BMI 37.0-37.9, adult,Osteoarthri tis, unspecified osteoarthritis type, unspecified site,Osteopenia, unspecified location,Post-men opausal,Hypothyro idism, unspecified type,Herniated disc, cervical,Bilatera l chronic knee pain,Rheumatoid arthritis with positive rheumatoid factor, involving unspecified site ([facility]),Fibromy algia,Arthritis,B ilateral carpal tunnel syndrome,Difficul ty walking INYECTE 2.5 MG POR VIA SUBCUTANEA SEMANALMENTE 2 mL 2 05/13/19 25 Active hydrOXYzine HCL (ATARAX) 25 mg tabletIndications :Anxiety Take 1 Tablet by mouth 2 (two) times daily as needed for anxiety 60 Tablet 1 05/22/19 25 Active QUEtiapine (SEROQUEL XR) 50 mg Tb24 24 hr tabletIndications :Current moderate episode of major depressive disorder, unspecified whether recurrent ([facility]) Take 1 Tablet by mouth nightly at bedtime for 90 days 30 Tablet 2 05/22/19 25 025 Active QUEtiapine (SEROQUEL) 25 mg tablet Take 1 or 2 Tablet by mouth nightly at bedtime 60 Tablet 3 02/05/20 24 025 Discontin ued(Ineff ective therapy) hydrOXYzine HCL (ATARAX) 25 mg tablet TAKE 1 TABLET BY MOUTH 2 TIMES DAILY NEEDED FOR ANXIETY. 60 Tablet 1 02/25/19 25 025 Discontin ued(Reord er (E-Cancel Not Sent)) ARIPiprazole (ABILIFY) 2 mg tablet TOME MARTHA TABLETA POR VIA ORAL ONCE TODOS LOS CRISTOBAL 90 Tablet 2 04/23/19 25 025 Discontin ued(Patie nt preferenc e) Active Problems Problem Noted Date Diagnosed Date MDD (major depressive disord er), recurrent episode, mild ([facility] V24) 12/05/2021 Rheumatoid arteritis ([facility]) 10/24/2021 BMI 37.0-37.9, adult 08/19/2021 Class 2 severe obesity due t o excess calories with serious comorbidity and body mass index (BMI) of 37.0 to 37.9 in adult ([facility]) 08/09/2021 Polyp of colon 08/09/2021 Fibromyalgia 08/05/2021 Arthritis 08/05/2021 Herniated disc, cervical 08/05/2021 Hypothyroidism 08/05/2021 Bilateral carpal tunnel syndrome 08/05/2021 Difficulty walking 08/05/2021 Anxiety and depression 08/05/2021 Encounters Date Type Department Care Team Description 06/03/2024 9:00 AM EDT Office Visit [facility] [id number] [place] [phone] Korey Howell, [facility] Abfraction (Primary Dx) 05/30/2024 2:15 PM EDT / Visits [address] [phone] Ivy Ayala LCSW Anxiety (Primary Dx); Current moderate episode of major depressive disorder, unspecified whether recurrent ([facility]); Fibromyalgia; Rheumatoid arthritis with positive rheumatoid factor, involving unspecified site ([facility]); Bilateral chronic knee pain 05/21/2024 2:00 PM EDT / Visits [address] [phone] Sailaja Yeung FNP Gonzalez, Kenia Anxiety (Primary Dx); Current moderate episode of major depressive disorder, unspecified whether recurrent ([facility]) 05/16/2024 2:20 PM EDT Office Visit [facility] [address] [place] [address] Ricardo Holloway MD Rodriguez, Anabel Asymptomatic menopausal state (Primary Dx); Osteopenia, unspecified location 04/15/2024 3:20 PM EDT Office Visit [facility] [address] [place] [phone] Sree Liao PA Rodriguez, Anabel Osteoarthritis, unspecified osteoarthritis type, unspecified site (Primary Dx); Class 2 severe obesity due to excess calories with serious comorbidity and body mass index (BMI) of 37.0 to 37.9 in adult ([facility]); BMI 37.0-37.9, adult; Osteopenia, unspecified location; Post-menopausal; Hypothyroidism, unspecified type; Herniated disc, cervical; Bilateral chronic knee pain; Rheumatoid arthritis with positive rheumatoid factor, involving unspecified site (HCC-CMS); Fibromyalgia; Arthritis; Bilateral carpal tunnel syndrome; Difficulty walking 03/25/2024 2:30 PM EST / Visits [address] [phone] Carl Lee, PMHNP Ivet Webster MDD (major depressive disorder), recurrent episode, mild (HCC-CMS) (Primary Dx) from Last 3 Months Immunizations Immunization Administration Dates Next Due Flu, Preservative Free 10/18/2022,12/19/2021, Hep B,adult,adjuvanted (HEPLISAV) 09/25/2022, Influenza (FLUBLOK),recombinant,injectable,preservati ve Free 12/25/2023 MODERNA COVID-19 VACCINE BIV ALENT, BLUE CAP, 6M+ 10/24/2021 Moderna COVID-19 Vaccine, re d cap blue label, 12+ Primary Series 06/09/2020,05/12/2020 PNEUMOCOCCAL CONJUGATE PCV 20 (Prevnar) 09/26/19 23 Pfizer COVID vaccine, COMIRN ATY, guzman cap, 12+ 01/20/2021 Pfizer COVID-19 (Comirnaty), Mrna, Lnp-s, Pf, Steve-sucrose, 30 Mcg/0.3 Ml, 12yr+ 12/25/2023,01/09/2023 TDAP 08/24/2022 ZOSTER VACCINE, RECOMBINANT (SHINGRIX) 4,09/24/2023 Family History Medical History Relation Name Comments Colon Cancer Father Breast cancer Maternal Aunt Relation Name Status Comments Father Maternal Aunt Social History Tobacco Use Types Packs/Day Years Used Date Smoking Tobacco: Never Smokeless Tobacco: Never Tobacco Cessation:Counseling Given: Not Answered Alcohol Use Standard Drinks/Week Comments Never 0 (1 standard drink = 0.6 oz pur e alcohol) Social Connections Answer Date Recorded Connectedness 1 12/25/2023 Financial Resource Strain Answer Date R ecorded Financial Resource Strain 1 2023 Stress Answer Date Recorded Stress 1 12/25/2023 Physical Activity Answer Date Recorded Physical Activity 0 08/05/2021 Food Insecurity Answer Date Recorded Food 1 12/25/2023 Transportation Needs Answer Date Record ed Transportation 1 12/25/2023 Housing Stability Answer Date Recorded Housing 1 12/25/2023 Safety and Environment Answer Date Alexis rded Safety 0 10/18/2022 Utilities Answer Date Recorded Utilities 1 12/25/2023 Employment Answer Date Recorded Stress 0 12/19/2021 Comments No Sex and Gender Information Value Date Recorded Sex Assigned at Female 08/09/2021 6:06 AM PDT Legal Sex Female 10:35 AM PDT Gender Identity Female 08/09/2021 6:06 AM PDT Sexual Orientation Straight 08/09/2021 6: 06 AM PDT Last Filed Vital Signs Vital Sign Reading Time Taken Comments Blood Pressure 128/79 05/16/2024 2:03 PM EDT Pulse 77 05/16/2024 2:03 PM EDT Temperature 36.9 ??C (98.5 ??F) 05/16/2024 2:03 PM ED T Respiratory Rate 20 05/16/2024 2:03 PM EDT Oxygen Saturation 97% 05/16/2024 2:03 PM EDT Inhaled Oxygen Concentration - - Weight 84.5 kg (186 lb 4.8 oz) 05/16/2024 2:03 P M EDT Height 160 cm (5' 3 ) 04/15/2024 3:14 PM EDT Body Mass Index 33 04/15/2024 3:14 PM EDT Plan of Treatment Upcoming Encounters Date Type Department Care Team (Late st Contact Info) Description 06/25/2024 3:40 PM EDT Office Visit [facility] [address] [place] [phone] Benitez Kamara DDS [address] [place] [address] 06/27/2024 1:15 PM EDT /MH Visits [facility] [address] [place], [place] [phone] Ivy Ayala LCSW [address] [place] [address] 07/02/2024 2:00 PM EDT / Visits [facility] [address] [place] [phone] AbhinavrobertoeugeneSailaja MOUNT [employer]ER [address] [place] [address] 07/07/2024 9:00 AM EDT Office Visit [facility] [address] [place] [phone] Chaimthomas Rene, [facility] [address] [place] [address] 07/16/2024 9:00 AM EDT Office Visit [address] [phone] thomas Rene, [facility] [address] [place] [address] 07/23/2024 3:40 PM EDT Office Visit [facility] [address] [place] [phone] Ricardo Holloway MD [facility] [place] [address] Shandra Cavazos [address] [place] [address] 12/04/2024 9:00 AM EDT Office Visit [address] [phone] Korey Howell, [facility] [address] [place] [phone] Health Maintenance Due Date Last Done Comments Anxiety Screening [address] Colonography 2014 FIT/gFOBT 2014 Fecal DNA 2014 Flexible Sigmoidoscopy 2014 Annual Preventive Care Visit 01/31/2023, 10/24/2021, 08/05/2021 Depression Monitoring 07/16/2024 04/15/2024 , 12/25/2023, 09/24/2023, Additional history exists Lipid Screening 09/23/2024 09/24/2023, 10/06, 08/05/2021 Pap Smear 12/19/2024 12/19/2021, 08/06/2019 Diabetes Screening 12/24/2024 12/25/2023, 0 08/24/2022, 08/05/2021, Additional history exists TSH Monitoring 12/24/2024 12/25/2023, 09/05, 10/18/2022, Additional history exists Breast Cancer Screening (Mammogram) 01/03/2025 01/04/2024, 01/04/2024, 11/17/2022, Additional history exists Hypertension Screening (#1) 05/16/2025 Tobacco Screening 05/21/2025 05/21/2024, 08/05/2021 Dental BW 06/05/2025 06/03/2024, 11/05, 04/21/2023, Additional history exists Dental Examination 06/05/2025 06/03/2024, 1 , 04/21/2023, Additional history exists Dental Perio Charting 06/05/2025 06/03/2024 Dental Prophy 06/05/2025 06/03/2024, 11/05, 05/04/2023, Additional history exists Cervical Cancer Screening 12/19/2026 Pap + HPV 12/19/2026 12/19/2021 Dental FMX/Pano 09/07/2027 09/04/2022 Colonoscopy 08/05/2030 08/05/2020 Colorectal Cancer Screening 08/05/2030 Imm-DTaP/Tdap/Td (2 - Td or Tdap) 08/24/2032 023 Hepatitis C Screening Completed 08/05/2021 HIV Screening Completed 06/22/2022, 08/05/2021 Imm-Hepatitis B Completed 09/25/2022, 08/24/2022 [id number] Completed 12/25/2023, 12/0 06/2022, 10/24/2021, Additional history exists Imm-Influenza Completed 12/25/2023, 10/06, 12/19/2021, Additional history exists Imm-Zoster, Recombinant Completed 12/25/2023, 09/23 Alcohol and Drug Screen Completed 04/16/19, 12/25/2023, 09/24/2023, Additional history exists Cervical Ablation/Cold-Knife Conization Discontinued Cervical Cryotherapy Discontinued Colposcopy Discontinued Endometrial Biopsy Discontinued Excision/Leep Discontinued HPV Genotyping Discontinued Vaginal Pap Discontinued Vulvoscopy Discontinued Procedures Procedure Name Priority Date/Time Associated Diagnosis Comments DENTAL CASE MANAGEMENT - MOTIVATIONAL INTV Routine 06/03/2024 9:00 AM EDT [facility] PROPHYLAXIS - ADULT Routine 06/03/2024 9 :00 AM EDT [facility] BITEWINGS - FOUR RADIOGRAPHIC IMAGES Routine 06/03/2024 9:00 AM EDT [facility] COMP PERIODONTAL EVALUATION - NEW/EST PATIENT Routine 06/03/2024 9:00 AM EDT [facility] PERIODIC ORAL EVALUATION ESTABLISHED PATIENT Routine 06/03/2024 9:00 AM EDT [facility] CARIES RISK ASSESSMENT & DOC FINDING MOD RISK Routine 06/03/2024 9:00 AM EDT [facility] NUTRITIONAL COUNSELING CONTROL OF DENTAL DISEASE Routine 06/03/2024 9:00 AM EDT [facility] ORAL HYGIENE INSTRUCTIONS Routine 06/03/2024 9:00 AM EDT [facility] ORAL CANCER SCREENING Routine 06/03/2024 9:00 AM EDT [facility] CASE PRESENTATION SUBS DTL & EXTENSIVE TX PLN Routine 06/03/2024 9:00 AM EDT [facility] ESTRADIOL, SERUM Routine 05/31/2024 9:22 AM EDT Asymptomatic menopausal state GONADOTROPIN FOLLICLE STIMULATING HORMONE Routine 05/31/2024 9:22 AM EDT Asymptomatic menopausal state 25 HYDROXY INCLUDES FRACTIONS IF PERFORMED Routine 05/31/2024 9:22 AM EDT Osteopenia, unspecified location ALKALINE PHOSPHATASE BONE SPECIFIC Routine 05/31/2024 9:22 AM EDT Osteopenia, unspecified location COLLAGEN CROSS-LINKED N-TELOPEPTIDE (NTX), URINE Routine 05/31/2024 9:22 AM EDT Osteopenia, unspecified location PTH, INTACT AND CALCIUM Routine 05/31/2024 9:22 AM EDT Osteopenia, unspecified location ASSAY OF PHOSPHORUS INORGANIC Routine 05/31/2024 9:22 AM EDT Osteopenia, unspecified location OTHER ORDERS SCANNED DOCUMENT 05/21/2024 3:00 AM EDT OTHER ORDERS SCANNED DOCUMENT 05/15/2024 3:00 AM EDT OTHER ORDERS SCANNED DOCUMENT 04/28/2024 3:00 AM EDT HEALTH HISTORY SCANNED DOCUMENT 04/18/2024 3:00 AM EDT HISTORIC MAMMOGRAM 01/04/2024 3: 00 AM EST TSH W/RFLX FREE T4 Routine 12/25/2023 4: 27 PM EST Screening due Hypothyroidism, unspecified type COMPREHENSIVE METABOLIC PANEL Routine 12/25/2023 4:27 PM EST Screening due LIPID PANEL Routine 09/24/2023 1:48 PM EDT Class 2 severe obesity due to excess calories with serious comorbidity and body mass index (BMI) of 37.0 to 37.9 in adult ([facility]) Rheumatoid arteritis ([facility]) BMI 37.0-37.9, adult INTRAORAL - COMP SERIES OF RADIOGRAPHIC IMAGES Routine 09/04/2022 11:00 AM EDT Caries Defective dental bahai Encounter for dental examination HIV 1/2 AG & AB W/RFLX (4TH GEN) Routine 06/22/2022 2:12 PM EDT Lesion of lip THINPREP PAP W/IMAGING + HPV CT/NG (Q) Routine 12/19/2021 2:06 PM EST Abnormal cervical Papanicolaou smear, unspecified abnormal pap finding HEPATITIS C AB W/RFLX HCV RNA, QT, RT PCR Routine 08/05/2021 3:41 PM EDT Venereal disease screening from Last 3 Months or Most Recently Relevant to Health Maintenance Results * COLLAGEN CROSS-LINKED N-TELOPEPTIDE (NTX), URINE (05/31/2024 9:22 AM EDT) N-TELOPEPTIDE (NTX) 65 see note nM BCE/mM creat [facility]N YOEL WORK[facility] Comment: Premenopausal ?Females: ??4 - 64 nM BCE/mM creat Results are primarily used for monitoring the response to therapy. ??A value within the premenopausal range does not rule out osteoporosis nor the need for therapy ? Units of Measure: nM BCE/mM creat CREATININE, RANDOM URINE 90 20 - 275 mg/dL [facility]Will WORKMAN Urine Urine specimen / Unknown 05/31/2024 9:22 AM EDT 05/31/2024 9:22 AM EDT Narrative [facility] - 06/05/2024 1:47 PM EDT FASTING:NO us Ricardo Holloway MD LAB - NO BLOOD DRAW Final Resul t [employer] [id number] [place], [place] , [facility]/[employer] [place] [address] [place], [place] * ESTRADIOL, SERUM (05/31/2024 9:22 AM EDT) ESTRADIOL 19 357 pg/mL [facility] Information Comment: ?Reference Range ?Follicular Phase: ?19-144 ?Mid-Cycle: ? 64-357 ?Luteal Phase: ?56-214 ?Postmenopausal: ?< or = 31 ? Reference range established on post-pubertal patient population. No pre-pubertal reference range established using this assay. For any patients for whom low Estradiol levels are anticipated (e.g. males, pre-pubertal children and hypogonadal/post-menopausal females), the [employer] Hamill Estradiol, Ultrasensitive, LCMSMS assay is recommended (order code [id number]). ?? Please note: patients being treated with the drug fulvestrant (Faslodex(R)) have demonstrated significant interference in immunoassay methods for estradiol measurement. The cross reactivity could lead to falsely elevated estradiol test results leading to an inappropriate clinical assessment of estrogen status. [employer] order code [id number], Ultrasensitive LC/MS/MS demonstrates negligible cross reactivity with fulvestrant. Blood Blood / Unknown 05/31/2024 9 :22 AM EDT 05/31/2024 9:22 AM EDT Narrative [facility] - 06/05/2024 1:47 PM EDT FASTING:NO us Ricardo Holloway MD LAB - BLOOD DRAW Edited Result - Final Performing Organization Address [facility]/ZIP Co de Phone Number [facility] [address] [address], [place] [facility] [address] [phone] * ALKALINE PHOSPHATASE BONE SPECIFIC (05/31/2024 9:22 AM EDT) [facility] BONE SPECIFIC 21.5 5.6 - 29.0 mcg/L [facility]Will WORKMAN Comment: Reference Range, Premenopausal (mcg/L) 35-45 years ?5.0-18.2 Blood Blood / Unknown 05/31/2024 9 :22 AM EDT 05/31/2024 9:22 AM EDT Narrative [facility] [place] - 06/05/2024 1:47 PM EDT FASTING:NO us Ricardo Holloway MD LAB - BLOOD DRAW Edited Result - Final Performing Organization Address City/[facility]/ZIP Co de Phone Number [facility] [place] [address] [place], [place] , [place] [facility] [address] [place], [place] * PTH, INTACT AND CALCIUM (05/31/2024 9:22 AM EDT) Pathologist [facility] CALCIUM 9.4 8.6 - 10.4 mg/dL [facility] [place] [employer] PARATHYROID HORMONE, INTACT 49 16 - 77 pg/mL [facility] Comment: Interpretive Guide ?Intact PTH ? Calcium ? ------- Normal Parathyroid ?Normal ? Normal Hypoparathyroidism ?Low or Low Normal ?Low Hyperparathyroidism ?? Primary ?Normal or High ? High ?? Secondary ?High ? Normal or Low ?? Tertiary ? High ? High Non-Parathyroid ?? Hypercalcemia ?Low or Low Normal ?High Blood Blood / Unknown 05/31/2024 9 :22 AM EDT 05/31/2024 9:22 AM EDT [facility] - 06/05/2024 1:47 PM EDT FASTING:NO Ricardo Holloway MD LAB - BLOOD DRAW Final Result Performing Organization Address City/State/[facility] Co de Phone Number [facility] [address] [address], [facility] [address] [address] * ASSAY OF PHOSPHORUS INORGANIC (05/31/2024 9:22 AM EDT) [facility] PHOSPHATE ( PHOSPHORUS) 3.3 2.5 - 4.5 mg/dL [facility] Blood Blood / Unknown 05/31/2024 9 :22 AM EDT 05/31/2024 9:22 AM EDT [facility] - 06/05/2024 1:47 PM EDT FASTING:NO Ricardo Holloway MD LAB - BLOOD DRAW Edited Result - Final Performing Organization Address [facility] Co de Phone Number [facility] [address] [address], [facility] [address] [address] * GONADOTROPIN FOLLICLE STIMULATING HORMONE (05/31/2024 9:22 AM EDT) [facility] FSH 15.9 1.5 - 116.3 mIU/mL [facility] Comment: ?Reference Range ? Follicular Phase ? 2.5-10.2 ? Mid-cycle Peak ? 3.1-17.7 ? Luteal Phase ? 1.5- 9.1 ? Postmenopausal ? 23.0-116.3 ? Blood Blood / Unknown 05/31/2024 9 :22 AM EDT 05/31/2024 9:22 AM EDT Narrative [facility] - 06/05/2024 1:47 PM EDT FASTING:NO Ricrado Holloway MD LAB - BLOOD DRAW Edited Result - Final [facility] [address] [address], [facility] [address] [address] * (ABNORMAL) 25 HYDROXY INCLUDES FRACTIONS IF PERFORMED (05/31/2024 9:22 AM EDT) Pathologist [facility] VITAMIN D, 25-OH, TOTAL 24(L) 30 - 100 ng/mL [facility] Comment: Vitamin D Status ? 25-OH Vitamin D: Deficiency: ?<20 ng/mL Insufficiency: ? 20 - 29 ng/mL Optimal: ? > or = 30 ng/mL For 25-OH Vitamin D testing on patients on D2-supplementation and patients for whom quantitation of D2 and D3 fractions is required, the QuestAssureD(TM) 25-OH VIT D, (D2,D3), LC/MS/MS is recommended: order code [id number] (patients >2yrs). COMMENT [facility] [employer] [facility]To [facility] Blood Blood / Unknown 05/31/2024 9 :22 AM EDT 05/31/2024 9:22 AM EDT Narrative [facility] - 06/05/2024 1:47 PM EDT FASTING:NO See Note 1 Note 1 For additional information, please refer to http://education.Mobile Automation/faq/FUP621 (This link is being provided for informational/ educational purposes only.) Ricardo Holloway MD LAB - BLOOD DRAW Edited Result - Final [facility] [address] [place] [address], [facility] [place] [employer] [address] [place] [phone] * OTHER ORDERS SCANNED DOCUMENT (05/21/2024 3:00 AM EDT) Only the most recent of3 resultswithin the time period is included. 05/21/2024 3:00 AM EDT Sree TIAN SCAN OTHER ORDERS Final Result * HEALTH HISTORY SCANNED DOCUMENT (04/18/2024 3:00 AM EDT) 04/18/2024 3:00 AM EDT [facility] Provider Default SCAN OTHER ORDERS Final Re sult * HISTORIC MAMMOGRAM (01/04/2024 3:00 AM EST) 01/04/2024 3:00 AM EST Sree TIAN IMG MAMMO Final Result * (ABNORMAL) TSH W/RFLX FREE T4 (12/25/2023 4:27 PM EST) TSH W/REFLEX TO FT4 0.03(L) 0.40 - 4.50 mIU/L [facility] Comment: ?Reference Range ?> or = 20 Years ??0.40-4.50 ? Ranges ?First trimester ?0.26-2.66 ?Second trimester ?? 0.55-2.73 ?Third trimester ?0.43-2.91 Blood Blood / Unknown 12/25/2023 4 :27 PM EST 12/25/2023 4:28 PM EST Connie Reed PA-C LAB - BLOOD DRAW Final Resu lt [facility] [address] [place] [address], [facility] [address] [place] [phone] * (ABNORMAL) COMPREHENSIVE METABOLIC PANEL (12/25/2023 4:27 PM EST) GLUCOSE 116(H) 65 - 99 mg/dL [facility] Comment: ?Fasting reference interval For someone without known diabetes, a glucose value between 100 and 125 mg/dL is consistent with prediabetes and should be confirmed with a follow-up test. UREA NITROGEN (BUN) 16 7 - 25 mg/dL [employer] [facility] CREATININE (blood) 0.78 0.50 - 1.03 mg/dL [facility] EGFR 90 > OR = 60 mL/min/1. 73m2 [facility] BUN/CREATININE RATIO SEE NOTE: [employer] [facility] Comment: ?? Not Reported: BUN and Creatinine are within ?? reference range. ? SODIUM 138 135 - 146 mmol/L [employer] [facility] POTASSIUM 4.5 3.5 - 5.3 mmol/L [facility] CHLORIDE 105 98 - 110 mmol/L [facility] CARBON DIOXIDE 27 20 - 32 mmol/L [facility] [place] [employer] CALCIUM 9.8 8.6 - 10.4 mg/dL [facility] PROTEIN, TOTAL 7.4 6.1 - 8.1 g/dL [facility] [place] [employer] ALBUMIN 4.4 3.6 - 5.1 g/dL [facility] [place] [employer] GLOBULIN 3.0 1.9 - 3.7 g/dL (calc) [facility] ALBUMIN/GLOBULI N RATIO 1.5 1.0 - 2.5 (calc) [facility] BILIRUBIN, TOTAL 0.4 0.2 - 1.2 mg/dL [facility] ALKALINE PHOSPHATASE 108 37 - 153 U/L [employer] [facility] AST 27 10 - 35 U/L [employer] [facility] ALT 28 6 - 29 U/L [employer] [facility] Blood Blood / Unknown 12/25/2023 4 :27 PM EST 12/25/2023 4:28 PM EST us Connie Reed PA-C LAB - BLOOD DRAW Edited Res ult - Final [facility] [address] [address], [facility] [address] [place] [address] * (ABNORMAL) LIPID PANEL (09/24/2023 1:48 PM EDT) CHOLESTEROL, TOTAL 255(H) <200 mg/dL [employer] [facility] HDL CHOLESTEROL 67 > OR = 50 mg/dL [employer] [facility] TRIGLYCERIDES 282(H) <150 mg/dL [facility] Comment: If a non-fasting specimen was collected, consider repeat triglyceride testing on a fasting specimen if clinically indicated. Deborah et al. J. of Clin. Lipidol. 2015;9:129-169. LDL-CHOLESTEROL 145(H) 99 mg/dL (calc) [facility] Comment: Reference range: <100 Desirable range <100 mg/dL for primary prevention; ?? <70 mg/dL for patients with CHD or diabetic patients with > or = 2 CHD risk factors. LDL-C is now calculated using the Niraj-Cami calculation, which is a validated novel method providing better accuracy than the Friedewald equation in the estimation of LDL-C. Niraj SS et al. BRITNI. 2013;310(19): 4030-8938 (http://education.Mobile Automation/faq/EJU996) CHOL/HDLC RATIO 3.8 <5.0 (calc) [facility] NON-HDL CHOLESTEROL 188(H) <130 mg/dL (calc) [facility] Comment: For patients with diabetes plus 1 major ASCVD risk factor, treating to a non-HDL-C goal of <100 mg/dL (LDL-C of <70 mg/dL) is considered a therapeutic option. Blood Blood / Unknown 09/24/2023 1 :48 PM EDT 09/24/2023 1:51 PM EDT Sree TIAN LAB - BLOOD DRAW Final Result [facility] [address] [place] [id number], [facility] [address] [place] [phone] * HIV 1/2 AG & AB W/RFLX (4TH GEN) (06/22/2022 2:12 PM EDT) HIV AG/AB, 4TH GEN NON-REAC TIVE NON-REAC TIVE [facility] Comment: HIV-1 antigen and HIV-1/HIV-2 antibodies were not detected. There is no laboratory evidence of HIV infection. PLEASE NOTE: This information has been disclosed to you from records whose confidentiality may be protected by state law. ??If your state requires such protection, then the state law prohibits you from making any further disclosure of the information without the specific written consent of the person to whom it pertains, or as otherwise permitted by law. A general authorization for the release of medical or other information is NOT sufficient for this purpose. ?? For additional information please refer to http://education.Userscout/faq/GVM862 (This link is being provided for informational/ educational purposes only.) The performance of this assay has not been clinically validated in patients less than 2 years old. Blood Blood / Unknown 06/22/2022 2 :12 PM EDT 06/22/2022 2:12 PM EDT Quirino Bustamante PA-C LAB - BLOOD DRAW Final Result [facility] [address] [place] [id number], [facility] [address] [place] [phone] * THINPREP PAP W/IMAGING + HPV CT/NG (Q) (12/19/2021 2:06 PM EST) CHLAMYDIA TRACHOMATIS RNA, TMA NOT DETECTED NOT DETECTED [facility] NEISSERIA GONORRHOEAE RNA, TMA NOT DETECTED NOT DETECTED [facility] COMMENT [facility] CLINICAL INFORMATION See Note [facility] Comment:Postmenopausal LMP See Note [facility] Comment:NONE GIVEN PREV. PAP See Note [facility] Comment:NONE GIVEN PREV. BX See Note [facility] Comment:NONE GIVEN SOURCE See Note [facility] Comment:Cervix STATEMENT OF ADEQUACY See Note [facility] Comment: Satisfactory for evaluation. Endocervical/transformation zone component absent. INTERPRETATION/RESU LT See Note [facility] Comment:Negative for intraep ithelial lesion or malignancy. INFECTION See Note [facility] Comment: Shift in vaginal lacy suggestive of bacterial vaginosis. COMMENT See Note [facility] Comment: This Pap test has been evaluated with computer assisted technology. 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 Cervical sources are required for HPV testing. If a vaginal source from a patient who has had a total hysterectomy with removal of cervix was submitted, please contact the testing laboratory for alternative testing options. For additional information, please refer to http://Whyteboard.Userscout/faq/LPF980y0 (This link if provided for information/ educational purposes only.) Swab Cervix uteri structure / Unknown 12/19/2021 2:06 PM EST 12/20/2021 6:48 AM EST Narrative [employer] [facility] - 12/21/2021 1:35 PM EST EXPLANATORY NOTE: The Pap is a screening test for cervical cancer. It is not a diagnostic test and is subject to false negative and false positive results. It is most reliable when a satisfactory sample, regularly obtained, is submitted with relevant clinical findings and history, and when the Pap result is evaluated along with historic and current clinical information. The analytical performance characteristics of this assay, when used to test SurePath(TM) specimens have been determined by [employer]. The modifications have not been cleared or approved by the FDA. This assay has been validated pursuant to the CLIA regulations and is used for clinical purposes. For additional information, please refer to https://Whyteboard.Userscout/faq/LPZ536 (This link is being provided for information/ educational purposes only.) Sree TIAN LAB - NO BLOOD DRAW Final Resu lt [facility] [address] [address], [facility] [address] [address] * HEPATITIS C AB W/RFLX HCV RNA, QT, RT PCR (08/05/2021 3:41 PM EDT) HEPATITIS C ANTIBODY NON-REACT EMIR NON-REACT EMIR [facility] SIGNAL TO CUT-OFF 0.16 <1.00 [facility] Comment: HCV antibody was non-reactive. There is no laboratory evidence of HCV infection. In most cases, no further action is required. However, if recent HCV exposure is suspected, a test for HCV RNA (test code 21368) is suggested. For additional information please refer to http://education.Userscout/faq/MMC83b4 (This link is being provided for informational/ educational purposes only.) Blood Blood / Unknown 08/05/2021 3 :41 PM EDT 08/05/2021 3:41 PM EDT Lisette Vega MOUNT LOADER-C LAB - BLOOD DRAW Edited Result - Final [facility] [place] [employer] [address] [address], [facility] [address] [address] from Last 3 Months or Most Recently Relevant to Health Maintenance [place] Care Teams Roll Shop Supervisor Relationship Specialty Start Date End Date Sree Liao PA [address] [place] [address] PCP - General FAMILY MEDICINE, [place] 12/19/21
[2024-06-14 07:10] LABS: MANUAL DIFF FLAG NO
[2024-06-14 07:15] LABS: Basophils Percent Auto 0.5 % (0-2); Eosinophils Absolute Auto 0.1 X10*3/uL (0.0-0.4); Eosinophils Percent Auto 1.9 % (0-4); Hematocrit 39.8 % (37.0-47.0); Hemoglobin 13.6 g/dl (12.0-16.0); Imm Gran Abs Auto 0.01 X10*3/uL (0.00-0.03); Imm Gran Pct Auto 0.2 % (0.0-0.4); Lymphocytes Absolute Auto 1.6 X10*3/uL (1.2-4.9); Lymphocytes Percent Auto 36.7 % (20-40); Mean Corpuscular HGB Conc 34.2 g/dl (31.0-35.0); Mean Corpuscular Hemoglobin 30.7 pg (27.0-33.0); Mean Corpuscular Volume 89.8 fL (80.0-98.0); Mean Platelet Volume 11.2 fL (9.4-12.3); Monocytes Absolute Auto 0.3 X10*3/uL (0.1-1.2); Monocytes Percent Auto 7.3 % (2-11); Neutrophils Absolute Auto 2.3 x10*3/uL (2.0-8.3); Neutrophils Percent Auto 53.4 % (45-73); Platelet Count 230 X10*3/uL (160-400); Red Blood Count 4.43 X10*6/uL (4.20-5.50); Red Cell Distribution Width 12.4 % (11.0-16.0); White Blood Count 4.2 X10*3/uL (4.8-10.8)
[2024-06-14 07:30] LABS: Alanine Aminotransferase 21 U/L (0-31); Albumin Level 4.2 g/dL (3.5-5.0); Alkaline Phosphatase 95 U/L (39-117); Anion Gap 13 (12-20); Aspartate Amino Transferase 23 U/L (5-31); Bilirubin Total 0.5 mg/dL (0.0-1.0); Blood Urea Nitrogen 12 mg/dL (9-16); C Reactive Protein 0.14 mg/dL (< or = 0.50); Calcium 9.5 mg/dL (8.4-10.2); Carbon Dioxide 26 mmol/L (22-29); Chloride 109 mmol/L (96-108); Estimated Glomerular Filt Rate > 60; Glucose Random 87 mg/dL (60-115); Potassium 4.2 mmol/L (3.3-5.1); Sodium 144 mmol/L (135-145); Total Protein 7.5 g/dL (6.5-8.0)
[2024-06-14 08:02] LABS: Erythrocyte Sedimentation Rate 16 MM/HR (0-20)
== END 2024-06-14 06:56 | disposition home or self-care (01) ==
LOC: HO.LAB 06:55
PROVIDERS: PCP Physician Assistant; Visit Provider Student in an Organized Health Care Education/Training Program
DX: M05.741 Rheumatoid arthritis with rheumatoid factor of right hand without organ or systems involvement (principal); M05.742 Rheumatoid arthritis with rheumatoid factor of left hand without organ or systems involvement; Z79.899 Other long term (current) drug therapy
CPT/HCPCS: 36415; 80053; 85025; 85652; 86140

== ENCOUNTER 2024-06-16 07:34 | Outpatient (AMB) | payer MEDICAID, SELFPAY ==
--- OUTSIDE RECORDS SUMMARY | 2024-06-16 07:36 | XMS_ITS | Clinical Summary ---
Author Organization [facility] Address [address] [place] [address] Phone Care Team Providers Care Housekeeper Nanny Name Role Phone Sree Liao Primary Care Provider [phone] Family History Medical History Relation Name Comments Breast cancer Mother's Sister Relation Name Status Comments Mother's Sister Alive Social History Tobacco Use Types Packs/Day Years Used Date Smoking Tobacco: Never Assessed Comments No Sex and Gender Information Value Date Recorded Sex Assigned at Female 12/19/2023 1:58 PM EST Legal Sex Female 10:45 PM EST Gender Identity Female 12/19/2023 1:58 PM EST Sexual Orientation Straight 12/19/2023 1: 58 PM EST Obstetrics History Last Filed Vital Signs Vital Sign Reading Time Taken Comments Blood Pressure 140/100 11/10/2021 11:38 AM EDT Pulse 93 11/10/2021 11:38 AM EDT Temperature - - Respiratory Rate - - Oxygen Saturation - - Inhaled Oxygen Concentration - - Weight 91.6 kg (202 lb) 01/04/2024 3:21 PM EST Height 160 cm (5' 3 ) 01/04/2024 3:21 PM EST Body Mass Index 35.78 01/04/2024 3:21 PM EST Plan of Treatment Upcoming Encounters Date Type Department Care Team (Late st Contact Info) Description 06/26/2024 10:30 AM EDT Appointment [facility] [address] [place] [address] Health Maintenance Due Date Last Done Comments Cervical Cancer Screening: Pap Smear 1990 Colorectal Cancer Screening: Colonoscopy 01/08/2022 HIV Screening 01/08/2022 Social Influencers of Health Screening 01/08/2022 COVID-19 Vaccine (7 - Mixed Product risk season) 2024 12/25/2023, 01/09/2023, 10/24/2021, Additional history exists Depression Screening 04/15/2025 04/15/2024 Breast Cancer Screening 01/03/2026 01/04/2024, 11/10 Cholesterol Screening (Lipid Panel) 09/23/2028 09/24/2023, 09/24/2023, 10/18/2022, Additional history exists DTaP,Tdap,and Td Vaccines (2 - Td or Tdap) 08/24/2032 08/24/2022 Hepatitis C Screening Completed 08/05/2021 Hepatitis B Vaccines Completed 09/25/2022, 08/25/19 Pneumococcal Vaccine: 50+ Years Completed 09/25/2022 Pneumococcal Vaccine: Pediatrics (0 to 5 Years) and At-Risk Patients (6 to 64 Years) Aged Out 09/25/2022 No longer eligible based on patient's age to complete this topic Influenza Vaccine Completed 12/25/2023, , 12/19/2021, Additional history exists Zoster Vaccines Completed 12/25/2023, 09/24/2023 HIB Vaccines Aged Out No longer eligi ble based on patient's age to complete this topic HPV Vaccines Aged Out No longer eligi ble based on patient's age to complete this topic Hepatitis A Vaccines Aged Out No long er eligible based on patient's age to complete this topic IPV Vaccines Aged Out No longer eligi ble based on patient's age to complete this topic MMR Vaccines Aged Out No longer eligi ble based on patient's age to complete this topic Meningococcal ACWY Vaccine Aged Out N o longer eligible based on patient's age to complete this topic Meningococcal B Vaccine Aged Out No l onger eligible based on patient's age to complete this topic RSV Immunization Patients Under 20 months Aged Out No longer eligible based on patient's age to complete this topic Varicella Vaccines Aged Out No longer eligible based on patient's age to complete this topic Procedures Procedure Name Priority Date/Time Associated Diagnosis Comments MG MAMMO DIGITAL SCREENING W BUD BILAT Routine 01/04/2024 3:23 PM EST Encounter for screening mammogram for breast cancer from Last 3 Months or Most Recently Relevant to Health Maintenance Results * MG Mammo Digital Screening w Bud bilat (01/04/2024 3:23 PM EST) Anatomical Region Laterality Modality Breast Bilateral Mammography 01/04/2024 5:48 PM EST Impressions 01/04/2024 5:52 PM EST No mammographic evidence of malignancy. ?? No suspicious interval change. A negative mammogram in the presence of a clinically suspicious palpable abnormality does not preclude the possibility of malignancy or alter the indications for biopsy. ASSESSMENT: ?? BI-RADS 1: NEGATIVE RECOMMENDATION(S): 1: Routine screening mammogram BILATERAL in 1 year. -------- FINAL REPORT -------- Dictated By: Matt Harris Dictated Date: 01/04/2024 17:48 ET Assigned Physician: Matt Harris Reviewed and Electronically Signed By: Matt Harris Signed Date: 01/04/2024 17:52 ET Workstation ID: [id number] Transcribed By: Self Edit Transcribed Date: 01/04/2024 17:48 ET Narrative 01/04/2024 5:52 PM EST EXAM: ??SCREENING MAMMOGRAPHY, BILATERAL HISTORY: ??SCREENING. ??Family history of breast cancer, maternal aunt COMPARISON: ??11/10/2022 TECHNIQUE: Synthesized CC and MLO projections of each breast. ??Tomosynthesis of each breast in the CC and MLO projections. ADDITIONAL IMAGING: None Computer-aided detection was employed with the iCAD ??profound AI 3-D. TISSUE DENSITY: There are scattered areas of fibroglandular density. (BI-RADS category B) FINDINGS: RIGHT BREAST: No suspicious mass. No suspicious calcification. No distortion. ?? No additional suspicious right breast findings LEFT BREAST: No suspicious mass. No suspicious calcification. No distortion. ?? No additional suspicious left breast findings Procedure Note Matt Harris MD - 01/04/2024 EXAM: SCREENING MAMMOGRAPHY, BILATERAL HISTORY: SCREENING. Family history of breast cancer, maternal aunt COMPARISON: 11/10/2022 TECHNIQUE: Synthesized CC and MLO projections of each breast.Tomosynthesis of each breast in the CC and MLO projections. ADDITIONAL IMAGING: None Computer-aided detection was employed with the iCAD profound AI 3-D. TISSUE DENSITY: There are scattered areas of fibroglandular density.(BI-RADS category B) FINDINGS: RIGHT BREAST: No suspicious mass. No suspicious calcification. No distortion. Noadditional suspicious right breast findings LEFT BREAST: No suspicious mass. No suspicious calcification. No distortion. Noadditional suspicious left breast findings IMPRESSION: No mammographic evidence of malignancy. No suspicious interval change. A negative mammogram in the presence of a clinically suspicious palpableabnormality does not preclude the possibility of malignancy or alter theindications for biopsy. ASSESSMENT: BI-RADS 1: NEGATIVE RECOMMENDATION(S): 1: Routine screening mammogram BILATERAL in 1 year. -------- FINAL REPORT -------- Dictated By: Matt Harris Dictated Date: 01/04/2024 17:48 ET Assigned Physician: Matt Harris Reviewed and Electronically Signed By: Matt Harris Signed Date: 01/04/2024 17:52 ET Workstation ID: [id number] Transcribed By: Self Edit Transcribed Date: 01/04/2024 17:48 ET us Self Referral Sppl IMG BI PROCEDURES Final Resul t from Last 3 Months or Most Recently Relevant to Health Maintenance Insurance MEDICAID - [place] MEDICARE Care Teams Housekeeper Nanny Relationship Specialty Start Date End Date Sree Liao PA [address] [place] [address] PCP - General Physician [employer] Admin 12/19/23
--- OUTSIDE RECORDS SUMMARY | 2024-06-16 07:36 | XMS_ITS | Clinical Summary ---
Author Organization [facility] Address [address] [place] [address] Care Team Providers Care Implementation Consultant Name Role Phone Sree Liao Primary Care Provider [phone] Source Comments PLEASE NOTE, if this patient [...] Each 08/06/19 22 Active upadacitinib 15 mg [id number]:R heumatoid arteritis (HCC-CMS) 12/07/19 23 Active folic acid (FOLVITE) 1 mg tabletIndications :Fibromyalgia,Enc ounter to establish care,Arthritis,He rniated disc, cervical TAKE 1 TABLET BY MOUTH EVERY DAY 30 Tablet 2 02/06/19 24 Active sodium chloride (OCEAN) 0.65 % nasal sprayIndications: Nasal congestion Place 1 [place] into the nostril(s) as needed for congestion [...] (BMI) of 37.0 to 37.9 in adult ([facility]),BMI 37.0-37.9, adult Inject 0.5 mg into the [...] (BMI) of 37.0 to 37.9 in adult ([facility]),BMI 37.0-37.9, adult,Osteopenia, unspecified location Take 1 Tablet by mouth 3 (three) times daily with meals 90 Tablet 2 04/16/19 25 Active tirzepatide, weight loss, (ZEPBOUND) 2.5 mg/0.5 mL pnijIndications:C lass 2 severe obesity due to excess calories with serious comorbidity and body mass index (BMI) of 37.0 to 37.9 in adult ([facility]),BMI 37.0-37.9, adult,Osteoarthri tis, unspecified osteoarthritis type, unspecified site,Osteopenia, unspecified location,Post-men opausal,Hypothyro idism, unspecified type,Herniated disc, cervical,Bilatera l chronic knee pain,Rheumatoid arthritis with positive rheumatoid factor, involving unspecified site ([facility]),Fibromy algia,Arthritis,B ilateral carpal tunnel syndrome,Difficul [...] of major depressive disorder, unspecified whether recurrent ([facility]) Take 1 Tablet by mouth [...] (major depressive disord er), recurrent episode, mild ([facility]) 12/05/2021 Rheumatoid arteritis ([facility]) 10/24/2021 BMI 37.0-37.9, adult 08/19/2021 Class 2 severe obesity due t o excess calories with serious comorbidity and body mass index (BMI) of 37.0 to 37.9 in adult ([facility]) 08/09/2021 Polyp of colon 08/09/2021 Fibromyalgia 08/05/2021 Arthritis 08/05/2021 Herniated disc, cervical 08/05/2021 Hypothyroidism 08/05/2021 Bilateral carpal tunnel syndrome 08/05/2021 Difficulty walking 08/05/2021 Anxiety and depression 08/05/2021 Encounters Date Type Department Care Team Description 06/03/2024 9:00 AM EDT Office Visit [address] [place] [phone] Korey Howell, [facility] Abfraction (Primary Dx) 05/30/2024 2:15 PM EDT / Visits [address] [phone] Ivy Ayala LCSW Anxiety (Primary Dx); Current moderate episode of major depressive disorder, unspecified whether recurrent ([facility]); Fibromyalgia; Rheumatoid arthritis with positive rheumatoid factor, involving unspecified site ([facility]); Bilateral chronic knee pain 05/21/2024 2:00 PM EDT / Visits [address] [address] Sailaja Yeung FNP Gonzalez, Kenia Anxiety (Primary Dx); Current moderate episode of major depressive disorder, unspecified whether recurrent ([facility]) 05/16/2024 2:20 PM EDT Office Visit [facility] [address] [place] [address] Ricardo Holloway MD Rodriguez, Anabel Asymptomatic menopausal state (Primary Dx); Osteopenia, unspecified location 04/15/2024 3:20 PM EDT Office Visit [facility] [address] [place] [address] Sree Liao PA Rodriguez, Anabel Osteoarthritis, unspecified osteoarthritis type, unspecified site (Primary Dx); Class 2 severe obesity due to excess calories with serious comorbidity and body mass index (BMI) of 37.0 to 37.9 in adult ([facility]); BMI 37.0-37.9, adult; Osteopenia, unspecified location; Post-menopausal; Hypothyroidism, unspecified type; Herniated disc, cervical; Bilateral chronic knee pain; Rheumatoid arthritis with positive rheumatoid factor, involving unspecified site (HCC-CMS); Fibromyalgia; Arthritis; Bilateral carpal tunnel syndrome; Difficulty walking 03/25/2024 2:30 PM EST / Visits [address] [phone] Carl Lee, PMHNP Ivet Webster [...] Description 06/25/2024 3:40 PM EDT Office Visit [facility] [address] [place] [address] Benitez Kamara DDS [address] [place] [address] 06/27/2024 1:15 PM EDT /MH Visits [facility] [address] [place], [place] [phone] Ivy Ayala LCSW [address] [place] [address] 07/02/2024 2:00 PM EDT / Visits [facility] [address] [place] [address] AbhinavrobertoeugeneSailaja SUPER[employer]OR [employer] [address] [place] [address] 07/07/2024 9:00 AM EDT Office Visit [facility] [address] [place] [address] Chaimthomas Rene, [facility] [address] [place] [address] 07/16/2024 9:00 AM EDT Office Visit [address] [phone] thomas Rene, [facility] [address] [place] [address] 07/23/2024 3:40 PM EDT Office Visit [facility] [address] [place] [address] Ricardo Holloway MD [facility] [place] [address] Shandra Cavazos [address] [place] [address] 12/04/2024 9:00 AM EDT Office Visit [address] [phone] Korey Howell, [facility] [address] [place] [address] Health Maintenance Due Date Last Done Comments [...] 06/22/2022, 08/05/2021 Imm-Hepatitis B Completed 09/25/2022, 08/24/2022 Mid-MOJTY-75 Completed 12/25/2023, 12/0 06/2022, 10/24/2021, Additional history [...] (BMI) of 37.0 to 37.9 in adult ([facility]) Rheumatoid arteritis ([facility]) BMI 37.0-37.9, adult INTRAORAL - COMP SERIES OF RADIOGRAPHIC IMAGES Routine 09/04/2022 11:00 AM EDT Caries Defective dental alevism Encounter for dental examination HIV 1/2 AG [...] RANDOM URINE 90 20 - 275 mg/dL [facility]/Will WORKMAN Urine Urine specimen / Unknown 05/31/2024 9:22 AM EDT 05/31/2024 9:22 AM EDT Narrative [employer] [facility] - 06/05/2024 1:47 PM EDT FASTING:NO us Ricardo Holloway MD LAB - NO BLOOD DRAW Final Resul t [employer] [address] [place], [place] , [employer] [place] [address] [place], [place] * ESTRADIOL, SERUM (05/31/2024 9:22 AM EDT) ESTRADIOL 19 357 pg/mL [employer] Comment: ?Reference Range ?Follicular Phase: ?19-144 ?Mid-Cycle: ? 64-357 ?Luteal Phase: ?56-214 ?Postmenopausal: ?< or = 31 ? Reference range established on post-pubertal patient population. No pre-pubertal reference range established using this assay. For any patients for whom low Estradiol levels are anticipated (e.g. males, pre-pubertal children and hypogonadal/post-menopausal females), the [employer] [place] Estradiol, Ultrasensitive, LCMSMS assay is recommended (order code 47222). ?? Please note: patients being treated with the drug fulvestrant (Faslodex(R)) have demonstrated significant interference in immunoassay methods for estradiol measurement. The cross reactivity could lead to falsely elevated estradiol test results leading to an inappropriate clinical assessment of estrogen status. [facility] order code [id number], Ultrasensitive LC/MS/MS demonstrates negligible cross reactivity with fulvestrant. Blood Blood / Unknown 05/31/2024 9 :22 AM EDT 05/31/2024 9:22 AM EDT Narrative [facility] - 06/05/2024 1:47 PM EDT FASTING:NO us Ricardo Holloway MD LAB - BLOOD DRAW Edited Result - Final Performing Organization Address [facility]/ZIP Co de Phone Number [employer] [address] [address], [place] [employer] [address] [address] * ALKALINE PHOSPHATASE BONE SPECIFIC (05/31/2024 9:22 AM EDT) [facility] BONE SPECIFIC 21.5 5.6 - 29.0 mcg/L [facility]/Will [employer] Comment: Reference Range, Premenopausal (mcg/L) 35-45 years ?5.0-18.2 Blood Blood / Unknown 05/31/2024 9 :22 AM EDT 05/31/2024 9:22 AM EDT Narrative [employer] [place] - 06/05/2024 1:47 PM EDT FASTING:NO us Ricardo Holloway MD LAB - BLOOD DRAW Edited Result - Final Performing Organization Address City/[facility]/ZIP Co de Phone Number [employer] [place] [address] [place], [place] , [place] [facility]PITAL[facility]arth[facility] [address] [place], [place] * PTH, INTACT AND CALCIUM (05/31/2024 9:22 AM EDT) Pathologist [facility] CALCIUM 9.4 8.6 - 10.4 mg/dL [employer] [place] [facility] PARATHYROID HORMONE, INTACT 49 16 - 77 pg/mL [facility] Comment: Interpretive Guide ?Intact PTH ? Calcium ? ------- Normal Parathyroid ?Normal ? Normal Hypoparathyroidism ?Low or Low Normal ?Low Hyperparathyroidism ?? Primary ?Normal or High ? High ?? Secondary ?High ? Normal or Low ?? Tertiary ? High ? High Non-Parathyroid ?? Hypercalcemia ?Low or Low Normal ?High Blood Blood / Unknown 05/31/2024 9 :22 AM EDT 05/31/2024 9:22 AM EDT [facility] - 06/05/2024 1:47 PM EDT FASTING:NO Ricardo Holloway MD LAB - BLOOD DRAW Final Result Performing Organization Address City/State/[facility] Co de Phone Number [employer] [address] [address], [employer] [address] [address] * ASSAY OF PHOSPHORUS INORGANIC (05/31/2024 9:22 AM EDT) [facility] PHOSPHATE ( PHOSPHORUS) 3.3 2.5 - 4.5 mg/dL [employer] [facility] Blood Blood / Unknown 05/31/2024 9 :22 AM EDT 05/31/2024 9:22 AM EDT [facility] - 06/05/2024 1:47 PM EDT FASTING:NO Ricardo Holloway MD LAB - BLOOD DRAW Edited Result - Final Performing Organization Address [facility] Co de Phone Number [facility] [address] [address], [employer] [address] [address] * GONADOTROPIN FOLLICLE STIMULATING HORMONE (05/31/2024 9:22 AM EDT) [facility] FSH 15.9 1.5 - 116.3 mIU/mL [facility] Comment: ?Reference Range ? Follicular Phase ? 2.5-10.2 ? Mid-cycle Peak ? 3.1-17.7 ? Luteal Phase ? 1.5- 9.1 ? Postmenopausal ? 23.0-116.3 ? Blood Blood / Unknown 05/31/2024 9 :22 AM EDT 05/31/2024 9:22 AM EDT Narrative [facility] - 06/05/2024 1:47 PM EDT FASTING:NO Ricardo Holloway MD LAB - BLOOD DRAW Edited Result - Final [facility] [address] [address], [employer] [address] [address] * (ABNORMAL) 25 HYDROXY INCLUDES FRACTIONS IF PERFORMED (05/31/2024 9:22 AM EDT) Pathologist [facility] VITAMIN D, 25-OH, TOTAL 24(L) 30 - 100 ng/mL [facility] Comment: Vitamin D Status ? 25-OH Vitamin D: Deficiency: ?<20 ng/mL Insufficiency: ? 20 - 29 ng/mL Optimal: ? > or = 30 ng/mL For 25-OH Vitamin D testing on patients on D2-supplementation and patients for whom quantitation of D2 and D3 fractions is required, the QuestAssureD(TM) 25-OH VIT D, (D2,D3), LC/MS/MS is recommended: order code [id number] (patients >2yrs). COMMENT QUEST [employer] [facility] Blood Blood / Unknown 05/31/2024 9 :22 AM EDT 05/31/2024 9:22 AM EDT Narrative [facility] - 06/05/2024 1:47 PM EDT FASTING:NO See Note 1 Note 1 For additional information, please refer to http://education.OkCupid/faq/SJP182 (This link is being provided for informational/ educational purposes only.) Ricardo Holloway MD LAB - BLOOD DRAW Edited Result - Final [facility] [address] [place] [address], [employer] [place] [facility] [address] [place] [phone] * OTHER ORDERS SCANNED DOCUMENT (05/21/2024 3:00 AM EDT) Only the most recent of3 resultswithin the time period is included. 05/21/2024 3:00 AM EDT Sree TINA SCAN OTHER ORDERS Final Result * HEALTH HISTORY SCANNED DOCUMENT (04/18/2024 3:00 AM EDT) 04/18/2024 3:00 AM EDT [facility] Provider Default SCAN OTHER ORDERS Final Re sult * HISTORIC MAMMOGRAM (01/04/2024 3:00 AM EST) 01/04/2024 3:00 AM EST Sree TIAN IMG MAMMO Final Result * (ABNORMAL) TSH W/RFLX FREE T4 (12/25/2023 4:27 PM EST) TSH W/REFLEX TO FT4 0.03(L) 0.40 - 4.50 mIU/L [facility] Comment: ?Reference Range ?> or = 20 Years ??0.40-4.50 ? Ranges ?First trimester ?0.26-2.66 ?Second trimester ?? 0.55-2.73 ?Third trimester ?0.43-2.91 Blood Blood / Unknown 12/25/2023 4 :27 PM EST 12/25/2023 4:28 PM EST Connie Reed PA-C LAB - BLOOD DRAW Final Resu lt [facility] [address] [place] [address], [facility] [address] [place] [phone] * (ABNORMAL) COMPREHENSIVE METABOLIC PANEL (12/25/2023 4:27 PM EST) GLUCOSE 116(H) 65 - 99 mg/dL [facility] Comment: ?Fasting reference interval For someone without known diabetes, a glucose value between 100 and 125 mg/dL is consistent with prediabetes and should be confirmed with a follow-up test. UREA NITROGEN (BUN) 16 7 - 25 mg/dL [employer] [facility] CREATININE (blood) 0.78 0.50 - 1.03 mg/dL [facility] EGFR 90 > OR = 60 mL/min/1. 73m2 [facility] BUN/CREATININE RATIO SEE NOTE: [employer] [facility] Comment: ?? Not Reported: BUN and Creatinine are within ?? reference range. ? SODIUM 138 135 - 146 mmol/L [employer] [facility] POTASSIUM 4.5 3.5 - 5.3 mmol/L [facility] CHLORIDE 105 98 - 110 mmol/L [facility] CARBON DIOXIDE 27 20 - 32 mmol/L [employer] [place] [facility] CALCIUM 9.8 8.6 - 10.4 mg/dL [facility] PROTEIN, TOTAL 7.4 6.1 - 8.1 g/dL [employer] [place] [facility] ALBUMIN 4.4 3.6 - 5.1 g/dL [employer] [place] [facility] GLOBULIN 3.0 1.9 - 3.7 g/dL (calc) [employer] [facility] ALBUMIN/GLOBULI N RATIO 1.5 1.0 - 2.5 (calc) [facility] BILIRUBIN, TOTAL 0.4 0.2 - 1.2 mg/dL [employer] [facility] ALKALINE PHOSPHATASE 108 37 - 153 U/L [employer] [facility] AST 27 10 - 35 U/L [employer] [facility] ALT 28 6 - 29 U/L [employer] [facility] Blood Blood / Unknown 12/25/2023 4 :27 PM EST 12/25/2023 4:28 PM EST us Connie Reed PA-C LAB - BLOOD DRAW Edited Res ult - Final [employer] [facility] [address] [address], [employer] [facility] [address] [place] [address] * (ABNORMAL) LIPID PANEL (09/24/2023 1:48 PM EDT) CHOLESTEROL, TOTAL 255(H) <200 mg/dL [employer] [facility] HDL CHOLESTEROL 67 > OR = 50 mg/dL [employer] [facility] TRIGLYCERIDES 282(H) <150 mg/dL [facility] Comment: If a non-fasting specimen was collected, consider repeat triglyceride testing on a fasting specimen if clinically indicated. Deborah et al. J. of Clin. Lipidol. 2015;9:129-169. LDL-CHOLESTEROL 145(H) 99 mg/dL (calc) [facility] Comment: Reference range: <100 Desirable range <100 mg/dL for primary prevention; ?? <70 mg/dL for patients with CHD or diabetic patients with > or = 2 CHD risk factors. LDL-C is now calculated using the Niraj-Cami calculation, which is a validated novel method providing better accuracy than the Friedewald equation in the estimation of LDL-C. Niraj SS et al. BRINTI. 2013;310(19): 7644-1942 (http://education.OkCupid/faq/FJR758) CHOL/HDLC RATIO 3.8 <5.0 (calc) [facility] NON-HDL CHOLESTEROL 188(H) <130 mg/dL (calc) [facility] Comment: For patients with diabetes plus 1 major ASCVD risk factor, treating to a non-HDL-C goal of <100 mg/dL (LDL-C of <70 mg/dL) is considered a therapeutic option. Blood Blood / Unknown 09/24/2023 1 :48 PM EDT 09/24/2023 1:51 PM EDT Sree TIAN LAB - BLOOD DRAW Final Result [facility] [address] [place] [address], [facility] [address] [place] [phone] * HIV 1/2 AG & AB W/RFLX (4TH GEN) (06/22/2022 2:12 PM EDT) HIV AG/AB, 4TH GEN NON-REAC TIVE NON-REAC TIVE [facility] Comment: HIV-1 antigen and HIV-1/HIV-2 antibodies were [...] ?? For additional information please refer to http://education.WordStream/faq/EGO471 (This link is being provided for informational/ educational purposes only.) The performance of this assay has not been clinically validated in patients less than 2 years old. Blood Blood / Unknown 06/22/2022 2 :12 PM EDT 06/22/2022 2:12 PM EDT Quirino Bustamante PA-C LAB - BLOOD DRAW Final Result [facility] [address] [place] [address], [facility] [address] [place] [phone] * THINPREP PAP W/IMAGING + HPV CT/NG (Q) (12/19/2021 2:06 PM EST) CHLAMYDIA TRACHOMATIS RNA, TMA NOT DETECTED NOT DETECTED [facility] NEISSERIA GONORRHOEAE RNA, TMA NOT DETECTED NOT DETECTED [facility] COMMENT [facility] CLINICAL INFORMATION See Note [facility] Comment:Postmenopausal LMP See Note [facility] Comment:NONE GIVEN PREV. PAP See Note [facility] Comment:NONE GIVEN PREV. BX See Note [facility] Comment:NONE GIVEN SOURCE See Note [facility] Comment:Cervix STATEMENT OF ADEQUACY See Note [facility] Comment: Satisfactory for evaluation. Endocervical/transformation zone component absent. INTERPRETATION/RESU LT See Note [facility] Comment:Negative for intraep ithelial lesion or malignancy. INFECTION See Note [facility] Comment: Shift in vaginal lacy suggestive of bacterial vaginosis. COMMENT See Note [facility] Comment: This Pap test has been evaluated with computer assisted technology. WOOD HEEL FLAP INSERTER See Note [facility] Comment: MSM, CT(ASCP) CT screening location: [address] ??[address] COMMENT [facility] HPV MRNA E6/E7 Not Detected Not Detected [employer] [facility] Comment: Methodology: Radio Director-Mediated Amplification This assay detects E6/E7 viral messenger RNA (mRNA) from 14 high-risk HPV types (16,18,31,33,35,39,45,51,52,56,58,59,66,68). Cervical sources are required for HPV testing. If a vaginal source from a patient who has had a total hysterectomy with removal of cervix was submitted, please contact the testing laboratory for alternative testing options. For additional information, please refer to http://[employer] Software.WordStream/faq/KQJ054w1 (This link if provided for information/ educational purposes only.) Swab Cervix uteri structure / Unknown 12/19/2021 2:06 PM EST 12/20/2021 6:48 AM EST Narrative [employer] [facility] - 12/21/2021 1:35 PM EST EXPLANATORY NOTE: [...] test SurePath(TM) specimens have been determined by [facility]. The modifications have not been cleared or approved by the FDA. This assay has been validated pursuant to the CLIA regulations and is used for clinical purposes. For additional information, please refer to https://[employer] Software.WordStream/faq/NXM923 (This link is being provided for information/ educational purposes only.) Sree TIAN LAB - NO BLOOD DRAW Final Resu lt [employer] [facility] [address] [address], [employer] [facility] [address] [address] * HEPATITIS C AB W/RFLX HCV RNA, QT, RT PCR (08/05/2021 3:41 PM EDT) HEPATITIS C ANTIBODY NON-REACT EMIR NON-REACT EMIR [facility] SIGNAL TO CUT-OFF 0.16 <1.00 [facility] Comment: HCV antibody was non-reactive. There is no laboratory evidence of HCV infection. In most cases, no further action is required. However, if recent HCV exposure is suspected, a test for HCV RNA (test code 12968) is suggested. For additional information please refer to http://education.WordStream/faq/FVA01b9 (This link is being provided for informational/ educational purposes only.) Blood Blood / Unknown 08/05/2021 3 :41 PM EDT 08/05/2021 3:41 PM EDT Lisette Vega SUPERVISOR [employer] LAB - BLOOD DRAW Edited Result - Final [employer] [place] [facility] [address] [address], [employer] [address] [address] from Last 3 Months or Most Recently Relevant to Health Maintenance [place] Care Teams Implementation Consultant Relationship Specialty Start Date End Date Sree Liao PA [address] [place] [address] PCP - General [facility] 12/19/21
--- NOTE | 2024-06-16 07:37 | A.OFFVIS_ITS ---
Vital Signs 06/16/24 07:48 Height 5 ft 3 in Weight 186 lb 4.65 oz BMI 33.0 BP 124/72 Blood Pressure Location Lt brachial Position Sitting Pulse 60 Pulse Source Pulse Oximeter Pulse Oximetry (%) 98 Oxygen Delivery Method Room Air Intake Visit Reasons: RA Intake Note: Patient presents for RA follow up. Clinical Project Leader Required: Yes Clinical Project Leader Language: Deputy Sheriff Chief Services: Clinical Project Leader Offered & Declined Information Interpreted: non-clinical & clinical Allergies No Known Allergies Allergy (Verified 06/16/24 07:44) Medication List - Last Reconciled 06/16/24 by Adriana Diaz MD aripiprazole 2 mg PO DAILY hydroxyzine HCl 25 mg PO BID PRN levothyroxine 100 mcg PO DAILY naproxen 500 mg PO BEDTIME quetiapine 25 - 50 mg PO BEDTIME PRN tramadol 50 mg PO BID PRN upadacitinib ER (Rinvoq) 15 mg PO DAILY HPI Comments Details: Patient is a 53-year-old female with hypothyroidism, nonalcoholic fatty liver disease, polyarticular OA (knees s/p right TKR, hands) and seropositive rheumatoid arthritis here today for follow up Interval History: Patient last seen 02/14/[address] Baron. At that time she was following up for her seropositive erosive rheumatoid arthritis. She reported doing well at that visit on Rinvoq 15 mg daily and naproxen 500 mg nightly. Reported some intermittent joint pains involving her elbows and wrists but lasting only a few hours. Today, Patient continues to do well At times she has pain in her shoulders and back during the day Otherwise no AM stiffness Rheumatologic History: dx 2012 +++RF+++CCP erosive in [place] Failed Enbrel Had palpitations with Xeljanz On Orencia +MTX started 2018 MTX DC 05/28 due to transaminitis Cimzia 06/27 -11/27 ineffective Rinvoq 12/2022 effective Initial history: This is a 50-year-old female with a past medical history of anxiety, depression, lumbar spinal stenosis, and seropositive RA (+++CCP, +++RF) is referred for RA. Patient is originally from [place] then she moved to [place] about 10 months ago then to [place] recently. She lives alone in [place] and all her family is in the [place] She last saw her blanket folder in November of last year. Patient was diagnosed in 2012 and her disease affects her shoulders, elbows, knees, feet, hands, & wrists. Her most recent regimen was Orencia 125 mg subQ, methotrexate 15 mg weekly and prednisone 5-10 mg a day. She has not received her Orencia in about 8-10 months. She was prescribed methotrexate by her primary provider about 3 weeks ago. Enbrel was not effective. Today she has severe pain and stiffness involving both shoulders, both wrists, hands,, her most severe pain is her right knee pain, she was told her right knee was bone on bone and that she might need surgery, she is due to see a surgeon next week. Current Rheumatology Medication(s): Rinvoq 15 mg daily Naproxen 500mg [facility] Medical History Low back pain, unspecified Peripheral artery disease Anxiety and depression Bilateral carpal tunnel syndrome Hypothyroidism Herniated disc, cervical Fibromyalgia Surgical History History of knee replacement H/O lateral meniscus repair of right knee History of surgery Hx of right knee surgery History of surgery Hx of cholecystectomy Family History Sister Fibromyalgia Paternal Aunt Arthritis Other Rheumatoid arthritis Social History Household Members: Family Alcohol intake: former Year quit: 2017 Patient Tobacco Use Status: Former Tobacco user Review of Systems Const Details: Review of Systems Constitutional: Denies fever, chills, weight loss ENT: Denies vision changes, eye pain or eye redness, dental caries, dry mouth GI: Denies nausea, vomiting, diarrhea, abdominal pain, change in BM Pulm: Denies SOB, MIMS, hemoptysis, wheezing Cards: Denies chest pain, palpitations Skin: Denies Raynaud's, rash, nail changes, photosensitivity, PHYSICIAN SUPPORT COORDINATOR: Denies headaches, weakness, paresthesias, recurrent falls MSK: as per HPI All other systems reviewed and are unremarkable except noted above Physical Exam Vital Signs: Last Vital Signs Pulse 60 06/16/24 07:48 BP 124/72 06/16/24 07:48 Pulse Ox 98 06/16/24 07:48 Oxygen Delivery Method Room Air 06/16/24 07:48 BMI result Body Mass Index 33.0 Vital signs reviewed Physical Examination CONSTITUITIONAL Patient alert and cooperative. Well appearing and in no apparent painful distress HEENT Conjunctiva and sclera clear. ?Pupils equal round and reactive to light. ?No lymphadenopathy. ? CHEST/RESPIRATORY SYSTEM Normal respiratory effort and able to speak in complete sentences. ?Clear to auscultation bilaterally. ?No crackles, rales, rhonchi, wheezes heard. CARDIAC SYSTEM Regular rate and rhythm. ?S1 and S2 heard no murmurs. ?Radial pulses intact bilaterally MSK Hands: ?Able to make a fist. No synovitis noted to the MCPs, PIPs or DIPs. ?Synovial hypertrophy noted to MCPs 2-4 bilaterally without synovitis. Herbeden's nodes noted Wrists: ?Full range of motion at the wrists without pain. ?No tenderness to palpation or synovitis noted to the wrists. Elbows: Full range of motion without pain. No tenderness, weakness, swelling, increased warmth or erythema. Shoulders: Full range of active range of motion without pain. No tenderness, weakness, swelling, increased warmth or erythema. Knees: ?Full range of motion. ?No tenderness, swelling, increased warmth or erythema.?No effusion Ankles: Full range of motion. ?No tenderness, swelling, increased warmth or erythema.? Feet: ?Negative squeeze test. ?No tenderness to palpation or swelling of the MTPs. Tender points:?No tenderness to palpation of the bilateral trapezius, supraspinatus, greater trochanters, anterior costochondral junctions, bilateral gluteal areas, bilateral suboccipital muscle insertions SKIN Skin intact without rashes. Results Reviewed Results Reviewed: Laboratory Tests 06/14/24 07:08 WBC 4.2 L RBC 4.43 Hgb 13.6 Hct 39.8 Plt Count 230 ESR 16 Sodium 144 Potassium 4.2 Chloride 109 H Carbon Dioxide 26 BUN 12 Creatinine 0.80 AST 23 ALT 21 C-Reactive Protein 0.14 Infectious serologies 02/11/24 06:44 Hepatitis A IgM Ab Nonreactive Hep Bs Antigen Negative Hep Bs Antibody NONREACTIVE Hep B Core Total Ab Nonreactive Hepatitis C Ab (EIA) Nonreactive TB Test (T-Spot) Com Negative DEXA 10/2021 FINDINGS: AP SPINE L1-L4: BMD 1.186 g/cm2, Z-score -0.4, T-score 0.0, normal. LEFT FEMUR, NECK: BMD 0.952 g/cm2, Z-score -0.4, T-score -0.6, normal. LEFT FEMUR, TOTAL: BMD 1.097 g/cm2, Z-score 0.5, T-score 0.7, normal. Assessment & Plan Assessment & Plan (1) Rheumatoid arthritis involving both hands with positive rheumatoid factor: Comment: dx 2012 +++RF+++CCP erosive in [place] Failed Enbrel Had palpitations with Xeljanz On Orencia +MTX started 2018 MTX DC 05/28 due to transaminitis Cimzia 06/27 -11/27 ineffective Rinvoq 12/2022 effective Code(s): M05.741 - Rheumatoid arthritis with rheumatoid factor of right hand without organ or systems involvement; M05.742 - Rheumatoid arthritis with rheumatoid factor of left hand without organ or systems involvement Category: Medical Plan: #Seropositive Erosive RA Patient is a 53-year-old female with seropositive erosive rheumatoid arthritis here today for follow up. Currently in remission on Rinvoq daily. Takes naproxen 500 mg at night to help manage her concurrent polyarticular osteoarthritis. Kidney function and liver function are good. Liver function has improved with the weight loss. Having some housing issues. Discussed with patient that if she needs any letters she should let me know Plan - Rinvoq 15mg daily - Naproxen 500mg nightly - RTC 4 months - Labs before visit: CBC, CMP, ESR, CRP (2) watermelon inspector (current) use of janus kinase inhibitor: Code(s): Z79.622 - longterm (current) use of Janus kinase inhibitor Plan: #Long-term Use of CODY inhibitor : Rinvoq Discussed with patient the benefits and risks of CODY inhibitors for the management of the rheumatic condition Benefits include reduce pain, maintenance of remission and reduction of flares Risks include thromboembolic events, skin cancer and nonmelanoma skin cancers, other forms of cancer, cardiovascular alcohol and mortality Advise patient that they are to hold the medication and for up to 1 week after a febrile illness or an open skin wound (3) watermelon inspector (current) use of non-steroidal anti-inflammatories (nsaid): Code(s): Z79.1 - longterm (current) use of non-steroidal anti-inflammatories (NSAID) Plan: #Long-term Use of NSAIDs Discussed with patient the benefits and risk of NSAIDs for managing the rheumatic condition Benefits include: - Reduced the pain, improved mobility, and increased participation in activities Risks include: - GI upset, potential also worsening or formation (especially in patients > 65 years old) Recommended using proton pump inhibitors (PPIs) for the duration of NSAID use to reduce the risk of gastric ulcers Plan I spent 32 minutes reviewing the record and labs, taking a history, examining the patient, discussing the treatment plan, ordering diagnostic work up and documenting in the medical record Orders: Orders Complete Blood Count Auto Diff 4 Months E03.9 - Hypothyroidism, unspecified, M05.741 - Rheumatoid arthritis with rheumatoid factor of right hand without organ or systems involvement, M05.742 - Rheumatoid arthritis with rheumatoid factor of left hand without organ or systems involvement Erythrocyte Sedimentation Rate 4 Months E03.9 - Hypothyroidism, unspecified, M05.741 - Rheumatoid arthritis with rheumatoid factor of right hand without organ or systems involvement, M05.742 - Rheumatoid arthritis with rheumatoid factor of left hand without organ or systems involvement Comprehensive Met. Panel 4 Months E03.9 - Hypothyroidism, unspecified, M05.741 - Rheumatoid arthritis with rheumatoid factor of right hand without organ or systems involvement, M05.742 - Rheumatoid arthritis with rheumatoid factor of left hand without organ or systems involvement C Reactive Protein 4 Months E03.9 - Hypothyroidism, unspecified, M05.741 - Rheumatoid arthritis with rheumatoid factor of right hand without organ or systems involvement, M05.742 - Rheumatoid arthritis with rheumatoid factor of left hand without organ or systems involvement Medications: New naproxen 500 mg PO BEDTIME 90 tabs 1RF M17.11 - Unilateral primary osteoarthritis, right knee Refilled upadacitinib ER (Rinvoq) 15 mg PO DAILY 30 tabs 4RF E03.9 - Hypothyroidism, unspecified naproxen 500 mg PO BEDTIME 90 tabs 1RF M17.11 - Unilateral primary osteoarthritis, right knee Coding Level of Care Code Est Pt Level 4 (99266) Complex EM visit Add On G2211 Diagnoses Rheumatoid arthritis involving both hands with positive rheumatoid factor M05.741; M05.742 longterm (current) use of janus kinase inhibitor Z79.622 longterm (current) use of non-steroidal anti-inflammatories (nsaid) Z79.1
[2024-06-16 07:48] VITALS: BP 124/72; PULSE 60; O2SAT 98; BMI 33.0
== END 2024-06-16 08:18 | disposition home or self-care (01) ==
LOC: HO.RHE 07:34
PROVIDERS: PCP Physician Assistant; Visit Provider Student in an Organized Health Care Education/Training Program
DX: M05.741 Rheumatoid arthritis with rheumatoid factor of right hand without organ or systems involvement (principal); M05.742 Rheumatoid arthritis with rheumatoid factor of left hand without organ or systems involvement; Z79.622 Long term (current) use of Janus kinase inhibitor; Z79.1 Long term (current) use of non-steroidal anti-inflammatories (NSAID)
CPT/HCPCS: 99214

== ENCOUNTER → 2024-06-16 07:34 | Outpatient (BNVA) | payer MEDICAID, SELFPAY | PROVIDERS: PCP Physician Assistant; Visit Provider Student in an Organized Health Care Education/Training Program | DX: M05.742 Rheumatoid arthritis with rheumatoid factor of left hand without organ or systems involvement (principal); M05.741 Rheumatoid arthritis with rheumatoid factor of right hand without organ or systems involvement; E03.9 Hypothyroidism, unspecified; Z79.1 Long term (current) use of non-steroidal anti-inflammatories (NSAID); Z79.622 Long term (current) use of Janus kinase inhibitor; M17.11 Unilateral primary osteoarthritis, right knee | CPT/HCPCS: 99212 ==

== ENCOUNTER 2024-10-03 08:24 | Outpatient (AMB) | payer MEDICARE, MEDICAID, SELFPAY ==
--- OUTSIDE RECORDS SUMMARY | 2024-10-02 11:00 | XMS_ITS | Encounter Summary ---
Author Organization [facility] Address [address] [place] [address] Care Team Providers Care Coating And Baking Operator Name Role Phone Sree Liao Primary Care Provider [phone] Encounter Details Date Type Department Care Team (Late st Contact Info) Description 10/02/2024 11:00 AM EDT Office Visit [facility] Dental [address] [place] [phone] Rene Velasco, DDS [address] [place] [address] Social History Tobacco Use Types Packs/Day Years Used Date Smoking Tobacco: Never Smokeless Tobacco: Never Alcohol Use Standard Drinks/Week Comments Never 0 (1 standard drink = 0.6 oz pur e alcohol) Social Connections Answer Date Recorded How often do you feel lonely or isolated from th ose around you? 1 12/25/2023 Financial Resource Strain Answer Date R ecorded Hard to pay for: Food 1 12/25/2023 Stress Answer Date Recorded Do you feel these kinds of stress these days? 1 12/25/2023 Physical Activity Answer Date Recorded Physical Activity 0 08/05/2021 Food Insecurity Answer Date Recorded Hard to pay for: Food 1 12/25/2023 Transportation Needs Answer Date Record ed Hard to pay for: Transportation 1 12/25/2023 Housing Stability Answer Date Recorded Hard to pay for: Rent/Mortgage payment 1 12/25/2023 Safety and Environment Answer Date Alexis rded Safety 0 10/18/2022 Utilities Answer Date Recorded Hard to pay for: Utilities 1 12/24 Employment Answer Date Recorded Stress 0 12/19/2021 Comments No Sex and Gender Information Value Date Recorded Sex Assigned at Female 08/09/2021 6:06 AM PDT Legal Sex Female 10:35 AM PDT Gender Identity Female 08/09/2021 6:06 AM PDT Sexual Orientation Straight 08/09/2021 6: 06 AM PDT documented as of this encounter Last Filed Vital Signs Vital Sign Reading Time Taken Comments Blood Pressure 154/95 10/02/2024 11:26 AM EDT Pulse 59 10/02/2024 11:26 AM EDT Temperature - - Respiratory Rate - - Oxygen Saturation - - Inhaled Oxygen Concentration - - Weight - - Height - - Body Mass Index - - documented in this encounter Plan of Treatment Upcoming Encounters Date Type Department Care Team (Late st Contact Info) Description 10/20/2024 11:00 AM EDT BH/MH Visits [address] [phone] Ivy Ayala, SNIPPER [address] [place] [address] 11/12/2024 2:20 PM EDT BH/MH Visits [address] [phone] Sailaja Yeung FNP [address] [place] [phone] Harjinder Boateng [address] [place] [address] 12/04/2024 9:00 AM EDT Office Visit [facility] [address] [place] [phone] [place] [place] [phone] documented as of this encounter Visit Diagnoses Not on filedocumented in this encounter Additional Health Concerns Assessment Noted Time PHQ-9 Depression Total Score: 0 04/16/19 25 3:13 PM PDT A Depression follow-up plan has been documented for the patient 08/09/2021 9:04 AM PDT documented as of this encounter Care Teams Coating And Baking Operator Relationship Specialty Start Date End Date Sree Liao PA [address] [place] [address] PCP - General FAMILY MEDICINEASMITA 12/19/21 documented as of this encounter
--- NOTE | 2024-10-03 08:39 | MHC.OFFVIS ---
Vital Signs 10/03/24 08:49 Height 5 ft 3 in Weight 186 lb BMI 32.9 Intake Visit Reasons: GROCERY SPECIALIST-Valeriano hand OA/pain Intake Note: Liliya is a 53 year old right hand dominant female who presents today as a new patient for evaluation of Bilateral Hand Osteoarthritis. Patient states she was diagnosed in [place], moved to the about 3 years ago and is looking to establish care. Patient reports she drops items constantly. Her fingers swell if she tries using her hands. She continues having numbness and tingling. She states her last EMG was done in [place], many years ago. She was supposed to have surgery but it was never booked. She was using wrist braces to sleep but no longer has them. She has not tried OT or injections. Denies recent injuries or surgeries to the hands. Patient is currently being treated for Rheumatoid Arthritis affecting the wrist with Rinvoq and Naproxen. Hx Fibromyalgia, Bilateral Carpal Tunnel Syndrome without surgical intervention Telecommunication Tower Technician Required: Yes Telecommunication Tower Technician Language: Registered Radiologic Technologist Services: Telecommunication Tower Technician Present Telecommunication Tower Technician Name: JUSTIN Roman/NIC Allergies No Known Allergies Allergy (Verified 10/03/24 08:40) HPI HPI GROCERY SPECIALIST-Valeriano hand OA/pain: Details: Liliya is a 53 year old right hand dominant female who presents today as a new patient for evaluation of Bilateral Hand Osteoarthritis. Patient states she was diagnosed in [place], moved to the about 3 years ago and is looking to establish care. Patient reports she drops items constantly. Her fingers swell if she tries using her hands. She continues having numbness and tingling. She states her last EMG was done in [place], many years ago. She was supposed to have surgery but it was never booked. She was using wrist braces to sleep but no longer has them. She has not tried OT or injections. Denies recent injuries or surgeries to the hands. Patient is currently being treated for Rheumatoid Arthritis affecting the wrist with Rinvoq and Naproxen. Hx Fibromyalgia, Bilateral Carpal Tunnel Syndrome without surgical intervention [facility] Medical History Low back pain, unspecified Peripheral artery disease Anxiety and depression Bilateral carpal tunnel syndrome Hypothyroidism Herniated disc, cervical Fibromyalgia Surgical History History of knee replacement H/O lateral meniscus repair of right knee History of surgery Hx of right knee surgery History of surgery Hx of cholecystectomy Family History Sister Fibromyalgia Paternal Aunt Arthritis Other Rheumatoid arthritis Social History (Updated 10/03/24 @ 08:42 by Abel Copeland Slime) Household Members: Family Alcohol intake: former Year quit: 2017 Patient Tobacco Use Status: Former Tobacco user Current occupational status: disabled Current occupation: rt handed Review of Systems Const All systems reviewed & are unremarkable except as noted in HPI and below Physical Exam Vital Signs: BMI result Body Mass Index 32.9 Extrem Other: Neuro: Normal sensation of the tips of all digits of bilateral hands in the office today No thenar or intrinsic wasting. Good APB muscle firing and good finger cross. Vascular: Capillary refill brisk. ROM: Patient can make a fist and extend all their digits without difficulty Skin: No lacerations or abrasions noted. General: No ecchymosis. No erythema or evidence of infection. Results Reviewed Results Reviewed: X-rays obtained in the office today and independently reviewed by me, Dewayne Soto PA-C, demonstrate no fracture, acute bony abnormality, or evidence of osteoarthritis of bilateral hands. Assessment & Plan Assessment & Plan (1) Numbness and tingling in both hands: Code(s): R20.0 - Anesthesia of skin; R20.2 - Paresthesia of skin Category: Medical Plan 1. Numbness, tingling, pain of bilateral hands Symptoms intermittent, daily, worse at night Patient is educated about this condition Patient is educated about the typical diagnostic and treatment course At this time, patient is referred for EMG and nerve conduction study to assess the health of the nerves of bilateral upper extremities, as we have no access to her previous EMG and as it was done many years ago, it is likely out dated Patient will follow-up after EMG and nerve conduction study for results review and discussion of further treatment options if indicated Patient understands this in his amenable to this plan Orders: Orders XR Hand Bilat min 3v Today M79.643 - Pain in unspecified hand NE nerve conduction velocity Today R20.0 - Anesthesia of skin, R20.2 - Paresthesia of skin NE electromyogram (EMG) Today R20.0 - Anesthesia of skin, R20.2 - Paresthesia of skin Coding Level of Care Code New Pt Level 3 (36449) Diagnoses Numbness and tingling in both hands R20.0; R20.2
[2024-10-03 08:49] VITALS: BMI 32.9
--- OUTSIDE RECORDS SUMMARY | 2024-10-03 09:10 | XMS_ITS | Clinical Summary ---
Author Organization [facility] Address [address] [place] [address] Phone Care Team Providers Care Production Technologist Name Role Phone Sree Liao Primary Care Provider [phone] Family History Medical History Relation Name Comments [...] 01/04/2024 3:21 PM EST Plan of Treatment Health Maintenance Due Date Last Done Comments Cervical Cancer Screening: Pap Smear 1990 Colorectal Cancer Screening: Colonoscopy 01/08/2022 HIV Screening 01/08/2022 Medicare Annual Wellness Visit 01/08/2022 Social Influencers of Health Screening 01/08/2022 Depression Screening 02/06/2024 COVID-19 Vaccine (7 - Mixed Product risk ) 06/23/2024 12/25/2023, 01/09/2023, 10/24/2021, Additional history exists Influenza Vaccine (#1) 2024 , 10/18/2022, 12/19/2021, Additional history exists Breast Cancer Screening 01/03/2026 01/04/2024, 11/10 Cholesterol Screening (Lipid Panel) 09/23/2028 09/24/2023, 09/24/2023, 10/18/2022, Additional history exists DTaP,Tdap,and Td Vaccines (2 - Td or Tdap) 08/24/2032 08/24/2022 Osteoporosis Screening (Bone Density Screening) 06/26/2034 06/26/2024 Hepatitis C Screening Completed 08/05/2021 Hepatitis B Vaccines Completed 09/25/2022, 08/25/19 Pneumococcal Vaccine: 50+ Years Completed 09/25/2022 Zoster Vaccines Completed 12/25/2023, 09/24/2023 HIB Vaccines [...] Procedure Name Priority Date/Time Associated Diagnosis Comments BD BONE DENSITY DXA AXIAL SKELETON Routine 06/26/2024 12:52 PM EDT Osteopenia MG MAMMO DIGITAL SCREENING W BUD BILAT Routine 01/04/2024 3:23 PM EST Encounter for screening mammogram for breast cancer from Last 3 Months or Most Recently Relevant to Health Maintenance Results * BD Bone Density DXA Axial Skeleton (06/26/2024 12:52 PM EDT) Anatomical Region Laterality Modality Wrist, Hip, L-spine Bone Densito metry 06/27/2024 7:56 AM EDT Impressions 06/27/2024 7:58 AM EDT 1. Osteopenia. 2. FRAX analysis yields a 10-year probability of major osteoporotic fracture of 3.5% and a 10-year probability of hip fracture of 0.1%. Code 57744 -------- FINAL REPORT -------- Dictated By: Tony Tom Dictated Date: 06/27/2024 07:56 ET Assigned Physician: Tony Tom Reviewed and Electronically Signed By: Tony Tom Signed Date: 06/27/2024 07:58 ET Workstation ID: [id number] Transcribed By: Self Edit Transcribed Date: 06/27/2024 07:56 ET Narrative 06/27/2024 7:58 AM EDT HISTORY: The patient is a 53-year-old postmenopausal female with clinical concern for metabolic bone disease. FINDINGS: Dual energy x-ray absorptiometry of the lumbar spine and femurs is performed. The mean bone mineral density at L1-L4 is 1.125 gm/cm2 which is 95% of that of young normals and 97% of that of age matched controls. This yields a T-score of -0.5 and a Z-score of -0.3 and there is therefore no evidence of osteoporosis or osteopenia here. The mean bone mineral density of the femurs bilaterally is 1.083 gm/cm2 which is 108% of that of young normals and 110% of that of age matched controls. This yields a T-score of 0.6 and a Z-score of 0.8 and there is therefore no evidence of osteoporosis or osteopenia here. However, the T-score of the left femoral neck is -1.3 which is diagnostic of osteopenia. Procedure Note Tony Tom MD - 06/27/2024 HISTORY: The patient is a 53-year-old postmenopausal female with clinicalconcern for metabolic bone disease. FINDINGS: Dual energy x-ray absorptiometry of the lumbar spine and femursis performed. The mean bone mineral density at L1-L4 is 1.125 gm/cm2 whichis 95% of that of young normals and 97% of that of age matched controls.This yields a T-score of -0.5 and a Z-score of -0.3 and there is thereforeno evidence of osteoporosis or osteopenia here. The mean bone mineral density of the femurs bilaterally is 1.083 gm/ze9kckwb is 108% of that of young normals and 110% of that of age matchedcontrols. This yields a T-score of 0.6 and a Z-score of 0.8 and there istherefore no evidence of osteoporosis or osteopenia here. However, theT-score of the left femoral neck is -1.3 which is diagnostic ofosteopenia. IMPRESSION: 1. Osteopenia. 2. FRAX analysis yields a 10-year probability of major osteoporoticfracture of 3.5% and a 10-year probability of hip fracture of 0.1%. Code 48680 -------- FINAL REPORT -------- Dictated By: Tony Tom Dictated Date: 06/27/2024 07:56 ET Assigned Physician: Toyn Tom Reviewed and Electronically Signed By: Tony Tom Signed Date: 06/27/2024 07:58 ET Workstation ID: [id number] Transcribed By: Self Edit Transcribed Date: 06/27/2024 07:56 ET us Ricardo Holloway MD IM DXA PROCEDURES Final Result * MG Mammo Digital Screening w Bud bilat (01/04/2024 3:23 PM EST) Anatomical Region Laterality Modality Breast Bilateral Mammography 01/04/2024 5:48 PM EST Impressions 01/04/2024 5:52 PM EST No mammographic evidence of malignancy. No suspicious interval change. A negative mammogram in the presence of a clinically suspicious palpable abnormality does not preclude the possibility of malignancy or alter the indications for biopsy. ASSESSMENT: BI-RADS 1: NEGATIVE RECOMMENDATION(S): 1: Routine screening mammogram BILATERAL in 1 year. -------- FINAL REPORT -------- Dictated By: Matt Harris Dictated Date: 01/04/2024 17:48 ET Assigned Physician: Matt Harris Reviewed and Electronically Signed By: Matt Harris Signed Date: 01/04/2024 17:52 ET Workstation ID: [id number] Transcribed By: Self Edit Transcribed Date: 01/04/2024 17:48 ET Narrative 01/04/2024 5:52 PM EST EXAM: SCREENING MAMMOGRAPHY, BILATERAL HISTORY: SCREENING. Family history of breast cancer, maternal aunt COMPARISON: 11/10/2022 TECHNIQUE: Synthesized CC and MLO projections of each breast. Tomosynthesis of each breast in the CC and MLO projections. ADDITIONAL IMAGING: None Computer-aided detection was employed with the [employer] profound AI 3-D. TISSUE DENSITY: There are scattered areas of fibroglandular density. (BI-RADS category B) FINDINGS: RIGHT BREAST: No suspicious mass. No suspicious calcification. No distortion. No additional suspicious right breast findings LEFT BREAST: No suspicious mass. No suspicious calcification. No distortion. No additional suspicious left breast findings Procedure Note Matt Harris MD - 01/04/2024 EXAM: SCREENING MAMMOGRAPHY, BILATERAL HISTORY: SCREENING. Family history of breast cancer, maternal aunt COMPARISON: 11/10/2022 TECHNIQUE: Synthesized CC and MLO projections of each breast.Tomosynthesis of each breast in the CC and MLO projections. ADDITIONAL IMAGING: None Computer-aided detection was employed with the [employer] profound AI 3-D. TISSUE DENSITY: There are [...] Signed Date: 01/04/2024 17:52 ET Workstation ID: [id number] Transcribed By: Self Edit Transcribed Date: 01/04/2024 17:48 ET us Self Referral Sppl IMG BI PROCEDURES Final Resul t from Last 3 Months or Most Recently Relevant to Health Maintenance Insurance MEDICAID - [place] MEDICARE MEDICARE Care Teams Production Technologist Relationship Specialty Start Date End Date Sree Liao PA [address] [place] [address] PCP - General Physician [facility] 12/19/23
--- OUTSIDE RECORDS SUMMARY | 2024-10-03 09:10 | XMS_ITS | Clinical Summary ---
Author Organization [facility] Address [address] [place] [address] Care Team Providers Care Customs Compliance Specialist Name Role Phone Sree Liao Primary Care Provider [phone] Source Comments PLEASE NOTE, if this patient [...] x99 years 5'3 , 210 1 Each 022 Active upadacitinib 15 mg [id number]:R heumatoid arteritis ([facility]) 023 Active folic acid (FOLVITE) 1 mg tabletIndications :Fibromyalgia,Enc ounter to establish care,Arthritis,He rniated disc, cervical TAKE 1 TABLET BY MOUTH EVERY DAY 30 Tablet 2 024 Active sodium chloride (OCEAN) 0.65 % nasal sprayIndications: Nasal congestion Place 1 [place] into the nostril(s) as needed for congestion 44 mL 1 024 Active naproxen (NAPROSYN) 500 mg tabletIndications :Rheumatoid arteritis ([facility]),Fibromya lgia,Herniated disc, cervical Take 1 Tablet by mouth 2 (two) times daily with a meal 60 Tablet 1 024 Active benzonatate (TESSALON) 100 mg capsuleIndication s:Acute cough Take 1 Capsule by mouth 3 (three) times daily as needed for cough 30 Capsule 024 Active valACYclovir (VALTREX) 1 gram tabletIndications :HSV infection Take 2 tab PO q12 hour SOON OUTBREAK STARTS x3 doses.Take 2 tab PO q12 hour SOON OUTBREAK STARTS x3 doses. 30 Tablet 3 024 Active guaiFENesin (ROBITUSSIN) 100 mg/5 mL liquid Take 10 mL by mouth 3 (three) times daily as needed for cough 473 mL 1 024 Active semaglutide (OZEMPIC) 0.25 mg or 0.5 mg (2 mg/3 mL) pen injectorIndicatio ns:Class 2 severe obesity due to excess calories with serious comorbidity and body mass index (BMI) of 37.0 to 37.9 in adult ([facility]),BMI 37.0-37.9, adult Inject 0.5 mg into the skin once a week For weeks, then 1 mg once weekly for four weeks. 3 mL 2 025 Active calcium carbonate-vitamin D3 500 mg-10 mcg (400 unit) tabletIndications :Class 2 severe obesity due to excess calories with serious comorbidity and body mass index (BMI) of 37.0 to 37.9 in adult ([facility]),BMI 37.0-37.9, adult,Osteopenia, unspecified location Take 1 Tablet by mouth 3 (three) times daily with meals 90 Tablet 2 025 Active tirzepatide, weight loss, (ZEPBOUND) 2.5 mg/0.5 mL pnijIndications:C lass 2 severe obesity due to excess calories with serious comorbidity and body mass index (BMI) of 37.0 to 37.9 in adult ([facility]),BMI 37.0-37.9, adult,Osteoarthri tis, unspecified osteoarthritis type, unspecified site,Osteopenia, unspecified location,Post-men opausal,Hypothyro idism, unspecified type,Herniated disc, cervical,Bilatera l chronic knee pain,Rheumatoid arthritis with positive rheumatoid factor, involving unspecified site ([facility]),Fibromya lgia,Arthritis,Bi lateral carpal tunnel syndrome,Difficul ty walking INYECTE 2.5 MG POR VIA SUBCUTANEA SEMANALMENTE 2 mL 2 025 Active amoxicillin (AMOXIL) 500 mg capsuleIndication s:Encounter for dental examination Take 4 capsules (500 mg each) by mouth 1 hour before dental or surgical procedure.. 4 Capsule 025 Active levothyroxine 100 mcg tabletIndications :Hypothyroidism, unspecified type TOME 1 TABLETA POR VIA ORAL TODOS LOS CRISTOBAL 90 Tablet 1 Active QUEtiapine (SEROQUEL XR) 50 mg Tb24 24 hr tabletIndications :Current moderate episode of major depressive disorder, unspecified whether recurrent ([facility]) Take 1 Tablet by mouth nightly at bedtime for 90 days. 30 Tablet 2 025 2024 Active desvenlafaxine succinate (PRISTIQ) 50 mg 24 hr tabletIndications :Anxiety Take 1 Tablet by mouth once daily for 90 days. 30 Tablet 2 025 2024 Active cetirizine (ZYRTEC) 10 mg tabletIndications :Seasonal allergies,Nasal congestion TOME 1 TABLETA POR VIA ORAL TODOS LOS CRISTOBAL 90 Tablet Active hydrOXYzine HCL (ATARAX) 25 mg tabletIndications :Anxiety Take 1 Tablet by mouth 2 (two) times daily as needed for anxiety 60 Tablet 1 025 2024 Discontinued(P atient Stopped Taking) QUEtiapine (SEROQUEL XR) 50 mg Tb24 24 hr tabletIndications :Current moderate episode of major depressive disorder, unspecified whether recurrent ([facility]) Take 1 Tablet by mouth nightly at bedtime for 90 days 30 Tablet 2 025 2024 Discontinued(R eorder (E-Cancel Not Sent)) cetirizine (ZYRTEC) 10 mg tabletIndications :Seasonal allergies,Nasal congestion TOME 1 TABLETA POR VIA ORAL TODOS LOS CRISTOBAL 90 Tablet 025 2024 Discontinued desvenlafaxine succinate (PRISTIQ) 50 mg 24 hr tabletIndications :Anxiety Take 1 Tablet by mouth once daily for 90 days. 30 Tablet 2 025 2024 Discontinued(R eorder (E-Cancel Not Sent)) Active Problems Problem Noted Date Diagnosed Date MDD (major depressive disord er), recurrent episode, mild ([facility] V24) 12/05/2021 Rheumatoid arteritis ([facility]) 10/24/2021 BMI 37.0-37.9, adult 08/19/2021 Class 2 severe obesity due t o excess calories with serious comorbidity and body mass index (BMI) of 37.0 to 37.9 in adult ([facility]) 08/09/2021 Polyp of colon 08/09/2021 Fibromyalgia 08/05/2021 Arthritis 08/05/2021 Herniated disc, cervical 08/05/2021 Hypothyroidism 08/05/2021 Bilateral carpal tunnel syndrome 08/05/2021 Difficulty walking 08/05/2021 Anxiety and depression 08/05/2021 Encounters Date Type Department Care Team Description 10/02/2024 11:00 AM EDT Office Visit [address] [phone] Rene Velasco DDS 09/22/2024 11:00 AM EDT BH/MH Visits [address] [phone] Ivy Ayala LCSW 09/13/2024 9:00 AM EDT Office Visit [address] [phone] Erin De La Cruz FNP-Rhea 09/11/2024 2:00 PM EDT BH/MH Visits [address] [phone] Sailaja Yeung FNP Martinez, Celestia 09/05/2024 BH/MH TELEPHONE [address] [phone] Karime Richards, Community Health Worker 08/18/2024 2:30 PM EDT BH/MH Visits [address] [phone] HeatonCruz Ivy, COMMISSIONS COORDINATOR 08/01/2024 2:45 PM EDT BH/MH Visits [address] [phone] HeatonCruz Ivy, COMMISSIONS COORDINATOR 07/31/2024 2:00 PM EDT BH/MH Visits [address] [phone] Sailaja Yeung, Harjinder Su 07/23/2024 3:40 PM EDT Office Visit [facility] [address] [place] [phone] Ricardo Holloway MD Rodriguez, Anabel 07/16/2024 4:30 PM EDT BH/MH Visits [address] [phone] Ivy Ayala, COMMISSIONS COORDINATOR 07/09/2024 10:00 AM EDT BH/MH Visits [address] [phone] Heaton-Myranda Florezorah, COMMISSIONS COORDINATOR 07/08/2024 Dental Interim Note [facility] [address] [place] [phone] Rene Velasco DDS from Last 3 Months Immunizations Immunization Administration Dates Next Due Flu, Preservative Free 10/18/2022,12/19/2021, Hep B,adult,adjuvanted (HEPLISAV) 09/25/2022, Influenza (FLUBLOK),recombinant,injectable,preservati ve Free 12/25/2023 MODERNA COVID-19 VACCINE BIV ALENT, BLUE CAP, 6M+ 10/24/2021 Moderna COVID-19 Vaccine, re d cap blue label, 12+ Primary Series 06/09/2020,05/12/2020 PNEUMOCOCCAL CONJUGATE PCV 20 (Prevnar 20) 09/25 Pfizer COVID vaccine, COMIRN ATY, guzman cap, [...] Pulse 59 10/02/2024 11:26 AM EDT Temperature 36.9 C (98.5 F) 05/16/2024 2:03 PM EDT Respiratory Rate 20 09/13/2024 9:27 AM EDT Oxygen Saturation 99% 09/13/2024 9:27 AM EDT Inhaled Oxygen Concentration - - Weight 80.3 kg (177 lb) 09/13/2024 9:27 AM EDT Height 160 cm (5' 3 ) 04/15/2024 3:14 PM EDT Body Mass Index 31.35 04/15/2024 3:14 PM EDT Plan of Treatment Upcoming Encounters Date Type Department Care Team (Late st Contact Info) Description 10/20/2024 11:00 AM EDT BH/MH Visits [facility] [address] [place] [phone] Ivy Ayala LCSW [address] [place] [address] 11/12/2024 2:20 PM EDT BH/MH Visits [facility] [address] [place] [phone] Sailaja Yeung FNP [address] [place] [phone] Harjinder Boateng [address] [place] [address] 12/04/2024 9:00 AM EDT Office Visit [facility] [address] [place] [phone] Korey Howell, RD [address] [place] [address] Health Maintenance Due Date Last Done Comments HPV Screening 1970 Medicare Annual Wellness Visit 12/13/1987 CT Colonography 2014 FIT/gFOBT 2014 Fecal DNA 2014 Flexible Sigmoidoscopy 2014 Depression Monitoring 07/16/2024 04/15/2024 , 12/25/2023, 09/24/2023, Additional history exists Lipid Screening 09/23/2024 09/24/2023, 10/06, 08/05/2021 Imm-Influenza (#1) 2024 12/25/2023, 0 10/18/2022, 12/19/2021, Additional history exists Pap Smear 12/19/2024 12/19/2021, 08/06/2019 Diabetes Screening 12/24/2024 12/25/2023, 0 08/24/2022, 08/05/2021, Additional history exists TSH Monitoring 12/24/2024 12/25/2023, 09/05, 10/18/2022, Additional history exists Breast Cancer Screening (Mammogram) 01/03/2025 01/04/2024, 01/04/2024, 11/17/2022, Additional history exists Dental BW 06/05/2025 06/03/2024, 11/05, 04/21/2023, Additional history exists Dental Examination 06/05/2025 06/03/2024, 1 , 04/21/2023, Additional history exists Dental Perio Charting 06/05/2025 06/03/2024 Dental Prophy 06/05/2025 06/03/2024, 11/05, 05/04/2023, Additional history exists Anxiety Screening 09/05/2025 09/05/2024 Tobacco Screening 09/13/2025 10/02/2024, 08/05/2021 Hypertension Screening (#1) 10/02/2025 Cervical Cancer Screening 12/19/2026 Pap + HPV 12/19/2026 12/19/2021 Dental FMX/Pano 09/07/2027 09/04/2022 Colonoscopy 08/05/2030 08/05/2020 Colorectal Cancer Screening 08/05/2030 Imm-DTaP/Tdap/Td (2 - Td or Tdap) 08/24/2032 023 Hepatitis C Screening Completed 08/05/2021 HIV Screening Completed 06/22/2022, 08/05/2021 Imm-Hepatitis B Completed 09/25/2022, 08/24/2022 Imm-Pneumococcal 50+ Completed 09/25/2022 [id number] Completed 12/25/2023, 12/0 06/2022, 10/24/2021, Additional history exists Imm-Zoster, Recombinant Completed 12/25/2023, 09/23 Alcohol and Drug Screen Completed 04/16/19 25, 12/25/2023, 09/24/2023, Additional history exists Cervical Ablation/Cold-Knife Conization Discontinued Cervical Cryotherapy Discontinued Colposcopy Discontinued Endometrial Biopsy Discontinued Excision/Leep Discontinued HPV Genotyping Discontinued Vaginal Pap Discontinued Vulvoscopy Discontinued Procedures Procedure Name Priority Date/Time Associated Diagnosis Comments OTHER ORDERS SCANNED DOCUMENT 08/12/2024 3:00 AM EDT OTHER ORDERS SCANNED DOCUMENT 07/24/2024 3:00 AM EDT COMP PERIODONTAL EVALUATION - NEW/EST PATIENT Routine 06/03/2024 9:00 AM EDT [facility] BITEWINGS - FOUR RADIOGRAPHIC IMAGES Routine 06/03/2024 9:00 AM EDT [facility] PROPHYLAXIS - ADULT Routine 06/03/2024 9 :00 AM EDT [facility] PERIODIC ORAL EVALUATION ESTABLISHED PATIENT Routine 06/03/2024 9:00 AM EDT [facility] HISTORIC MAMMOGRAM 01/04/2024 3: 00 AM EST TSH W/RFLX FREE T4 Routine 12/25/2023 4: 27 PM EST Screening due Hypothyroidism, unspecified type COMPREHENSIVE METABOLIC PANEL Routine 12/25/2023 4:27 PM EST Screening due LIPID PANEL Routine 09/24/2023 1:48 PM EDT Class 2 severe obesity due to excess calories with serious comorbidity and body mass index (BMI) of 37.0 to 37.9 in adult ([facility]) Rheumatoid arteritis ([facility]) BMI 37.0-37.9, adult INTRAORAL - COMP SERIES OF RADIOGRAPHIC IMAGES Routine 09/04/2022 11:00 AM EDT Caries Defective dental anglican Encounter for dental examination HIV 1/2 AG [...] Recently Relevant to Health Maintenance Results * OTHER ORDERS SCANNED DOCUMENT (08/12/2024 3:00 AM EDT) Only the most recent of2 resultswithin the time period is included. 08/12/2024 3:00 AM EDT us Sree TIAN SCAN OTHER ORDERS Final Result * HISTORIC MAMMOGRAM (01/04/2024 3:00 AM EST) 01/04/2024 3:00 AM EST us Sree TIAN IMG MAMMO Final Result * (ABNORMAL) TSH W/RFLX FREE T4 (12/25/2023 4:27 PM EST) TSH W/REFLEX TO FT4 0.03(L) 0.40 - 4.50 mIU/L [facility] Comment: Reference Range > or = 20 Years 0.40-4.50 Ranges First trimester 0.26-2.66 Second trimester 0.55-2.73 Third trimester 0.43-2.91 Blood Blood / Unknown 12/25/2023 4 :27 PM EST 12/25/2023 4:28 PM EST Connie Reed PA-C LAB - BLOOD DRAW Final Resu lt [facility] [address] [place] [address], [facility] [address] [place] [phone] * (ABNORMAL) COMPREHENSIVE METABOLIC PANEL (12/25/2023 4:27 PM EST) GLUCOSE 116(H) 65 - 99 mg/dL [facility] Comment: Fasting reference interval For someone without known diabetes, a glucose value between 100 and 125 mg/dL is consistent with prediabetes and should be confirmed with a follow-up test. UREA NITROGEN (BUN) 16 7 - 25 mg/dL [facility] CREATININE (blood) 0.78 0.50 - 1.03 mg/dL [facility] EGFR 90 > OR = 60 mL/min/1. 73m2 [facility] BUN/CREATININE RATIO SEE NOTE: [facility] Comment: Not Reported: BUN and Creatinine are within reference range. SODIUM 138 135 - 146 mmol/L [facility] POTASSIUM 4.5 3.5 - 5.3 mmol/L [facility] CHLORIDE 105 98 - 110 mmol/L [facility] CARBON DIOXIDE 27 20 - 32 mmol/L [facility] CALCIUM 9.8 8.6 - 10.4 mg/dL [facility] PROTEIN, TOTAL 7.4 6.1 - 8.1 g/dL [facility] ALBUMIN 4.4 3.6 - 5.1 g/dL [facility] GLOBULIN 3.0 1.9 - 3.7 g/dL (calc) [facility] ALBUMIN/GLOBULI N RATIO 1.5 1.0 - 2.5 (calc) [facility] BILIRUBIN, TOTAL 0.4 0.2 - 1.2 mg/dL [facility] ALKALINE PHOSPHATASE 108 37 - 153 U/L [facility] AST 27 10 - 35 U/L [facility] ALT 28 6 - 29 U/L [facility] Blood Blood / Unknown 12/25/2023 4 :27 PM EST 12/25/2023 4:28 PM EST Connie Reed PA-C LAB - BLOOD DRAW Edited Res ult - Final [facility] [address] [address], [facility] [address] [place] [address] * (ABNORMAL) LIPID PANEL (09/24/2023 1:48 PM EDT) CHOLESTEROL, TOTAL 255(H) <200 mg/dL [facility] HDL CHOLESTEROL 67 > OR = 50 mg/dL [facility] TRIGLYCERIDES 282(H) <150 mg/dL [facility] Comment: If a non-fasting specimen was collected, consider repeat triglyceride testing on a fasting specimen if clinically indicated. Deborah et al. J. of Clin. Lipidol. 2015;9:129-169. LDL-CHOLESTEROL 145(H) 99 mg/dL (calc) [facility] Comment: Reference range: <100 Desirable range <100 mg/dL for primary prevention; <70 mg/dL for patients with CHD or diabetic patients with > or = 2 CHD risk factors. LDL-C is now calculated using the Ramon calculation, which is a validated novel method providing better accuracy than the Friedewald equation in the estimation of LDL-C. Niraj FRENCH et al. BRITNI. 2013;310(19): 4399-5009 (http://education.Sidecar/faq/GXT105) CHOL/HDLC RATIO 3.8 <5.0 (calc) [facility] NON-HDL CHOLESTEROL 188(H) <130 mg/dL (calc) [facility] Comment: For patients with diabetes plus 1 major ASCVD risk factor, treating to a non-HDL-C goal of <100 mg/dL (LDL-C of <70 mg/dL) is considered a therapeutic option. Blood Blood / Unknown 09/24/2023 1 :48 PM EDT 09/24/2023 1:51 PM EDT Sree TIAN LAB - BLOOD DRAW Final Result [facility] [address] [place] [address], [facility] [address] [phone] * HIV 1/2 AG & AB W/RFLX (4TH GEN) (06/22/2022 2:12 PM EDT) HIV AG/AB, 4TH GEN NON-REAC TIVE NON-REAC TIVE [facility] Comment: HIV-1 antigen and HIV-1/HIV-2 antibodies were not detected. There is no laboratory evidence of HIV infection. PLEASE NOTE: This information has been disclosed to you from records whose confidentiality may be protected by state law. If your state requires such protection, then the state law prohibits you from making any further disclosure of the information without the specific written consent of the person to whom it pertains, or as otherwise permitted by law. A general authorization for the release of medical or other information is NOT sufficient for this purpose. For additional information please refer to http://education.Truecaller/faq/QNW915 (This link is being provided for informational/ educational purposes only.) The performance of this assay has not been clinically validated in patients less than 2 years old. Blood Blood / Unknown 06/22/2022 2 :12 PM EDT 06/22/2022 2:12 PM EDT Quirino Bustamante PA-C LAB - BLOOD DRAW Final Result [facility] [address] [place] [address], [facility] [address] [place] [phone] * THINPREP PAP W/IMAGING + HPV CT/NG (Q) (12/19/2021 2:06 PM EST) CHLAMYDIA TRACHOMATIS RNA, TMA NOT DETECTED NOT DETECTED [facility] NEISSERIA GONORRHOEAE RNA, TMA NOT DETECTED NOT DETECTED [facility] COMMENT [facility] CLINICAL INFORMATION See Note [facility] Comment:Postmenopausal LMP See Note [facility] Comment:NONE GIVEN PREV. PAP See Note [facility] Comment:NONE GIVEN PREV. BX See Note [facility] Comment:NONE GIVEN SOURCE See Note [facility] Comment:Cervix STATEMENT OF ADEQUACY See Note [facility] Comment: Satisfactory for evaluation. Endocervical/transformation zone component absent. INTERPRETATION/RESU LT See Note [facility] Comment:Negative for intraep ithelial lesion or malignancy. INFECTION See Note [facility] Comment: Shift in vaginal lacy suggestive of bacterial vaginosis. COMMENT See Note [facility] Comment: This Pap test has been evaluated with computer assisted technology. TELEGRAPH OFFICE MANAGER See Note [facility] Comment: MSM, CT(ASCP) CT screening location: [address] [address] COMMENT [facility] HPV MRNA E6/E7 Not Detected Not Detected [facility] Comment: Methodology: Child Psychometrist-Mediated Amplification This assay detects E6/E7 viral messenger RNA (mRNA) from 14 high-risk HPV types (16,18,31,33,35,39,45,51,52,56,58,59,66,68). Cervical sources are required for HPV testing. If a vaginal source from a patient who has had a total hysterectomy with removal of cervix was submitted, please contact the testing laboratory for alternative testing options. For additional information, please refer to http://RPost.Truecaller/faq/IIX128f6 (This link if provided for information/ educational purposes only.) Swab Cervix uteri structure / Unknown 12/19/2021 2:06 PM EST 12/20/2021 6:48 AM EST Narrative [facility] - 12/21/2021 1:35 PM EST EXPLANATORY NOTE: [...] test SurePath(TM) specimens have been determined by [employer]. The modifications have not been cleared or approved by the FDA. This assay has been validated pursuant to the CLIA regulations and is used for clinical purposes. For additional information, please refer to https://RPost.Truecaller/faq/FIN993 (This link is being provided for information/ educational purposes only.) Sree TIAN LAB - PATHOLOGY AND CYTOLOGY [facility] Final Result [facility] [address] [place] [address], [facility] [address] [place] [address],[place] [address] * HEPATITIS C AB W/RFLX HCV RNA, QT, RT PCR (08/05/2021 3:41 PM EDT) HEPATITIS C ANTIBODY NON-REACT EMIR NON-REACT EMIR [facility] SIGNAL TO CUT-OFF 0.16 <1.00 [facility] Comment: HCV antibody was non-reactive. There is no laboratory evidence of HCV infection. In most cases, no further action is required. However, if recent HCV exposure is suspected, a test for HCV RNA (test code 14021) is suggested. For additional information please refer to http://education.Truecaller/faq/FUP75a9 (This link is being provided for informational/ educational purposes only.) Blood Blood / Unknown 08/05/2021 3 :41 PM EDT 08/05/2021 3:41 PM EDT Lisette Vega ASSISTANT HEAD CASHIER-C LAB - BLOOD DRAW Edited Result - Final [facility] [address] [address], [facility] [address],[place] [address] from Last 3 Months or Most Recently Relevant to Health Maintenance [place] Care Teams Customs Compliance Specialist Relationship Specialty Start Date End Date Sree Liao PA [address] [place] [address] PCP - General FAMILY MEDICINE, [place] 12/19/21
--- OUTSIDE RECORDS SUMMARY | 2024-10-03 09:10 | XMS_ITS | Encounter Summary ---
Author Organization [facility] Address [address] [place] [address] Care Team Providers Care Road Cleaner Name Role Phone Sree Liao Primary Care Provider [phone] Encounter Details Date Type Department Care Team (Late st Contact Info) Description 07/08/2024 Dental Interim Note [facility] [address] [place] [phone] Rene Velasco, S [address] [place] [address] Social History Tobacco Use Types Packs/Day Years [...] AM PDT documented as of this encounter Plan of Treatment Upcoming Encounters Date Type Department Care Team (Late st Contact Info) Description 10/20/2024 11:00 AM EDT BH/MH Visits [facility] [address] [place] [phone] Ivy Ayala, AGRICULTURAL REAL ESTATE AGENT [address] [place] [address] 11/12/2024 2:20 PM EDT BH/MH Visits [address] [phone] Sailaja Yeung, ALIYA [address] [place] [phone] Harjinder Boateng [address] [place] [address] 12/04/2024 9:00 AM EDT Office Visit [facility] [address] [place] [phone] Korey Howell, [facility] [address] [place] [phone] documented as of this encounter Visit Diagnoses Not on filedocumented in this encounter Additional Health Concerns Assessment Noted Time PHQ-9 Depression Total Score: 0 04/16/19 25 3:13 PM PDT A Depression follow-up plan has been documented for the patient 08/09/2021 9:04 AM PDT documented as of this encounter Care Teams Road Cleaner Relationship Specialty Start Date End Date Sree Liao PA [address] [place] [address] PCP - General FAMILY MEDICINE, [place] 12/19/21 documented as of this encounter
== END 2024-10-03 09:08 | disposition home or self-care (01) ==
LOC: HO.HOS 08:25
PROVIDERS: PCP Physician Assistant
DX: R20.0 Anesthesia of skin (principal); R20.2 Paresthesia of skin
CPT/HCPCS: 99203

== ENCOUNTER → 2024-10-03 08:26 | Outpatient (BNV) | payer MEDICARE, MEDICAID, SELFPAY | PROVIDERS: Visit Provider Radiology Diagnostic Radiology | DX: M79.642 Pain in left hand (principal); M79.641 Pain in right hand; M06.9 Rheumatoid arthritis, unspecified | CPT/HCPCS: 73130 ==

== ENCOUNTER 2024-10-03 10:08 | Outpatient (REF) | payer MEDICARE, MEDICAID, SELFPAY ==
--- OUTSIDE RECORDS SUMMARY | 2024-10-02 11:00 | XMS_ITS | Encounter Summary ---
Author Organization [facility] Address [address] [place] [address] Care Team Providers Care Supervisor Pipeline Maintenance Name Role Phone Sree Liao Primary Care Provider [phone] Encounter Details Date Type Department Care Team (Late st Contact Info) Description 10/02/2024 11:00 AM EDT Office Visit [facility] Dental [address] [place] [phone] Rene Velasco, DDS [address] [place] [address] Social History Tobacco Use Types Packs/Day Years [...] Care Team (Late st Contact Info) Description 10/08/2024 11:30 AM EDT BH/MH Visits [address] [phone] Ivy Ayala, [address] [address] 10/20/2024 11:00 AM EDT BH/MH Visits [address] [phone] Ivy Ayala, [facility] [address] [place] [address] 11/12/2024 2:20 PM EDT BH/MH Visits [address] [phone] Sailaja Yeung FNP [address] [place] [phone] Harjinder Boateng [address] [place] [address] 12/04/2024 9:00 AM EDT Office Visit [address] [phone] Korey Howell, [facility] [address] [place] [address] documented as of this encounter Procedures Procedure Name Priority Date/Time Associated Diagnosis Comments OFFICE VISIT OBSERVATION NO OTHER SRVC PERFORMED Routine 10/02/2024 11:00 AM EDT Encounter for dental examination documented in this encounter Visit Diagnoses Diagnosis Encounter for dental examination- Primary Dental examination documented in this encounter Additional Health Concerns Assessment Noted Time PHQ-9 Depression Total Score: 0 04/16/19 25 3:13 PM PDT A Depression follow-up plan has been documented for the patient 08/09/2021 9:04 AM PDT documented as of this encounter Care Teams Supervisor Pipeline Maintenance Relationship Specialty Start Date End Date Sree Liao PA [address] [place] [address] PCP - General FAMILY MEDICINEASMITA 12/19/21 documented as of this encounter
--- NOTE | ~2024-10-03 | XR_ITS ---
EXAMINATION: XR HAND/WRIST, RIGHT XR HAND/WRIST, LEFT CLINICAL INFORMATION: M79.643 - Pain in unspecified hand ; rheumatoid arthritis COMPARISON: 09/27/2021. TECHNIQUE: PA, lateral, and oblique views of the each hand and wrist. FINDINGS: RIGHT HAND/WRIST: The bones and soft tissues are normal. No fracture. Alignment is anatomic. Joint spaces are maintained. No blunting of the ulnar styloid. No periarticular osteopenia. No erosions or soft tissue calcifications. LEFT HAND/WRIST: The bones and soft tissues are normal. No fracture. Alignment is anatomic. Joint spaces are maintained. No blunting of the ulnar styloid. No periarticular osteopenia. No erosions or soft tissue calcifications. XR/XR Hand Bilat min 3v IMPRESSION: Normal radiographs of the hands and wrists. No definite erosive arthropathy identified. Electronically signed by: Gabo Weston MD 10/03/2024 08:51 AM EDT
--- OUTSIDE RECORDS SUMMARY | 2024-10-07 11:33 | XMS_ITS | Clinical Summary ---
Author Organization [facility] Address [address] [place] [address] Phone Care Team Providers Care Core Machine Tender Name Role Phone Sree Liao Primary Care Provider [phone] Family History Medical History Relation Name Comments [...] Vaccine (7 - Mixed Product risk ) 10/06/2024 12/25/2023, 01/09/2023, 10/24/2021, Additional history exists Influenza [...] probability of hip fracture of 0.1%. Code 15164 -------- FINAL REPORT -------- Dictated By: Tony Tom Dictated Date: 06/27/2024 07:56 ET Assigned Physician: Tony Tom Reviewed and Electronically Signed By: Tony Tom Signed Date: 06/27/2024 07:58 ET Workstation ID: [id number] Transcribed By: Self Edit Transcribed Date: 06/27/2024 [...] density of the femurs bilaterally is 1.083 gm/hy3ifzgn is 108% of that of young normals [...] probability of hip fracture of 0.1%. Code 50485 -------- FINAL REPORT -------- Dictated By: Tony Tom Dictated Date: 06/27/2024 07:56 ET Assigned Physician: Tony Tom Reviewed and Electronically Signed By: Tony Tom Signed Date: 06/27/2024 07:58 ET Workstation ID: [id number] Transcribed By: Self Edit Transcribed Date: 06/27/2024 [...] Signed Date: 01/04/2024 17:52 ET Workstation ID: [id number] Transcribed By: Self Edit Transcribed Date: 01/04/2024 17:48 ET Narrative 01/04/2024 5:52 PM EST EXAM: SCREENING MAMMOGRAPHY, BILATERAL HISTORY: SCREENING. Family history of breast cancer, maternal aunt COMPARISON: 11/10/2022 TECHNIQUE: Synthesized CC and MLO projections of each breast. Tomosynthesis of each breast in the CC and MLO projections. ADDITIONAL IMAGING: None Computer-aided detection was employed with the Node1D profound AI 3-D. TISSUE DENSITY: There are [...] None Computer-aided detection was employed with the Node1D profound AI 3-D. TISSUE DENSITY: There are [...] Signed Date: 01/04/2024 17:52 ET Workstation ID: [id number] Transcribed By: Self Edit Transcribed Date: 01/04/2024 17:48 ET us Self Referral Sppl IMG BI PROCEDURES Final Resul t from Last 3 Months or Most Recently Relevant to Health Maintenance Insurance MEDICA[place] - [place] MEDICARE MEDICARE Care Teams Core Machine Tender Relationship Specialty Start Date End Date Sree Liao PA [address] [place] [address] PCP - General Physician Baker Helper 12/19/23
--- OUTSIDE RECORDS SUMMARY | 2024-10-07 11:33 | XMS_ITS | Clinical Summary ---
Author Organization [facility] Address [address] [place] [address] Care Team Providers Care Surface Grinding Machine Hand Name Role Phone Sree Liao Primary Care Provider [phone] Source Comments PLEASE NOTE, if this patient [...] 1 Each 022 Active upadacitinib 15 mg [id number]:R heumatoid arteritis ([facility]) 023 Active folic acid (FOLVITE) 1 mg tabletIndications :Fibromyalgia,Enc ounter to establish care,Arthritis,He rniated disc, cervical TAKE 1 TABLET BY MOUTH EVERY DAY 30 Tablet 2 024 Active sodium chloride (OCEAN) 0.65 % nasal sprayIndications: Nasal congestion Place 1 [place] into the nostril(s) as needed for congestion 44 mL 1 024 Active naproxen (NAPROSYN) 500 mg tabletIndications :Rheumatoid arteritis ([facility]),Fibromya lgia,Herniated disc, cervical Take 1 [...] (BMI) of 37.0 to 37.9 in adult ([facility]),BMI 37.0-37.9, adult Inject 0.5 mg into the skin once a week For weeks, then 1 mg once weekly for four weeks. 3 mL 2 025 Active calcium carbonate-vitamin D3 500 mg-10 mcg (400 unit) tabletIndications :Class 2 severe obesity due to excess calories with serious comorbidity and body mass index (BMI) of 37.0 to 37.9 in adult ([facility]),BMI 37.0-37.9, adult,Osteopenia, unspecified location Take 1 Tablet by mouth 3 (three) times daily with meals 90 Tablet 2 025 Active tirzepatide, weight loss, (ZEPBOUND) 2.5 mg/0.5 mL pnijIndications:C lass 2 severe obesity due to excess calories with serious comorbidity and body mass index (BMI) of 37.0 to 37.9 in adult ([facility]),BMI 37.0-37.9, adult,Osteoarthri tis, unspecified osteoarthritis type, unspecified site,Osteopenia, unspecified location,Post-men opausal,Hypothyro idism, unspecified type,Herniated disc, cervical,Bilatera l chronic knee pain,Rheumatoid arthritis with positive rheumatoid factor, involving unspecified site ([facility]),Fibromya lgia,Arthritis,Bi lateral carpal tunnel syndrome,Difficul [...] of major depressive disorder, unspecified whether recurrent ([facility]) Take 1 Tablet by mouth [...] of major depressive disorder, unspecified whether recurrent ([facility]) Take 1 Tablet by mouth [...] (major depressive disord er), recurrent episode, mild ([facility]) 12/05/2021 Rheumatoid arteritis ([facility]) 10/24/2021 BMI 37.0-37.9, adult 08/19/2021 Class 2 severe obesity due t o excess calories with serious comorbidity and body mass index (BMI) of 37.0 to 37.9 in adult ([facility]) 08/09/2021 Polyp of colon 08/09/2021 Fibromyalgia 08/05/2021 Arthritis 08/05/2021 Herniated disc, cervical 08/05/2021 Hypothyroidism 08/05/2021 Bilateral carpal tunnel syndrome 08/05/2021 Difficulty walking 08/05/2021 Anxiety and depression 08/05/2021 Encounters Date Type Department Care Team Description 10/02/2024 11:00 AM EDT Office Visit [address] [phone] Rene Velasco DDS 09/22/2024 11:00 AM EDT BH/MH Visits [address] [phone] Ivy Ayala LCSW 09/13/2024 9:00 AM EDT Office Visit [address] [phone] Erin De La Cruz FNP-Rhea 09/11/2024 2:00 PM EDT BH/MH Visits [address] [phone] Sailaja Yeung FNP Martinez, Celestia 09/05/2024 BH/MH TELEPHONE [address] [phone] Karime Richards, Community Health Worker 08/18/2024 2:30 PM EDT BH/MH Visits [address] [phone] HeatonCruz Ivy, [employer] 08/01/2024 2:45 PM EDT BH/MH Visits [address] [address] HeatonCruz Ivy, [employer] 07/31/2024 2:00 PM EDT BH/MH Visits [address] [phone] Sailaja Yeung, Harjinder Su 07/23/2024 3:40 PM EDT Office Visit [facility] [address] [place] [address] Ricardo Holloway MD Rodriguez, Anabel 07/16/2024 4:30 PM EDT BH/MH Visits [address] [phone] Ivy Ayala, [employer] 07/09/2024 10:00 AM EDT BH/MH Visits [address] [phone] Heaton-Myranda Florezorah, [employer] 07/08/2024 Dental Interim Note [facility] [address] [place] [phone] Rene Velasco DDS from Last 3 Months [...] Description 10/08/2024 11:30 AM EDT BH/MH Visits [address] [phone] Ivy Ayala, [facility] [address] [place] [address] 10/20/2024 11:00 AM EDT BH/MH Visits [address] [phone] Ivy Ayala [facility] [address] [place] [address] 11/12/2024 2:20 PM EDT BH/MH Visits [address] [phone] Sailaja Yeung FNP [address] [place] [address] Harjinder Boateng [address] [place] [address] 12/04/2024 9:00 AM EDT Office Visit [facility] [address] [place] [phone] Korey Howell [facility] [address] [place] [address] Health Maintenance Due Date Last Done Comments [...] Additional history exists Anxiety Screening 09/05/2025 09/05/2024 Hypertension Screening (#1) 10/02/2025 Tobacco Screening 10/02/2025 10/02/2024, 08/05/2021 Cervical Cancer Screening 12/19/2026 Pap + HPV 12/19/2026 12/19/2021 Dental FMX/Pano 09/07/2027 09/04/2022 Colonoscopy 08/05/2030 08/05/2020 Colorectal Cancer Screening 08/05/2030 Imm-DTaP/Tdap/Td (2 - Td or Tdap) 08/24/2032 023 Hepatitis C Screening Completed 08/05/2021 HIV Screening Completed 06/22/2022, 08/05/2021 Imm-Hepatitis B Completed 09/25/2022, 08/24/2022 Imm-Pneumococcal 50+ Completed 09/25/2022 Ava-[id number] Completed 12/25/2023, 12/0 06/2022, 10/24/2021, Additional history exists Imm-Zoster, Recombinant Completed 12/25/2023, 09/23 Alcohol and Drug Screen Completed 04/16/19, 12/25/2023, 09/24/2023, Additional history exists Cervical Ablation/Cold-Knife Conization Discontinued Cervical Cryotherapy Discontinued Colposcopy Discontinued Endometrial Biopsy Discontinued Excision/Leep Discontinued HPV Genotyping Discontinued Vaginal Pap Discontinued Vulvoscopy Discontinued Procedures Procedure Name Priority Date/Time Associated Diagnosis Comments REFERRAL TO ORTHOPEDICS Routine 10/03/2024 3:00 AM EDT Osteoarthritis, unspecified osteoarthritis type, unspecified site OFFICE VISIT OBSERVATION NO OTHER SRVC PERFORMED Routine 10/02/2024 11:00 AM EDT Encounter for dental examination OTHER ORDERS SCANNED DOCUMENT 08/12/2024 3:00 AM [...] (BMI) of 37.0 to 37.9 in adult ([facility]) Rheumatoid arteritis ([facility]) BMI 37.0-37.9, adult INTRAORAL - COMP SERIES OF RADIOGRAPHIC IMAGES Routine 09/04/2022 11:00 AM EDT Caries Defective dental latter day Encounter for dental examination HIV 1/2 AG [...] Recently Relevant to Health Maintenance Results * REFERRAL TO ORTHOPEDICS (10/03/2024 3:00 AM EDT) 10/03/2024 3:00 AM EDT us Sree TIAN REFERRAL Final Result * OTHER ORDERS SCANNED DOCUMENT (08/12/2024 3:00 [...] TO FT4 0.03(L) 0.40 - 4.50 mIU/L [facility] Comment: Reference Range > or = 20 Years 0.40-4.50 Ranges First trimester 0.26-2.66 Second trimester 0.55-2.73 Third trimester 0.43-2.91 Blood Blood / Unknown 12/25/2023 4 :27 PM EST 12/25/2023 4:28 PM EST Connie Reed PA-C LAB - BLOOD DRAW Final Resu lt [facility] [address] [address], [facility] [address] [place] [address] * (ABNORMAL) COMPREHENSIVE METABOLIC PANEL (12/25/2023 4:27 PM EST) GLUCOSE 116(H) 65 - 99 mg/dL [employer] [facility] Comment: Fasting reference interval For someone without known diabetes, a glucose value between 100 and 125 mg/dL is consistent with prediabetes and should be confirmed with a follow-up test. UREA NITROGEN (BUN) 16 7 - 25 mg/dL [employer] [facility] CREATININE (blood) 0.78 0.50 - 1.03 mg/dL [employer] [facility] EGFR 90 > OR = 60 mL/min/1. 73m2 [employer] [facility] BUN/CREATININE RATIO SEE NOTE: [employer] [facility] Comment: Not Reported: BUN and Creatinine are within reference range. SODIUM 138 135 - 146 mmol/L [employer] [facility] POTASSIUM 4.5 3.5 - 5.3 mmol/L [employer] [facility] CHLORIDE 105 98 - 110 mmol/L [employer] [facility] CARBON DIOXIDE 27 20 - 32 mmol/L [facility] CALCIUM 9.8 8.6 - 10.4 mg/dL [employer] [facility] PROTEIN, TOTAL 7.4 6.1 - 8.1 g/dL [facility] ALBUMIN 4.4 3.6 - 5.1 g/dL [facility] GLOBULIN 3.0 1.9 - 3.7 g/dL (calc) [employer] [facility] ALBUMIN/GLOBULI N RATIO 1.5 1.0 - 2.5 (calc) [employer] [facility] BILIRUBIN, TOTAL 0.4 0.2 - 1.2 mg/dL [employer] [facility] ALKALINE PHOSPHATASE 108 37 - 153 U/L [facility] AST 27 10 - 35 U/L [employer] [facility] ALT 28 6 - 29 U/L [employer] Blood Blood / Unknown 12/25/2023 4 :27 PM EST 12/25/2023 4:28 PM EST Connie Reed PA-C LAB - BLOOD DRAW Edited Res ult - Final [facility] [address] [address], [facility] [address] [place] [address] * (ABNORMAL) LIPID PANEL (09/24/2023 1:48 PM EDT) CHOLESTEROL, TOTAL 255(H) <200 mg/dL [facility] HDL CHOLESTEROL 67 > OR = 50 mg/dL [employer] [facility] TRIGLYCERIDES 282(H) <150 mg/dL [employer] Comment: If a non-fasting specimen was collected, consider repeat triglyceride testing on a fasting specimen if clinically indicated. Deborah et al. J. of Clin. Lipidol. 2015;9:129-169. LDL-CHOLESTEROL 145(H) 99 mg/dL (calc) [employer] [facility] Comment: Reference range: <100 Desirable range <100 mg/dL for primary prevention; <70 mg/dL for patients with CHD or diabetic patients with > or = 2 CHD risk factors. LDL-C is now calculated using the Niraj-Almanza calculation, which is a validated novel method providing better accuracy than the Friedewald equation in the estimation of LDL-C. Niraj SS et al. BRITNI. 2013;310(19): 4049-7109 (http://education.[employer]/faq/HZO527) CHOL/HDLC RATIO 3.8 <5.0 (calc) [employer] NON-HDL CHOLESTEROL 188(H) <130 mg/dL (calc) [employer] Comment: For patients with diabetes plus 1 major ASCVD risk factor, treating to a non-HDL-C goal of <100 mg/dL (LDL-C of <70 mg/dL) is considered a therapeutic option. Blood Blood / Unknown 09/24/2023 1 :48 PM EDT 09/24/2023 1:51 PM EDT Sree TIAN LAB - BLOOD DRAW Final Result Performing Organization Address [facility]/ZIP Co de Phone Number [facility] [address] [address], [facility] [address] [address] * HIV 1/2 AG & AB W/RFLX (4TH GEN) (06/22/2022 2:12 PM EDT) Pathologist [facility] [place] HIV AG/AB, 4TH GEN NON-REAC TIVE NON-REAC TIVE [facility] Comment: HIV-1 antigen and HIV-1/HIV-2 antibodies were [...] purpose. For additional information please refer to http://education.[employer]/faq/JUQ726 (This link is being provided for informational/ educational purposes only.) The performance of this assay has not been clinically validated in patients less than 2 years old. Blood Blood / Unknown 06/22/2022 2 :12 PM EDT 06/22/2022 2:12 PM EDT Quirino Bustamante PA-C LAB - BLOOD DRAW Final Result [facility] [address] [address], [facility] [address] [address] * THINPREP PAP W/IMAGING + HPV CT/NG (Q) (12/19/2021 2:06 PM EST) Pathologist [facility] [place] CHLAMYDIA TRACHOMATIS RNA, TMA NOT DETECTED NOT DETECTED [facility] NEISSERIA GONORRHOEAE RNA, TMA NOT DETECTED NOT DETECTED [facility] COMMENT [facility] CLINICAL INFORMATION See Note [facility] Comment:Postmenopausal LMP See Note [facility] Comment:NONE GIVEN PREV. PAP See Note [facility] Comment:NONE GIVEN PREV. BX See Note [facility] Comment:NONE GIVEN SOURCE See Note [facility] Comment:Cervix STATEMENT OF ADEQUACY See Note [facility] Comment: Satisfactory for evaluation. Endocervical/transformation zone component absent. INTERPRETATION/RESU LT See Note [facility] Comment:Negative for intraep ithelial lesion or malignancy. INFECTION See Note [facility] Comment: Shift in vaginal lacy suggestive of bacterial vaginosis. COMMENT See Note [facility] Comment: This Pap test has been evaluated with computer assisted technology. PLASTER APPLICATOR See Note [facility] [employer] [facility] Comment: MSM, CT(ASCP) CT screening location: [place] [address] COMMENT [facility] HPV MRNA E6/E7 Not Detected Not Detected [facility] Comment: Methodology: Hearing Therapy Director-Mediated Amplification This assay detects E6/E7 viral messenger RNA (mRNA) from 14 high-risk HPV types (16,18,31,33,35,39,45,51,52,56,58,59,66,68). Cervical sources are required for HPV testing. If a vaginal source from a patient who has had a total hysterectomy with removal of cervix was submitted, please contact the testing laboratory for alternative testing options. For additional information, please refer to http://education.[employer]/faq/YMS983q0 (This link if provided for information/ educational purposes only.) Swab Cervix uteri structure / Unknown 12/19/2021 2:06 PM EST 12/20/2021 6:48 AM EST Narrative [facility] - 12/21/2021 1:35 PM EST EXPLANATORY [...] test SurePath(TM) specimens have been determined by [employer]. The modifications have not been cleared or approved by the FDA. This assay has been validated pursuant to the CLIA regulations and is used for clinical purposes. For additional information, please refer to https://education.[employer]/faq/IBM875 (This link is being provided for information/ educational purposes only.) Sree TIAN LAB - PATHOLOGY AND CYTOLOGY A MBULATORY Final Result Performing Organization Address City/[facility]/ZIP Co de Phone Number [facility] [address] [address], [facility] [address] [address] * HEPATITIS C AB W/RFLX HCV RNA, QT, RT PCR (08/05/2021 3:41 PM EDT) HEPATITIS C ANTIBODY NON-REACT EMIR NON-REACT EMIR [facility] SIGNAL TO CUT-OFF 0.16 <1.00 [facility] Comment: HCV antibody was non-reactive. There is no laboratory evidence of HCV infection. In most cases, no further action is required. However, if recent HCV exposure is suspected, a test for HCV RNA (test code 88549) is suggested. For additional information please refer to http://education.[employer]/faq/PYO63k7 (This link is being provided for informational/ educational purposes only.) Blood Blood / Unknown 08/05/2021 3 :41 PM EDT 08/05/2021 3:41 PM EDT Lisette ORTEGAP-Rhea LAB - BLOOD DRAW Edited Result - Final [facility] [address] [address], [email or web address] [address] [address] from Last 3 Months or Most Recently Relevant to Health Maintenance [place] Care Teams Surface Grinding Machine Hand Relationship Specialty Start Date End Date Sree Liao PA [address] [place] [address] PCP - General FAMILY MEDICINEASMITA 12/19/21
--- OUTSIDE RECORDS SUMMARY | 2024-10-07 11:33 | XMS_ITS | Encounter Summary ---
Author Organization [facility] Address [address] [place] [address] Care Team Providers Care Bailer Operators Supervisor Name Role Phone Sree Liao Primary Care Provider [phone] Encounter Details Date Type Department Care Team (Late st Contact Info) Description 07/08/2024 Dental Interim Note [facility] [address] [place] [address] Rene Velasco, S [address] [place] [address] Social History Tobacco Use Types Packs/Day Years [...] Description 10/08/2024 11:30 AM EDT BH/MH Visits [address] [phone] Ivy Ayala, POULTRYMAN [address] [place] [address] 10/20/2024 11:00 AM EDT BH/MH Visits [address] [address] Ivy Ayala, POULTRYMAN [address] [place] [address] 11/12/2024 2:20 PM EDT BH/MH Visits [address] [address] Sailaja Yeung FNP [address] [place] [address] Harjinder Boateng [address] [place] [address] 12/04/2024 9:00 AM EDT Office Visit [facility] [address] [place] [phone] [place] [address] [place] [address] documented as of this encounter Visit Diagnoses Not on filedocumented in this encounter Additional Health Concerns Assessment Noted Time PHQ-9 Depression Total Score: 0 04/16/19 25 3:13 PM PDT A Depression follow-up plan has been documented for the patient 08/09/2021 9:04 AM PDT documented as of this encounter Care Teams Bailer Operators Supervisor Relationship Specialty Start Date End Date Sree Liao PA [address] [place] [address] PCP - General FAMILY MEDICINEASMITA 12/19/21 documented as of this encounter
== END 2024-10-03 10:09 | disposition home or self-care (01) ==
LOC: HO.HOSX 10:08
DX: R20.0 Anesthesia of skin (principal); R20.2 Paresthesia of skin; M79.642 Pain in left hand; M79.641 Pain in right hand
CPT/HCPCS: 73130; 99202

== ENCOUNTER 2024-10-09 05:58 | Outpatient (REF) | payer MEDICARE, MEDICAID, SELFPAY ==
--- OUTSIDE RECORDS SUMMARY | 2024-10-08 12:30 | XMS_ITS | Encounter Summary ---
Author Organization [facility] Address [address] [place] [address] Care Team Providers Care Waiter/Waitress Economy Class Name Role Phone Sree Liao Primary Care Provider [phone] Reason for Visit * Reason Comments Individual Counseling Telehealth (Audio) Encounter Details Date Type Department Care Team ([facility] st Contact Info) Description 10/08/2024 12:30 PM EDT / Visits Replaced by [facility] [address] [place] [phone] Ivy Ayala LCSW [address] [place] [address] Social History Tobacco Use Types Packs/Day Years [...] AM PDT documented as of this encounter Progress Notes * Ivy yAala LCSW - 10/08/2024 2:45 PM EDT The following visit was conducted via Audio only. I educated the patient/guardian on the terms of telehealth and the patient verbally consented to this telemedicine visit. The patient was identified using their Name, and [facility] ID. I identified myself as Ivy Blanco LCSW from [facility]. It was conducted in a private space to protect HIPPA sensitive information. Precautions were taken to provide confidentiality and security and patient was made aware of privacy considerations. The patients location was obtained and is relative home. The patient/guardian was notified that the services were being provided from [facility] Location. The patient/guardian was notified how they can see a clinician in-person in the event of an emergency or if otherwise needed Visit START TIME 12:30 pm END TIME: 1:15 pm Central Processing Technician used during visit? no [facility] NW FORM - UNSHARED NOTE: Exception: Privacy Privacy Justification: Denial of individual???s request for their EHI consistent with 45 CFR 164.524(a)(1) and (2). Subclassification (required for 'Denial'): Psychotherapy notes TOTAL TIME IN SESSION: 45 minutes START/ END TIME: 12:30 pm to 1:15 pm RISK ASSESSMENT: PERSON DENIES SI/HI OTHER PEOPLE PRESENT IN SESSION: NONE PROGRESS SINCE LAST SESSION TOWARD GOALS/OBJECTIVES: (Confidential information) protected by HIPAA law. We called the client, who said she felt very happy, sharing the good news of having found and signed a lease to move into her own apartment. We congratulated her after waiting and fighting hard to live with her family for a significant amount of time. She was assisted by her primary provider, Sree, who filled out the paperwork for housing and accommodation. She said she would be close to her twosisters and shopping, and she also attends yazidism. We talked about her efforts and struggles to obtain these blessings. She said she felt well and stable in her apartment and maintained contact with family members, especially her sisters and brothers. She described the things she had received, and we agreed to explore possible donations of things she needed. She continued taking her medication, and we scheduled a next appointment. PD: She spoke with a woman about try to receive insurance paperwork justifying her disability. Sree has already written and sent information about her disability. She doesn't want to lose her benefits. Also continues to wait for housing. Sometimes she said she wants to scream and run away, but shetries to control herself. PD: Patient talk about her pain and arthritis, a condition she'd been suffering from for some time. PD: The patient,called she said that not yet received the housing accommodation form. She sounded depressed and said she felt a bit frustrated by the delay in processing these paperwork. She also mentioned some of the challenges of having to live with relatives after being an independent woman y vivir alone. PD We called the client her voice was affected, barely able to speak, something she said had happened to her in the past. PD: We discussed about the housing accommodation documentation. She is currently using a walker shi cane and may later require a wheelchair. If the difficulty continues, she also finds it difficultto climb stairs and bathe in a bathtub. She also continues having health problems, and in addition to these physical limitations, she has a weight that can worsen.she suffered of rheumatoid arthritis. All of these conditions upset her and increase her anxiety and depression. PD: She said the good news of won a lottery for housing, so she will be able to move and be selected to live in [facility]. She has been reassigned to another psychiatric medical provider after her previous departure from the clinic. PD: She has been experiencing headaches and migraines, which she describes as emotional migraines. These headaches have been persistent for the past three days, coming and going. She uses igor tea with honey and lemon for relief, which she found helpful in the past, although she feels her body has become somewhat immune to it over time. She also shared that she has upcoming medical appointments, including one with Carl on January, and another on January 31, 2024, which she believes is for the dentist. She noted that she needs to contact Sree's office for a follow-up appointment, as they are relocating to a larger facility. - Use compresses and rest as needed for headache relief - Consider igor tea with honey and lemon for pain management -Continue to assess the patient's mental health status in future sessions. - Offer psychosocial support and resources to assist the patient in managing her living conditions and psychosocial stressors. - Prepare a treatment certification letter to help the patient potentially gain priority in housingwaitlists, if needed. - Confirmed follow-up consultations with the dentist, Sree, and Carl in January. PD: Client was disappointed with the document was filled out for her insurance because was filled out and affect her in to continue receiving benefits. According to her she continued seeing her specialists and did not feel able to do a job like she did for many years in [place]. PD: Client had been suffering from excruciating pain in her body and her legs. She also has an appointment with the performance improvement specialist who treats her for arthritis and the pain she experiences. She experienced and had pains in her legs and in the side left side of her body, affecting her cervical nerves. She received therapy understanding that at a certain age she begins to feel many medical situations. PD History: The client was called after being referred to the program being referred by Maria D from the ,. She moved from [place] having and received treatment by a psychologist and psychiatrist dueto her diagnosis of anxiety, depression, desire to cry and sleep problems. She also said she suffered from rheumatoid arthritis and phrymomalgia. Due to her problem with walking and problem with a knee and not being able to bend she was referred to an orthopedist. She is currently using a cane and a walker despite not being very old. 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 NEW CONCERNS TODAY: NONE MOOD: ANXIOUS AFFECT: FULL RANGE AND CONGRUENT WITH MOOD SPEECH: WNL BEHAVIOR: COOPERATIVE EYE CONTACT: MINIMAL THOUGHT PROCESSES: WNL ORIENTATION: WNL MEDICAL CONCERNS: NOTHING NEW COMMENT: SUBSTANCE USE: NO HX INTERVENTIONS: Encouraged questions and confirmation of previously discussed DSM -5 symptoms and diagnosis. Assisted client in describing and prioritizing their needs and formulate goals and objectives for their action plan. Explored strengths.supports and batrriers. PERSON'S RESPONSE TO INTERVENTIONS: COOPERATIVE PLAN FOR NEXT SESSION: Cont. emotion regulation and interpersonal effectiveness skills to reduce impact of PTSD sxs. on present life Clinician used validation, empathetic and attentive approach whilegathering information during the intervention. Identify motivation for what does the patient reallywant. Prioritize goals and reduce expectations and consider small steps and chose a goal that represent success. The person express wishes, opinions, and emotions appropriately. Identify negative beliefs and behaviors and replace them with healthy, positive ones. DATE OF NEXT SESSION: CLIENT WILL: USE SKILLS TAUGHT IN SESSION documented in this encounter Plan of Treatment Upcoming Encounters Date Type Department Care Team (Late st Contact Info) Description 10/20/2024 11:00 AM EDT / Visits [address] [phone] Ivy Ayala LCSW [address] [place] [address] 11/12/2024 2:20 PM EDT BH/ Visits [address] [phone] Sailaja Yeung FNP [address] [place] [phone] Harjinder Boateng [address] [place] [phone] 12/04/2024 9:00 AM EDT Office Visit [address] [phone] [place] [address] documented as of this encounter Visit Diagnoses Diagnosis Anxiety- Primary Anxiety state, unspecified Current moderate episode of major depressive disorder, unspecified whether recurrent (CMS & HHS-HCC) Fibromyalgia Mylagia and myositis, unspecified Rheumatoid arthritis with positive rheumatoid factor, involving unspecified site (CMS & HHS-HCC) Bilateral chronic knee pain Pain in joint, lower leg documented in this encounter Additional Health Concerns Assessment Noted Time PHQ-9 Depression Total Score: 0 04/16/19 25 3:13 PM PDT A Depression follow-up plan has been documented for the patient 08/09/2021 9:04 AM PDT documented as of this encounter Care Teams Waiter/Waitress Economy Class Relationship Specialty Start Date End Date Sree Liao PA [address] [place] [address] PCP - General FAMILY MEDICINEASMITA 12/19/21 documented as of this encounter
--- OUTSIDE RECORDS SUMMARY | 2024-10-09 06:04 | XMS_ITS | Clinical Summary ---
Author Organization [facility] Address [address] [place] [address] Phone Care Team Providers Care Label Tacker Name Role Phone Sree Liao Primary Care Provider [phone] Family History Medical History Relation Name Comments [...] probability of hip fracture of 0.1%. Code 95311 -------- FINAL REPORT -------- Dictated By: Tony Tom Dictated Date: 06/27/2024 07:56 ET Assigned Physician: Tony Tom Reviewed and Electronically Signed By: Tony Tom Signed Date: 06/27/2024 07:58 ET Workstation ID: [id number] Transcribed By: Self Edit Transcribed Date: 06/27/2024 [...] density of the femurs bilaterally is 1.083 gm/jv5kgnap is 108% of that of young normals [...] probability of hip fracture of 0.1%. Code 57809 -------- FINAL REPORT -------- Dictated By: Tony Tom Dictated Date: 06/27/2024 07:56 ET Assigned Physician: Tony Tom Reviewed and Electronically Signed By: Tony Tom Signed Date: 06/27/2024 07:58 ET Workstation ID: [id number] Transcribed By: Self Edit Transcribed Date: 06/27/2024 [...] Signed Date: 01/04/2024 17:52 ET Workstation ID: [id number] Transcribed By: Self Edit Transcribed Date: 01/04/2024 17:48 ET Narrative 01/04/2024 5:52 PM EST EXAM: SCREENING MAMMOGRAPHY, BILATERAL HISTORY: SCREENING. Family history of breast cancer, maternal aunt COMPARISON: 11/10/2022 TECHNIQUE: Synthesized CC and MLO projections of each breast. Tomosynthesis of each breast in the CC and MLO projections. ADDITIONAL IMAGING: None Computer-aided detection was employed with the [employer] profound AI 3-D. TISSUE DENSITY: There are [...] None Computer-aided detection was employed with the [employer] profound AI 3-D. TISSUE DENSITY: There are [...] Signed Date: 01/04/2024 17:52 ET Workstation ID: [id number] Transcribed By: Self Edit Transcribed Date: 01/04/2024 17:48 ET us Self Referral Sppl IMG BI PROCEDURES Final Resul t from Last 3 Months or Most Recently Relevant to Health Maintenance Insurance MEDICAID - [place] MEDICARE Member Subscriber Plan / Payer (Ef fective 2024-Present) Name:CHRIS LOPEZ JESUS LILIYA Member ID:[id number] Relation to Subscriber:Self Name:Chris Xie, Liliya Subscriber ID:[id number] Payer ID:Not on file Group ID:Not on file Type:Medicare Address: [address] [address] MEDICARE Member Subscriber Plan / Payer (Ef fective 2024-Present) Name:CHRIS LOPEZ JESULUDIVINA JohnsonRA Member ID:[id number] Relation to Subscriber:Self Name:Chris Liliya Xie Subscriber ID:[id number] Payer ID:Not on file Group ID:Not on file Type:Medicare Address: [address] [address] Care Teams Label Tacker Relationship Specialty Start Date End Date Sree Liao PA [address] [place] [address] PCP - General Physician Leaf Sorter 12/19/23
--- OUTSIDE RECORDS SUMMARY | 2024-10-09 06:05 | XMS_ITS | Clinical Summary ---
Author Organization [facility] Address [address] [place] [address] Care Team Providers Care Financial Reporting Advisor Name Role Phone Sree Liao Primary Care Provider [phone] Source Comments PLEASE NOTE, if this patient [...] 1 Each 022 Active upadacitinib 15 mg [id number]:R heumatoid arteritis ([facility]) 023 Active folic acid (FOLVITE) 1 mg tabletIndications :Fibromyalgia,Enc ounter to establish care,Arthritis,He rniated disc, cervical TAKE 1 TABLET BY MOUTH EVERY DAY 30 Tablet 2 024 Active sodium chloride (OCEAN) 0.65 % nasal sprayIndications: Nasal congestion Place 1 [place] into the nostril(s) as needed for congestion 44 mL 1 024 Active naproxen (NAPROSYN) 500 mg tabletIndications :Rheumatoid arteritis ([facility]),Fibromya lgia,Herniated disc, cervical Take 1 Tablet by [...] (BMI) of 37.0 to 37.9 in adult ([facility]),BMI 37.0-37.9, adult Inject 0.5 mg into the skin once a week For weeks, then 1 mg once weekly for four weeks. 3 mL 2 025 Active calcium carbonate-vitamin D3 500 mg-10 mcg (400 unit) tabletIndications :Class 2 severe obesity due to excess calories with serious comorbidity and body mass index (BMI) of 37.0 to 37.9 in adult ([facility]),BMI 37.0-37.9, adult,Osteopenia, unspecified location Take 1 Tablet by mouth 3 (three) times daily with meals 90 Tablet 2 025 Active tirzepatide, weight loss, (ZEPBOUND) 2.5 mg/0.5 mL pnijIndications:C lass 2 severe obesity due to excess calories with serious comorbidity and body mass index (BMI) of 37.0 to 37.9 in adult ([facility]),BMI 37.0-37.9, adult,Osteoarthri tis, unspecified osteoarthritis type, unspecified site,Osteopenia, unspecified location,Post-men opausal,Hypothyro idism, unspecified type,Herniated disc, cervical,Bilatera l chronic knee pain,Rheumatoid arthritis with positive rheumatoid factor, involving unspecified site ([facility]),Fibromya lgia,Arthritis,Bi lateral carpal tunnel syndrome,Difficul ty walking [...] of major depressive disorder, unspecified whether recurrent ([facility]) Take 1 Tablet by mouth nightly at [...] of major depressive disorder, unspecified whether recurrent ([facility]) Take 1 Tablet by mouth nightly at [...] (major depressive disord er), recurrent episode, mild ([facility]) 12/05/2021 Rheumatoid arteritis ([facility]) 10/24/2021 BMI 37.0-37.9, adult 08/19/2021 Class 2 severe obesity due t o excess calories with serious comorbidity and body mass index (BMI) of 37.0 to 37.9 in adult ([facility]) 08/09/2021 Polyp of colon 08/09/2021 Fibromyalgia 08/05/2021 Arthritis 08/05/2021 Herniated disc, cervical 08/05/2021 Hypothyroidism 08/05/2021 Bilateral carpal tunnel syndrome 08/05/2021 Difficulty walking 08/05/2021 Anxiety and depression 08/05/2021 Encounters Date Type Department Care Team Description 10/08/2024 12:30 PM EDT BH/MH Visits [address] [phone] Ivy Ayala, BACKUP SAWYER 10/02/2024 11:00 AM EDT Office Visit [address] [phone] Rene Velasco DDS 09/22/2024 11:00 AM EDT BH/MH Visits [address] [phone] Ivy Ayala, BACKUP SAWYER 09/13/2024 9:00 AM EDT Office Visit [address] [phone] Erin De La Cruz FNP-C 09/11/2024 2:00 PM EDT BH/MH Visits [address] [phone] Sailaja Yeung FNP Martinez, Celestia 09/05/2024 BH/ TELEPHONE [address] [phone] Karime Richards, Community Health Worker 08/18/2024 2:30 PM EDT BH/MH Visits [address] [phone] Ivy Ayala, BACKUP SAWYER 08/01/2024 2:45 PM EDT BH/MH Visits [address] [phone] Ivy Ayala, BACKUP SAWYER 07/31/2024 2:00 PM EDT BH/MH Visits [address] [phone] Sailaja Yeung, Harjinder Su 07/23/2024 3:40 PM EDT Office Visit [address] [phone] Ricardo Holloway MD Rodriguez, Anabel 07/16/2024 4:30 PM EDT BH/MH Visits [address] [phone] Ivy Ayala, BACKUP SAWYER 07/09/2024 10:00 AM EDT BH/MH Visits [address] [phone] Ivy Ayala, BACKUP SAWYER from Last 3 Months Immunizations Immunization Administration [...] Contact Info) Description 10/20/2024 11:00 AM EDT /MH Visits [facility] [address] [place] [phone] Ivy Ayala, BACKUP SAWYER [address] [place] [address] 11/12/2024 2:20 PM EDT BH/MH Visits [facility] [address] [place] [phone] Sailaja Yeung FNP [address] [place] [phone] Harjinder Boateng [address] [place] [address] 12/04/2024 9:00 AM EDT Office Visit [facility] [address] [place] [phone] Korey Howell, RD [address] [place] [address] Health Maintenance Due Date Last Done Comments [...] Completed 09/25/2022, 08/24/2022 Imm-Pneumococcal 50+ Completed 09/25/2022 [id number] Completed 12/25/2023, 12/0 06/2022, 10/24/2021, Additional history [...] (BMI) of 37.0 to 37.9 in adult ([facility]) Rheumatoid arteritis ([facility]) BMI 37.0-37.9, adult INTRAORAL - COMP SERIES OF RADIOGRAPHIC IMAGES Routine 09/04/2022 11:00 AM EDT Caries Defective dental yarsanism Encounter for dental examination HIV 1/2 AG [...] 3:00 AM EDT) 10/03/2024 3:00 AM EDT Sree TIAN REFERRAL Final Result * OTHER ORDERS SCANNED DOCUMENT (08/12/2024 3:00 AM EDT) Only the most recent of2 resultswithin the time period is included. 08/12/2024 3:00 AM EDT Sree TIAN SCAN OTHER ORDERS Final Result * HISTORIC MAMMOGRAM (01/04/2024 3:00 AM EST) 01/04/2024 3:00 AM EST Sree TIAN IMG MAMMO Final Result * (ABNORMAL) TSH W/RFLX FREE T4 (12/25/2023 4:27 PM EST) TSH W/REFLEX TO FT4 0.03(L) 0.40 - 4.50 mIU/L [facility] Comment: Reference Range > or = 20 Years 0.40-4.50 Ranges First trimester 0.26-2.66 Second trimester 0.55-2.73 Third trimester 0.43-2.91 Blood Blood / Unknown 12/25/2023 4 :27 PM EST 12/25/2023 4:28 PM EST us Connie Reed PA-C LAB - BLOOD DRAW Final Resu lt [facility] [address] [address], [facility] [address] [place] [address] * (ABNORMAL) COMPREHENSIVE METABOLIC PANEL (12/25/2023 4:27 PM EST) GLUCOSE 116(H) 65 - 99 mg/dL [facility] Comment: Fasting reference interval For someone without known diabetes, a glucose value between 100 and 125 mg/dL is consistent with prediabetes and should be confirmed with a follow-up test. UREA NITROGEN (BUN) 16 7 - 25 mg/dL [facility] CREATININE (blood) 0.78 0.50 - 1.03 mg/dL [facility] EGFR 90 > OR = 60 mL/min/1. 73m2 [facility] BUN/CREATININE RATIO SEE NOTE: [facility] Comment: Not Reported: BUN and Creatinine are within reference range. SODIUM 138 135 - 146 mmol/L [facility] POTASSIUM 4.5 3.5 - 5.3 mmol/L [facility] CHLORIDE 105 98 - 110 mmol/L [facility] CARBON DIOXIDE 27 20 - 32 mmol/L [facility] CALCIUM 9.8 8.6 - 10.4 mg/dL [facility] PROTEIN, TOTAL 7.4 6.1 - 8.1 g/dL [facility] ALBUMIN 4.4 3.6 - 5.1 g/dL [facility] GLOBULIN 3.0 1.9 - 3.7 g/dL (calc) [facility] ALBUMIN/GLOBULI N RATIO 1.5 1.0 - 2.5 (calc) [facility] BILIRUBIN, TOTAL 0.4 0.2 - 1.2 mg/dL [facility] ALKALINE PHOSPHATASE 108 37 - 153 U/L [facility] AST 27 10 - 35 U/L [facility] ALT 28 6 - 29 U/L [facility] Blood Blood / Unknown 12/25/2023 4 :27 PM EST 12/25/2023 4:28 PM EST Connie Reed PA-C LAB - BLOOD DRAW Edited Res ult - Final Performing Organization Address City/[facility]/ZIP Co de Phone Number [facility] [address] [address], [facility] [address] [place] [address] * (ABNORMAL) LIPID PANEL (09/24/2023 1:48 PM EDT) CHOLESTEROL, TOTAL 255(H) <200 mg/dL [facility] HDL CHOLESTEROL 67 > OR = 50 mg/dL [facility] TRIGLYCERIDES 282(H) <150 mg/dL [facility] Comment: If a non-fasting specimen was collected, consider repeat triglyceride testing on a fasting specimen if clinically indicated. Deborah et al. J. of Clin. Lipidol. 2015;9:129-169. LDL-CHOLESTEROL 145(H) 99 mg/dL (calc) [facility] Comment: Reference range: <100 Desirable range <100 mg/dL for primary prevention; <70 mg/dL for patients with CHD or diabetic patients with > or = 2 CHD risk factors. LDL-C is now calculated using the Niraj-Cami calculation, which is a validated novel method providing better accuracy than the Friedewald equation in the estimation of LDL-C. Niraj SS et al. BRITNI. 2013;310(19): 6169-1227 (http://education.Dispersol Technologies/faq/UXC468) CHOL/HDLC RATIO 3.8 <5.0 (calc) [facility] NON-HDL CHOLESTEROL 188(H) <130 mg/dL (calc) [facility] Comment: For patients with diabetes plus 1 major ASCVD risk factor, treating to a non-HDL-C goal of <100 mg/dL (LDL-C of <70 mg/dL) is considered a therapeutic option. Blood Blood / Unknown 09/24/2023 1 :48 PM EDT 09/24/2023 1:51 PM EDT Sree TIAN LAB - BLOOD DRAW Final Result Performing Organization Address City/[facility]/ZIP Co de Phone Number [facility] [address] [address], [facility] [address] [place] [address] * HIV 1/2 AG & AB W/RFLX (4TH GEN) (06/22/2022 2:12 PM EDT) HIV AG/AB, 4TH GEN NON-REAC TIVE NON-REAC TIVE [facility] Comment: HIV-1 antigen and HIV-1/HIV-2 antibodies were [...] purpose. For additional information please refer to http://education.Atrica/faq/IJF788 (This link is being provided for informational/ educational purposes only.) The performance of this assay has not been clinically validated in patients less than 2 years old. Blood Blood / Unknown 06/22/2022 2 :12 PM EDT 06/22/2022 2:12 PM EDT Quirino Bustamante PA-C LAB - BLOOD DRAW Final Result Performing Organization Address City/State/[facility] Co de Phone Number [employer] [address] [place] [id number], [facility] [place] [facility] [address] [place] [phone] * THINPREP PAP W/IMAGING + HPV CT/NG (Q) (12/19/2021 2:06 PM EST) Pathologist [facility] CHLAMYDIA TRACHOMATIS RNA, TMA NOT DETECTED NOT DETECTED [facility] NEISSERIA GONORRHOEAE RNA, TMA NOT DETECTED NOT DETECTED [facility] COMMENT [facility] CLINICAL INFORMATION See Note [facility] Comment:Postmenopausal LMP See Note [facility] Comment:NONE GIVEN PREV. PAP See Note [facility] Comment:NONE GIVEN PREV. BX See Note [facility] Comment:NONE GIVEN SOURCE See Note [facility] Comment:Cervix STATEMENT OF ADEQUACY See Note [facility] Comment: Satisfactory for evaluation. Endocervical/transformation zone component absent. INTERPRETATION/RESU LT See Note [facility] Comment:Negative for intraep ithelial lesion or malignancy. INFECTION See Note [facility] Comment: Shift in vaginal lacy suggestive of bacterial vaginosis. COMMENT See Note [facility] Comment: This Pap test has been evaluated with computer assisted technology. PERSONAL CAREGIVER See Note MAINOR [facility] Comment: MSM, CT(ASCP) CT screening location: [place] [address] COMMENT [facility] HPV MRNA E6/E7 Not Detected Not Detected [facility] Comment: Methodology: Neurology Teacher-Mediated Amplification This assay detects E6/E7 viral messenger RNA (mRNA) from 14 high-risk HPV types (16,18,31,33,35,39,45,51,52,56,58,59,66,68). Cervical sources are required for HPV testing. If a vaginal source from a patient who has had a total hysterectomy with removal of cervix was submitted, please contact the testing laboratory for alternative testing options. For additional information, please refer to http://EaglEyeMed.Atrica/faq/FXV091q3 (This link if provided for information/ educational purposes only.) Swab Cervix uteri structure / Unknown 12/19/2021 2:06 PM EST 12/20/2021 6:48 AM EST Narrative [facility] - 12/21/2021 1:35 PM EST EXPLANATORY [...] test SurePath(TM) specimens have been determined by [facility]. The modifications have not been cleared or approved by the FDA. This assay has been validated pursuant to the CLIA regulations and is used for clinical purposes. For additional information, please refer to https://EaglEyeMed.Atrica/faq/ITG342 (This link is being provided for information/ educational purposes only.) Sree TIAN LAB - PATHOLOGY AND CYTOLOGY A MBULATORY Final Result Performing Organization Address City/[facility]/ZIP Co de Phone Number [facility] [address] [address], [facility] [address] [address] * HEPATITIS C AB W/RFLX HCV RNA, QT, RT PCR (08/05/2021 3:41 PM EDT) HEPATITIS C ANTIBODY NON-REACT EMIR NON-REACT EMIR [facility] SIGNAL TO CUT-OFF 0.16 <1.00 [facility] Comment: HCV antibody was non-reactive. There is no laboratory evidence of HCV infection. In most cases, no further action is required. However, if recent HCV exposure is suspected, a test for HCV RNA (test code 26929) is suggested. For additional information please refer to http://education.Atrica/faq/VYW05x0 (This link is being provided for informational/ educational purposes only.) Blood Blood / Unknown 08/05/2021 3 :41 PM EDT 08/05/2021 3:41 PM EDT Lisette [facility]-C LAB - BLOOD DRAW Edited Result - Final Performing Organization Address [facility] Co de Phone Number [facility] [address] [address], [facility] [address] [address] from Last 3 Months or Most Recently Relevant to Health Maintenance [place] Care Teams Financial Reporting Advisor Relationship Specialty Start Date End Date Sree Liao PA [address] [place] [address] PCP - General FAMILY MEDICINE, PA 12/19/21
--- OUTSIDE RECORDS SUMMARY | 2024-10-09 06:05 | XMS_ITS | Encounter Summary ---
Author Organization [facility] Address [address] [place] [address] Care Team Providers Care Low Pressure Kettle Operator Name Role Phone Sree Liao Primary Care Provider [phone] Encounter Details Date Type Department Care Team (Late st Contact Info) Description 07/08/2024 Dental Interim Note [facility] [address] [place] [phone] Rene Velasco, S [address] [place] [address] Social History Tobacco Use Types Packs/Day Years [...] Description 10/20/2024 11:00 AM EDT BH/MH Visits [facility] [address] [place] [phone] Ivy Ayala, INSPECTOR DIALS [address] [place] [address] 11/12/2024 2:20 PM EDT BH/MH Visits [address] [phone] Sailaja Yeung, ALIYA [address] [place] [phone] Harjinder Boateng [address] [place] [address] 12/04/2024 9:00 AM EDT Office Visit [facility] [address] [place] [phone] Korey Howell, [facility] [address] [place] [phone] documented as of this encounter Visit Diagnoses Not on filedocumented in this encounter Additional Health Concerns Assessment Noted Time PHQ-9 Depression Total Score: 0 04/16/19 25 3:13 PM PDT A Depression follow-up plan has been documented for the patient 08/09/2021 9:04 AM PDT documented as of this encounter Care Teams Low Pressure Kettle Operator Relationship Specialty Start Date End Date Sree Liao PA [address] [place] [address] PCP - General FAMILY MEDICINE, [place] 12/19/21 documented as of this encounter
[2024-10-09 06:14] LABS: MANUAL DIFF FLAG NO
[2024-10-09 07:53] LABS: Hematocrit 37.1 % (37.0-47.0); Hemoglobin 12.2 g/dl (12.0-16.0); Imm Gran Abs Auto 0.01 X10*3/uL (0.00-0.03); Imm Gran Pct Auto 0.3 % (0.0-0.4); Lymphocytes Absolute Auto 1.5 X10*3/uL (1.2-4.9); Mean Corpuscular HGB Conc 32.9 g/dl (31.0-35.0); Mean Corpuscular Hemoglobin 29.3 pg (27.0-33.0); Mean Corpuscular Volume 89.2 fL (80.0-98.0); NRBC Abs Auto 0.000 X10*3/uL (0.0-0.012); NRBC Pct Auto 0.0 /100WBC (0.0-0.2); Platelet Count 217 X10*3/uL (160-400); Red Blood Count 4.16 X10*6/uL (4.20-5.50); White Blood Count 4.0 X10*3/uL (4.8-10.8)
[2024-10-09 08:30] LABS: Alanine Aminotransferase 22 U/L (0-31); Albumin Level 4.1 g/dL (3.5-5.0); Alkaline Phosphatase 92 U/L (39-117); Anion Gap 8 (12-20); Aspartate Amino Transferase 26 U/L (5-31); Blood Urea Nitrogen 14 mg/dL (9-16); Calcium 9.2 mg/dL (8.4-10.2); Carbon Dioxide 28 mmol/L (22-29); Chloride 110 mmol/L (96-108); Estimated Glomerular Filt Rate > 60; Potassium 4.0 mmol/L (3.3-5.1); Sodium 142 mmol/L (135-145); Total Protein 7.1 g/dL (6.5-8.0)
== END 2024-10-09 05:59 | disposition home or self-care (01) ==
LOC: HO.LAB 05:58
PROVIDERS: PCP Physician Assistant; Visit Provider Student in an Organized Health Care Education/Training Program
DX: M05.741 Rheumatoid arthritis with rheumatoid factor of right hand without organ or systems involvement (principal); M05.742 Rheumatoid arthritis with rheumatoid factor of left hand without organ or systems involvement; E03.9 Hypothyroidism, unspecified
CPT/HCPCS: 36415; 80053; 85025; 85652; 86140

== ENCOUNTER 2024-10-16 07:14 | Outpatient (AMB) | payer MEDICARE, MEDICAID, SELFPAY ==
--- OUTSIDE RECORDS SUMMARY | 2024-10-16 07:17 | XMS_ITS | Clinical Summary ---
Author Organization [facility] Address [address] [place] [address] Phone Care Team Providers Care Hearing Stenographer Name Role Phone Sree Liao Primary Care Provider [phone] Family History Medical History Relation Name Comments [...] probability of hip fracture of 0.1%. Code 85100 -------- FINAL REPORT -------- Dictated By: Tony Tom Dictated Date: 06/27/2024 07:56 ET Assigned Physician: Tony Tom Reviewed and Electronically Signed By: Tony Tom Signed Date: 06/27/2024 07:58 ET Workstation ID: [id number] Transcribed By: Self Edit Transcribed Date: 06/27/2024 [...] density of the femurs bilaterally is 1.083 gm/kp9xbiqo is 108% of that of young normals [...] probability of hip fracture of 0.1%. Code 05096 -------- FINAL REPORT -------- Dictated By: Tony Tom Dictated Date: 06/27/2024 07:56 ET Assigned Physician: Tony Tom Reviewed and Electronically Signed By: Tony Tom Signed Date: 06/27/2024 07:58 ET Workstation ID: [id number] Transcribed By: Self Edit Transcribed Date: 06/27/2024 [...] Signed Date: 01/04/2024 17:52 ET Workstation ID: [id number] Transcribed By: Self Edit Transcribed Date: 01/04/2024 17:48 ET Narrative 01/04/2024 5:52 PM EST EXAM: SCREENING MAMMOGRAPHY, BILATERAL HISTORY: SCREENING. Family history of breast cancer, maternal aunt COMPARISON: 11/10/2022 TECHNIQUE: Synthesized CC and MLO projections of each breast. Tomosynthesis of each breast in the CC and MLO projections. ADDITIONAL IMAGING: None Computer-aided detection was employed with the [employer] profound AI 3-D. TISSUE DENSITY: There are [...] None Computer-aided detection was employed with the [employer] profound AI 3-D. TISSUE DENSITY: There are [...] Signed Date: 01/04/2024 17:52 ET Workstation ID: [id number] Transcribed By: Self Edit Transcribed Date: 01/04/2024 17:48 ET us Self Referral Sppl IMG BI PROCEDURES Final Resul t from Last 3 Months or Most Recently Relevant to Health Maintenance Insurance [place] - [place] MEDICARE MEDICARE Care Teams Hearing Stenographer Relationship Specialty Start Date End Date Sree Liao PA [address] [place] [address] PCP - General Physician Post Acute Care Registered Nurse 12/19/23
--- OUTSIDE RECORDS SUMMARY | 2024-10-16 07:17 | XMS_ITS | Clinical Summary ---
Author Organization [facility] Address [address] [place] [address] Care Team Providers Care Community Midwife Name Role Phone Sree Liao Primary Care Provider [phone] Source Comments PLEASE NOTE, if this patient is a minor, it may be UNLAWFUL to discuss sensitive information that is contained in these records (such as FAMILY PLANNING, MENTAL HEALTH or SUBSTANCE ABUSE) with the minor patient's parent or other person without the patient's specific authorization.[facility] Allergies No known active allergies Medications miscellaneous medical supply miscIndications:Fi bromyalgia,Arthrit is,Herniated disc, cervical,Difficult y walking by miscellaneous route once daily Rollating walker with seat x99 years 5'3 , 210 1 Each 08/06/19 22 Active upadacitinib 15 mg [id number]:Rh eumatoid arteritis ([facility]) 12/07/19 23 Active folic acid (FOLVITE) 1 mg tabletIndications: Fibromyalgia,Encou nter to establish care,Arthritis,Her niated disc, cervical TAKE 1 TABLET BY MOUTH EVERY DAY 30 Tablet 2 02/06/19 24 Active sodium chloride (OCEAN) 0.65 % nasal sprayIndications:N bea congestion Place 1 [place] into the nostril(s) as needed for congestion 44 mL 1 06/18/19 24 Active naproxen (NAPROSYN) 500 mg tabletIndications: Rheumatoid arteritis ([facility]),Fibromyal yadira,Herniated disc, cervical Take 1 Tablet by mouth 2 (two) times daily with a meal 60 Tablet 1 06/18/19 24 Active benzonatate (TESSALON) 100 mg capsuleIndications :Acute cough Take 1 Capsule by mouth 3 (three) times daily as needed for cough 30 Capsule 06/18/19 24 Active valACYclovir (VALTREX) 1 gram tabletIndications: HSV infection Take 2 tab PO q12 hour SOON OUTBREAK STARTS x3 doses.Take 2 tab PO q12 hour SOON OUTBREAK STARTS x3 doses. 30 Tablet 3 11/20/19 24 Active guaiFENesin (ROBITUSSIN) 100 mg/5 mL liquid Take 10 mL by mouth 3 (three) times daily as needed for cough 473 mL 1 12/25/19 24 Active semaglutide (OZEMPIC) 0.25 mg or 0.5 mg (2 mg/3 mL) pen injectorIndication s:Class 2 severe obesity due to excess calories with serious comorbidity and body mass index (BMI) of 37.0 to 37.9 in adult ([facility]),BMI 37.0-37.9, adult Inject 0.5 mg into the skin once a week For weeks, then 1 mg once weekly for four weeks. 3 mL 2 03/03/19 25 Active calcium carbonate-vitamin D3 500 mg-10 mcg (400 unit) tabletIndications: Class 2 severe obesity due to excess calories with serious comorbidity and body mass index (BMI) of 37.0 to 37.9 in adult ([facility]),BMI 37.0-37.9, adult,Osteopenia, unspecified location Take 1 Tablet by mouth 3 (three) times daily with meals 90 Tablet 2 04/16/19 25 Active tirzepatide, weight loss, (ZEPBOUND) 2.5 mg/0.5 mL pnijIndications:Cl ass 2 severe obesity due to excess calories with serious comorbidity and body mass index (BMI) of 37.0 to 37.9 in adult ([facility]),BMI 37.0-37.9, adult,Osteoarthrit is, unspecified osteoarthritis type, unspecified site,Osteopenia, unspecified location,Post-karsten pausal,Hypothyroid ism, unspecified type,Herniated disc, cervical,Bilateral chronic knee pain,Rheumatoid arthritis with positive rheumatoid factor, involving unspecified site ([facility]),Fibromyal yadira,Arthritis,Bila teral carpal tunnel syndrome,Difficult y walking INYECTE 2.5 MG POR VIA SUBCUTANEA SEMANALMENTE 2 mL 2 05/13/19 25 Active amoxicillin (AMOXIL) 500 mg capsuleIndications :Encounter for dental examination Take 4 capsules (500 mg each) by mouth 1 hour before dental or surgical procedure.. 4 Capsule 07/09/19 25 Active levothyroxine 100 mcg tabletIndications: Hypothyroidism, unspecified type TOME 1 TABLETA POR VIA ORAL TODOS LOS CRISTOBAL 90 Tablet 1 09/04/19 25 Active QUEtiapine (SEROQUEL XR) 50 mg Tb24 24 hr tabletIndications: Current moderate episode of major depressive disorder, unspecified whether recurrent ([facility]) Take 1 Tablet by mouth nightly at bedtime for 90 days. 30 Tablet 2 09/12/19 25 025 Active desvenlafaxine succinate (PRISTIQ) 50 mg 24 hr tabletIndications: Anxiety Take 1 Tablet by mouth once daily for 90 days. 30 Tablet 2 09/12/19 25 025 Active cetirizine (ZYRTEC) 10 mg tabletIndications: Seasonal allergies,Nasal congestion TOME 1 TABLETA POR VIA ORAL TODOS [place] CRISTOB[place] 90 Tablet 09/17/19 25 Active Active Problems Problem Noted Date Diagnosed Date MDD (major depressive disord er), recurrent episode, mild ([facility] [place] V24) 12/05/2021 Rheumatoid arteritis ([facility]) 10/24/2021 BMI 37.0-37.9, adult 08/19/2021 Class 2 severe obesity due t o excess calories with serious comorbidity and body mass index (BMI) of 37.0 to 37.9 in adult ([facility]) 08/09/2021 Polyp of colon 08/09/2021 Fibromyalgia 08/05/2021 Arthritis 08/05/2021 Herniated disc, cervical 08/05/2021 Hypothyroidism 08/05/2021 Bilateral carpal tunnel syndrome 08/05/2021 Difficulty walking 08/05/2021 Anxiety and depression 08/05/2021 Encounters Date Type Department Care Team Description 10/08/2024 12:30 PM EDT / Visits [address] [phone] Ivy Ayala, HUMAN RESOURCES DEPARTMENT SUPERVISOR 10/02/2024 11:00 AM EDT [facility] Visit [facility] [address] [place], [place] [phone] Rene Velasco DDS 09/22/2024 11:00 AM EDT BH/MH Visits [facility] [address] [place], [place] [phone] Ivy Ayala, HUMAN RESOURCES DEPARTMENT SUPERVISOR 09/13/2024 9:00 AM EDT Office Visit [facility] [place] [phone] Erin De La Cruz FNP-Rhea 09/11/2024 2:00 PM EDT BH/MH Visits [facility] [address] [phone] Sailaja Yeung FNP Martinez, Celestia 09/05/2024 BH/MH TELEPHONE [facility] [address] [phone] Karime Richards, Community Health Worker 08/18/2024 2:30 PM EDT BH[facility]its [facility] [address] [phone] Ivy Ayala, HUMAN RESOURCES DEPARTMENT SUPERVISOR 08/01/2024 2:45 PM EDT BH/MH Visits [facility] [address] [phone] Ivy Ayala, HUMAN RESOURCES DEPARTMENT SUPERVISOR 07/31/2024 2:00 PM EDT BH[facility]MH [facility]its [facility] [address] [phone] Sailaja Yeung FNP Martinez Celluma 07/23/2024 3:40 PM EDT Office Visit [facility] [place] [address] [place] [phone] Ricardo Holloway MD Rodriguez, Anabel 07/16/2024 4:30 PM EDT BH/MH Visits [facility] [address] [phone] Ivy Ayala, HUMAN RESOURCES DEPARTMENT SUPERVISOR from Last 3 Months Immunizations Immunization Administration [...] Description 10/20/2024 11:00 AM EDT / Visits [address] [phone] Ivy Ayala LCSW [address] [place] [address] 11/12/2024 2:20 PM EDT BH/MH Visits [address] [phone] Sailaja Yeung FNP [address] [place] [phone] Harjinder Boateng [address] [place] [address] 12/04/2024 9:00 AM EDT Office Visit [address] [place] [phone] Korey Howell, [facility] [address] [place] [address] Health Maintenance Due Date Last Done Comments [...] Completed 09/25/2022, 08/24/2022 Imm-Pneumococcal 50+ Completed 09/25/2022 [id number] Completed 12/25/2023, 06/2022, 10/24/2021, Additional history exists Imm-Zoster, Recombinant Completed 12/25/2023, 09/23 Alcohol and Drug Screen Completed 04/16/19, 12/25/2023, 09/24/2023, Additional history exists Cervical Ablation/Cold-Knife Conization Discontinued Cervical Cryotherapy Discontinued Colposcopy Discontinued Endometrial Biopsy Discontinued Excision/Leep Discontinued HPV Genotyping Discontinued Vaginal Pap Discontinued Vulvoscopy Discontinued Procedures Procedure Name Priority Date/Time Associated Diagnosis Comments LAB SCANNED DOCUMENT 10/09/2024 3:00 AM EDT REFERRAL TO ORTHOPEDICS Routine 10/03/2024 3:00 AM [...] (BMI) of 37.0 to 37.9 in adult ([facility]) Rheumatoid arteritis ([facility]) BMI 37.0-37.9, adult INTRAORAL - COMP SERIES OF RADIOGRAPHIC IMAGES Routine 09/04/2022 11:00 AM EDT Caries Defective dental worship Encounter for dental examination HIV 1/2 AG [...] Recently Relevant to Health Maintenance Results * LAB SCANNED DOCUMENT (10/09/2024 3:00 AM EDT) 10/09/2024 3:00 AM EDT us Sree TIAN SCAN LAB Final Result * REFERRAL TO ORTHOPEDICS (10/03/2024 3:00 AM [...] TO FT4 0.03(L) 0.40 - 4.50 mIU/L Cognitive Code Comment: Reference Range > or = 20 Years 0.40-4.50 Ranges First trimester 0.26-2.66 Second trimester 0.55-2.73 Third trimester 0.43-2.91 Blood Blood / Unknown 12/25/2023 4 :27 PM EST 12/25/2023 4:28 PM EST Connie Reed PA-C LAB - BLOOD DRAW Final Resu lt [facility] [address] [place] [address], Cognitive Code [address] [place] [phone] * (ABNORMAL) COMPREHENSIVE METABOLIC PANEL (12/25/2023 4:27 PM EST) GLUCOSE 116(H) 65 - 99 mg/dL Cognitive Code Comment: Fasting reference interval For someone without known diabetes, a glucose value between 100 and 125 mg/dL is consistent with prediabetes and should be confirmed with a follow-up test. UREA NITROGEN (BUN) 16 7 - 25 mg/dL Cognitive Code CREATININE (blood) 0.78 0.50 - 1.03 mg/dL Cognitive Code EGFR 90 > OR = 60 mL/min/1. 73m2 Cognitive Code BUN/CREATININE RATIO SEE NOTE: Cognitive Code Comment: Not Reported: BUN and Creatinine are within reference range. SODIUM 138 135 - 146 mmol/L [facility] POTASSIUM 4.5 3.5 - 5.3 mmol/L [facility] CHLORIDE 105 98 - 110 mmol/L [facility] CARBON DIOXIDE 27 20 - 32 mmol/L [facility] CALCIUM 9.8 8.6 - 10.4 mg/dL [facility] PROTEIN, TOTAL 7.4 6.1 - 8.1 g/dL [facility] ALBUMIN 4.4 3.6 - 5.1 g/dL [facility] GLOBULIN 3.0 1.9 - 3.7 g/dL (calc) [facility] ALBUMIN/GLOBULI N RATIO 1.5 1.0 - 2.5 (calc) [facility] BILIRUBIN, TOTAL 0.4 0.2 - 1.2 mg/dL [facility] ALKALINE PHOSPHATASE 108 37 - 153 U/L [facility] AST 27 10 - 35 U/L [facility] ALT 28 6 - 29 U/L [facility] Blood Blood / Unknown 12/25/2023 4 :27 PM EST 12/25/2023 4:28 PM EST us Connie Reed PA-C LAB - BLOOD DRAW Edited Res ult - Final [facility] [address] [address], [facility] [address] [address] * (ABNORMAL) LIPID PANEL (09/24/2023 1:48 PM EDT) CHOLESTEROL, TOTAL 255(H) <200 mg/dL [facility] HDL CHOLESTEROL 67 > OR = 50 mg/dL [facility] TRIGLYCERIDES 282(H) <150 mg/dL [facility] Comment: If a non-fasting specimen was collected, consider repeat triglyceride testing on a fasting specimen if clinically indicated. Deborah et al. J. of Clin. Lipidol. 2015;9:129-169. LDL-CHOLESTEROL 145(H) 99 mg/dL (calc) [facility] Comment: Reference range: <100 Desirable range <100 mg/dL for primary prevention; <70 mg/dL for patients with CHD or diabetic patients with > or = 2 CHD risk factors. LDL-C is now calculated using the Ramon calculation, which is a validated novel method providing better accuracy than the Friedewald equation in the estimation of LDL-C. Niraj FRENCH et al. BRITNI. 2013;310(19): 1364-5533 (http://Estify.OpenLogic/faq/EYX291) CHOL/HDLC RATIO 3.8 <5.0 (calc) Cognitive Code NON-HDL CHOLESTEROL 188(H) <130 mg/dL (calc) Cognitive Code Comment: For patients with diabetes plus 1 major ASCVD risk factor, treating to a non-HDL-C goal of <100 mg/dL (LDL-C of <70 mg/dL) is considered a therapeutic option. Blood Blood / Unknown 09/24/2023 1 :48 PM EDT 09/24/2023 1:51 PM EDT Sree TIAN LAB - BLOOD DRAW Final Result [facility] [address] [place] [address], Cognitive Code [address] [place] [phone] * HIV 1/2 AG & AB W/RFLX (4TH GEN) (06/22/2022 2:12 PM EDT) Pathologist [facility] HIV AG/AB, 4TH GEN NON-REAC TIVE NON-REAC TIVE Cognitive Code Comment: HIV-1 antigen and HIV-1/HIV-2 antibodies were [...] purpose. For additional information please refer to http://Estify.[employer]./faq/ZGZ601 (This link is being provided for informational/ educational purposes only.) The performance of this assay has not been clinically validated in patients less than 2 years old. Blood Blood / Unknown 06/22/2022 2 :12 PM EDT 06/22/2022 2:12 PM EDT Quirino Bustamante PA-C LAB - BLOOD DRAW Final Result [facility] [address] [place] [address], Cognitive Code [address] [place] [address] * THINPREP PAP W/IMAGING + HPV CT/NG (Q) (12/19/2021 2:06 PM EST) CHLAMYDIA TRACHOMATIS RNA, TMA NOT DETECTED NOT DETECTED Cognitive Code NEISSERIA GONORRHOEAE RNA, TMA NOT DETECTED NOT DETECTED Cognitive Code COMMENT Cognitive Code CLINICAL INFORMATION See Note Cognitive Code Comment:Postmenopausal LMP See Note Cognitive Code Comment:NONE GIVEN PREV. PAP See Note Cognitive Code Comment:NONE GIVEN PREV. BX See Note Cognitive Code Comment:NONE GIVEN SOURCE See Note Cognitive Code Comment:Cervix STATEMENT OF ADEQUACY See Note Cognitive Code Comment: Satisfactory for evaluation. Endocervical/transformation zone component absent. INTERPRETATION/RESU LT See Note Cognitive Code Comment:Negative for intraep ithelial lesion or malignancy. INFECTION See Note Cognitive Code Comment: Shift in vaginal lacy suggestive of bacterial vaginosis. COMMENT See Note Cognitive Code Comment: This Pap test has been evaluated with computer assisted technology. REGIONAL ADMINISTRATIVE ASSISTANT See Note [employer] Comment: MSM, CT(ASCP) CT screening location: [address] [address] COMMENT Cognitive Code HPV MRNA E6/E7 Not Detected Not Detected Cognitive Code Comment: Methodology: [employer] Commanding Officer-Mediated Amplification This assay detects E6/E7 viral messenger RNA (mRNA) from 14 high-risk HPV types (16,18,31,33,35,39,45,51,52,56,58,59,66,68). Cervical sources are required for HPV testing. If a vaginal source from a patient who has had a total hysterectomy with removal of cervix was submitted, please contact the testing laboratory for alternative testing options. For additional information, please refer to http://Estify.Qv21 Technologies[employer] Inc./faq/NYV325s2 (This link if provided for information/ educational purposes only.) Swab Cervix uteri structure / Unknown 12/19/2021 2:06 PM EST 12/20/2021 6:48 AM EST Narrative [facility] - 12/21/2021 1:35 PM EST EXPLANATORY NOTE: [...] test SurePath(TM) specimens have been determined by [facility]. The modifications have not been cleared or approved by the FDA. This assay has been validated pursuant to the CLIA regulations and is used for clinical purposes. For additional information, please refer to https://AbGenomics/faq/JTD256 (This link is being provided for information/ educational purposes only.) Sree TIAN LAB - PATHOLOG[facility] Final Result [facility] [address] [address], Cognitive Code [address] [place] [address],[place] [address] * HEPATITIS C AB W/RFLX HCV RNA, QT, RT PCR (08/05/2021 3:41 PM EDT) HEPATITIS C ANTIBODY NON-REACT EMIR NON-REACT EMIR Cognitive Code SIGNAL TO CUT-OFF 0.16 <1.00 Cognitive Code Comment: HCV antibody was non-reactive. There is no laboratory evidence of HCV infection. In most cases, no further action is required. However, if recent HCV exposure is suspected, a test for HCV RNA (test code 86673) is suggested. For additional information please refer to http://Estify.Qv21 [employer] Inc./faq/PEF15r0 (This link is being provided for informational/ educational purposes only.) Blood Blood / Unknown 08/05/2021 3 :41 PM EDT 08/05/2021 3:41 PM EDT Lisette Vega EXCEL ANALYST-C LAB - BLOOD DRAW Edited Result - Final [facility] [address] [address], [facility] [address] [address] from Last 3 Months or Most Recently Relevant to Health Maintenance [place] [address] [id number] [place] Care Teams Community Midwife Relationship Specialty Start Date End Date Sree Liao PA [address] [place] [address] PCP - General FAMILY MEDICINEASMITA 12/19/21
--- OUTSIDE RECORDS SUMMARY | 2024-10-16 07:17 | XMS_ITS | Encounter Summary ---
Author Organization [facility] Address [address] [place] [address] Care Team Providers Care Supervisor Drying And Softening Name Role Phone Sree Liao Primary Care Provider Encounter Details Date Type Department Care Team (Late st Contact Info) Description 07/08/2024 Dental Interim Note [facility] [address] [place] [phone] Rene Velasco, S [address] [place] [address] Social History Tobacco Use Types Packs/Day Years [...] Description 10/20/2024 11:00 AM EDT BH/MH Visits [facility] [address] [place] [phone] Ivy Ayala, BILLING AND INSURANCE COORDINATOR [address] [place] [address] 11/12/2024 2:20 PM EDT BH/MH Visits [address] [phone] Sailaja Yeung, ALIYA [address] [place] [phone] Harjinder Boateng [address] [place] [address] 12/04/2024 9:00 AM EDT Office Visit [facility] [address] [place] [phone] Korey Howell, [facility] [address] [place] [address] documented as of this encounter Visit Diagnoses Not on filedocumented in this encounter Additional Health Concerns Assessment Noted Time PHQ-9 Depression Total Score: 0 04/16/19 25 3:13 PM PDT A Depression follow-up plan has been documented for the patient 08/09/2021 9:04 AM PDT documented as of this encounter Care Teams Supervisor Drying And Softening Relationship Specialty Start Date End Date Sree Liao PA [address] [place] [address] PCP - General FAMILY MEDICINE, [place] 12/19/21 documented as of this encounter
--- NOTE | 2024-10-16 07:30 | A.OFFVIS_ITS ---
Vital Signs 10/16/24 07:36 Height 5 ft 3 in Weight 176 lb 2.389 oz BMI 31.2 BP 134/80 Blood Pressure Location Lt brachial Position Sitting Pulse 71 Pulse Source Pulse Oximeter Pulse Oximetry (%) 98 Oxygen Delivery Method Room Air Intake Visit Reasons: f/u RA Intake Note: Patient presents for RA follow up. Allergies No Known Allergies Allergy (Verified 10/16/24 07:35) Medication List - Last Reconciled 10/16/24 by Adriana Diaz MD cetirizine 10 mg PO DAILY desvenlafaxine succinate ER 50 mg PO DAILY hydroxyzine HCl 25 mg PO BID PRN levothyroxine 100 mcg PO DAILY naproxen 500 mg PO BEDTIME upadacitinib ER (Rinvoq) 15 mg PO DAILY HPI Comments Details: Patient is a 53-year-old female with hypothyroidism, nonalcoholic fatty liver disease, polyarticular OA (knees s/p right TKR, hands) and seropositive rheumatoid arthritis here today for follow up Interval History: Patient last seen 06/16/2024 with me - On Rinvoq 15mg daily and naproxen 500mg bid - Doing well, no AM stiffness - At times she has pain in her shoulders and back during the day but overall well - No active synovitis and no changes made to medications Today - On Rinvoq 15mg daily and naproxen 500mg bid - Finally able to get housing on the first floor. Currently moving in - Doing well overall - Still having some overall aches and pains but no swelling or prolonged AM stiffness Rheumatologic History: dx 2012 +++RF+++CCP erosive in [place] Failed Enbrel Had palpitations with Xeljanz On Orencia +MTX started 2019 MTX DC 05/28 due to transaminitis Cimzia 06/27 -11/27 ineffective Rinvoq 12/2022 effective Initial history: This is a 50-year-old female with a past medical history of anxiety, depression, lumbar spinal stenosis, and seropositive RA (+++CCP, +++RF) is referred for RA. Patient is originally from [place] then she moved to [place] about 10 months ago then to [place] recently. She lives alone in [place] and all her family is in the [place] She last saw her acquisitions librarian in November of last year. Patient was diagnosed in 2012 and her disease affects her shoulders, elbows, knees, feet, hands, & wrists. Her most recent regimen was Orencia 125 mg subQ, methotrexate 15 mg weekly and prednisone 5-10 mg a day. She has not received her Orencia in about 8-10 months. She was prescribed methotrexate by her primary provider about 3 weeks ago. Enbrel was not effective. Today she has severe pain and stiffness involving both shoulders, both wrists, hands,, her most severe pain is her right knee pain, she was told her right knee was bone on bone and that she might need surgery, she is due to see a surgeon next week. Current Rheumatology Medication(s): Rinvoq 15 mg daily Naproxen 500mg bud [facility] Medical History Low back pain, unspecified Peripheral artery disease Anxiety and depression Bilateral carpal tunnel syndrome Hypothyroidism Herniated disc, cervical Fibromyalgia Surgical History History of knee replacement H/O lateral meniscus repair of right knee History of surgery Hx of right knee surgery History of surgery Hx of cholecystectomy Family History Sister Fibromyalgia Paternal Aunt Arthritis Other Rheumatoid arthritis Social History Household Members: Family Alcohol intake: former Year quit: 2017 Patient Tobacco Use Status: Former Tobacco user Current occupational status: disabled Current occupation: rt handed Review of Systems Const Details: Review of Systems Constitutional: Denies fever, chills, weight loss ENT: Denies vision changes, eye pain or eye redness, dental caries, dry mouth GI: Denies nausea, vomiting, diarrhea, abdominal pain, change in BM Pulm: Denies SOB, MIMS, hemoptysis, wheezing Cards: Denies chest pain, palpitations Skin: Denies Raynaud's, rash, nail changes, photosensitivity, AMBULATORY SERVICE REPRESENTATIVE: Denies headaches, weakness, paresthesias, recurrent falls MSK: as per HPI All other systems reviewed and are unremarkable except noted above Physical Exam Exam Exam: Vital signs reviewed Physical Examination CONSTITUITIONAL Patient alert and cooperative. Well appearing and in no apparent painful distress MSK Hands * Right Hand: Able to make a fist. No swelling or tenderness to palpation of the MCPs, PIPs or DIPs. Synovial hypertrophy noted to the 2nd-4th MCPs * Left Hand: Able to make a fist. No swelling or tenderness to palpation of the MCPs, PIPs or DIPs. Wrists * Right Wrist: Full ROM to flexion and extension. No swelling or TTP * Left Wrist: Full ROM to flexion and extension. No swelling or TTP Elbows * Right Elbow: Full ROM. No swelling or TTP. No TTP of the medial epicondyle. No TTP of the lateral epicondyle * Left Elbow: Full ROM. No swelling or TTP. No TTP of the medial epicondyle. No TTP of the lateral epicondyle Shoulders * Right shoulder: Full ROM. No swelling noted. No TTP of the AC joint. No TTP of the subacromial bursa. No TTP of the posterior shoulder * Left shoulder: Full ROM. No swelling noted. No TTP of the AC joint. No TTP of the subacromial bursa. No TTP of the posterior shoulder Knees * Right knee: No swelling noted. No TTP of the knee joint line. No TTP of pes anserine bursa. Surgical scar noted on anterior knee * Left knee: Full ROM. No swelling noted. No TTP of the knee joint line. No TTP of pes anserine bursa. Crepitations felt Ankles * Right ankle: Good ankle dorsiflexion and plantar flexion. No swelling. No TTP of the ankle joint * Left ankle: Good ankle dorsiflexion and plantar flexion. No swelling. No TTP of the ankle joint Feet * Right foot: Negative squeeze test * Left foot: Negative squeeze test Tender points? * No tenderness to palpation of the bilateral trapezius, supraspinatus, anterior costochondral junctions, bilateral suboccipital muscle insertions SKIN No rashes Vital Signs: Last Vital Signs Pulse 71 10/16/24 07:36 BP 134/80 10/16/24 07:36 Pulse Ox 98 10/16/24 07:36 Oxygen Delivery Method Room Air 10/16/24 07:36 BMI result Body Mass Index 31.2 Results Reviewed Results Reviewed: Laboratory Tests 06/14/24 10/09/24 07:08 06:12 WBC 4.0 L RBC 4.16 L Hgb 12.2 Hct 37.1 Plt Count 217 ESR 16 23 H Sodium 142 Potassium 4.0 Chloride 110 H Carbon Dioxide 28 BUN 14 Creatinine 0.68 AST 26 ALT 22 C-Reactive Protein 0.16 Infectious serologies 02/11/24 06:44 Hep Bs Antigen Negative Hep Bs Antibody NONREACTIVE Hep B Core Total Ab Nonreactive Hepatitis C Ab (EIA) Nonreactive TB Test (T-Spot) Com Negative Assessment & Plan Assessment & Plan (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 (nsaid): Code(s): Z79.1 - 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) use of non-steroidal anti-inflammatories (NSAID) Plan: #Long-term Use of NSAIDs Discussed with patient the benefits and risk of NSAIDs for managing the rheumatic condition Benefits include: - Reduced the pain, improved mobility, and increased participation in activities Risks include: - GI upset, potential also worsening or formation (especially in patients > 65 years old) Recommended using proton pump inhibitors (PPIs) for the duration of NSAID use to reduce the risk of gastric ulcers (2) Rheumatoid arthritis involving both hands with positive rheumatoid factor: Comment: dx 2012 +++RF+++CCP erosive in [place] Failed Enbrel Had palpitations with Xeljanz On Orencia +MTX started 2018 MTX DC 05/28 due to transaminitis Cimzia 06/27 -11/27 ineffective Rinvoq 12/2022 effective Code(s): M05.741 - Rheumatoid arthritis with rheumatoid factor of right hand without organ or systems involvement; M05.742 - Rheumatoid arthritis with rheumatoid factor of left hand without organ or systems involvement Category: Medical Plan: #Seropositive Erosive RA Patient is a 53-year-old female with seropositive erosive rheumatoid arthritis here today for follow up. Currently in remission on Rinvoq daily. Takes naproxen 500 mg at night to help manage her concurrent polyarticular osteoarthritis. Kidney function and liver function are good. 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) use of Janus kinase inhibitor Plan: #Long-term Use of CODY inhibitor : Rinvoq Discussed with patient the benefits and risks of CODY inhibitors for the management of the rheumatic condition Benefits include reduce pain, maintenance of remission and reduction of flares Risks include thromboembolic events, skin cancer and nonmelanoma skin cancers, other forms of cancer, cardiovascular alcohol and mortality Advise patient that they are to hold the medication and for up to 1 week after a febrile illness or an open skin wound Plan I spent 30 minutes reviewing the record and labs, taking a history, examining the patient, discussing the treatment plan, ordering diagnostic work up and documenting in the medical record Orders: Orders Complete Blood Count Auto Diff 6 Months Z. - Other terminal computer operator (current) drug therapy T Spot TB 6 Months Z. - Other terminal computer operator (current) drug therapy Comprehensive Met. Panel 6 Months Z. - Other senior living (current) drug therapy C Reactive Protein 6 Months Z. - Other terminal computer operator (current) drug therapy Erythrocyte Sedimentation Rate 6 Months Z. - Other senior living (current) drug therapy Hepatitis B,C Profile 6 Months Z. 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
[2024-10-16 07:36] VITALS: BP 134/80; PULSE 71; O2SAT 98; BMI 31.2
== END 2024-10-16 07:55 | disposition home or self-care (01) ==
LOC: HO.RHES 07:15
PROVIDERS: PCP Physician Assistant; Visit Provider Student in an Organized Health Care Education/Training Program
DX: Z79.1 Long term (current) use of non-steroidal anti-inflammatories (NSAID) (principal); M05.741 Rheumatoid arthritis with rheumatoid factor of right hand without organ or systems involvement; M05.742 Rheumatoid arthritis with rheumatoid factor of left hand without organ or systems involvement; Z79.622 Long term (current) use of Janus kinase inhibitor
CPT/HCPCS: 99214; G2211

== ENCOUNTER → 2024-10-16 07:14 | Outpatient (BNVA) | payer MEDICARE, MEDICAID, SELFPAY | PROVIDERS: PCP Physician Assistant; Visit Provider Student in an Organized Health Care Education/Training Program | DX: M17.11 Unilateral primary osteoarthritis, right knee (principal); E03.9 Hypothyroidism, unspecified; M05.741 Rheumatoid arthritis with rheumatoid factor of right hand without organ or systems involvement; M05.742 Rheumatoid arthritis with rheumatoid factor of left hand without organ or systems involvement; Z79.1 Long term (current) use of non-steroidal anti-inflammatories (NSAID); Z79.622 Long term (current) use of Janus kinase inhibitor | CPT/HCPCS: 99212 ==

== ENCOUNTER 2024-10-31 09:55 | Outpatient (AMB) | payer MEDICARE, MEDICAID, SELFPAY ==
--- NOTE | 2024-10-31 09:59 | A.OFFVIS_ITS ---
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 Patient was referred by her PCP. At today's visit she states that for the past 20 years she has had bilateral neck and shoulder pain. She has attended physical therapy, tried medicine and trigger point injections while in [place]. Patient states that she does have arthritis in her arms and had physical therapy at [facility]. Patient requested if we could get X ray's at today's visit. Allergies No Known Allergies Allergy (Verified 10/31/24 10:06) Medication List - Last Reconciled 10/31/24 by Erika Sahu MD cetirizine 10 mg PO DAILY desvenlafaxine succinate ER 50 mg PO DAILY gabapentin 100 mg PO BEDTIME hydroxyzine HCl 25 mg PO BID PRN levothyroxine 100 mcg PO DAILY naproxen 500 mg PO BEDTIME upadacitinib ER (Rinvoq) 15 mg PO DAILY HPI Comments Details: History of seropositive erosive RA, follows with Dr. Diaz. Last cervical x-ray done in 2022, see below. bilateral neck pain to upper trapezius, but does not radiate to arms. With repetitive motion, she used to have numbness. Since she does not work anymore, she denies anymore numbness. She saw Dewayne TIAN, and EMG ordered but not yet scheduled. She used to get PT and trigger point injections in [place]. She did get a nerve block in [place]. No recent MRI. She is on disability. [facility] Medical History Low back pain, unspecified Peripheral artery disease Anxiety and depression Bilateral carpal tunnel syndrome Hypothyroidism Herniated disc, cervical Fibromyalgia Surgical History History of knee replacement H/O lateral meniscus repair of right knee History of surgery Hx of right knee surgery History of surgery Hx of cholecystectomy Family History Sister Fibromyalgia Paternal Aunt Arthritis Other Rheumatoid arthritis Social History (Updated 10/31/24 @ 10:07 by Griselda Tineo) Household Members: Family Alcohol intake: former Year quit: 2017 Patient Tobacco Use Status: Former Tobacco user Current occupational status: disabled Current occupation: RT handed- 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 Patient was appropriately conversant and oriented. Good historian. MSK: Inspection reveals appropriate head and neck positioning. Very tight upper trapezius. No tenderness over cervical spinous processes. Cervical ROM was full. Spurling's sign negative. Bilateral shoulder, elbow and wrist ROM WNL. No ligamentous laxity or crepitance. No increased effusion. Strength is 5/5 in all muscle groups tested. No increased tone noted. Neurological: Neurologic examination of the upper and lower extremities was nonfocal with intact sensation, muscle stretch reflexes and without focal motor deficits . Villasenor?s negative bilaterally. Babinski was down going bilaterally. Clonus was negative. Gait is non-antalgic without loss of balance. Results Reviewed Results Reviewed: Ordering Physician: Petra Baron MD Date of Service: 03/16/22 Procedure(s): XR cervical spine 4V Accession Number(s): [id number] cc: Petra Baron MD~ EXAMINATION: XR cervical spine 4V CLINICAL INFORMATION: Pain COMPARISON: None TECHNIQUE: 5 views of the cervical spine were obtained. FINDINGS: The cervical spine is visualized to the level of C6-C7 on the lateral view. Vertebral body alignment is maintained. Vertebral body heights are maintained. Lateral masses of C1 are well aligned on C2. Visualized portion of the dens is intact. Moderate degenerative disc disease at 5 C6 and C6-C7, manifested by loss of disc space height and facet arthropathy. Uncovertebral hypertrophy and facet arthropathy results in moderate neural foraminal narrowing on the right at C5-C6 and C6-C7 and in moderate neural foraminal narrowing on the left at C5-C6 and C6-C7. No prevertebral soft tissue swelling. XR/XR cervical spine 4V IMPRESSION: * Moderate spondylosis of the cervical spine, as above detailed. * Moderate neural foraminal narrowing, as above detailed. I reviewed records from the following: Rheumatology Assessment & Plan Assessment & Plan (1) Chronic neck pain: Code(s): M54.2 - Cervicalgia; G89.29 - Other chronic pain Category: Medical (2) Rheumatoid arthritis involving both hands with positive rheumatoid factor: Comment: dx 2012 +++RF+++CCP erosive in [place] Failed Enbrel Had palpitations with Xeljanz On Orencia +MTX started 2018 MTX DC 05/28 due to transaminitis Cimzia 06/27 -11/27 ineffective Rinvoq 12/2022 effective Code(s): M05.741 - Rheumatoid arthritis with rheumatoid factor of right hand without organ or systems involvement; M05.742 - Rheumatoid arthritis with rheumatoid factor of left hand without organ or systems involvement Category: Medical Plan Chronic neck pain, in setting of rheumatoid arthritis. History of cervical disc? Most likely has myofascial pain on upper trapezius as well. Repeat cervical x-rays today. Depending on results, we may obtain cervical MRI. Start physical therapy, especially for upper trapezius. We may consider trigger point injections later on. She is waiting for EMG to be scheduled. Assessment and plan discussed with patient, and patient was agreeable. All questions were answered thoroughly. Follow up 2 months. Erika Sahu MD, [place] Board Certified, [place] Board of Physical Medicine and Rehabilitation (ABPMR) Board Certified, [place] Board of Electrodiagnostic Medicine (ABEM) Orders: Orders XR cervical spine 3V Today M54.2 - Cervicalgia PT Evaluation and Treatment Today G89.29 - Other chronic pain, M05.741 - Rheumatoid arthritis with rheumatoid factor of right hand without organ or systems involvement, M05.742 - Rheumatoid arthritis with rheumatoid factor of left hand without organ or systems involvement, M54.2 - Cervicalgia Coding Level of Care Code New Pt Level 4 (26479) Diagnoses Chronic neck pain M54.2; G89.29 Rheumatoid arthritis involving both hands with positive rheumatoid factor M05.741; M05.742
--- OUTSIDE RECORDS SUMMARY | 2024-10-31 11:08 | XMS_ITS | Encounter Summary ---
Author Organization [facility] Address [address] [place] [address] Care Team Providers Care Electric Cell Tender Name Role Phone Sree Liao Primary Care Provider [phone] Encounter Details Date Type Department Care Team (Late st Contact Info) Description 07/08/2024 Dental Interim Note [facility] [address] [place] [phone] Rene Velasco, [address] [place] [address] Social History Tobacco Use Types Packs/Day Years [...] Care Team (Late st Contact Info) Description 11/12/2024 2:20 PM EDT / [facility] [address] [place] [phone] Sailaja Yeung FNP [address] [place] [phone] Harjinder Boateng [address] [place] [address] 12/04/2024 9:00 AM EDT Office Visit [facility] [address] [place] [phone] Korey Howell, [facility] [address] [place] [address] documented as of this encounter Visit Diagnoses Not on filedocumented in this encounter Additional Health Concerns Assessment Noted Time PHQ-9 Depression Total Score: 0 04/16/19 25 3:13 PM PDT A Depression follow-up plan has been documented for the patient 08/09/2021 9:04 AM PDT documented as of this encounter Care Teams Electric Cell Tender Relationship Specialty Start Date End Date Sree Liao PA [address] [place] [address] PCP - General FAMILY MEDICINEASMITA 12/19/21 documented as of this encounter
--- OUTSIDE RECORDS SUMMARY | 2024-10-31 11:08 | XMS_ITS | Clinical Summary ---
Author Organization [facility] Address [address] [place] [address] Phone Care Team Providers Care Export Documents Clerk Name Role Phone Sree Liao Primary Care Provider [phone] Family History Medical History Relation Name Comments [...] probability of hip fracture of 0.1%. Code 98004 -------- FINAL REPORT -------- Dictated By: Tony Tom Dictated Date: 06/27/2024 07:56 ET Assigned Physician: Tony Tom Reviewed and Electronically Signed By: Tony Tom Signed Date: 06/27/2024 07:58 ET Workstation ID: [id number] Transcribed By: Self Edit Transcribed Date: 06/27/2024 [...] density of the femurs bilaterally is 1.083 gm/[id number] is 108% of that of young normals [...] probability of hip fracture of 0.1%. Code 90327 -------- FINAL REPORT -------- Dictated By: Tony Tom Dictated Date: 06/27/2024 07:56 ET Assigned Physician: Tony Tom Reviewed and Electronically Signed By: Tony Tom Signed Date: 06/27/2024 07:58 ET Workstation ID: [id number] Transcribed By: Self Edit Transcribed Date: 06/27/2024 07:56 ET us Ricardo Holloway MD IM DXA PROCEDURES Final Result * MG Mammo Digital Screening w Ubd bilat (01/04/2024 3:23 PM EST) Anatomical Region [...] Signed Date: 01/04/2024 17:52 ET Workstation ID: [id number] Transcribed By: Self Edit Transcribed Date: 01/04/2024 17:48 ET Narrative 01/04/2024 5:52 PM EST EXAM: SCREENING MAMMOGRAPHY, BILATERAL HISTORY: SCREENING. Family history of breast cancer, maternal aunt COMPARISON: 11/10/2022 TECHNIQUE: Synthesized CC and MLO projections of each breast. Tomosynthesis of each breast in the CC and MLO projections. ADDITIONAL IMAGING: None Computer-aided detection was employed with the [employer] profound AI 3-D. TISSUE DENSITY: There are [...] None Computer-aided detection was employed with the [employer] profound AI 3-D. TISSUE DENSITY: There are [...] Signed Date: 01/04/2024 17:52 ET Workstation ID: [id number] Transcribed By: Self Edit Transcribed Date: 01/04/2024 17:48 ET us Self Referral Sppl IMG BI PROCEDURES Final Resul t from Last 3 Months or Most Recently Relevant to Health Maintenance Insurance MEDICAID - [place] MEDICARE MEDICARE Care Teams Export Documents Clerk Relationship Specialty Start Date End Date Sree Liao PA [address] [place] [address] PCP - General Physician Cloth Bale Header 12/19/23
--- OUTSIDE RECORDS SUMMARY | 2024-10-31 11:08 | XMS_ITS | Clinical Summary ---
Author Organization [facility] Address [address] [place] [address] Care Team Providers Care Gaming Pit Boss Name Role Phone Sree Liao Primary Care Provider [phone] Source Comments PLEASE NOTE, if this patient [...] Each 08/06/19 22 Active upadacitinib 15 mg [id number]:Rh eumatoid arteritis ([facility]) 12/07/19 23 Active folic acid (FOLVITE) 1 mg tabletIndications: Fibromyalgia,Encou nter to establish care,Arthritis,Her niated disc, cervical TAKE 1 TABLET BY MOUTH EVERY DAY 30 Tablet 2 02/06/19 24 Active sodium chloride (OCEAN) 0.65 % nasal sprayIndications:N bea congestion Place 1 Cade into the nostril(s) as needed for congestion 44 mL 1 06/18/19 24 Active naproxen (NAPROSYN) 500 mg tabletIndications: Rheumatoid arteritis ([facility]),Fibromyal yadira,Herniated disc, cervical Take 1 [...] in adult ([facility]),BMI 37.0-37.9, adult Inject 0.5 mg into the skin once a week For weeks, then 1 mg once weekly for four weeks. 3 mL 2 03/03/19 25 Active calcium carbonate-vitamin D3 500 mg-10 mcg (400 unit) tabletIndications: Class 2 severe obesity due to excess calories with serious comorbidity and body mass index (BMI) of 37.0 to 37.9 in adult ([facility]),BMI 37.0-37.9, adult,Osteopenia, unspecified location Take 1 Tablet by mouth 3 (three) times daily with meals 90 Tablet 2 04/16/19 25 Active tirzepatide, weight loss, (ZEPBOUND) 2.5 mg/0.5 mL pnijIndications:Cl ass 2 severe obesity due to excess calories with serious comorbidity and body mass index (BMI) of 37.0 to 37.9 in adult ([facility]),BMI 37.0-37.9, adult,Osteoarthrit is, unspecified osteoarthritis type, unspecified site,Osteopenia, unspecified location,Post-karsten pausal,Hypothyroid ism, unspecified type,Herniated disc, cervical,Bilateral chronic knee pain,Rheumatoid arthritis with positive rheumatoid factor, involving unspecified site ([facility]),Fibromyal yadira,Arthritis,Bila teral carpal tunnel syndrome,Difficult y walking [...] whether recurrent ([facility]) Take 1 Tablet by mouth nightly at [...] (major depressive disord er), recurrent episode, mild ([facility]) 12/05/2021 Rheumatoid arteritis ([facility]) 10/24/2021 BMI 37.0-37.9, adult 08/19/2021 Class 2 severe obesity due t o excess calories with serious comorbidity and body mass index (BMI) of 37.0 to 37.9 in adult ([facility]) 08/09/2021 Polyp of colon 08/09/2021 Fibromyalgia 08/05/2021 Arthritis 08/05/2021 Herniated disc, cervical 08/05/2021 Hypothyroidism 08/05/2021 Bilateral carpal tunnel syndrome 08/05/2021 Difficulty walking 08/05/2021 Anxiety and depression 08/05/2021 Encounters Date Type Department Care Team Description 10/20/2024 11:00 AM EDT / Visits [address] [phone] Ivy Ayala, ACID MAKER 10/08/2024 12:30 PM EDT BH/MH Visits [facility] [address] [place] [phone] Ivy Ayala, ACID MAKER 10/02/2024 11:00 AM EDT Office Visit [facility] [address] [place] [address] Rene Velasco, DDS 09/22/2024 11:00 AM EDT BH/MH Visits [facility] [address] [phone] Ivy Ayala, ACID MAKER 09/13/2024 9:00 AM EDT Office Visit [facility] [address] [place] [phone] Erin De La Cruz FNP-C 09/11/2024 2:00 PM EDT BH[facility] Visits [facility] [address] [phone] Sailaja Yeung, Harjinder Su 09/05/2024 BH/MH TELEPHONE [facility] [address] [phone] Karime Richards, Community Health Worker 08/18/2024 2:30 PM EDT BH/MH Visits [facility] [address] [place] [phone] Ivy Ayala, ACID MAKER 08/01/2024 2:45 PM EDT BH/MH Visits [facility] [address] [place] [phone] Ivy Ayala, ACID MAKER 07/31/2024 2:00 PM EDT BH/MH Visits [facility] [address] [address] Sailaja Yeung, TAXATION AGENT Harjinder Boateng from Last 3 Months Immunizations Immunization Administration [...] 12/25/2023,01/09/2023 TDAP 08/24/2022 ZOSTER VACCINE, RECOMBINANT (SHINGRIX) ,09/24/2023 Family History Medical History Relation Name Comments [...] Contact Info) Description 11/12/2024 2:20 PM EDT /MH Visits [facility] [address] [place] [phone] Sailaja Yeung FNP [address] [place] [phone] Harjinder Boateng [address] [place] [address] 12/04/2024 9:00 AM EDT Office Visit [facility] [address] [place] [phone] Korey Howell, JOEL [address] [place] [address] Health Maintenance Due Date Last Done Comments [...] Completed 09/25/2022, 08/24/2022 Imm-Pneumococcal 50+ Completed 09/25/2022 [id number] Completed 12/25/2023, 12/0 06/2022, 10/24/2021, Additional history exists Imm-Zoster, Recombinant Completed 12/25/2023, 09/23 Alcohol and Drug Screen Completed 04/16/19, 12/25/2023, 09/24/2023, Additional history exists Cervical Ablation/Cold-Knife Conization Discontinued Cervical Cryotherapy Discontinued Colposcopy Discontinued Endometrial Biopsy Discontinued Excision/Leep Discontinued HPV Genotyping Discontinued Vaginal Pap Discontinued Vulvoscopy Discontinued Procedures Procedure Name Priority Date/Time Associated Diagnosis Comments REFERRAL SCANNED DOCUMENT 10/16/2024 3:00 AM EDT LAB SCANNED DOCUMENT 10/09/2024 3:00 AM EDT REFERRAL TO ORTHOPEDICS Routine 10/03/2024 3:00 AM EDT Osteoarthritis, unspecified osteoarthritis type, unspecified site OFFICE VISIT OBSERVATION NO OTHER SRVC PERFORMED Routine 10/02/2024 11:00 AM EDT Encounter for dental examination OTHER ORDERS SCANNED DOCUMENT 08/12/2024 3:00 AM EDT COMP PERIODONTAL EVALUATION - [...] (BMI) of 37.0 to 37.9 in adult ([facility]) Rheumatoid arteritis ([facility]) BMI 37.0-37.9, adult INTRAORAL - COMP SERIES OF RADIOGRAPHIC IMAGES Routine 09/04/2022 11:00 AM EDT Caries Defective dental orthodoxy Encounter for dental examination HIV 1/2 AG [...] Relevant to Health Maintenance Results * REFERRAL SCANNED DOCUMENT (10/16/2024 3:00 AM EDT) 10/16/2024 3:00 AM EDT Sophie Diaz [facility] I SCAN REFERRAL Final Re sult * LAB SCANNED DOCUMENT (10/09/2024 3:00 AM EDT) 10/09/2024 3:00 AM EDT Sree TIAN SCAN LAB Final Result * REFERRAL TO ORTHOPEDICS (10/03/2024 3:00 AM EDT) 10/03/2024 3:00 AM EDT Sree TIAN REFERRAL Final Result * OTHER ORDERS SCANNED DOCUMENT (08/12/2024 3:00 AM EDT) 08/12/2024 3:00 AM EDT us Sree TIAN SCAN OTHER ORDERS Final Result * HISTORIC MAMMOGRAM (01/04/2024 3:00 AM EST) 01/04/2024 3:00 AM EST Sree TIAN IMG MAMMO Final Result * (ABNORMAL) TSH W/RFLX FREE T4 (12/25/2023 4:27 PM EST) TSH W/REFLEX TO FT4 0.03(L) 0.40 - 4.50 mIU/L [facility] Comment: Reference Range > or = 20 Years 0.40-4.50 Ranges First trimester 0.26-2.66 Second trimester 0.55-2.73 Third trimester 0.43-2.91 Blood Blood / Unknown 12/25/2023 4 :27 PM EST 12/25/2023 4:28 PM EST Connie Reed PA-C LAB - BLOOD DRAW Final Resu lt [employer] [address] [place] [address], [employer] [address] [place] [phone] * (ABNORMAL) COMPREHENSIVE METABOLIC PANEL (12/25/2023 4:27 PM EST) GLUCOSE 116(H) 65 - 99 mg/dL [facility] Comment: Fasting reference interval For someone without known diabetes, a glucose value between 100 and 125 mg/dL is consistent with prediabetes and should be confirmed with a follow-up test. UREA NITROGEN (BUN) 16 7 - 25 mg/dL [facility] CREATININE (blood) 0.78 0.50 - 1.03 mg/dL [facility] EGFR 90 > OR = 60 mL/min/1. 73m2 [employer] BUN/CREATININE RATIO SEE NOTE: [facility] Comment: Not Reported: BUN and Creatinine are within reference range. SODIUM 138 135 - 146 mmol/L [facility] POTASSIUM 4.5 3.5 - 5.3 mmol/L [facility] CHLORIDE 105 98 - 110 mmol/L [facility] CARBON DIOXIDE 27 20 - 32 mmol/L [facility] CALCIUM 9.8 8.6 - 10.4 mg/dL [facility] PROTEIN, TOTAL 7.4 6.1 - 8.1 g/dL [facility] ALBUMIN 4.4 3.6 - 5.1 g/dL [facility] GLOBULIN 3.0 1.9 - 3.7 g/dL (calc) [facility] ALBUMIN/GLOBULI N RATIO 1.5 1.0 - 2.5 (calc) [facility] BILIRUBIN, TOTAL 0.4 0.2 - 1.2 mg/dL [facility] ALKALINE PHOSPHATASE 108 37 - 153 U/L [employer] AST 27 10 - 35 U/L [facility] ALT 28 6 - 29 U/L [facility] Blood Blood / Unknown 12/25/2023 4 :27 PM EST 12/25/2023 4:28 PM EST Connie Reed PA-C LAB - BLOOD DRAW Edited Res ult - Final [employer] [address] [address], [employer] [address] [phone] * (ABNORMAL) LIPID PANEL (09/24/2023 1:48 PM EDT) CHOLESTEROL, TOTAL 255(H) <200 mg/dL [facility] HDL CHOLESTEROL 67 > OR = 50 mg/dL [facility] TRIGLYCERIDES 282(H) <150 mg/dL [facility] Comment: If a non-fasting specimen was collected, consider repeat triglyceride testing on a fasting specimen if clinically indicated. Deborah et al. J. of Clin. Lipidol. 2015;9:129-169. LDL-CHOLESTEROL 145(H) 99 mg/dL (calc) [facility] Comment: Reference range: <100 Desirable range <100 mg/dL for primary prevention; <70 mg/dL for patients with CHD or diabetic patients with > or = 2 CHD risk factors. LDL-C is now calculated using the Ramon calculation, which is a validated novel method providing better accuracy than the Friedewald equation in the estimation of LDL-C. Niraj FRENCH et al. BRITNI. 2013;310(19): 8098-7496 (http://education.AA Party/faq/AQE176) CHOL/HDLC RATIO 3.8 <5.0 (calc) [facility] NON-HDL CHOLESTEROL 188(H) <130 mg/dL (calc) [facility] Comment: For patients with diabetes plus 1 major ASCVD risk factor, treating to a non-HDL-C goal of <100 mg/dL (LDL-C of <70 mg/dL) is considered a therapeutic option. Blood Blood / Unknown 09/24/2023 1 :48 PM EDT 09/24/2023 1:51 PM EDT Sree TIAN LAB - BLOOD DRAW Final Result [employer] [address] [place] [address], [employer] [address] [phone] * HIV 1/2 AG & AB W/RFLX (4TH GEN) (06/22/2022 2:12 PM EDT) HIV AG/AB, 4TH GEN NON-REAC TIVE NON-REAC TIVE [facility] Comment: HIV-1 antigen and HIV-1/HIV-2 antibodies were [...] purpose. For additional information please refer to http://education.[employer]/faq/FEW984 (This link is being provided for informational/ educational purposes only.) The performance of this assay has not been clinically validated in patients less than 2 years old. Blood Blood / Unknown 06/22/2022 2 :12 PM EDT 06/22/2022 2:12 PM EDT Quirino Bustamante PA-C LAB - BLOOD DRAW Final Result [employer] [address] [place] [address], [employer] [address] [address] * THINPREP PAP W/IMAGING + HPV CT/NG (Q) (12/19/2021 2:06 PM EST) CHLAMYDIA TRACHOMATIS RNA, TMA NOT DETECTED NOT DETECTED [facility] NEISSERIA GONORRHOEAE RNA, TMA NOT DETECTED NOT DETECTED [facility] COMMENT [facility] CLINICAL INFORMATION See Note [facility] Comment:Postmenopausal LMP See Note [employer] Comment:NONE GIVEN PREV. PAP See Note [employer] Comment:NONE GIVEN PREV. BX See Note [employer] Comment:NONE GIVEN SOURCE See Note [employer] Comment:Cervix STATEMENT OF ADEQUACY See Note [employer] Comment: Satisfactory for evaluation. Endocervical/transformation zone component absent. INTERPRETATION/RESU LT See Note [employer] Comment:Negative for intraep ithelial lesion or malignancy. INFECTION See Note [employer] Comment: Shift in vaginal lacy suggestive of bacterial vaginosis. COMMENT See Note [employer] Comment: This Pap test has been evaluated with computer assisted technology. 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 Cervical sources are required for HPV testing. If a vaginal source from a patient who has had a total hysterectomy with removal of cervix was submitted, please contact the testing laboratory for alternative testing options. For additional information, please refer to http://education.UCloud Information Technology/faq/KGE868i7 (This link if provided for information/ educational purposes only.) Swab Cervix uteri structure / Unknown 12/19/2021 2:06 PM EST 12/20/2021 6:48 AM EST Narrative [employer] - 12/21/2021 1:35 PM EST EXPLANATORY NOTE: [...] test SurePath(TM) specimens have been determined by [employer]. The modifications have not been cleared or approved by the FDA. This assay has been validated pursuant to the CLIA regulations and is used for clinical purposes. For additional information, please refer to https://[employer]/faq/AUO372 (This link is being provided for information/ educational purposes only.) Sree TIAN LAB - [facility] Final Result [employer] [address] [address], [employer] [address] [address] * HEPATITIS C AB W/RFLX HCV RNA, QT, RT PCR (08/05/2021 3:41 PM EDT) HEPATITIS C ANTIBODY NON-REACT EMIR NON-REACT EMIR [facility] SIGNAL TO CUT-OFF 0.16 <1.00 [employer] Comment: HCV antibody was non-reactive. There is no laboratory evidence of HCV infection. In most cases, no further action is required. However, if recent HCV exposure is suspected, a test for HCV RNA (test code 11488) is suggested. For additional information please refer to http://education.[employer]/faq/NVS34c9 (This link is being provided for informational/ educational purposes only.) Blood Blood / Unknown 08/05/2021 3 :41 PM EDT 08/05/2021 3:41 PM EDT us Lisette Vega TAXATION AGENT-C LAB - BLOOD DRAW Edited Result - Final [facility] [address] [address], [facility] [address] [address] from Last 3 Months or Most Recently Relevant to Health Maintenance [place] Care Teams Gaming Pit Boss Relationship Specialty Start Date End Date Sree Liao PA [address] [place] [address] PCP - General FAMILY MEDICINEASMITA 12/19/21
== END 2024-10-31 10:34 | disposition home or self-care (01) ==
LOC: HO.HOS 09:55
PROVIDERS: PCP Physician Assistant; Visit Provider Physical Medicine & Rehabilitation
DX: M54.2 Cervicalgia (principal); G89.29 Other chronic pain; M05.741 Rheumatoid arthritis with rheumatoid factor of right hand without organ or systems involvement; M05.742 Rheumatoid arthritis with rheumatoid factor of left hand without organ or systems involvement
CPT/HCPCS: 99203

== ENCOUNTER 2024-10-31 09:55 | Outpatient (REF) | payer MEDICARE, MEDICAID, SELFPAY ==
--- NOTE | ~2024-10-31 | XR_ITS ---
CLINICAL HISTORY: M54.2 - Cervicalgia 4 views cervical spine Comparison: CR/SR - XR CERVICAL SPINE 4-5 VIEWS - 03/16/22 08:47 EST Findings: The alignment of the cervical spine is normal. No fracture is seen. There is no prevertebral soft tissue swelling. There is stable [id number] C5-6 and C6-7 degenerative disc disease. Impression: Ingn-sj-tsnowhni C5-6 and C6-7 degenerative disc disease. This document has been electronically signed by: Get Thakkar MD on 11/02/2024 03:03:05
== END 2024-10-31 09:56 | disposition home or self-care (01) ==
LOC: HO.HOSX 09:55
PROVIDERS: PCP Physician Assistant; Visit Provider Physical Medicine & Rehabilitation
DX: G89.29 Other chronic pain (principal); M54.2 Cervicalgia; M05.741 Rheumatoid arthritis with rheumatoid factor of right hand without organ or systems involvement; M05.742 Rheumatoid arthritis with rheumatoid factor of left hand without organ or systems involvement
CPT/HCPCS: 72040; 99202

== ENCOUNTER → 2024-10-31 10:34 | Outpatient (BNV) | payer MEDICARE, MEDICAID, SELFPAY | PROVIDERS: PCP Physician Assistant; Visit Provider Radiology Diagnostic Radiology | DX: M50.322 Other cervical disc degeneration at C5-C6 level (principal); M50.323 Other cervical disc degeneration at C6-C7 level | CPT/HCPCS: 72040 ==

== ENCOUNTER 2025-01-08 07:39 | Outpatient (AMB) | payer MEDICARE, MEDICAID, SELFPAY ==
--- OUTSIDE RECORDS SUMMARY | 2025-01-08 07:41 | XMS_ITS | Clinical Summary ---
Author Organization [facility] Address [address] [place] [phone] Phone Care Team Providers Care Automatic Die Cutting Machine Operator Name Role Phone Sree Liao Primary Care Provider [phone] Family History Medical History Relation Name Comments [...] Health Maintenance Due Date Last Done Comments Colorectal Cancer Screening: Colonoscopy 1969 Cervical Cancer Screening: Pap Smear 1990 HIV Screening 01/08/2022 Medicare Annual Wellness Visit 01/08/2022 Social Influencers of Health Screening 01/08/2022 Depression Screening 02/06/2024 COVID-19 Vaccine ( season) 2024 12/25/2023, 01/09/2023, 10/24/2021, Additional history exists Influenza Vaccine (#1) 2024 , 10/18/2022, 12/19/2021, Additional history exists Breast Cancer Screening 01/03/2026 01/04/2024, 11/10 Cholesterol Screening (Lipid Panel) 09/23/2028 09/24/2023, 09/24/2023, 10/18/2022, Additional history exists DTaP,Tdap,and Td Vaccines (2 - Td or Tdap) 08/24/2032 08/24/2022 Osteoporosis Screening (Bone Density Screening) 06/26/2034 06/26/2024 RSV Immunization Adult Patients (1 - 1-dose 75+ series) 2044 Hepatitis C Screening Completed 08/05/2021 Hepatitis B [...] probability of hip fracture of 0.1%. Code 96861 -------- FINAL REPORT -------- Dictated By: Tony Tom Dictated Date: 06/27/2024 07:56 ET Assigned Physician: Tony Tom Reviewed and Electronically Signed By: Tony Tom Signed Date: 06/27/2024 07:58 ET Workstation ID: [id number] Transcribed By: Self Edit Transcribed Date: 06/27/2024 [...] density of the femurs bilaterally is 1.083 gm/fs8henuw is 108% of that of young normals [...] probability of hip fracture of 0.1%. Code 66422 -------- FINAL REPORT -------- Dictated By: Tony Tom Dictated Date: 06/27/2024 07:56 ET Assigned Physician: Tony Tom Reviewed and Electronically Signed By: Tony Tom Signed Date: 06/27/2024 07:58 ET Workstation ID: [id number] Transcribed By: Self Edit Transcribed Date: 06/27/2024 07:56 ET us Ricardo Holloway MD [facility]ED[facility] Final Result * MG Mammo [...] Signed Date: 01/04/2024 17:52 ET Workstation ID: [id number] Transcribed By: Self Edit Transcribed Date: 01/04/2024 17:48 ET Narrative 01/04/2024 5:52 PM EST EXAM: SCREENING MAMMOGRAPHY, BILATERAL HISTORY: SCREENING. Family history of breast cancer, maternal aunt COMPARISON: 11/10/2022 TECHNIQUE: Synthesized CC and MLO projections of each breast. Tomosynthesis of each breast in the CC and MLO projections. ADDITIONAL IMAGING: None Computer-aided detection was employed with the [employer] AI 3-D. TISSUE DENSITY: There are scattered [...] None Computer-aided detection was employed with the [employer] AI 3-D. TISSUE DENSITY: There are scattered [...] Signed Date: 01/04/2024 17:52 ET Workstation ID: [id number] Transcribed By: Self Edit Transcribed Date: 01/04/2024 17:48 ET us Self Referral Sppl IMG BI PROCEDURES Final Resul t from Last 3 Months or Most Recently Relevant to Health Maintenance Insurance [place] MEDICARE Care Teams Automatic Die Cutting Machine Operator Relationship Specialty Start Date End Date Sree Liao PA [address] [place] [address] PCP - General Physician Trash Collector Truck Driver 12/19/23
--- NOTE | 2025-01-08 08:21 | MHC.OFFVIS ---
Intake Visit Reasons: OV-Cervical pain-HX of pinched nerve Intake Note: Liliya is a 54 year old female who presents today as a follow up for her cervical pain. At last visit she was referred to physical therapy and her first appointment is now on 01/27/25. At today's visit she states that her cervical pain is constant and her left side of her neck into the arm is radiating. She states that for the past week she is having intense pain that radiates from her left side of her neck into the shoulder. She noted it's so painful that she has to keep her arm up to help relieve the pain. Clinical Safety Manager Required: Yes Clinical Safety Manager Services: Clinical Safety Manager Present Clinical Safety Manager Name: Joshua [id number] Allergies No Known Allergies Allergy (Verified 10/31/24 10:06) Medication List - Last Reconciled 01/08/25 by Erika Sahu MD cetirizine 10 mg PO DAILY desvenlafaxine succinate ER 50 mg PO DAILY gabapentin 100 mg PO BEDTIME hydroxyzine HCl 25 mg PO BID PRN levothyroxine 100 mcg PO DAILY naproxen 500 mg PO BEDTIME upadacitinib ER (Rinvoq) 15 mg PO DAILY HPI Comments Details: History of seropositive erosive RA, follows with Dr. Diaz. Last cervical x-ray done in 2022, see below. Bilateral neck pain to upper trapezius. For last 2 days, she had more pain on left side - she explains that it's upper trapezius and not the shoulder pain. It started upon waking up and now better. She unfortunately has not started PT yet. EMG scheduled on 01/14. [facility] Medical History Low back pain, unspecified Peripheral artery disease Anxiety and depression Bilateral carpal tunnel syndrome Hypothyroidism Herniated disc, cervical Fibromyalgia Surgical History History of knee replacement H/O lateral meniscus repair of right knee History of surgery Hx of right knee surgery History of surgery Hx of cholecystectomy Family History Sister Fibromyalgia Paternal Aunt Arthritis Other Rheumatoid arthritis Social History (Updated 10/31/24 @ 10:07 by Griselda Tineo) Household Members: Family Alcohol intake: former Year quit: 2017 Patient Tobacco Use Status: Former Tobacco user Current occupational status: disabled Current occupation: RT handed- 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 Patient was appropriately conversant and oriented. Good historian. MSK: Inspection reveals appropriate head and neck positioning. 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 No tenderness over cervical spinous processes. Cervical ROM was full. Spurling's sign negative. Left shoulder range of motion is full. No tenderness over subacromial area. Negative Lantigua sign. Negative empty can sign. Strength is 5/5 in all muscle groups tested. No increased tone noted. Neurological: Neurologic examination of the upper and lower extremities was nonfocal with intact sensation, muscle stretch reflexes and without focal motor deficits . Villasenor?s negative bilaterally Gait is non-antalgic without loss of balance. Results Reviewed Results Reviewed: Ordering Physician: Erika Felipe Date of Service: 10/31/24 Procedure(s): XR cervical spine 3V Accession Number(s): [id number] cc: Sree Liao; Erika Felipe~ Reason for Exam: M54.2 - Cervicalgia CLINICAL HISTORY: M54.2 - Cervicalgia 4 views cervical spine Comparison: CR/SR - XR CERVICAL SPINE 4-5 VIEWS - 03/16/22 08:47 EST Findings: The alignment of the cervical spine is normal. No fracture is seen. There is no prevertebral soft tissue swelling. There is stable [id number] C5-6 and C6-7 degenerative disc disease. Impression: [id number] C5-6 and C6-7 degenerative disc disease. This document has been electronically signed by: Get Thakkar MD on 11/02/2024 03:03:05 Assessment & Plan Assessment & Plan (1) Chronic neck pain: Code(s): M54.2 - Cervicalgia; G89.29 - Other chronic pain Category: Medical (2) Rheumatoid arthritis involving both hands with positive rheumatoid factor: Comment: dx 2012 +++RF+++CCP erosive in [place] Failed Enbrel Had palpitations with Xeljanz On Orencia +MTX started 2018 MTX DC 05/28 due to transaminitis Cimzia 06/27 -11/27 ineffective Rinvoq 12/2022 effective Code(s): M05.741 - Rheumatoid arthritis with rheumatoid factor of right hand without organ or systems involvement; M05.742 - Rheumatoid arthritis with rheumatoid factor of left hand without organ or systems involvement Category: Medical (3) Myofascial pain: Code(s): M79.18 - Myalgia, other site Category: Medical (4) Cervical spondylosis: Code(s): M47.812 - Spondylosis without myelopathy or radiculopathy, cervical region Category: Medical Plan Most of her pain continues to be on left upper trapezius, without signs of rotator cuff injury or cervical radiculopathy or myelopathy. Continue with initial recommendation of physical therapy, to start 01/27. EMG scheduled for next week. Ordered by hand surgery for hand numbness. Discussed possibility of trigger point injections. Patient is eager to proceed and it will be scheduled for February. Assessment and plan discussed with patient, and patient was agreeable. All questions were answered thoroughly. Erika Sahu MD, CANDELARIO Board Certified, [place] [employer] and Rehabilitation (ABPMR) Board Certified, [place] [employer] Electro[employer] (ABEM) Coding Level of Care Code Est Pt Level 3 (52572) Diagnoses Chronic neck pain M54.2; G89.29 Rheumatoid arthritis involving both hands with positive rheumatoid factor M05.741; M05.742 Myofascial pain M79.18 Cervical spondylosis M47.812
== END 2025-01-08 08:53 | disposition home or self-care (01) ==
LOC: HO.HOS 07:40
PROVIDERS: PCP Physician Assistant; Visit Provider Physical Medicine & Rehabilitation
DX: M54.2 Cervicalgia (principal); G89.29 Other chronic pain; M05.741 Rheumatoid arthritis with rheumatoid factor of right hand without organ or systems involvement; M05.742 Rheumatoid arthritis with rheumatoid factor of left hand without organ or systems involvement; M79.18 Myalgia, other site; M47.812 Spondylosis without myelopathy or radiculopathy, cervical region
CPT/HCPCS: 99213

== ENCOUNTER → 2025-01-08 07:39 | Outpatient (BNVA) | payer MEDICARE, MEDICAID, SELFPAY | PROVIDERS: PCP Physician Assistant; Visit Provider Physical Medicine & Rehabilitation | DX: M54.2 Cervicalgia (principal); M47.812 Spondylosis without myelopathy or radiculopathy, cervical region; M79.18 Myalgia, other site; M05.741 Rheumatoid arthritis with rheumatoid factor of right hand without organ or systems involvement; M05.742 Rheumatoid arthritis with rheumatoid factor of left hand without organ or systems involvement; G89.29 Other chronic pain | CPT/HCPCS: 99212 ==

== ENCOUNTER 2025-01-14 09:16 | Outpatient (REF) | payer MEDICARE, MEDICAID, SELFPAY ==
--- NOTE | 2025-01-14 09:19 | EMG_ITS ---
Chief complaint: Bilateral hand numbness, neck pain Reason for referral: Evaluate for Carpal Tunnel Syndrome versus radiculopathy Referred by: Dewayne TIAN Procedure done: Bilateral upper extremities NCS/EMG Precautions and/or limitations: None The limb temperature was monitored continuously and remained between 32-36 degrees C during the performance of the NCS. Nerve Conduction Studies Anti Sensory Summary Table ?Stim Site NR Onset (ms) Norm Onset (ms) Peak (ms) Norm Peak (ms) O-P Amp (?V) Norm O-P Amp Site1 Site2 Delta-0 (ms) Dist (cm) Gato (m/s) Norm Gato (m/s) Left Median Anti Sensory (2nd Digit) Wrist ? 2.5 3.2 <3.6 46.9 >10 Wrist 2nd Digit 2.5 14.0 56 Right Median Anti Sensory (2nd Digit) Wrist ? 2.8 3.8 <3.6 41.3 >10 Wrist 2nd Digit 2.8 14.0 50 Left Ulnar Anti Sensory (5th Digit) Wrist ? 2.5 3.1 <3.7 40.6 >15.0 Wrist 5th Digit 2.5 14.0 56 Right Ulnar Anti Sensory (5th Digit) Wrist ? 2.5 3.2 <3.7 38.9 >15.0 Wrist 5th Digit 2.5 14.0 56 Motor Summary Table ?Stim Site NR Onset (ms) Norm Onset (ms) O-P Amp (mV) Norm O-P Amp iAmp (mV) Amp (1st) (%) Site1 Site2 Delta-0 (ms) Dist (cm) Gato (m/s) Norm Gato (m/s) Left Median Motor (Abd Poll Brev) Wrist ? 3.9 <3.9 8.5 >4.5 9.7 100.0 Elbow Wrist 3.4 19.5 57 >45 Elbow ? 7.3 7.5 8.6 88.2 Right Median Motor (Abd Poll Brev) Wrist ? 3.6 <3.9 16.0 >4.5 20.1 100.0 Elbow Wrist 3.6 21.0 58 >45 Elbow ? 7.2 14.3 18.1 89.4 Left Ulnar Motor (Abd Dig Minimi) Wrist ? 2.7 <3.0 6.4 >5 7.7 100.0 B Elbow Wrist 2.9 18.0 62 >45 B Elbow ? 5.6 6.4 7.8 100.0 A Elbow B Elbow 1.4 10.0 71 >45 A Elbow ? 7.0 6.4 7.8 100.0 Right Ulnar Motor (Abd Dig Minimi) Wrist ? 2.7 <3.0 6.0 >5 7.2 100.0 B Elbow Wrist 2.9 18.0 62 >45 B Elbow ? 5.6 6.0 7.4 100.0 A Elbow B Elbow 1.1 10.0 91 >45 A Elbow ? 6.7 5.9 7.4 98.3 Comparison Summary Table ?Stim Site NR Peak (ms) Norm Peak (ms) P-T Amp (?V) Site1 Site2 Delta-P (ms) Norm Delta (ms) Right Median/Radial Dig I Comparison (Digit 1 - 10cm) Median ? 3.0 <2.9 84.6 Median Radial 0.2 Radial ? 2.8 <2.8 11.1 EMG ?Side Muscle Nerve Root Ins Act Fibs Psw Amp Dur Poly Recrt Int Pat Comment Right 1stDorInt Ulnar C8-T1 Nml Nml Nml Nml Nml 0 Nml Complete Right FlexCarRad Median C6-7 Nml Nml Nml Nml Nml 0 Nml Complete Right Biceps Musculocut C5-6 Nml Nml Nml Nml Nml 0 Nml Complete Right Triceps Radial C6-7-8 Nml Nml Nml Nml Nml 0 Nml Complete Right Deltoid Axillary C5-6 Nml Nml Nml Nml Nml 0 Nml Complete Left 1stDorInt Ulnar C8-T1 Nml Nml Nml Nml Nml 0 Nml Complete Left FlexCarRad Median C6-7 Nml Nml Nml Nml Nml 0 Nml Complete Left Biceps Musculocut C5-6 Nml Nml Nml Nml Nml 0 Nml Complete Left Triceps Radial C6-7-8 Nml Nml Nml Nml Nml 0 Nml Complete Left Deltoid Axillary C5-6 Nml Nml Nml Nml Nml 0 Nml Complete FINDINGS: Right median sensory nerve showed prolonged peak latency. All other nerves tested were within normal. Concentric needle EMG was performed in selected muscles of the bilateral upper extremities. Study did not reveal signs of electric abnormalities as shown in the table above. IMPRESSION: 1. This is an abnormal study. 2. There is electrodiagnostic evidence for right mild median neuropathy at the wrist, consistent with carpal tunnel syndrome. 3. There is no electrodiagnostic evidence for ulnar neuropathy, brachial plexopathy, or cervical radiculopathy. 4. No evidence of median neuropathy on the left. Thank you for your kind referral. Erika Sahu MD, CANDELARIO Board Certified, [place] [employer] and [employer] (ABPMR) Board Certified, [place] [employer] Electro[employer] (ABEM) CODIN [phone] x 2 extremities MTDD
== END 2025-01-14 09:17 | disposition home or self-care (01) ==
LOC: HO.NEURO 09:16
PROVIDERS: PCP Physician Assistant
DX: R20.2 Paresthesia of skin (principal); R20.0 Anesthesia of skin; M54.2 Cervicalgia
CPT/HCPCS: 95886; 95911

== ENCOUNTER → 2025-01-14 09:19 | Outpatient (BNV) | payer MEDICARE, MEDICAID, SELFPAY | PROVIDERS: PCP Physician Assistant; Visit Provider Physical Medicine & Rehabilitation | DX: G56.01 Carpal tunnel syndrome, right upper limb (principal); R20.0 Anesthesia of skin | CPT/HCPCS: 95886; 95911 ==